=== PATIENT | female | born 1970 | race Caucasian/White ===

== ENCOUNTER → 2016-11-05 | Outpatient (CLI) | payer MEDICAID ==
[2016-11-05 12:34] LABS: Hemoglobin A1C 8.6 % (4.2-6.1)
[2016-11-05 13:02] LABS: ALT 42 U/L (9-52); AST 25 U/L (14-36); Alkaline Phosphatase 54 U/L (38-126); Anion Gap 8 mmol/L; Blood Urea Nitrogen 16 mg/dL (7-17); Calcium 9.7 mg/dL (8.4-10.2); Carbon Dioxide 32 mmol/L (22-30); Chloride 102 mmol/L (98-107); Cholesterol 152 mg/dL (<200); Glucose 77 mg/dL (74-99); HDL Cholesterol 82 mg/dL (40-60); Magnesium 1.5 mg/dL (1.6-2.3); Non-African American GFR(MDRD) >60 (>60 ml/min/1.73 sqM); Potassium 4.8 mmol/L (3.5-5.1); Sodium 142 mmol/L (137-145); Total Bilirubin 0.6 mg/dL (0.2-1.3); Total Protein 6.8 g/dL (6.3-8.2); Triglycerides 117 mg/dL (<150)
== END | disposition home or self-care (01) ==
LOC: LABWHC1 11:30
PROVIDERS: ATTEND Internal Medicine Endocrinology, Diabetes & Metabolism
DX: E11.65 Type 2 diabetes mellitus with hyperglycemia (principal); E55.9 Vitamin D deficiency, unspecified; E03.9 Hypothyroidism, unspecified
CPT/HCPCS: 36415; 80053; 80061; 82043; 82306; 83036; 83735; 84439; 84443

== ENCOUNTER 2017-12-24 16:53 | Observation (INO) | payer BC, MEDICAID ==
[2017-12-24] MEDS ORDERED: ASPIRIN 81 MG PO STA (17:31)
[2017-12-24] MEDS ORDERED: NITROGLYCERIN OINT 1 INCH/GM PACKET TOPICAL STA (17:31)
[2017-12-24 17:47] LABS: Basophils % (A) 0 %; Eosinophils % (A) 1 %; HCT 39.4 % (34.0-46.0); Lymphocytes # (A) 1.3 k/uL (1.0-4.8); Lymphocytes % (A) 16 %; MCH 29.3 pg (25.0-35.0); MCV 88.5 fL (80.0-100.0); Mean Platelet Volume 8.3; Monocytes # (A) 0.2 k/uL (0-1.0); Monocytes % (A) 3 %; Neutrophils # (A) 6.3 k/uL (1.3-7.7); Neutrophils % (A) 80 %; Platelet Count 175 k/uL (150-450); RBC 4.45 m/uL (3.80-5.40); RDW 14.1 % (11.5-15.5); WBC 7.9 k/uL (3.8-10.6)
[2017-12-24 18:01] LABS: ALT 29 U/L (9-52); AST 30 U/L (14-36); Alkaline Phosphatase 48 U/L (38-126); Anion Gap 13 mmol/L; Blood Urea Nitrogen 19 mg/dL (7-17); Calcium 9.6 mg/dL (8.4-10.2); Carbon Dioxide 22 mmol/L (22-30); Chloride 104 mmol/L (98-107); Glucose 188 mg/dL (74-99); Magnesium 1.3 mg/dL (1.6-2.3); Partial Thromboplastin Time 23.8 sec (22.0-30.0); Potassium 5.5 mmol/L (3.5-5.1); Prothrombin Time 10.1 sec (9.0-12.0); Sodium 139 mmol/L (137-145); Total Bilirubin 0.5 mg/dL (0.2-1.3); Total Protein 6.9 g/dL (6.3-8.2)
[2017-12-24 18:32] LABS: Creatine Kinase 46 U/L (30-135)
--- NOTE | 2017-12-24 18:37 | XR ---
EXAMINATION: XR chest 2V DATE AND TIME: 12/24/2017 5:52 PM ORDERING PROVIDER: Ilir Templeton DO CLINICAL INDICATION: Chest Pain with dyspnea. TECHNIQUE: 2 views COMPARISON: 10/20/2016 DESCRIPTION: The lungs are clear. The pleural spaces are negative. The cardiac silhouette is not enlarged. The mediastinal and pleural silhouettes are unremarkable. The skeletal structures are intact without focal findings. The overlying soft tissues are prominent. IMPRESSION: NO ACUTE PROCESS.
[2017-12-24 18:45] LABS: Creatine Kinase MB 0.4 ng/mL (0.0-2.4); Troponin I <0.012 ng/mL (0.000-0.034)
[2017-12-24] MEDS ORDERED: SODIUM POLYSTYRENE SULFONATE 15 GM/60 ML BOTTLE PO STA (19:09)
[2017-12-24] MEDS ORDERED: NITROGLYCERIN SL TABS 0.4 MG TAB SUBLINGUAL PRN (19:17)
--- NOTE | 2017-12-24 19:17 | ED ---
Chest Pain HPI - General Chief Complaint: Chest Pain Stated Complaint: Chest Pain and SOB Time Seen by Provider: 12/24/17 17:18 Source: patient Mode of arrival: wheelchair Limitations: no limitations - History of Present Illness Initial Comments: This 47-year-old white female presents with a complaint of some chest pain. She describes it as a mid to left-sided chest pain that radiates up into her jaw. It occurred approximately one hour prior to arrival. It is associated with some shortness of breath. She denies any history of previous coronary artery disease or myocardial infarction. She does relate that she's had previous cardiac ablations for SVT and atrial flutter and does see Dr. Garcia from cardiology. Her last stress test was remote. She denies any leg pain or swelling or history of DVT or PE. No other complaints or modifying factors. - Related Data Home Medications Medication Instructions Recorded Confirmed Aspirin [Aspirin] 81 mg PO DAILY 06/02/14 12/24/17 Insulin Aspart [NovoLOG] 35 units SQ DAILY 06/02/14 12/24/17 Levothyroxine Sodium [Synthroid] 224 mcg PO DAILY 06/02/14 12/24/17 Methenamine Hippurate [Hiprex] 1 gm PO BID 06/02/14 12/24/17 metFORMIN HCL [Glucophage] 1,000 mg PO BID 06/02/14 12/24/17 Cholecalciferol [Vitamin D3] 5,000 unit PO DAILY 10/31/15 12/24/17 Metoprolol Tartrate [Lopressor] 100 mg PO DAILY 10/31/15 12/24/17 ARIPiprazole [Abilify] 5 mg PO DAILY 12/24/17 12/24/17 Albuterol Inhaler [Ventolin Hfa 2 puff INHALATION RT-Q4H PRN 12/24/17 12/24/17 Inhaler] Atorvastatin [Lipitor] 20 mg PO HS 12/24/17 12/24/17 Insulin Aspart [NovoLOG 40 unit SQ HS 12/24/17 12/24/17 (formulary)] Insulin Glargine [Lantus] 60 unit SQ BID 12/24/17 12/24/17 LORazepam [Ativan] 0.5 mg PO DAILY PRN 12/24/17 12/24/17 Lisinopril [Prinivil] 5 mg PO DAILY 12/24/17 12/24/17 Magnesium Oxide [Rodríguez] 500 mg PO DAILY 12/24/17 12/24/17 Metoprolol Tartrate [Lopressor] 75 mg PO HS 12/24/17 12/24/17 Multivitamins, Thera [Multivitamin 1 tab PO DAILY 12/24/17 12/24/17 (formulary)] Ondansetron HCl [Zofran] 8 mg PO DAILY 12/24/17 12/24/17 Pioglitazone [Actos] 30 mg PO DAILY 12/24/17 12/24/17 Sertraline HCl [Zoloft] 150 mg PO DAILY 12/24/17 12/24/17 oxyCODONE-APAP 7.5-325MG [Percocet 1 tab PO Q6HR PRN 12/24/17 12/24/17 7.5-325 mg] Allergies Allergy/AdvReac Type Severity Reaction Status Date / Time cephalexin [From Keflex] Allergy Unknown Verified 12/24/17 17:20 fosfomycin Allergy Unknown Verified 12/24/17 17:20 nickel Allergy Unknown Verified 12/24/17 17:20 Penicillins Allergy Anaphylaxis Verified 12/24/17 17:20 homatropine AdvReac Chest Pain Verified 12/24/17 17:20 [From Hycodan (with homatropin)] homatropine methylbromide AdvReac Chest Pain Verified 12/24/17 17:20 [From Hycodan (with homatropin)] hydrocodone bitartrate AdvReac Chest Pain Verified 12/24/17 17:20 [From Hycodan (with homatropin)] promethazine HCl AdvReac Abdominal Verified 12/24/17 17:20 [From Phenergan] Pain propafenone HCl AdvReac Chest Pain Verified 12/24/17 17:20 [From Rythmol] pseudoephedrine HCl AdvReac Rapid Verified 12/24/17 17:20 [From Sudafed] Heart Rate Review of Systems ROS Statement: Those systems with pertinent positive or pertinent negative responses have been documented in the HPI. ROS Other: All systems not noted in ROS Statement are negative. Past Medical History Past Medical History: Cancer, Chest Pain / Angina, Diabetes Mellitus, Hypertension, Thyroid Disorder Additional Past Medical History / Comment(s): OVARIAN CA History of Any Multi-Drug Resistant Organisms: MRSA Date of last positivie culture/infection: 2011 MDRO Source:: ABD WOUND Past Surgical History: Bariatric Surgery, Bowel Resection, Cholecystectomy, EPS , Heart Catheterization, Hysterectomy Additional Past Surgical History / Comment(s): COLOSTOMY, Past Anesthesia/Blood Transfusion Reactions: No Reported Reaction Past Psychological History: Anxiety, Panic Disorder Smoking Status: Never smoker Past Alcohol Use History: None Reported Past Drug Use History: None Reported General Exam - General Exam Comments Initial Comments: GENERAL: The patient is well nourished and well hydrated. VITAL SIGNS: Heart rate, blood pressure, respiratory rate reviewed as recorded in nurse's notes. EYES: Pupils are round and reactive. Extraocular movements are intact. No conjunctival / lid redness or swelling. ENT: No external evidence of injury, swelling, or ecchymosis. Airway is patent. Throat is clear. NECK: Nontender. No swelling or evidence of injury. No subcutaneous emphysema. Trachea is midline. No thyroid mass. HEART: Regular rate and rhythm. Good peripheral pulses. LUNGS/CHEST: Breath sounds clear and equal bilaterally. No rales, rhonchi, or wheezes. No ecchymosis, subcutaneous emphysema, or tenderness. ABDOMEN: Abdomen soft without tenderness. No palpable masses or organomegaly. No peritoneal signs. No abdominal wall swelling or ecchymosis. Morbid obesity noted. EXTREMITIES: No extremity tenderness or swelling. Normal muscle tone and function. No thoracolumbar tenderness. NEUROLOGIC: Sensation is grossly intact. Cranial nerve exam reveals face is symmetrical, tongue is midline, speech is clear. SKIN: No abrasions or ecchymosis is noted. No induration or masses noted. PSYCHIATRIC: Alert and oriented. Appropriate behavior and judgment. Limitations: no limitations Course Vital Signs 12/24/17 12/24/17 12/24/17 17:01 17:05 18:22 Temperature 98.1 F Pulse Rate 87 84 80 Respiratory 20 18 18 Rate Blood Pressure 143/79 125/89 120/64 O2 Sat by Pulse 95 99 100 Oximetry Chest Pain MDM - MDM The patient was seen and examined. All diagnostics were reviewed. The patient had a EKG completed which is show a normal sinus rhythm at a rate of 88. There is no acute ST-T wave changes noted. The MO intervals 154, QRS duration is 102 , and the QTC intervals 421. The patient also had a laboratory analysis which does show evidence of hyperkalemia and hypomagnesemia. The cardiac enzymes are negative. The chest x-ray does not show any acute processes. The possibility acute coronary syndrome still is possible and it is felt as though she would benefit from admission to the hospital for further workup and treatment. The case is discussed with Dr. Fernandez and he is agreeable with admission and the patient is agreeable as well. Disposition Clinical Impression: Chest pain, Unstable angina pectoris, Morbid obesity Disposition: ADMITTED IP TO THIS HOSP Condition: Fair Time of Disposition: 19:15 Decision Date: 12/24/17 Decision Time: 19:16
[2017-12-24] MEDS: MAGNESIUM SULFATE-D5W PMX 1 GM in DEXTROSE/WATER 1 100ML.BAG IVPB SCH ×2 (19:19→23:54)
[2017-12-24] MEDS ORDERED: LORazepam 0.5 MG TAB PO PRN (19:20)
[2017-12-24] MEDS ORDERED: ALBUTEROL NEBULIZED 2.5 MG/3 ML INHALATION PRN (19:20)
[2017-12-24] MEDS ORDERED: oxyCODONE-APAP 7.5-325MG 1 EACH TAB PO PRN (19:20)
--- NOTE | 2017-12-24 19:23 | ED ---
Medical Decision Making - Lab Data Result diagrams: 12/24/17 17:14 12/24/17 17:14 Lab Results 12/24/17 12/24/17 12/24/17 Range/Units 17:14 17:14 17:14 WBC 7.9 (3.8-10.6) k/uL RBC 4.45 (3.80-5.40) m/uL Hgb 13.0 (11.4-16.0) gm/dL Hct 39.4 (34.0-46.0) % MCV 88.5 (80.0-100.0) fL MCH 29.3 (25.0-35.0) pg MCHC 33.0 (31.0-37.0) g/dL RDW 14.1 (11.5-15.5) % Plt Count 175 (150-450) k/uL Neutrophils % 80 % Lymphocytes % 16 % Monocytes % 3 % Eosinophils % 1 % Basophils % 0 % Neutrophils # 6.3 (1.3-7.7) k/uL Lymphocytes # 1.3 (1.0-4.8) k/uL Monocytes # 0.2 (0-1.0) k/uL Eosinophils # 0.0 (0-0.7) k/uL Basophils # 0.0 (0-0.2) k/uL PT (9.0-12.0) sec INR (<1.2) APTT (22.0-30.0) sec Sodium 139 (137-145) mmol/L Potassium 5.5 H (3.5-5.1) mmol/L Chloride 104 (98-107) mmol/L Carbon Dioxide 22 (22-30) mmol/L Anion Gap 13 mmol/L BUN 19 H (7-17) mg/dL Creatinine 0.70 (0.52-1.04) mg/dL Est GFR (CKD-EPI)AfAm >90 (>60 ml/min/1.73 sqM) Est GFR (CKD-EPI)NonAf >90 (>60 ml/min/1.73 sqM) Glucose 188 H (74-99) mg/dL Calcium 9.6 (8.4-10.2) mg/dL Magnesium 1.3 L (1.6-2.3) mg/dL Total Bilirubin 0.5 (0.2-1.3) mg/dL AST 30 (14-36) U/L ALT 29 (9-52) U/L Alkaline Phosphatase 48 (38-126) U/L Total Creatine Kinase 46 (30-135) U/L CK-MB (CK-2) 0.4 (0.0-2.4) ng/mL CK-MB (CK-2) Rel Index 0.9 Troponin I <0.012 (0.000-0.034) ng/mL NT-Pro-B Natriuret Pep pg/mL Total Protein 6.9 (6.3-8.2) g/dL Albumin 4.0 (3.5-5.0) g/dL 12/24/17 12/24/17 Range/Units 17:14 17:14 WBC (3.8-10.6) k/uL RBC (3.80-5.40) m/uL Hgb (11.4-16.0) gm/dL Hct (34.0-46.0) % MCV (80.0-100.0) fL MCH (25.0-35.0) pg MCHC (31.0-37.0) g/dL RDW (11.5-15.5) % Plt Count (150-450) k/uL Neutrophils % % Lymphocytes % % Monocytes % % Eosinophils % % Basophils % % Neutrophils # (1.3-7.7) k/uL Lymphocytes # (1.0-4.8) k/uL Monocytes # (0-1.0) k/uL Eosinophils # (0-0.7) k/uL Basophils # (0-0.2) k/uL PT 10.1 (9.0-12.0) sec INR 1.0 (<1.2) APTT 23.8 (22.0-30.0) sec Sodium (137-145) mmol/L Potassium (3.5-5.1) mmol/L Chloride (98-107) mmol/L Carbon Dioxide (22-30) mmol/L Anion Gap mmol/L BUN (7-17) mg/dL Creatinine (0.52-1.04) mg/dL Est GFR (CKD-EPI)AfAm (>60 ml/min/1.73 sqM) Est GFR (CKD-EPI)NonAf (>60 ml/min/1.73 sqM) Glucose (74-99) mg/dL Calcium (8.4-10.2) mg/dL Magnesium (1.6-2.3) mg/dL Total Bilirubin (0.2-1.3) mg/dL AST (14-36) U/L ALT (9-52) U/L Alkaline Phosphatase (38-126) U/L Total Creatine Kinase (30-135) U/L CK-MB (CK-2) (0.0-2.4) ng/mL CK-MB (CK-2) Rel Index Troponin I (0.000-0.034) ng/mL NT-Pro-B Natriuret Pep 443 pg/mL Total Protein (6.3-8.2) g/dL Albumin (3.5-5.0) g/dL Disposition Clinical Impression: Chest pain, Unstable angina pectoris, Morbid obesity, Hypomagnesemia, Hyperkalemia, Hyperglycemia, Diabetes Disposition: ADMITTED IP TO THIS HOSP Condition: Fair Referrals: Rebel Cast MD [Primary Care Provider] - 1-2 days
[2017-12-24 20:51] LABS: Glucose,Whole Blood 245 mg/dL (75-99)
[2017-12-24] MEDS ORDERED: ATORVASTATIN 20 MG TAB PO SCH (21:00)
[2017-12-24] MEDS ORDERED: METOPROLOL TARTRATE 25 MG TAB PO SCH (21:00)
[2017-12-24] MEDS ORDERED: INSULIN ASPART 100 UNIT/ML 1 ML 10 ML VIAL SQ ONE (21:23)
[2017-12-24] MEDS: metFORMIN 500 MG TAB PO SCH (21:34)
[2017-12-24] MEDS: INSULIN DETEMIR 100 UNIT/ML 10 ML VIAL SQ SCH (21:37)
[2017-12-24 22:01] VITALS: BMI 61.5
[2017-12-24] MEDS: HIPREX 1 GM PO SCH (22:56)
[2017-12-24 23:30] LABS: Creatine Kinase 36 U/L (30-135)
[2017-12-24 23:42] LABS: Creatine Kinase MB 0.3 ng/mL (0.0-2.4); Troponin I <0.012 ng/mL (0.000-0.034)
--- NOTE | 2017-12-25 03:18 | HP ---
HISTORY AND PHYSICAL DATE OF SERVICE: 12/24/2017 CHIEF COMPLAINT: Chest pain. HISTORY OF PRESENT ILLNESS: This 47-year-old woman with a past medical history of multiple medical problems including history of chest pain, history of diabetes, hypertension, hypothyroidism, ovarian cancer, history of MRSA, bariatric surgery, bowel resection, being followed by in the outpatient setting, was complaining of chest pain. The pain was felt in the mid left side of the chest radiated to the jaw. The pain started about 1 hour prior to arrival to the ER. Mild to moderate intensity. The patient also had some shortness of breath. There is no other symptoms of relieving or aggravating factors and the patient is admitted for further evaluation and treatment. The patient had previously had ablations for SVT and atrial flutter. The patient also apparently had a cardiac cath in 2003 and stress test a few years ago. The patient admitted for further evaluation and treatment. Initial cardiac testing is negative at this time. There is no history of fever, rigors. No history of headache, loss of consciousness or seizures. PAST MEDICAL HISTORY: Diabetes, hypertension, ovarian cancer, MRSA, bariatric surgery, bowel obstruction. MEDICATIONS: Prior to admission include home medications are: 1. NovoLog 35 units subcu a.c. breakfast. 2. NovoLog 40 units subcu b.i.d. 3. Oxycodone 7.5 q.6 hours. 4. Lopressor 75 mg q.h.s. 5. Lipitor 20 mg at bedtime. 6. Ventolin HFA 1 to 2 puffs q.4h p.r.n. 7. Abilify 5 mg p.o. daily. 8. Lantus 60 units subcu b.i.d. 9. Zoloft 150 mg p.o. b.i.d. 10.Multivitamins 1 p.o. daily. 11.Vitamin D3 5000 daily. 12.Aspirin 81 mg. 13.Hyprexa 1 g p.o. b.i.d. 14.Prilosec 20 mg p.o. daily. 15.Ativan 0.5 mg daily p.r.n. 16.Lopressor 100 mg p.o. daily. 17.Glucophage 1000 mg p.o. b.i.d. 18.Actos 30 mg. 19.Synthroid 224 mcg p.o. 20.Zofran 8 mg p.o. daily. ALLERGIES: ARE CEPHALEXIN, NICKEL, PENICILLIN, HOMATROPINE, HYDROCODONE, PROMETHAZINE, RYTHMOL, SUDAFED. FAMILY HISTORY: History of CVA, TIA, and premature coronary artery disease in the family. SOCIAL HISTORY: No history of smoking. No history of alcohol intake. REVIEW OF SYSTEMS: ENT: No diminished hearing or vision. CARDIOVASCULAR: As mentioned earlier. Respiratory: As mentioned earlier. GI no nausea or vomiting. no dysuria. Nervous system: No numbness or weakness. ALLERGY/IMMUNOLOGY: No asthma or hayfever. Musculoskeletal: As mentioned earlier. Hematology/Oncology:No history of anemia. ENDOCRINE: Hypothyroidism. CONSTITUTIONAL: As mentioned earlier. DERMATOLOGY: Negative. Rheumatology: Negative. Psychiatric: As mentioned earlier. PHYSICAL EXAM: Patient is alert, oriented x3. The pulse is 62, blood pressure 160/44, respirations 16, temperature 98 degrees, pulse ox 98% on room air. HEENT is conjunctivae normal. Neck: No jugular venous distention. Cardiovascular: S1, S2. Respirations: Breath sounds diminished in the bases. No rhonchi and no crackles. ABDOMEN: Soft, nontender. No mass palpable. Legs no edema and no swelling. NERVOUS SYSTEM: Higher functions as mentioned earlier, moves all 4 limbs, no focal motor deficits. Lymphatics: No lymph nodes palpable in the neck, axillae or groin. Skin no ulcers, rashes or bleeding. LAB STUDIES: At this time shows WBC 7, hemoglobin is normal. Potassium 5.5. Otherwise, magnesium is 1.3. ASSESSMENT: 1. Chest pain possible unstable angina. 2. Hyperkalemia. 3. Hypomagnesemia, mild. 4. History of diabetes type 2. 5. Hypertension. 6. History of cardiac ablation. 7. Ovarian cancer history. 8. History of Methicillin-resistant Staphylococcus aureus. 9. History of bariatric surgery. 10.Bowel resection. 11.History of anxiety and panic disorder. 12.Obesity with body mass 61.5. RECOMMENDATIONS AND DISCUSSION: In this 47-year-old woman who presented with multiple complex medical issues, we will monitor the patient closely, continue the current medications, acute coronary syndrome protocol. Rule out myocardial infarction. Closely follow with Cardiology. Otherwise resume the home medications. Prognosis guarded. Discussed with the patient, who understands and agrees. Copy of dictation being forwarded to Dr. Cast who is the primary physician. MMODL / IJN: [id number] / [id number]
[2017-12-25 06:06] LABS: Cholesterol 127 mg/dL (<200); HDL Cholesterol 74 mg/dL (40-60); LDL Cholesterol,Calculated 37 mg/dL (0-99); Triglycerides 80 mg/dL (<150)
[2017-12-25 06:13] LABS: Creatine Kinase 34 U/L (30-135)
[2017-12-25] MEDS: NITROGLYCERIN OINT 1 INCH/GM PACKET TOPICAL SCH ×2 (06:23→06:24)
[2017-12-25 06:26] LABS: Creatine Kinase MB 0.3 ng/mL (0.0-2.4); Troponin I <0.012 ng/mL (0.000-0.034)
[2017-12-25] MEDS ORDERED: LEVOTHYROXINE 112 MCG TAB PO SCH (06:30)
[2017-12-25] MEDS ORDERED: INSULIN ASPART 100 UNIT/ML 1 ML 10 ML VIAL SQ SCH ×2 (07:30→12:30)
[2017-12-25 07:52] VITALS: RESP 18
[2017-12-25 07:58] LABS: Glucose,Whole Blood 157 mg/dL (75-99)
[2017-12-25] MEDS ORDERED: PIOGLITAZONE 30 MG TAB PO SCH (09:00)
[2017-12-25] MEDS ORDERED: LISINOPRIL 5 MG TAB PO SCH (09:00)
[2017-12-25] MEDS ORDERED: MULTIVITAMINS, THERA 1 EACH TAB PO SCH (09:00)
[2017-12-25] MEDS ORDERED: METOPROLOL TARTRATE 50 MG TAB PO SCH (09:00)
[2017-12-25] MEDS ORDERED: ASPIRIN 81 MG PO SCH (09:00)
[2017-12-25] MEDS ORDERED: SERTRALINE 50 MG TAB PO SCH (09:00)
[2017-12-25] MEDS ORDERED: MAGNESIUM OXIDE 400 MG TAB PO SCH (09:00)
[2017-12-25] MEDS ORDERED: ENOXAPARIN 40 MG/0.4 ML SYRINGE SQ SCH (09:00)
[2017-12-25] MEDS ORDERED: ARIPiprazole 5 MG TAB PO SCH (09:00)
[2017-12-25] MEDS ORDERED: CHOLECALCIFEROL 1,000 UNIT TAB PO SCH (09:00)
[2017-12-25] MEDS ORDERED: ONDANSETRON 4 MG TAB PO SCH (09:00)
[2017-12-25] MEDS ORDERED: ASPIRIN 325 MG TAB PO SCH (09:00)
[2017-12-25] MEDS ORDERED: REGADENOSON 0.4 MG/5 ML SYRINGE IV ONE (09:17)
[2017-12-25] MEDS ORDERED: AMINOPHYLLINE 500 MG/20 ML VIAL IV PRN (09:17)
[2017-12-25] MEDS ORDERED: DOBUTamine DRIP for NUC MED 250 MG in DEXTROSE/WATER 1 250ML.BAG IV ONE (11:00)
[2017-12-25] MEDS ORDERED: ATROPINE SULFATE 0.1 MG/ML 10ML SYRINGE ONE (11:38)
--- NOTE | 2017-12-25 11:49 | P.CRDCN ---
History of Present Illness Consult date: 12/25/17 Consult reason: chest pain History of present illness: Mrs. Dover is a pleasant 47-year-old female past medical history significant for hypertension, diabetes mellitus, hypothyroidism, depression, dyslipidemia, SVT s/p ablation, sarcoidosis and morbid obesity. She has seen Dr. Marquez in the outpatient setting. We have been asked to see her in consultation for complaints of chest pain. She states she has had shortness of breath intermittently over the last few weeks. While at work yesterday the shortness of breath became acutely worse. She decided to leave work at that time. While in the car she started to experience discomfort in her chest in the midsternal region described as a tight squeezing sensation that radiated up into the left neck. She also began to develop palpitations and became acutely diaphoretic. She denies associated nausea, vomiting or dizziness. This sensation persisted the whole time she was in the car on her way here to the hospital which was approximately 60 minutes. She had an ablation in the past for SVT and states she has not had any further episodes since her ablation and these palpitations did not feel like SVT to her at all. She has had no further symptoms since admission to the hospital. EKG on arrival reveals sinus mechanism with no acute ST or T-wave abnormalities. Chest x-ray is negative for an acute cardiopulmonary process. Laboratory data reviewed, cardiac enzymes negative 3, potassium on admission 5.5 she was given Kayexalate, magnesium 1.3 she takes daily magnesium supplementation, creatinine 0.7, LDL 37, HDL 74. D-dimer negative. Current cardiac medications include Lopressor 75 mg at bedtime and 100 mg in the morning, atorvastatin 20 mg daily, aspirin 81 mg daily, lisinopril 5 mg daily. Review of Systems At the time of exam: CONSTITUTIONAL: Denies fever. Denies chills. EYES: Denies blurred vision. Denies vision changes. Denies eye pain. EARS, NOSE, MOUTH & THROAT: Denies headache. Denies sore throat. Denies ear pain. CARDIOVASCULAR: Denies chest pain. Denies shortness of breath. Denies orthopnea. Denies PND. Denies palpitations. RESPIRATORY: Denies cough. GASTROINTESTINAL: Denies abdominal pain. Denies diarrhea. Denies constipation. Denies nausea. Denies vomiting. MUSCULOSKELETAL: Denies myalgias. INTEGUMENTARY: Denies pruitis. Denies rash. NEUROLOGIC: Denies numbness. Denies tingling. Denies weakness. PSYCHIATRIC: Denies anxiety. Denies depression. ENDOCRINE: Denies fatigue. Denies weight change. Denies polydipsia. Denies polyurina. GENITOURINARY: Denies burning, hematuria or urgency with micturation. HEMATOLOGIC: Denies history of anemia. Denies bleeding. Past Medical History Past Medical History: Cancer, Chest Pain / Angina, Diabetes Mellitus, Hypertension, Thyroid Disorder Additional Past Medical History / Comment(s): OVARIAN CA History of Any Multi-Drug Resistant Organisms: MRSA Date of last positivie culture/infection: 2011 MDRO Source:: ABD WOUND Past Surgical History: Bariatric Surgery, Bowel Resection, Cholecystectomy, EPS , Heart Catheterization, Hysterectomy Additional Past Surgical History / Comment(s): COLOSTOMY, Rt foot surgery - hammer toe Past Anesthesia/Blood Transfusion Reactions: No Reported Reaction Past Psychological History: Anxiety, Panic Disorder Smoking Status: Never smoker Past Alcohol Use History: None Reported Past Drug Use History: None Reported - Past Family History Father Family Medical History: CVA/TIA Additional Family Medical History / Comment(s): three vessel CABG Mother Family Medical History: Myocardial Infarction (VT) Sister(s) Family Medical History: Hypertension Medications and Allergies Home Medications Medication Instructions Recorded Confirmed Type Aspirin [Aspirin] 81 mg PO DAILY 06/02/14 12/24/17 History Insulin Aspart [NovoLOG] 35 units SQ AC-BRKFST 06/02/14 12/24/17 History Levothyroxine Sodium [Synthroid] 224 mcg PO DAILY 06/02/14 12/24/17 History Methenamine Hippurate [Hiprex] 1 gm PO BID 06/02/14 12/24/17 History metFORMIN HCL [Glucophage] 1,000 mg PO BID 06/02/14 12/24/17 History Cholecalciferol [Vitamin D3] 5,000 unit PO DAILY 10/31/15 12/24/17 History Metoprolol Tartrate [Lopressor] 100 mg PO DAILY 10/31/15 12/24/17 History ARIPiprazole [Abilify] 5 mg PO DAILY 12/24/17 12/24/17 History Albuterol Inhaler [Ventolin Hfa 2 puff INHALATION RT-Q4H PRN 12/24/17 12/24/17 History Inhaler] Atorvastatin [Lipitor] 20 mg PO HS 12/24/17 12/24/17 History Insulin Aspart [NovoLOG 40 unit SQ BID 12/24/17 12/24/17 History (formulary)] Insulin Glargine [Lantus] 60 unit SQ BID 12/24/17 12/24/17 History LORazepam [Ativan] 0.5 mg PO DAILY PRN 12/24/17 12/24/17 History Lisinopril [Prinivil] 5 mg PO DAILY 12/24/17 12/24/17 History Magnesium Oxide [Rodríguez] 500 mg PO DAILY 12/24/17 12/24/17 History Metoprolol Tartrate [Lopressor] 75 mg PO HS 12/24/17 12/24/17 History Multivitamins, Thera [Multivitamin 1 tab PO DAILY 12/24/17 12/24/17 History (formulary)] Ondansetron HCl [Zofran] 8 mg PO DAILY 12/24/17 12/24/17 History Pioglitazone [Actos] 30 mg PO DAILY 12/24/17 12/24/17 History Sertraline HCl [Zoloft] 150 mg PO DAILY 12/24/17 12/24/17 History oxyCODONE-APAP 7.5-325MG [Percocet 1 tab PO Q6HR PRN 12/24/17 12/24/17 History 7.5-325 mg] Allergies Allergy/AdvReac Type Severity Reaction Status Date / Time cephalexin [From Keflex] Allergy Unknown Verified 12/24/17 17:20 fosfomycin Allergy Unknown Verified 12/24/17 17:20 nickel Allergy Unknown Verified 12/24/17 17:20 Penicillins Allergy Anaphylaxis Verified 12/24/17 17:20 homatropine AdvReac Chest Pain Verified 12/24/17 17:20 [From Hycodan (with homatropin)] homatropine methylbromide AdvReac Chest Pain Verified 12/24/17 17:20 [From Hycodan (with homatropin)] hydrocodone bitartrate AdvReac Chest Pain Verified 12/24/17 17:20 [From Hycodan (with homatropin)] promethazine HCl AdvReac Abdominal Verified 12/24/17 17:20 [From Phenergan] Pain propafenone HCl AdvReac Chest Pain Verified 12/24/17 17:20 [From Rythmol] pseudoephedrine HCl AdvReac Rapid Verified 12/24/17 17:20 [From Sudafed] Heart Rate Physical Exam Vitals: Vital Signs Temp Pulse Pulse Resp BP BP Pulse Ox 12/25/17 07:52 97.8 F 74 18 140/66 94 L 12/25/17 06:39 17 12/25/17 04:30 97.9 F 79 17 130/60 92 L 12/25/17 00:00 17 12/24/17 23:51 98.0 F 62 16 116/44 93 L 12/24/17 20:45 17 12/24/17 20:33 96.9 F L 17 164/89 93 L 12/24/17 19:23 84 18 138/63 93 L 12/24/17 18:22 80 18 120/64 100 12/24/17 17:05 84 18 125/89 99 12/24/17 17:01 98.1 F 87 20 143/79 95 Intake and Output 12/24/17 12/25/17 12/25/17 22:59 06:59 14:59 Other: # Voids 1 Weight 211.6 kg Blood pressure 140/66 heart rate 74 afebrile maintaining oxygen saturations on room air GENERAL: This is a 47-year-old female in no apparent distress at the time of my examination. Morbidly obese. HEENT: Head is atraumatic, normocephalic. Pupils are equal, round. Sclerae anicteric. Conjunctivae are clear. Mucous membranes of the mouth are moist. Neck is supple. There is no jugular venous distention. No carotid bruit is heard. LUNGS: Clear to auscultation no wheezes, rales or rhonchi. No chest wall tenderness is noted on palpation or with deep breathing. HEART: Regular rate and rhythm without murmurs, rubs or gallops. S1 and S2 heard. ABDOMEN: Soft, nontender. Bowel sounds are heard. No organomegaly noted. EXTREMITIES: No evidence of peripheral edema and no calf tenderness noted. VASCULAR: Radial and dorsalis pedis pulses palpated, no evidence of clubbing. NEUROLOGIC: Patient is awake, alert and oriented x3. Results 12/24/17 17:14 12/24/17 17:14 Cardiac Enzymes 12/24/17 12/24/17 12/24/17 Range/Units 17:14 17:14 22:27 AST 30 (14-36) U/L CK-MB (CK-2) 0.4 0.3 (0.0-2.4) ng/mL Troponin I <0.012 <0.012 (0.000-0.034) ng/mL 12/25/17 Range/Units 05:20 AST (14-36) U/L CK-MB (CK-2) 0.3 (0.0-2.4) ng/mL Troponin I <0.012 (0.000-0.034) ng/mL Coagulation 12/24/17 Range/Units 17:14 PT 10.1 (9.0-12.0) sec APTT 23.8 (22.0-30.0) sec Lipids 12/25/17 Range/Units 05:20 Triglycerides 80 (<150) mg/dL Cholesterol 127 (<200) mg/dL HDL Cholesterol 74 H (40-60) mg/dL CBC 12/24/17 Range/Units 17:14 WBC 7.9 (3.8-10.6) k/uL RBC 4.45 (3.80-5.40) m/uL Hgb 13.0 (11.4-16.0) gm/dL Hct 39.4 (34.0-46.0) % Plt Count 175 (150-450) k/uL Comprehensive Metabolic Panel 12/24/17 Range/Units 17:14 Sodium 139 (137-145) mmol/L Potassium 5.5 H (3.5-5.1) mmol/L Chloride 104 (98-107) mmol/L Carbon Dioxide 22 (22-30) mmol/L BUN 19 H (7-17) mg/dL Creatinine 0.70 (0.52-1.04) mg/dL Glucose 188 H (74-99) mg/dL Calcium 9.6 (8.4-10.2) mg/dL AST 30 (14-36) U/L ALT 29 (9-52) U/L Alkaline Phosphatase 48 (38-126) U/L Total Protein 6.9 (6.3-8.2) g/dL Albumin 4.0 (3.5-5.0) g/dL Current Medications Generic Name Dose Route Start Last Admin Trade Name Freq PRN Reason Stop Dose Admin Albuterol Sulfate 2.5 mg 12/24/17 19:20 Ventolin Nebulized INHALATION RT-Q4H PRN Shortness Of Breath Aripiprazole 5 mg 12/25/17 09:00 Abilify PO DAILY [facility] Aspirin 325 mg 12/25/17 09:00 Aspirin PO DAILY [facility] Atorvastatin Calcium 20 mg 12/24/17 21:00 12/24/17 21:34 Lipitor PO 20 mg HS [facility] Administration Cholecalciferol 5,000 unit 12/25/17 09:00 Vitamin D3 PO DAILY [facility] Enoxaparin Sodium 40 mg 12/25/17 09:00 Lovenox SQ DAILY [facility] Insulin Aspart 35 unit 12/25/17 07:30 Novolog SQ AC-BRKFST [facility] Insulin Aspart 40 unit 12/25/17 12:30 Novolog SQ 1230,1730 [facility] Insulin Detemir 60 unit 12/24/17 21:00 12/24/17 21:37 Levemir SQ 60 unit BID [facility] Administration Levothyroxine Sodium 224 mcg 12/25/17 06:30 Synthroid PO DAILY@0630 [facility] Lisinopril 5 mg 12/25/17 09:00 Zestril PO DAILY [facility] Lorazepam 0.5 mg 12/24/17 19:20 Ativan PO DAILY PRN Anxiety Magnesium Oxide 400 mg 12/25/17 09:00 Mag-Ox PO DAILY [facility] Metformin HCl 1,000 mg 12/24/17 21:00 12/24/17 21:34 Glucophage PO 1,000 mg BID-W/MEALS [facility] Administration Metoprolol Tartrate 75 mg 12/24/17 21:00 12/24/17 21:34 Lopressor PO 75 mg HS [facility] Administration Metoprolol Tartrate 100 mg 12/25/17 09:00 Lopressor PO DAILY [facility] Multivitamins 1 each 12/25/17 09:00 Theragran PO DAILY [facility] Nitroglycerin 1 inch 12/25/17 00:00 12/25/17 06:24 Nitro-Bid Oint TOPICAL Not Given Q6HR [facility] Nitroglycerin 0.4 mg 12/24/17 19:17 Nitrostat SUBLINGUAL Q5M PRN Chest Pain Hiprex 1 Gm 1 gm 12/24/17 21:00 12/24/17 22:56 PO Not Given BID [facility] Ondansetron HCl 8 mg 12/25/17 09:00 Zofran PO DAILY [facility] Oxycodone/Acetaminophen 1 each 12/24/17 19:20 Percocet 7.5-325 PO Q6HR PRN Pain Pioglitazone HCl 30 mg 12/25/17 09:00 Actos PO DAILY [facility] Sertraline HCl 150 mg 12/25/17 09:00 Zoloft PO DAILY [facility] Intake and Output 12/24/17 12/25/17 12/25/17 22:59 06:59 14:59 Other: # Voids 1 Weight 211.6 kg 12/24/17 17:14 12/24/17 17:14 Assessment and Plan Assessment: ASSESSMENT 1. Chest pain, atypical. EKG shows no signs of an acute coronary event or ischemia, headache enzymes are negative 3. 2. Dyslipidemia 3. Hypertension 4. Hypomagnesemia 5. Hyperkalemia, corrected 6. History of SVT status post ablation 7. Diabetes mellitus 8. Morbid obesity, BMI 61.5. PLAN Change 2-D echocardiogram and Doppler study to assess cardiac structure and function. Perform dobutamine stress echocardiogram to assess for stress induced cardiac ischemia. Check d-dimer. Repeat potassium and magnesium levels. Thank you kindly for this consultation. Nurse Practitioner note has been reviewed, I agree with a documented findings and plan of care. Patient was seen and examined.
[2017-12-25 12:06] LABS: Glucose,Whole Blood 165 mg/dL (75-99)
[2017-12-25 12:18] LABS: Magnesium 1.7 mg/dL (1.6-2.3); Potassium 4.5 mmol/L (3.5-5.1)
[2017-12-25] MEDS: metFORMIN 500 MG TAB PO SCH (12:25)
[2017-12-25] MEDS: INSULIN DETEMIR 100 UNIT/ML 10 ML VIAL SQ SCH (12:29)
[2017-12-25] MEDS: HIPREX 1 GM PO SCH (12:38)
[2017-12-25 16:15] VITALS: BP 110/63; PULSE 79; TEMP 97.6
--- NOTE | 2017-12-25 17:28 | DS ---
DISCHARGE SUMMARY DATE OF SERVICE: 12/25/2017 FINAL DIAGNOSES: 1. Chest pain, myocardial infarction ruled out. 2. Negative stress echo. 3. Hyperkalemia. 4. Hypomagnesemia, mild. 5. History of diabetes. 6. Hypertension. 7. History of cardiac ablation. 8. History of ovarian cancer. 9. History of Methicillin-resistant Staphylococcus aureus. 10.History of bariatric surgery. 11.History of bowel resection. 12.History of anxiety/panic disorder. 13.Obesity with body mass 61.5. DISCHARGE DISPOSITION: Patient is being discharged in stable condition with guarded prognosis. HISTORY OF PRESENT ILLNESS: This 47-year-old woman with a past history of multiple medical problems, was admitted with chest pain, myocardial infarction ruled out. Cardiology performed a stress echo. The patient will be discharged with a stress echo was normal. On exam, vitals are stable. Cardiovascular: S1, S2. Central nervous system: No focal deficits. DISCHARGE ADVICE AND MEDICATIONS: 1. Diet is cardiac. 2. Activity limited until follow up. 3. Follow up with Cardiology and primary physician as advised. MEDICATIONS ARE: 1. NovoLog 30 units subcu a.c. breakfast and 40 units subcu b.i.d. 2. Oxycodone 7.5 mg q.6h p.r.n. 3. Lopressor 70 mg q.h.s. 4. Lipitor 20 mg q.h.s. 5. Ventolin HFA 2 puffs q.4h p.r.n. 6. Abilify 5 mg p.o. daily. 7. Lantus 60 units subcu b.i.d. 8. Zoloft 150 mg p.o. daily. 9. Multivitamins. 10.Vitamin D3 5000 daily. 11.Aspirin 81 mg p.o. 12.Hyprexa 1 g p.o. b.i.d. 13.Prinivil 5 mg p.o. daily. 14.Ativan 0.5 mg daily p.r.n. 15.Lopressor 100 mg p.o. daily. 16.Glucophage 1000 mg p.o. b.i.d. 17.Actos 30 mg p.o. daily. 18.Synthroid 224 mg mcg p.o. daily. 19.Zofran 8 mg p.o. daily. 20.Magnesium oxide.500 mg p.o. daily. MMODL / BERTHAN: [id number] / MTDD
--- NOTE | 2017-12-25 17:34 | ECHOF ---
Referral Reason:cp MEASUREMENTS -------- HEIGHT: 182.9 cm WEIGHT: 211.4 kg BP: 130/66 IVSd: 1.1 cm (0.6 - 1.1) LVIDd: 6.2 cm (3.9 - 5.3) LVPWd: 1.1 cm (0.6 - 1.1) IVSs: 1.3 cm LVIDs: 3.8 cm LVPWs: 1.3 cm Ao Diam: 2.9 cm (2.0 - 3.7) AV Cusp: 2.4 cm (1.5 - 2.6) LA Diam: 3.9 cm (2.7 - 3.8) MV EXCURSION: 15.618 mm (> 18.000) MV EF SLOPE: 95 mm/s (70 - 150) EPSS: 0.9 cm MV E Cuco: 0.94 m/s MV DecT: 204 ms MV A Cuco: 0.55 m/s MV E/A Ratio: 1.73 RAP: 5.00 mmHg RVSP: 12.60 mmHg FINDINGS -------- Sinus rhythm. Morbid Obesity This was a techncally difficult study with suboptimal views, , Lumason utilized for enhancement of im ages. The left ventricular size is normal. There is mild concentric left ventricular hypertrophy. Overa ll left ventricular systolic function is normal with, an EF between 55 - 60 %. The right ventricle is normal in size. The left atrial size is normal. The right atrial size is normal. 5.0mg OF Lumason UTLIZED: 2 OR MORE WALL SEGMENTS NOT VISUALIZED. The aortic valve was not well visualized. Mild mitral regurgitation is present. Mild tricuspid regurgitation present. There is no evidence of pulmonary hypertension. The right v entricular systolic pressure, as measured by Doppler, is 12.60mmHg. There is no pulmonic regurgitation present. The aortic root size is normal. There is no pericardial effusion. CONCLUSIONS -------- 1. Morbid Obesity 2. This was a techncally difficult study with suboptimal views, , Lumason utilized for enhancement of images. 3. The left ventricular size is normal. 4. There is mild concentric left ventricular hypertrophy. 5. Overall left ventricular systolic function is normal with, an EF between 55 - 60 %. 6. 5.0mg OF Lumason UTLIZED: 2 OR MORE WALL SEGMENTS NOT VISUALIZED. 7. The aortic valve was not well visualized. 8. Mild mitral regurgitation is present. 9. Mild tricuspid regurgitation present. 10. There is no evidence of pulmonary hypertension. 11. The right ventricular systolic pressure, as measured by Doppler, is 12.60mmHg. 12. There is no pulmonic regurgitation present. 13. The aortic root size is normal. 14. There is no pericardial effusion. MAIL ROOM CLERK: Cary Walton RDCS
--- NOTE | 2017-12-31 10:57 | ECHOS ---
- Stress Test Note Stress Test Results/Findings: Exam Performed: dobutamine stress echo with con Exam Date: 12/25/17 Reason for Exam: CP Height: 6 ft 1 in Weight: 211.374 kg Protocol: dse Stage: Duration of Exercise: 1700 Resting Heart Rate: 83 Resting Blood Pressure: 120/69 Maximum Achieved Heart Rate: 148 Maximum Achieved Blood Pressure: 213/71 85% PMHR: 147 100% PMHR: 173 METS: Technologist Comment: Stress Test Results/Findings: This is a 47-year-old female with history of hypertension, family history of ischemic heart disease admitted to the hospital with chest pain and shortness of breath. Cardiac enzyme studies and EKGs were negative. Baseline EKG showed sinus rhythm with small when necessary 20. QRS duration. Blood pressure at rest is 120/69 with pulse rate of 83. A standard dose of dobutamine was initiated at 10 mics and was titrated to 40 mics, achieving a maximal heart rate of 148 with a blood pressure of 194/59. EKGs taken during and after the exercise showed mild ST depression in inferolateral leads. There are occasional to frequent PVCs which are unifocal. Patient did not experience any chest pain. Echo data: This study is done with contrast. Baseline echo images show normal wall motion and thickening. Exercise echo images at low dose and high dose of dobutamine showed progressive augmentation of wall motion and thickening. Patient did not express any chest pain. Final impression: #1. Borderline ST-T abnormalities which are not quite diagnostic for ischemia. #2. Negative contrast dobutamine stress echo. [email or web address]
== END 2017-12-25 17:38 | disposition home or self-care (01) ==
LOC: EC 16:53 → 3OBS 19:18
PROVIDERS: ADMIT Hospitalist; ATTEND Hospitalist
DX: R07.89 Other chest pain (principal); E83.42 Hypomagnesemia; E87.5 Hyperkalemia; E11.65 Type 2 diabetes mellitus with hyperglycemia; I10 Essential (primary) hypertension; F41.0 Panic disorder [episodic paroxysmal anxiety]; E03.9 Hypothyroidism, unspecified; F41.9 Anxiety disorder, unspecified; E66.01 Morbid (severe) obesity due to excess calories; Z68.44 Body mass index [BMI] 60.0-69.9, adult; Z79.82 Long term (current) use of aspirin; Z79.4 Long term (current) use of insulin; Z79.899 Other long term (current) drug therapy; Z88.1 Allergy status to other antibiotic agents; Z88.5 Allergy status to narcotic agent; Z88.8 Allergy status to other drugs, medicaments and biological substances; Z88.0 Allergy status to penicillin; Z91.048 Other nonmedicinal substance allergy status; Z90.49 Acquired absence of other specified parts of digestive tract; Z86.79 Personal history of other diseases of the circulatory system; Z98.890 Other specified postprocedural states; Z98.84 Bariatric surgery status; Z85.43 Personal history of malignant neoplasm of ovary; Z86.14 Personal history of Methicillin resistant Staphylococcus aureus infection; Z82.3 Family history of stroke; Z82.49 Family history of ischemic heart disease and other diseases of the circulatory system; Z93.3 Colostomy status
CPT/HCPCS: 99285 ×2; 96365 ×2; 96366; 96372; 36415; 93005; 93350; 93017; 93306; 85379; 83880; 80061; 80053; 82550 ×2; 82553 ×2; 83735 ×2; 84132; 84484 ×2; 85025; 85610; 85730; 71046; G0378 ×2; J1650; J0461; J3475; J2785; Q9950; J1250

== ENCOUNTER 2018-01-13 10:13 | Observation (INO) | payer BC ==
[2018-01-13] MEDS ORDERED: SODIUM CHLORIDE 0.9% 500 ML IV STA (11:30)
[2018-01-13] MEDS ORDERED: ONDANSETRON 4 MG/2 ML VIAL IVP STA (11:30)
[2018-01-13] MEDS ORDERED: PANTOPRAZOLE 40 MG/10 ML VIAL IVP STA (11:30)
[2018-01-13] MEDS ORDERED: SODIUM CHLORIDE 0.9% 1,000 ML IV STA (11:30)
--- NOTE | 2018-01-13 11:42 | ED ---
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 The patient reports that she began having right upper quadrant discomfort that radiates to the right shoulder for approximately one week. 3 months prior to this she was taking Motrin 800 mg 3 times a day because of arthritis. She has since stopped that. She's had nausea and vomiting but no diarrhea. Past history includes having had a lap band done in 2007. 4 years ago she had FLUID removed from the band. She also reports for the past 6 weeks been having sensation of food getting stuck in the distal esophagus. But she's not been obstructed. - Related Data Home Medications Medication Instructions Recorded Confirmed Aspirin 81 mg PO DAILY 06/02/14 01/13/18 Insulin Aspart [NovoLOG 35 units SQ AC-BRKFST 06/02/14 01/13/18 (formulary)] Levothyroxine Sodium [Synthroid] 224 mcg PO DAILY 06/02/14 01/13/18 Methenamine Hippurate [Hiprex] 1 gm PO BID 06/02/14 01/13/18 metFORMIN HCL [Glucophage] 1,000 mg PO BID 06/02/14 01/13/18 Cholecalciferol [Vitamin D3] 5,000 unit PO DAILY 10/31/15 01/13/18 Metoprolol Tartrate [Lopressor] 100 mg PO DAILY 10/31/15 01/13/18 ARIPiprazole [Abilify] 5 mg PO DAILY 12/24/17 01/13/18 Albuterol Inhaler [Ventolin Hfa 2 puff INHALATION RT-Q4H PRN 12/24/17 01/13/18 Inhaler] Atorvastatin [Lipitor] 20 mg PO HS 12/24/17 01/13/18 Insulin Aspart [NovoLOG 40 unit SQ BID 12/24/17 01/13/18 (formulary)] Insulin Glargine [Lantus] 60 unit SQ BID 12/24/17 01/13/18 LORazepam [Ativan] 0.5 mg PO DAILY PRN 12/24/17 01/13/18 Lisinopril [Prinivil] 5 mg PO DAILY 12/24/17 01/13/18 Magnesium Oxide [Rodríguez] 500 mg PO DAILY 12/24/17 01/13/18 Metoprolol Tartrate [Lopressor] 75 mg PO HS 12/24/17 01/13/18 Multivitamins, Thera [Multivitamin 1 tab PO DAILY 12/24/17 01/13/18 (formulary)] Ondansetron HCl [Zofran] 8 mg PO DAILY 12/24/17 01/13/18 Pioglitazone [Actos] 30 mg PO DAILY 12/24/17 01/13/18 Sertraline HCl [Zoloft] 150 mg PO DAILY 12/24/17 01/13/18 oxyCODONE-APAP 7.5-325MG [Percocet 1 tab PO Q6HR PRN 12/24/17 01/13/18 7.5-325 mg] Allergies Allergy/AdvReac Type Severity Reaction Status Date / Time cephalexin [From Keflex] Allergy Unknown Verified 01/13/18 11:03 fosfomycin Allergy Unknown Verified 01/13/18 11:03 nickel Allergy Unknown Verified 01/13/18 11:03 Penicillins Allergy Anaphylaxis Verified 01/13/18 11:03 homatropine AdvReac Chest Pain Verified 01/13/18 11:03 [From Hycodan (with homatropin)] homatropine methylbromide AdvReac Chest Pain Verified 01/13/18 11:03 [From Hycodan (with homatropin)] hydrocodone bitartrate AdvReac Chest Pain Verified 01/13/18 11:03 [From Hycodan (with homatropin)] promethazine HCl AdvReac Abdominal Verified 01/13/18 11:03 [From Phenergan] Pain propafenone HCl AdvReac Chest Pain Verified 01/13/18 11:03 [From Rythmol] pseudoephedrine HCl AdvReac Rapid Verified 01/13/18 11:03 [From Sudafed] Heart Rate Review of Systems ROS Statement: Those systems with pertinent positive or pertinent negative responses have been documented in the HPI. Review of systems no headache or visual acuity changes no chest pain or shortness of breath. She has discomfort to the right upper quadrant that seems to go to the right shoulder area. Patient complains of having been nausea and vomiting recently. She does take Zofran without any adverse side effects. Denies any diarrhea. Decreased appetite slightly. Patient is 6 foot 1 and weighs 204 kg. Past medical processing significant for angina, insulin- dependent diabetes mellitus, hypertension, hypothyroidism, the patient had ovarian cancer 2010 and a total hysterectomy. At that time was found the patient had metastatic disease which was further treated. Bariatric surgery was performed at 2007. The band was deflated approximate 4 years ago. Patient' s also had a colostomy because didn't evidence of metastasis to the colon. Patient's artery had a cholecystectomy in 1990. No stents with her cardiac catheterization but she did have cardiac ablation for SVT. States she takes Zofran without any side effects such as rapid heartbeat. The patient had a total hysterectomy as noted above. Family history grandmother had lymphoma. Patient has ALLERGIES to Keflex and penicillin. Also to other medications listed on the hard copy. Patient is a nonsmoker nondrinker. ROS Other: All systems not noted in ROS Statement are negative. Past Medical History Past Medical History: Cancer, Chest Pain / Angina, Diabetes Mellitus, Hypertension, Thyroid Disorder Additional Past Medical History / Comment(s): OVARIAN CA History of Any Multi-Drug Resistant Organisms: MRSA Date of last positivie culture/infection: 2011 MDRO Source:: ABD WOUND Past Surgical History: Bariatric Surgery, Bowel Resection, Cholecystectomy, EPS , Heart Catheterization, Hysterectomy Additional Past Surgical History / Comment(s): COLOSTOMY, Rt foot surgery - hammer toe Past Anesthesia/Blood Transfusion Reactions: No Reported Reaction Past Psychological History: Anxiety, Panic Disorder Smoking Status: Never smoker Past Alcohol Use History: None Reported Past Drug Use History: None Reported - Past Family History Father Family Medical History: CVA/TIA Additional Family Medical History / Comment(s): three vessel CABG Mother Family Medical History: Myocardial Infarction ([place]) Sister(s) Family Medical History: Hypertension General Exam - General Exam Comments Initial Comments: General: The patient is awake and alert, here because of right upper quadrant pain radiates toward the right shoulder over the past week. Vital signs temperature 98.7 pulse 87 respiratory rate 18 pulse ox 94% room air blood pressure 132/71 Eye: Pupils are equal, round and reactive to light, extra-ocular movements are intact ; there is normal conjunctiva bilaterally. No signs of icterus. Ears, nose, mouth and throat: There are moist mucous membranes and no oral lesions. Neck: The neck is supple, there is no tenderness, no anterior cervical lymphadenopathy. Cardiovascular: There is a regular rate and rhythm. No murmur, rub or gallop is appreciated. Respiratory: Lungs are clear to auscultation, respirations are non-labored, breath sounds are equal. No wheezes, stridor, rales, or rhonchi. Gastrointestinal: Soft, non-distended, complains of discomfort to the right upper quadrant, increases with deep palpation. She states that when she gets the pain in the right upper quadrant seems to go up toward the right shoulder area. No pain with movement of the shoulder.. There is no rebound or guarding present. No CVA tenderness. Colostomy. Colostomy functioning without problems. Stool normal color. Back: There is no tenderness to palpation in the midline. There is no obvious deformity. No rashes noted. Musculoskeletal: Normal ROM, no tenderness, Neurological: Denies any neuro deficits. Skin: Skin is warm and dry and no rashes or lesions are noted. Psychiatric: Cooperative, Limitations: no limitations Course Vital Signs 01/13/18 01/13/18 01/13/18 10:19 11:48 12:48 Temperature 98.7 F Pulse Rate 87 82 83 Respiratory 18 16 16 Rate Blood Pressure 132/71 109/61 106/58 O2 Sat by Pulse 94 L 93 L 96 Oximetry 01/13/18 01/13/18 01/13/18 14:00 15:22 16:41 Temperature Pulse Rate 87 91 86 Respiratory 18 18 18 Rate Blood Pressure 111/60 111/53 109/58 O2 Sat by Pulse 94 L 94 L 93 L Oximetry Medical Decision Making - Medical Decision Making Medical decision making; therefore 7-year-old female scone the emergency room because of right upper quadrant discomfort radiates to the right upper shoulder area. Ongoing for one week. Labs show white count of 4.3 hemoglobin 12 hematocrit of 41 with potassium 540. BUN 16 creatinine 0.7 and GFR greater than 90. Glucose 213. AST mildly elevated at 40. Amylase/ lipase normal limits. Urine shows positive nitrates but only 1 white and 1 red cell, positive bacteria. Plasma lactic acid 1.7. X-ray of the abdomen was done and reviewed by radiologist his findings are the osseous structures are intact. The bowel gas pattern is nonspecific. Lung bases are clear. LAP-BAND device is noted. There is left lower quadrant colostomy. Cholecystectomy clips are noted. Arthropathy of the hips noted. Phleboliths noted. Impression ; nonspecific abdomen. As read by Dr. Mcbride CT of the abdomen was done and reviewed in its entirety. Significant findings include lung bases 2 mm nodule left lung base retrospectively stable on the previous exam. Liver gallbladder postsurgical changes involving the gallbladder fossa noted. Pancreas no gross abnormality is seen. Spleen no gross abnormality is seen. Kidneys and bladder, no angina versus nephrolithiasis or renal mass. Bladder is decompressed. Bowel postoperative surgery suggested with a LAP-BAND. Changes of diverticulosis noted. No evidence of bowel obstruction. There are persistent large ventral hernia involving the anterior abdominal wall on the left. There is no apparent ostomy within the left abdomen as well. No dilated bowel loops or wall thickening noted. The mouth hernia measures approximately 7.4 cm. Asymmetry to the left rectus muscle is stable dating back to 2016. Impression large ventral hernia within the left abdomen is stable. No dilated bowel loops to suggest obstruction. Correlate clinically. Stable to millimeter left lower lobe pulmonary nodule unchanged since 2016. As read by Dr. Mcbride Reports of x-rays and CAT scan all shared with the patient. Patient will have cardiac profile and troponin added as well as an EKG. She'll be seen Dr. Han as 89 in emergency room. She was requesting pain medication. She will be given morphine which she says she can take without any adverse reaction. The patient was seen by Dr. kenny, patient will be admitted his service. Discussed the case with Dr. Chicas, the patient's surgeon, he will see the patient in hospital. - Lab Data Result diagrams: 01/13/18 11:03 01/13/18 11:03 Lab Results 01/13/18 01/13/18 01/13/18 Range/Units 11:03 11:03 11:03 WBC 4.3 (3.8-10.6) k/uL RBC 4.58 (3.80-5.40) m/uL Hgb 12.6 (11.4-16.0) gm/dL Hct 41.1 (34.0-46.0) % MCV 89.8 (80.0-100.0) fL MCH 27.5 (25.0-35.0) pg MCHC 30.7 L (31.0-37.0) g/dL RDW 14.1 (11.5-15.5) % Plt Count 148 L (150-450) k/uL Neutrophils % 57 % Lymphocytes % 31 % Monocytes % 5 % Eosinophils % 5 % Basophils % 1 % Neutrophils # 2.5 (1.3-7.7) k/uL Lymphocytes # 1.3 (1.0-4.8) k/uL Monocytes # 0.2 (0-1.0) k/uL Eosinophils # 0.2 (0-0.7) k/uL Basophils # 0.0 (0-0.2) k/uL Sodium 141 (137-145) mmol/L Potassium 5.0 (3.5-5.1) mmol/L Chloride 104 (98-107) mmol/L Carbon Dioxide 26 (22-30) mmol/L Anion Gap 11 mmol/L BUN 16 (7-17) mg/dL Creatinine 0.70 (0.52-1.04) mg/dL Est GFR (CKD-EPI)AfAm >90 (>60 ml/min/1.73 sqM) Est GFR (CKD-EPI)NonAf >90 (>60 ml/min/1.73 sqM) Glucose 213 H (74-99) mg/dL Plasma Lactic Acid Ko (0.7-2.0) mmol/L Calcium 9.8 (8.4-10.2) mg/dL Total Bilirubin 0.4 (0.2-1.3) mg/dL AST 40 H (14-36) U/L ALT 37 (9-52) U/L Alkaline Phosphatase 54 (38-126) U/L Total Creatine Kinase 32 (30-135) U/L CK-MB (CK-2) 0.3 (0.0-2.4) ng/mL CK-MB (CK-2) Rel Index 0.9 Troponin I <0.012 (0.000-0.034) ng/mL Total Protein 6.4 (6.3-8.2) g/dL Albumin 3.8 (3.5-5.0) g/dL Amylase 31 (30-110) U/L Lipase 76 (23-300) U/L Urine Color Urine Appearance (Clear) Urine pH (5.0-8.0) Ur Specific [place] (1.001-1.035) Urine Protein (Negative) Urine Glucose (UA) (Negative) Urine Ketones (Negative) Urine Blood (Negative) Urine Nitrite (Negative) Urine Bilirubin (Negative) Urine Urobilinogen (<2.0) mg/dL Ur Leukocyte Esterase (Negative) Urine WBC (0-5) /hpf Ur Squamous Epith Cells (0-4) /hpf Urine Bacteria (None) /hpf Urine Mucus (None) /hpf 01/13/18 01/13/18 Range/Units 11:45 13:06 WBC (3.8-10.6) k/uL RBC (3.80-5.40) m/uL Hgb (11.4-16.0) gm/dL Hct (34.0-46.0) % MCV (80.0-100.0) fL MCH (25.0-35.0) pg MCHC (31.0-37.0) g/dL RDW (11.5-15.5) % Plt Count (150-450) k/uL Neutrophils % % Lymphocytes % % Monocytes % % Eosinophils % % Basophils % % Neutrophils # (1.3-7.7) k/uL Lymphocytes # (1.0-4.8) k/uL Monocytes # (0-1.0) k/uL Eosinophils # (0-0.7) k/uL Basophils # (0-0.2) k/uL Sodium (137-145) mmol/L Potassium (3.5-5.1) mmol/L Chloride (98-107) mmol/L Carbon Dioxide (22-30) mmol/L Anion Gap mmol/L BUN (7-17) mg/dL Creatinine (0.52-1.04) mg/dL Est GFR (CKD-EPI)AfAm (>60 ml/min/1.73 sqM) Est GFR (CKD-EPI)NonAf (>60 ml/min/1.73 sqM) Glucose (74-99) mg/dL Plasma Lactic Acid Ko 1.7 (0.7-2.0) mmol/L Calcium (8.4-10.2) mg/dL Total Bilirubin (0.2-1.3) mg/dL AST (14-36) U/L ALT (9-52) U/L Alkaline Phosphatase (38-126) U/L Total Creatine Kinase (30-135) U/L CK-MB (CK-2) (0.0-2.4) ng/mL CK-MB (CK-2) Rel Index Troponin I (0.000-0.034) ng/mL Total Protein (6.3-8.2) g/dL Albumin (3.5-5.0) g/dL Amylase (30-110) U/L Lipase (23-300) U/L Urine Color Yellow Urine Appearance Clear (Clear) Urine pH 5.0 (5.0-8.0) Ur Specific [place] 1.018 (1.001-1.035) Urine Protein Negative (Negative) Urine Glucose (UA) Trace H (Negative) Urine Ketones Negative (Negative) Urine Blood Negative (Negative) Urine Nitrite Positive H (Negative) Urine Bilirubin Negative (Negative) Urine Urobilinogen <2.0 (<2.0) mg/dL Ur Leukocyte Esterase Negative (Negative) Urine WBC 1 (0-5) /hpf Ur Squamous Epith Cells 1 (0-4) /hpf Urine Bacteria Many H (None) /hpf Urine Mucus Rare H (None) /hpf Disposition Clinical Impression: Dysphagia Disposition: ADMITTED IP TO THIS HOSP Condition: Fair Referrals: Rebel Cast MD [Primary Care Provider] - 1-2 days
[2018-01-13 11:44] LABS: Basophils % (A) 1 %; Eosinophils # (A) 0.2 k/uL (0-0.7); Eosinophils % (A) 5 %; HCT 41.1 % (34.0-46.0); HGB 12.6 gm/dL (11.4-16.0); Lymphocytes # (A) 1.3 k/uL (1.0-4.8); Lymphocytes % (A) 31 %; MCH 27.5 pg (25.0-35.0); MCHC 30.7 g/dL (31.0-37.0); MCV 89.8 fL (80.0-100.0); Mean Platelet Volume 8.5; Monocytes # (A) 0.2 k/uL (0-1.0); Monocytes % (A) 5 %; Neutrophils # (A) 2.5 k/uL (1.3-7.7); Neutrophils % (A) 57 %; Platelet Count 148 k/uL (150-450); RBC 4.58 m/uL (3.80-5.40); RDW 14.1 % (11.5-15.5); WBC 4.3 k/uL (3.8-10.6)
[2018-01-13 12:02] LABS: ALT 37 U/L (9-52); AST 40 U/L (14-36); Albumin 3.8 g/dL (3.5-5.0); Alkaline Phosphatase 54 U/L (38-126); Amylase 31 U/L (30-110); Anion Gap 11 mmol/L; Blood Urea Nitrogen 16 mg/dL (7-17); Calcium 9.8 mg/dL (8.4-10.2); Carbon Dioxide 26 mmol/L (22-30); Chloride 104 mmol/L (98-107); Glucose 213 mg/dL (74-99); Lipase 76 U/L (23-300); Sodium 141 mmol/L (137-145); Total Bilirubin 0.4 mg/dL (0.2-1.3); Total Protein 6.4 g/dL (6.3-8.2)
--- NOTE | 2018-01-13 12:21 | XR ---
EXAMINATION TYPE: XR abdomen 2V DATE OF EXAM: 01/13/2018 COMPARISON: 01/09/2015 HISTORY: RUQ ABDOMINAL PAIN TECHNIQUE: One view abdominal series FINDINGS: The osseous structures are intact. The bowel gas pattern is nonspecific. Lung bases are clear. LAP Band device is noted. There is left lower quadrant colostomy. Cholecystectomy clips are noted. Arthropathy of the hips noted. Phleboliths noted. IMPRESSION: 1. Nonspecific abdomen.
[2018-01-13] MEDS ORDERED: RX INFO: IV CONTRAST WAS GIVEN 1 EACH MISC MISCELLANE PRN (13:23)
[2018-01-13] MEDS ORDERED: IOPAMIDOL-300 CONTRAST 30 ML VIAL (ORAL USE) PO PRN (13:23)
[2018-01-13 13:42] LABS: Appearance,Urine Clear (Clear); Bacteria,Urine Many /hpf; Bilirubin,Urine Negative (Negative); Blood,Urine Negative (Negative); Color,Urine Yellow; Glucose,Urine (UA) Trace (Negative); Ketones,Urine Negative (Negative); Leukocyte Esterase,Urine Negative (Negative); Mucus,Urine Rare /hpf; Nitrite,Urine Positive (Negative); Protein,Urine Negative (Negative); Specific Gravity,Urine 1.018 (1.001-1.035); Squamous Epithelial Cell,Urine 1 /hpf (0-4); Urobilinogen,Urine <2.0 mg/dL (<2.0); WBC,Urine 1 /hpf (0-5)
--- NOTE | 2018-01-13 14:04 | CT ---
EXAMINATION TYPE: CT abdomen pelvis w con DATE OF EXAM: 01/13/2018 COMPARISON: 05/02/2016 HISTORY: Right upper quadrant pain x [address] DLP: 4762.2 mGycm Automated exposure control for dose reduction was used. CONTRAST: CT scan of the abdomen pelvis is performed with IV Contrast, patient injected with 100 mL of Isovue M 300. FINDINGS- LUNG BASES-2 mm nodule at the left lung base retrospectively stable from the previous exam.. LIVER/GB-postsurgical change involving the gallbladder fossa noted.. PANCREAS- No gross abnormality is seen. SPLEEN- No gross abnormality is seen. ADRENALS- No gross abnormality is seen. KIDNEYS/BLADDER- no hydronephrosis nephrolithiasis or renal mass. Bladder is decompressed. BOWEL-postoperative surgery suggested with LAP-BAND.. Changes of diverticulosis noted. No evidence of bowel obstruction. LYMPH NODES- No greater than 1cm abdominal or pelvic lymph nodes areappreciated. OSSEOUS STRUCTURES-hypertrophic and degenerative change of the spine noted.. OTHER- there are persistent large ventral hernia involving the anterior abdominal wall on the left. There is an apparent ostomy within the left abdomen as well. No dilated bowel loops or wall thickenin g noted. The mouth of the hernia measures approximately 7.4 cm. Asymmetry to the left rectus muscle i s stable dating back to 2015 IMPRESSION- 1. Large ventral hernia within the left abdomen is stable. No dilated bowel loops to suggest obstruct ion. Correlate clinically. 2. Stable 2 mm left lower lobe pulmonary nodule unchanged from 2016.
[2018-01-13] MEDS ORDERED: MORPHINE SULFATE/PF 10MG/10ML VL IVP STA (14:55)
[2018-01-13 15:21] LABS: Creatine Kinase 32 U/L (30-135)
[2018-01-13 15:34] LABS: Creatine Kinase MB 0.3 ng/mL (0.0-2.4); Troponin I <0.012 ng/mL (0.000-0.034)
[2018-01-13] MEDS ORDERED: ALBUTEROL NEBULIZED 2.5 MG/3 ML INHALATION PRN (16:14)
[2018-01-13] MEDS ORDERED: LORazepam 0.5 MG TAB PO PRN (16:14)
--- NOTE | 2018-01-13 16:20 | P.HPIM ---
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 The patient reports that she began having right upper quadrant discomfort that radiates to the right shoulder for approximately one week. 3 months prior to this she was taking Motrin 800 mg 3 times a day because of arthritis. She has since stopped that. She's had nausea and vomiting but no diarrhea. Past history includes having had a lap band done in 2007. 4 years ago she had FLUID removed from the band. She also reports for the past 6 weeks been having sensation of food getting stuck in the distal esophagus. But she's not been obstructed. Patient's abdominal pain is about 6-7/10 in severity nonradiating mostly right-sided to the epigastric area. Patient had a CAT scan of the abdomen which did not show any significant abnormality except for ventral hernia on the left side. Patient denied any fever chills. Patient was having occasional nausea and vomiting as well. Review of Systems REVIEW OF SYSTEMS: CONSTITUTIONAL: No fever, no malaise, no fatigue. HEENT: No recent visual problems or hearing problems. Denied any sore throat. CARDIOVASCULAR: No chest pain, orthopnea, PND, no palpitations, no syncope. PULMONARY: No shortness of breath, no cough, no hemoptysis. GASTROINTESTINAL: As mentioned in HPI NEUROLOGICAL: No headaches, no weakness, no numbness. HEMATOLOGICAL: Denies any bleeding or petechiae. GENITOURINARY: Denies any burning micturition, frequency, or urgency. MUSCULOSKELETAL/RHEUMATOLOGICAL: Denies any joint pain, swelling, or any muscle pain. ENDOCRINE: Denies any polyuria or polydipsia. The rest of the 14-point review of systems is negative. Past Medical History Past Medical History: Cancer, Chest Pain / Angina, Diabetes Mellitus, Hypertension, Thyroid Disorder Additional Past Medical History / Comment(s): OVARIAN CA History of Any Multi-Drug Resistant Organisms: MRSA Date of last positivie culture/infection: 2011 MDRO Source:: ABD WOUND Past Surgical History: Bariatric Surgery, Bowel Resection, Cholecystectomy, EPS , Heart Catheterization, Hysterectomy Additional Past Surgical History / Comment(s): COLOSTOMY, Rt foot surgery - hammer toe Past Anesthesia/Blood Transfusion Reactions: No Reported Reaction Past Psychological History: Anxiety, Panic Disorder Smoking Status: Never smoker Past Alcohol Use History: None Reported Past Drug Use History: None Reported - Past Family History Father Family Medical History: CVA/TIA Additional Family Medical History / Comment(s): three vessel CABG Mother Family Medical History: Myocardial Infarction ([place]) Sister(s) Family Medical History: Hypertension Medications and Allergies Home Medications Medication Instructions Recorded Confirmed Type Aspirin 81 mg PO DAILY 06/02/14 01/13/18 History Insulin Aspart [NovoLOG 35 units SQ AC-BRKFST 06/02/14 01/13/18 History (formulary)] Levothyroxine Sodium [Synthroid] 224 mcg PO DAILY 06/02/14 01/13/18 History Methenamine Hippurate [Hiprex] 1 gm PO BID 06/02/14 01/13/18 History metFORMIN HCL [Glucophage] 1,000 mg PO BID 06/02/14 01/13/18 History Cholecalciferol [Vitamin D3] 5,000 unit PO DAILY 10/31/15 01/13/18 History Metoprolol Tartrate [Lopressor] 100 mg PO DAILY 10/31/15 01/13/18 History ARIPiprazole [Abilify] 5 mg PO DAILY 12/24/17 01/13/18 History Albuterol Inhaler [Ventolin Hfa 2 puff INHALATION RT-Q4H PRN 12/24/17 01/13/18 History Inhaler] Atorvastatin [Lipitor] 20 mg PO HS 12/24/17 01/13/18 History Insulin Aspart [NovoLOG 40 unit SQ BID 12/24/17 01/13/18 History (formulary)] Insulin Glargine [Lantus] 60 unit SQ BID 12/24/17 01/13/18 History LORazepam [Ativan] 0.5 mg PO DAILY PRN 12/24/17 01/13/18 History Lisinopril [Prinivil] 5 mg PO DAILY 12/24/17 01/13/18 History Magnesium Oxide [Rodríguez] 500 mg PO DAILY 12/24/17 01/13/18 History Metoprolol Tartrate [Lopressor] 75 mg PO HS 12/24/17 01/13/18 History Multivitamins, Thera [Multivitamin 1 tab PO DAILY 12/24/17 01/13/18 History (formulary)] Ondansetron HCl [Zofran] 8 mg PO DAILY 12/24/17 01/13/18 History Pioglitazone [Actos] 30 mg PO DAILY 12/24/17 01/13/18 History Sertraline HCl [Zoloft] 150 mg PO DAILY 12/24/17 01/13/18 History oxyCODONE-APAP 7.5-325MG [Percocet 1 tab PO Q6HR PRN 12/24/17 01/13/18 History 7.5-325 mg] Allergies Allergy/AdvReac Type Severity Reaction Status Date / Time cephalexin [From Keflex] Allergy Unknown Verified 01/13/18 11:03 fosfomycin Allergy Unknown Verified 01/13/18 11:03 nickel Allergy Unknown Verified 01/13/18 11:03 Penicillins Allergy Anaphylaxis Verified 01/13/18 11:03 homatropine AdvReac Chest Pain Verified 01/13/18 11:03 [From Hycodan (with homatropin)] homatropine methylbromide AdvReac Chest Pain Verified 01/13/18 11:03 [From Hycodan (with homatropin)] hydrocodone bitartrate AdvReac Chest Pain Verified 01/13/18 11:03 [From Hycodan (with homatropin)] promethazine HCl AdvReac Abdominal Verified 01/13/18 11:03 [From Phenergan] Pain propafenone HCl AdvReac Chest Pain Verified 01/13/18 11:03 [From Rythmol] pseudoephedrine HCl AdvReac Rapid Verified 01/13/18 11:03 [From Sudafed] Heart Rate Physical Exam Vitals: Vital Signs Temp Pulse Resp BP Pulse Ox 01/13/18 15:22 91 18 111/53 94 L 01/13/18 14:00 87 18 111/60 94 L 01/13/18 12:48 83 16 106/58 96 01/13/18 11:48 82 16 109/61 93 L 01/13/18 10:19 98.7 F 87 18 132/71 94 L Intake and Output 01/13/18 01/13/18 01/13/18 06:59 14:59 22:59 Other: Weight 204.117 kg PHYSICAL EXAMINATION: GENERAL: The patient is alert and oriented x3, not in any acute distress. Well developed, well nourished. HEENT: Pupils are round and equally reacting to light. EOMI. No scleral icterus. No conjunctival pallor. Normocephalic, atraumatic. No pharyngeal erythema. No thyromegaly. CARDIOVASCULAR: S1 and S2 present. No murmurs, rubs, or gallops. PULMONARY: Chest is clear to auscultation, no wheezing or crackles. ABDOMEN: Soft, minimal tenderness just lateral to the epigastric area towards right side no rebound or rigidity. MUSCULOSKELETAL: No joint swelling or deformity. EXTREMITIES: No cyanosis, clubbing, or pedal edema. NEUROLOGICAL: Gross neurological examination did not reveal any focal deficits. SKIN: No rashes. Results CBC & Chem 7: 01/13/18 11:03 01/13/18 11:03 Labs: Abnormal Lab Results - Last 24 Hours (Table) 01/13/18 01/13/18 01/13/18 Range/Units 11:03 11:03 13:06 MCHC 30.7 L (31.0-37.0) g/dL Plt Count 148 L (150-450) k/uL Glucose 213 H (74-99) mg/dL AST 40 H (14-36) U/L Urine Glucose (UA) Trace H (Negative) Urine Nitrite Positive H (Negative) Urine Bacteria Many H (None) /hpf Urine Mucus Rare H (None) /hpf Assessment and Plan Plan: -Abdominal pain unsure of the exact etiology appears to have residual food left in the DR tunnel area since patient has a LAP-BAND surgery will need further evaluation by surgery. CAT scan of the abdomen did not reveal any significant abnormality -Type 2 diabetes mellitus since patient has not been eating well will hold off on oral hypoglycemic agents although insulin regimen will be continued if she doesn't is not able to eat anything will cut down the Lantus dose. -Hypothyroidism -Metastatic colon cancer which is in remission and patient has a colostomy on the left side. -Hypertension: Patient will be resumed on home medications for this -Morbid obesity 5 and depression sertraline will be continued -Hyperlipidemia continue with Lipitor
[2018-01-13] MEDS ORDERED: NALOXONE 0.4 MG/ML 1 ML VIAL IV PRN (16:54)
[2018-01-13 18:03] LABS: Glucose,Whole Blood 143 mg/dL (75-99)
[2018-01-13] MEDS: INSULIN ASPART 100 UNIT/ML 1 ML 10 ML VIAL SQ SCH ×2 (18:33→22:50)
[2018-01-13] MEDS: SODIUM CHLORIDE 0.9% 1,000 ML IV SCH (18:40)
[2018-01-13] MEDS: MORPHINE SULFATE/PF 10MG/10ML VL IV PRN ×2 (18:58→22:49)
[2018-01-13 20:29] LABS: Glucose,Whole Blood 155 mg/dL (75-99)
[2018-01-13] MEDS ORDERED: NON-FORMULARY DRUG (Metformin Hcl [Glucophage] 1,000 MG) PO SCH (21:00)
[2018-01-13] MEDS ORDERED: INSULIN GLARGINE 60 UNIT SQ SCH (21:00)
[2018-01-13] MEDS ORDERED: INSULIN ASPART 100 UNIT/ML 1 ML 10 ML VIAL SQ SCH (21:00)
[2018-01-13] MEDS: oxyCODONE-APAP 7.5-325MG 1 EACH TAB PO PRN (21:04)
[2018-01-13] MEDS: METHENAMINE HIPPURATE 1 GM PO SCH (22:50)
[2018-01-13] MEDS: ATORVASTATIN 20 MG TAB PO SCH (22:51)
[2018-01-13] MEDS: METOPROLOL TARTRATE 50 MG TAB PO SCH (22:51)
[2018-01-13] MEDS: INSULIN DETEMIR 100 UNIT/ML 10 ML VIAL SQ SCH (23:10)
[2018-01-14] MEDS: ONDANSETRON 4 MG/2 ML VIAL IVP PRN (01:34)
[2018-01-14] MEDS: MORPHINE SULFATE/PF 10MG/10ML VL IV PRN ×3 (02:10→13:13)
[2018-01-14] MEDS: oxyCODONE-APAP 7.5-325MG 1 EACH TAB PO PRN ×4 (04:27→21:14)
[2018-01-14 06:51] LABS: Basophils % (A) 1 %; Eosinophils # (A) 0.2 k/uL (0-0.7); Eosinophils % (A) 6 %; HCT 37.2 % (34.0-46.0); HGB 12.4 gm/dL (11.4-16.0); Lymphocytes # (A) 1.5 k/uL (1.0-4.8); Lymphocytes % (A) 34 %; MCH 29.7 pg (25.0-35.0); MCHC 33.3 g/dL (31.0-37.0); MCV 89.2 fL (80.0-100.0); Mean Platelet Volume 8.4; Monocytes # (A) 0.3 k/uL (0-1.0); Monocytes % (A) 6 %; Neutrophils # (A) 2.2 k/uL (1.3-7.7); Neutrophils % (A) 52 %; Platelet Count 139 k/uL (150-450); RBC 4.18 m/uL (3.80-5.40); RDW 13.9 % (11.5-15.5); WBC 4.3 k/uL (3.8-10.6)
[2018-01-14 07:01] LABS: Glucose,Whole Blood 155 mg/dL (75-99)
[2018-01-14 07:23] LABS: ALT 41 U/L (9-52); AST 41 U/L (14-36); Albumin 3.5 g/dL (3.5-5.0); Alkaline Phosphatase 54 U/L (38-126); Anion Gap 10 mmol/L; Blood Urea Nitrogen 13 mg/dL (7-17); Calcium 9.2 mg/dL (8.4-10.2); Carbon Dioxide 28 mmol/L (22-30); Chloride 103 mmol/L (98-107); Glucose 158 mg/dL (74-99); Potassium 4.4 mmol/L (3.5-5.1); Sodium 141 mmol/L (137-145); Total Bilirubin 0.5 mg/dL (0.2-1.3)
[2018-01-14] MEDS ORDERED: INSULIN ASPART 100 UNIT/ML 1 ML 10 ML VIAL SQ SCH (07:30)
[2018-01-14] MEDS: INSULIN ASPART 100 UNIT/ML 1 ML 10 ML VIAL SQ SCH ×4 (07:55→21:57)
[2018-01-14] MEDS ORDERED: PIOGLITAZONE 30 MG TAB PO SCH (09:00)
[2018-01-14 12:07] LABS: Glucose,Whole Blood 190 mg/dL (75-99)
--- NOTE | 2018-01-14 12:20 | FL ---
EXAMINATION TYPE: FL UGI w esophagus DATE OF EXAM: 01/14/2018 LAP BANDING LIMITED ESOPHAGRAM: CLINICAL HISTORY: Dysphagia, right upper quadrant pain TECHNIQUE: Limited esophagram is performed utilizing 2-3 oz of barium. COMPARISON: None. FINDINGS: Pre-procedure conveyor system dispatcher image shows lap band in satisfactory position in proximal stomach ju st below the gastroesophageal junction. The patient then drank oral contrast. There is good flow of c ontrast along the course of the esophagus. There is good flow of contrast along the course of the la p band, there is no evidence of contrast extravasation to suggest leak. There is no significant beck zhanna prolapse appreciated. IMPRESSION: No evidence of prolapse or significant obstruction.
[2018-01-14] MEDS: MAGNESIUM OXIDE 400 MG TAB PO SCH (12:38)
[2018-01-14] MEDS: METOPROLOL TARTRATE 50 MG TAB PO SCH ×2 (12:38→22:01)
[2018-01-14] MEDS: ARIPiprazole 5 MG TAB PO SCH (12:38)
[2018-01-14] MEDS: MULTIVITAMINS, THERA 1 EACH TAB PO SCH (12:38)
[2018-01-14] MEDS: ONDANSETRON 4 MG TAB PO SCH (12:38)
[2018-01-14] MEDS: SERTRALINE 100 MG TAB PO SCH (12:39)
[2018-01-14] MEDS: CHOLECALCIFEROL 1,000 UNIT TAB PO SCH (12:39)
[2018-01-14] MEDS: LEVOTHYROXINE 112 MCG TAB PO SCH (12:39)
[2018-01-14] MEDS: LISINOPRIL 5 MG TAB PO SCH (12:39)
[2018-01-14] MEDS: INSULIN DETEMIR 100 UNIT/ML 10 ML VIAL SQ SCH ×2 (12:58→21:58)
[2018-01-14] MEDS: METHENAMINE HIPPURATE 1 GM PO SCH ×2 (12:59→22:24)
[2018-01-14] MEDS: ASPIRIN 81 MG PO SCH (13:12)
[2018-01-14] MEDS: PANTOPRAZOLE 40 MG/10 ML VIAL IV SCH (13:38)
--- NOTE | 2018-01-14 14:21 | P.PN ---
Subjective Patient came in with abdominal pain in the epigastric area awaiting evaluation by surgery. Can use it complain of abdominal pain no nausea. Barium swallow did not show any significant abnormality Objective - Vital Signs Vital signs: Vital Signs Temp 97.9 F 01/14/18 08:00 Pulse 88 01/14/18 08:00 Resp 18 01/14/18 08:00 BP 105/64 01/14/18 08:00 Pulse Ox 90 L 01/14/18 08:00 Intake & Output 01/13/18 01/14/18 01/14/18 18:59 06:59 18:59 Intake Total 240 300 Balance 240 300 Weight 206.1 kg 206.1 kg Intake: Oral 240 300 Other: Voiding Method Toilet Toilet # Voids 1 - Exam PHYSICAL EXAMINATION: GENERAL: The patient is alert and oriented x3, not in any acute distress. Well developed, well nourished. HEENT: Pupils are round and equally reacting to light. EOMI. No scleral icterus. No conjunctival pallor. Normocephalic, atraumatic. No pharyngeal erythema. No thyromegaly. CARDIOVASCULAR: S1 and S2 present. No murmurs, rubs, or gallops. PULMONARY: Chest is clear to auscultation, no wheezing or crackles. ABDOMEN: Soft, minimal tenderness just lateral to the epigastric area towards right side no rebound or rigidity. MUSCULOSKELETAL: No joint swelling or deformity. EXTREMITIES: No cyanosis, clubbing, or pedal edema. NEUROLOGICAL: Gross neurological examination did not reveal any focal deficits. SKIN: No rashes. - Labs CBC & Chem 7: 01/14/18 06:31 01/14/18 06:31 Labs: Abnormal Lab Results - Last 24 Hours (Table) 01/13/18 01/13/18 01/14/18 Range/Units 18:01 20:25 06:31 Plt Count 139 L (150-450) k/uL Glucose (74-99) mg/dL POC Glucose (mg/dL) 143 H 155 H (75-99) mg/dL AST (14-36) U/L Total Protein (6.3-8.2) g/dL 01/14/18 01/14/18 01/14/18 Range/Units 06:31 06:52 12:04 Plt Count (150-450) k/uL Glucose 158 H (74-99) mg/dL POC Glucose (mg/dL) 155 H 190 H (75-99) mg/dL AST 41 H (14-36) U/L Total Protein 6.0 L (6.3-8.2) g/dL Assessment and Plan Plan: -Abdominal pain unsure of the exact etiology appears to have residual food left in the DR tunnel area since patient has a LAP-BAND surgery will need further evaluation by surgery. CAT scan of the abdomen did not reveal any significant abnormality -Type 2 diabetes mellitus since patient has not been eating well will hold off on oral hypoglycemic agents although insulin regimen will be continued if she doesn't is not able to eat anything will cut down the Lantus dose. -Hypothyroidism -Metastatic colon cancer which is in remission and patient has a colostomy on the left side. -Hypertension: Patient will be resumed on home medications for this -Morbid obesity 5 and depression sertraline will be continued -Hyperlipidemia continue with Lipitor
[2018-01-14] MEDS: SODIUM CHLORIDE 0.9% 1,000 ML IV SCH ×2 (16:15)
[2018-01-14 17:54] LABS: Glucose,Whole Blood 155 mg/dL (75-99)
[2018-01-14 20:15] LABS: Glucose,Whole Blood 244 mg/dL (75-99)
--- NOTE | 2018-01-14 20:24 | P.GSCN ---
History of Present Illness Consult date: 01/14/18 Reason for Consult: Dysphagia, pain History of present illness: Patient is known to our service. She comes to the ER yesterday with a 2 week history of dysphagia and epigastric pain. Denies fevers or chills. Dysphagia is to both solids and liquids. Mild odynophagia. Patient has a history of advanced pelvic malignancy requiring colostomy placement. She has already been seen by [facility] bariatrics regarding possible conversion of band to either sleeve or bypass. Computed tomography scan performed last night showed no definite abnormalities. Upper GI today likewise appears fairly normal with no evidence of obstruction. Review of Systems The patient denies any acute changes in vision or hearing, no chest pain or shortness of breath, no dysuria or hematuria, no headache, no runny nose, no rectal bleeding or melena, no unexplained weight loss Past Medical History Past Medical History: Cancer, Chest Pain / Angina, Diabetes Mellitus, Hypertension, Thyroid Disorder Additional Past Medical History / Comment(s): OVARIAN CA, LOWER BRIDGE, RECENT STRESS TEST-NEG History of Any Multi-Drug Resistant Organisms: MRSA Year Discovered:: 2011 MDRO Source:: ABD WOUND Past Surgical History: Bariatric Surgery, Bowel Resection, Cholecystectomy, EPS , Heart Catheterization, Hysterectomy Additional Past Surgical History / Comment(s): COLOSTOMY, Rt foot surgery - hammer toe Past Anesthesia/Blood Transfusion Reactions: No Reported Reaction Smoking Status: Never smoker - Past Family History Father Family Medical History: CVA/TIA Additional Family Medical History / Comment(s): three vessel CABG Mother Family Medical History: Myocardial Infarction ([place]) Sister(s) Family Medical History: Hypertension Medications and Allergies Home Medications Medication Instructions Recorded Confirmed Type Aspirin 81 mg PO DAILY 06/02/14 01/13/18 History Insulin Aspart [NovoLOG 35 units SQ AC-BRKFST 06/02/14 01/13/18 History (formulary)] Levothyroxine Sodium [Synthroid] 224 mcg PO DAILY 06/02/14 01/13/18 History Methenamine Hippurate [Hiprex] 1 gm PO BID 06/02/14 01/13/18 History metFORMIN HCL [Glucophage] 1,000 mg PO BID 06/02/14 01/13/18 History Cholecalciferol [Vitamin D3] 5,000 unit PO DAILY 10/31/15 01/13/18 History Metoprolol Tartrate [Lopressor] 100 mg PO DAILY 10/31/15 01/13/18 History ARIPiprazole [Abilify] 5 mg PO DAILY 12/24/17 01/13/18 History Albuterol Inhaler [Ventolin Hfa 2 puff INHALATION RT-Q4H PRN 12/24/17 01/13/18 History Inhaler] Atorvastatin [Lipitor] 20 mg PO HS 12/24/17 01/13/18 History Insulin Aspart [NovoLOG 40 unit SQ BID 12/24/17 01/13/18 History (formulary)] Insulin Glargine [Lantus] 60 unit SQ BID 12/24/17 01/13/18 History LORazepam [Ativan] 0.5 mg PO DAILY PRN 12/24/17 01/13/18 History Lisinopril [Prinivil] 5 mg PO DAILY 12/24/17 01/13/18 History Magnesium Oxide [Rodríguez] 500 mg PO DAILY 12/24/17 01/13/18 History Metoprolol Tartrate [Lopressor] 75 mg PO HS 12/24/17 01/13/18 History Multivitamins, Thera [Multivitamin 1 tab PO DAILY 12/24/17 01/13/18 History (formulary)] Ondansetron HCl [Zofran] 8 mg PO DAILY 12/24/17 01/13/18 History Pioglitazone [Actos] 30 mg PO DAILY 12/24/17 01/13/18 History Sertraline HCl [Zoloft] 150 mg PO DAILY 12/24/17 01/13/18 History oxyCODONE-APAP 7.5-325MG [Percocet 1 tab PO Q6HR PRN 12/24/17 01/13/18 History 7.5-325 mg] Allergies Allergy/AdvReac Type Severity Reaction Status Date / Time cephalexin [From Keflex] Allergy Unknown Verified 01/13/18 11:03 fosfomycin Allergy Unknown Verified 01/13/18 11:03 nickel Allergy Unknown Verified 01/13/18 11:03 Penicillins Allergy Anaphylaxis Verified 01/13/18 11:03 homatropine AdvReac Chest Pain Verified 01/13/18 11:03 [From Hycodan (with homatropin)] homatropine methylbromide AdvReac Chest Pain Verified 01/13/18 11:03 [From Hycodan (with homatropin)] hydrocodone bitartrate AdvReac Chest Pain Verified 01/13/18 11:03 [From Hycodan (with homatropin)] promethazine HCl AdvReac Abdominal Verified 01/13/18 11:03 [From Phenergan] Pain propafenone HCl AdvReac Chest Pain Verified 01/13/18 11:03 [From Rythmol] pseudoephedrine HCl AdvReac Rapid Verified 01/13/18 11:03 [From Sudafed] Heart Rate Surgical - Exam Vital Signs Temp Pulse Resp BP Pulse Ox 98.7 F 87 18 132/71 94 L 01/13/18 10:19 01/13/18 10:19 01/13/18 10:19 01/13/18 10:19 01/13/18 10:19 Physical exam: General: Well-developed, well-nourished HEENT: Normocephalic, sclerae nonicteric Abdomen: Mild epigastric tenderness, colostomy left upper quadrant with fullness that appears to represent a stomal hernia by CAT scan, nondistended Extremities: No edema Neuro: Alert and oriented Results - Labs 01/14/18 06:31 01/14/18 06:31 Abnormal Lab Results - Last 24 Hours (Table) 01/13/18 01/14/18 01/14/18 Range/Units 20:25 06:31 06:31 Plt Count 139 L (150-450) k/uL Glucose 158 H (74-99) mg/dL POC Glucose (mg/dL) 155 H (75-99) mg/dL AST 41 H (14-36) U/L Total Protein 6.0 L (6.3-8.2) g/dL 01/14/18 01/14/18 01/14/18 Range/Units 06:52 12:04 17:49 Plt Count (150-450) k/uL Glucose (74-99) mg/dL POC Glucose (mg/dL) 155 H 190 H 155 H (75-99) mg/dL AST (14-36) U/L Total Protein (6.3-8.2) g/dL 01/14/18 Range/Units 20:10 Plt Count (150-450) k/uL Glucose (74-99) mg/dL POC Glucose (mg/dL) 244 H (75-99) mg/dL AST (14-36) U/L Total Protein (6.3-8.2) g/dL Diabetes panel 01/14/18 Range/Units 06:31 Sodium 141 (137-145) mmol/L Potassium 4.4 (3.5-5.1) mmol/L Chloride 103 (98-107) mmol/L Carbon Dioxide 28 (22-30) mmol/L BUN 13 (7-17) mg/dL Creatinine 0.72 (0.52-1.04) mg/dL Glucose 158 H (74-99) mg/dL Calcium 9.2 (8.4-10.2) mg/dL AST 41 H (14-36) U/L ALT 41 (9-52) U/L Alkaline Phosphatase 54 (38-126) U/L Total Protein 6.0 L (6.3-8.2) g/dL Albumin 3.5 (3.5-5.0) g/dL Calcium panel 01/14/18 Range/Units 06:31 Calcium 9.2 (8.4-10.2) mg/dL Albumin 3.5 (3.5-5.0) g/dL Pituitary panel 01/14/18 Range/Units 06:31 Sodium 141 (137-145) mmol/L Potassium 4.4 (3.5-5.1) mmol/L Chloride 103 (98-107) mmol/L Carbon Dioxide 28 (22-30) mmol/L BUN 13 (7-17) mg/dL Creatinine 0.72 (0.52-1.04) mg/dL Glucose 158 H (74-99) mg/dL Calcium 9.2 (8.4-10.2) mg/dL Adrenal panel 01/14/18 Range/Units 06:31 Sodium 141 (137-145) mmol/L Potassium 4.4 (3.5-5.1) mmol/L Chloride 103 (98-107) mmol/L Carbon Dioxide 28 (22-30) mmol/L BUN 13 (7-17) mg/dL Creatinine 0.72 (0.52-1.04) mg/dL Glucose 158 H (74-99) mg/dL Calcium 9.2 (8.4-10.2) mg/dL Total Bilirubin 0.5 (0.2-1.3) mg/dL AST 41 H (14-36) U/L ALT 41 (9-52) U/L Alkaline Phosphatase 54 (38-126) U/L Total Protein 6.0 L (6.3-8.2) g/dL Albumin 3.5 (3.5-5.0) g/dL Assessment and Plan (1) Dysphagia Narrative/Plan: Clinical scenario discussed in detail with the patient. We'll proceed with upper endoscopy tomorrow. Suspect probable esophagitis as the etiology for her symptoms. Further recommendations will follow. Continue antiacid therapy. Current Visit: Yes Status: Acute Code(s): R13.10 - DYSPHAGIA, UNSPECIFIED SNOMED Code(s): 72393440
[2018-01-14] MEDS: ATORVASTATIN 20 MG TAB PO SCH (22:01)
[2018-01-15] MEDS: MORPHINE SULFATE/PF 10MG/10ML VL IV PRN (00:10)
[2018-01-15] MEDS: ONDANSETRON 4 MG/2 ML VIAL IVP PRN (00:11)
[2018-01-15] MEDS: oxyCODONE-APAP 7.5-325MG 1 EACH TAB PO PRN ×2 (04:05→11:28)
[2018-01-15 06:58] LABS: Glucose,Whole Blood 170 mg/dL (75-99)
[2018-01-15 08:07] VITALS: RESP 18
[2018-01-15] MEDS ORDERED: IV FLUID CONTINUATION 1,000 ML IV ONE (08:26)
[2018-01-15] MEDS ORDERED: LIDOCAINE 1% INJ 10MG/ML (20 ML MDV) ONE (08:27)
[2018-01-15] MEDS ORDERED: PROPOFOL 10 MG/ML 20 ML VIAL IV ONE (08:27)
--- NOTE | 2018-01-15 09:36 | P.PCN ---
Date of Procedure: 01/15/18 Procedure(s) Performed: Preoperative Dx: Dysphagia, epigastric pain Postoperative Dx: Mild gastritis normal-appearing LAP-BAND Procedure: EGD with Bx Anesthesia: Sedation Endoscopist: Dr. Gutierrez Specimens: Antrum Endoscopic Procedure: The patient was on the endoscopy table in the left decubitus position. The Olympus gastroscope was inserted into the oropharynx and passed under direct visualization to the region of the third portion of the duodenum. From that point the scope was slowly withdrawn inspecting all surfaces carefully. There were no neoplastic inflammatory or polypoid lesions throughout the duodenum. The pylorus was widely patent. The stomach was carefully inspected. There was gastritis present. A biopsy of the antrum took place to rule out H. pylori. Retroflexion revealed a normal band plication. There was no evidence of erosion or prolapse. The esophagus was then carefully examined. There were no neoplastic inflammatory or polypoid lesions throughout the visualized esophagus. The patient was then taken to the recovery room in stable condition per anesthesia guidelines. Recommendations: Increase antiacid therapy. Resume diet. Patient may require band removal given her symptoms. Follow-up bariatric center in 2 weeks.
[2018-01-15] MEDS: LEVOTHYROXINE 112 MCG TAB PO SCH (10:16)
[2018-01-15] MEDS: INSULIN ASPART 100 UNIT/ML 1 ML 10 ML VIAL SQ SCH ×2 (10:34→12:50)
[2018-01-15] MEDS: SERTRALINE 100 MG TAB PO SCH (11:15)
[2018-01-15] MEDS: ARIPiprazole 5 MG TAB PO SCH (11:15)
[2018-01-15] MEDS: CHOLECALCIFEROL 1,000 UNIT TAB PO SCH (11:15)
[2018-01-15] MEDS: PANTOPRAZOLE 40 MG/10 ML VIAL IV SCH (11:15)
[2018-01-15] MEDS: LISINOPRIL 5 MG TAB PO SCH (11:16)
[2018-01-15] MEDS: ASPIRIN 81 MG PO SCH (11:16)
[2018-01-15] MEDS: MAGNESIUM OXIDE 400 MG TAB PO SCH (11:16)
[2018-01-15] MEDS: MULTIVITAMINS, THERA 1 EACH TAB PO SCH (11:16)
[2018-01-15] MEDS: INSULIN DETEMIR 100 UNIT/ML 10 ML VIAL SQ SCH (11:16)
[2018-01-15] MEDS: METOPROLOL TARTRATE 50 MG TAB PO SCH (11:16)
[2018-01-15] MEDS: METHENAMINE HIPPURATE 1 GM PO SCH (11:17)
[2018-01-15 12:10] LABS: Glucose,Whole Blood 165 mg/dL (75-99)
[2018-01-15] MEDS: ONDANSETRON 4 MG TAB PO SCH (12:49)
[2018-01-15] MEDS ORDERED: MORPHINE ORAL SOLN 10 MG/5 ML CUP PO PRN (13:19)
--- NOTE | 2018-01-15 14:43 | P.DS ---
Providers Date of admission: 01/13/18 16:54 Attending physician: Aly Mosquera Consults: 01/13/18 16:54 Consult Physician Stat Consulting Provider: Yandel Gutierrez Reason/Comments: difficulty swallowing post lap band Do you want consulting provider notified?: Already Contacted Primary care physician: Rebel Valencia [facility] Course: Patient given with abdominal pain patient has a gastritis on upper GI endoscopy and and patient is being discharged on Prilosec. Patient is otherwise clinically well abdominal tenderness improved although she has some abdominal pain. Patient will follow in bariatric surgery clinic please refer to my dictation of prednisone for from yesterday for further details Patient Condition at Discharge: Fair Plan - Discharge Summary Discharge Rx Participant: No New Discharge Prescriptions: New Omeprazole [PriLOSEC] 20 mg PO AC-BRKFST #90 cap Sucralfate [Carafate] 1 gm PO ACHS #120 tab No Action Insulin Aspart [NovoLOG (formulary)] 35 units SQ AC-BRKFST Aspirin 81 mg PO DAILY Methenamine Hippurate [Hiprex] 1 gm PO BID metFORMIN HCL [Glucophage] 1,000 mg PO BID Levothyroxine Sodium [Synthroid] 224 mcg PO DAILY Metoprolol Tartrate [Lopressor] 100 mg PO DAILY Cholecalciferol [Vitamin D3] 5,000 unit PO DAILY Metoprolol Tartrate [Lopressor] 75 mg PO HS oxyCODONE-APAP 7.5-325MG [Percocet 7.5-325 mg] 1 tab PO Q6HR PRN PRN Reason: Pain Insulin Glargine [Lantus] 60 unit SQ BID Albuterol Inhaler [Ventolin Hfa Inhaler] 2 puff INHALATION RT-Q4H PRN PRN Reason: Shortness Of Breath Insulin Aspart [NovoLOG (formulary)] 40 unit SQ BID Sertraline HCl [Zoloft] 150 mg PO DAILY Multivitamins, Thera [Multivitamin (formulary)] 1 tab PO DAILY Atorvastatin [Lipitor] 20 mg PO HS Lisinopril [Prinivil] 5 mg PO DAILY LORazepam [Ativan] 0.5 mg PO DAILY PRN PRN Reason: Anxiety Pioglitazone [Actos] 30 mg PO DAILY Ondansetron HCl [Zofran] 8 mg PO DAILY Magnesium Oxide [Rodríguez] 500 mg PO DAILY ARIPiprazole [Abilify] 5 mg PO DAILY Discharge Medication List Aspirin 81 mg PO DAILY 06/02/14 [History] Insulin Aspart [NovoLOG (formulary)] 35 units SQ -BRKFST 06/02/14 [History] Levothyroxine Sodium [Synthroid] 224 mcg PO DAILY 06/02/14 [History] Methenamine Hippurate [Hiprex] 1 gm PO BID 06/02/14 [History] metFORMIN HCL [Glucophage] 1,000 mg PO BID 06/02/14 [History] Cholecalciferol [Vitamin D3] 5,000 unit PO DAILY 10/31/15 [History] Metoprolol Tartrate [Lopressor] 100 mg PO DAILY 10/31/15 [History] ARIPiprazole [Abilify] 5 mg PO DAILY 12/24/17 [History] Albuterol Inhaler [Ventolin Hfa Inhaler] 2 puff INHALATION RT-Q4H PRN 12/24/17 [ History] Atorvastatin [Lipitor] 20 mg PO HS 12/24/17 [History] Insulin Aspart [NovoLOG (formulary)] 40 unit SQ BID 12/24/17 [History] Insulin Glargine [Lantus] 60 unit SQ BID 12/24/17 [History] LORazepam [Ativan] 0.5 mg PO DAILY PRN 12/24/17 [History] Lisinopril [Prinivil] 5 mg PO DAILY 12/24/17 [History] Magnesium Oxide [Rodríguez] 500 mg PO DAILY 12/24/17 [History] Metoprolol Tartrate [Lopressor] 75 mg PO HS 12/24/17 [History] Multivitamins, Thera [Multivitamin (formulary)] 1 tab PO DAILY 12/24/17 [History ] Ondansetron HCl [Zofran] 8 mg PO DAILY 12/24/17 [History] Pioglitazone [Actos] 30 mg PO DAILY 12/24/17 [History] Sertraline HCl [Zoloft] 150 mg PO DAILY 12/24/17 [History] oxyCODONE-APAP 7.5-325MG [Percocet 7.5-325 mg] 1 tab PO Q6HR PRN 12/24/17 [ History] Omeprazole [PriLOSEC] 20 mg PO AC-BRKFST #90 cap 01/15/18 [Rx] Sucralfate [Carafate] 1 gm PO ACHS #120 tab 01/15/18 [Rx] Follow up Appointment(s)/Referral(s): Bariatric Center,. [NON-STAFF] - 2 Weeks Rebel Cast MD [Primary Care Provider] - 3 Days Discharge Disposition: HOME SELF-CARE
[2018-01-15 16:07] VITALS: BP 135/69; PULSE 80; TEMP 97.7
== END 2018-01-15 16:35 | disposition home or self-care (01) ==
LOC: EC 10:13 → 3OBS 16:54
PROVIDERS: ADMIT Internal Medicine; ATTEND Internal Medicine
DX: K29.50 Unspecified chronic gastritis without bleeding (principal); R13.10 Dysphagia, unspecified; Z98.84 Bariatric surgery status; Z93.3 Colostomy status; K43.9 Ventral hernia without obstruction or gangrene; K57.90 Diverticulosis of intestine, part unspecified, without perforation or abscess without bleeding; Z85.038 Personal history of other malignant neoplasm of large intestine; I10 Essential (primary) hypertension; E11.9 Type 2 diabetes mellitus without complications; F41.0 Panic disorder [episodic paroxysmal anxiety]; F32.9 Major depressive disorder, single episode, unspecified; E78.5 Hyperlipidemia, unspecified; E03.9 Hypothyroidism, unspecified; M16.0 Bilateral primary osteoarthritis of hip; E66.01 Morbid (severe) obesity due to excess calories; Z68.43 Body mass index [BMI] 50.0-59.9, adult; Z86.14 Personal history of Methicillin resistant Staphylococcus aureus infection; Z85.43 Personal history of malignant neoplasm of ovary; Z90.49 Acquired absence of other specified parts of digestive tract; Z90.710 Acquired absence of both cervix and uterus; Z79.82 Long term (current) use of aspirin; Z79.4 Long term (current) use of insulin; Z79.899 Other long term (current) drug therapy; Z88.1 Allergy status to other antibiotic agents; Z88.5 Allergy status to narcotic agent; Z88.0 Allergy status to penicillin; Z88.8 Allergy status to other drugs, medicaments and biological substances; Z91.048 Other nonmedicinal substance allergy status; Z80.7 Family history of other malignant neoplasms of lymphoid, hematopoietic and related tissues; Z82.49 Family history of ischemic heart disease and other diseases of the circulatory system; Z82.3 Family history of stroke
CPT/HCPCS: 99285 ×2; 96374 ×2; 96375 ×3; 96361 ×10; 96376 ×3; 36415; 93005; 88305; 80053 ×2; 82150; 82550; 82553; 83605; 83690; 84484; 85025 ×2; 81001; 74240; 74019; 74177; 43239; G0378 ×3; J2405 ×3; J2001; J2704; C9113 ×3; Q9967; J2270 ×3

== ENCOUNTER → 2018-02-28 | Outpatient (CLI) | payer BC ==
[2018-02-28 11:11] LABS: ALT 36 U/L (9-52); AST 32 U/L (14-36); Albumin 4.1 g/dL (3.5-5.0); Alkaline Phosphatase 56 U/L (38-126); Anion Gap 14 mmol/L; Blood Urea Nitrogen 14 mg/dL (7-17); Calcium 9.8 mg/dL (8.4-10.2); Carbon Dioxide 26 mmol/L (22-30); Chloride 101 mmol/L (98-107); Glucose 218 mg/dL (74-99); Potassium 4.5 mmol/L (3.5-5.1); Sodium 141 mmol/L (137-145); Total Bilirubin 0.5 mg/dL (0.2-1.3); Total Protein 6.6 g/dL (6.3-8.2)
[2018-02-28 16:02] LABS: Vitamin D 25 Hydroxy 40.1 ng/mL (30.0-100.0)
[2018-02-28 17:57] LABS: Parathyroid Hormone Intact 40.2 pg/mL (14.0-72.0)
[2018-03-04 17:36] LABS: Creatinine Urine Random 218.9 mg/dL (20.0-320.0)
== END | disposition home or self-care (01) ==
LOC: LABWHC1 10:29
PROVIDERS: ATTEND Internal Medicine Endocrinology, Diabetes & Metabolism
DX: E11.65 Type 2 diabetes mellitus with hyperglycemia (principal); M80.80XA Other osteoporosis with current pathological fracture, unspecified site, initial encounter for fracture
CPT/HCPCS: 36415; 80053; 82043; 82306; 82523; 82570; 83970; 84443

== ENCOUNTER 2018-07-19 14:26 | Emergency (ER) | payer BC ==
[2018-07-19 14:40] VITALS: RESP 18; TEMP 98.2
--- NOTE | 2018-07-19 14:51 | ED ---
General Adult HPI - General Chief complaint: Fall Stated complaint: FALL RIGHT SHOULDER INJURY Time Seen by Provider: 07/19/18 14:36 Source: patient, EMS, RN notes reviewed Mode of arrival: EMS Limitations: no limitations - History of Present Illness Initial comments: Patient is a pleasant 48-year-old female presenting to the emergency department following a fall. Patient states she tripped over her own feet and fell. Patient did land on her right upper arm. Patient complains of severe discomfort right upper arm that increases with movement. No head injury or loss of consciousness however patient did scratch her nose. Patient does not take any blood thinners. Patient also complains of some mild discomfort of her left hip. Patient states she did not attempt to walk. No neck or back pain. No chest pain or dyspnea. No abdominal pain. No history of injury previously to this area. - Related Data Home Medications Medication Instructions Recorded Confirmed Aspirin 81 mg PO DAILY 06/02/14 07/19/18 Insulin Aspart [NovoLOG 35 units SQ AC-BRKFST 06/02/14 07/19/18 (formulary)] Levothyroxine Sodium [Synthroid] 224 mcg PO DAILY 06/02/14 07/19/18 Methenamine Hippurate [Hiprex] 1 gm PO BID 06/02/14 07/19/18 metFORMIN HCL [Glucophage] 1,000 mg PO BID 06/02/14 07/19/18 Cholecalciferol [Vitamin D3] 1,000 unit PO BID 10/31/15 07/19/18 Metoprolol Tartrate [Lopressor] 100 mg PO DAILY 10/31/15 07/19/18 ARIPiprazole [Abilify] 5 mg PO DAILY 12/24/17 07/19/18 Albuterol Inhaler [Ventolin Hfa 2 puff INHALATION RT-Q4H PRN 12/24/17 07/19/18 Inhaler] Atorvastatin [Lipitor] 20 mg PO HS 12/24/17 07/19/18 Insulin Aspart [NovoLOG 40 unit SQ W/SUPPER 12/24/17 07/19/18 (formulary)] Insulin Glargine [Lantus] 60 unit SQ BID 12/24/17 07/19/18 LORazepam [Ativan] 0.5 mg PO DAILY PRN 12/24/17 07/19/18 Lisinopril [Prinivil] 5 mg PO DAILY 12/24/17 07/19/18 Magnesium Oxide [Rodríguez] 500 mg PO HS 12/24/17 07/19/18 Metoprolol Tartrate [Lopressor] 75 mg PO HS 12/24/17 07/19/18 Multivitamins, Thera [Multivitamin 1 tab PO DAILY 12/24/17 07/19/18 (formulary)] Ondansetron HCl [Zofran] 8 mg PO DAILY 12/24/17 07/19/18 Pioglitazone [Actos] 30 mg PO DAILY 12/24/17 07/19/18 Sertraline HCl [Zoloft] 150 mg PO DAILY 12/24/17 07/19/18 oxyCODONE-APAP 7.5-325MG [Percocet 1 tab PO Q6HR PRN 12/24/17 07/19/18 7.5-325 mg] Celecoxib [CeleBREX] 200 mg PO DAILY 07/19/18 07/19/18 Sucralfate [Carafate] 1 gm PO BID 07/19/18 07/19/18 Previous Rx's Medication Instructions Recorded Omeprazole [PriLOSEC] 20 mg PO AC-BRKFST #90 cap 01/15/18 Hydrocodone/Acetaminophen [[place] 2 each PO Q6HR PRN #20 tab 07/19/18 5-325] Allergies Allergy/AdvReac Type Severity Reaction Status Date / Time cephalexin [From Keflex] Allergy Unknown Verified 07/19/18 15:44 fosfomycin Allergy Unknown Verified 07/19/18 15:44 nickel Allergy Unknown Verified 07/19/18 15:44 Penicillins Allergy Anaphylaxis Verified 07/19/18 15:44 homatropine AdvReac Chest Pain Verified 07/19/18 15:44 [From Hycodan (with homatropin)] homatropine methylbromide AdvReac Chest Pain Verified 07/19/18 15:44 [From Hycodan (with homatropin)] hydrocodone bitartrate AdvReac Chest Pain Verified 07/19/18 15:44 [From Hycodan (with homatropin)] promethazine HCl AdvReac Abdominal Verified 07/19/18 15:44 [From Phenergan] Pain propafenone HCl AdvReac Chest Pain Verified 07/19/18 15:44 [From Rythmol] pseudoephedrine HCl AdvReac Rapid Verified 07/19/18 15:44 [From Sudafed] Heart Rate Review of Systems ROS Statement: Those systems with pertinent positive or pertinent negative responses have been documented in the HPI. ROS Other: All systems not noted in ROS Statement are negative. Constitutional: Denies: fever Eyes: Denies: eye pain ENT: Denies: ear pain Respiratory: Denies: cough, dyspnea Cardiovascular: Denies: chest pain Endocrine: Denies: fatigue Gastrointestinal: Denies: abdominal pain Genitourinary: Denies: dysuria Musculoskeletal: Denies: back pain Skin: Denies: rash Neurological: Denies: headache, weakness Past Medical History Past Medical History: Cancer, Chest Pain / Angina, Diabetes Mellitus, Hypertension, Thyroid Disorder Additional Past Medical History / Comment(s): OVARIAN CA, LOWER BRIDGE, RECENT STRESS TEST-NEG History of Any Multi-Drug Resistant Organisms: MRSA Date of last positivie culture/infection: 2011 MDRO Source:: ABD WOUND Past Surgical History: Bariatric Surgery, Bowel Resection, Cholecystectomy, EPS , Heart Catheterization, Hysterectomy Additional Past Surgical History / Comment(s): COLOSTOMY, Rt foot surgery - hammer toe Past Anesthesia/Blood Transfusion Reactions: No Reported Reaction Past Psychological History: Anxiety, Depression, Panic Disorder Smoking Status: Never smoker Past Alcohol Use History: None Reported Past Drug Use History: None Reported - Past Family History Father Family Medical History: CVA/TIA Additional Family Medical History / Comment(s): three vessel CABG Mother Family Medical History: Myocardial Infarction ([place]) Sister(s) Family Medical History: Hypertension General Exam Limitations: no limitations General appearance: alert, in no apparent distress Head exam: Present: other (Nasal abrasion) Eye exam: Present: normal appearance, PERRL, EOMI ENT exam: Present: normal oropharynx Neck exam: Present: normal inspection. Absent: tenderness Respiratory exam: Present: normal lung sounds bilaterally Cardiovascular Exam: Present: regular rate, normal rhythm Expanded Peripheral pulses: 2+: Radial (R), Radial (L), Dorsalis Pedis (R), Dorsalis Pedis (L) GI/Abdominal exam: Present: soft. Absent: tenderness Extremities exam: Present: tenderness (Moderate tenderness right upper arm, severe tenderness with attempted range of motion. Distally extremity is neurovascularly intact. Mild tenderness left anterior hip. No pain with range of motion. Distally extremity is neurovascularly intact.) Back exam: Present: normal inspection. Absent: tenderness Neurological exam: Present: alert. Absent: motor sensory deficit Psychiatric exam: Present: normal affect, normal mood Skin exam: Present: normal color Course Vital Signs 07/19/18 14:35 Temperature 98.2 F Pulse Rate 88 Respiratory 18 Rate Blood Pressure 116/85 O2 Sat by Pulse 96 Oximetry Medical Decision Making - Medical Decision Making Patient reevaluated and updated. Case was discussed with Dr. Rios with orthopedics who does request computed tomography scan done and feels she is likely a surgical candidate. Patient updated. - Radiology Data Radiology results: image reviewed (X-ray of the right hip shows no acute process. X-ray left hip and pelvis shows arthritic changes. No acute process. X-ray of the right humerus shows fracture at the surgical neck with displacement.) Disposition Clinical Impression: Fracture of proximal end of right humerus Disposition: HOME SELF-CARE Condition: Stable Instructions: Arm Fracture in Adults (ED) Additional Instructions: Please follow-up with orthopedics on Saturday. No use of right arm until released by orthopedics. Return for increase pain, swelling, worsening symptoms , weakness, or other concerns. Prescriptions: Hydrocodone/Acetaminophen [[place] 5-325] 2 each PO Q6HR PRN #20 tab PRN Reason: Pain Is patient prescribed a controlled substance at d/c from ED?: Yes When asked, does pt state using other controlled substances?: No If prescribed controlled substance>3 days was MAPS reviewed?: Prescribed <3 Days If opioid is for acute pain is fill amount 7 days or less?: Yes If Rx opioid, was Start Talking consent form obtained?: Yes Referrals: Rebel Cast MD [Primary Care Provider] - 1-2 days Suresh Rios DO [Doctor of Osteopathic Medicine] - 1-2 days Time of Disposition: 16:26
[2018-07-19] MEDS ORDERED: HYDROmorphone 1 MG/ML 1 ML SYRINGE IVP STA ×2 (15:41→17:04)
--- NOTE | 2018-07-19 15:45 | XR ---
EXAMINATION TYPE: XR humerus RT DATE OF EXAM: 07/19/2018 COMPARISON: None HISTORY: Fall pain TECHNIQUE: 2 view right humerus FINDINGS: There is a fracture at the neck of the humerus. Distal humerus appears intact. Images are l imited due to the patient's pain. IMPRESSION: 1. Fracture at the surgical neck of the right humerus.
--- NOTE | 2018-07-19 16:07 | XR ---
EXAMINATION TYPE: XR Hip Complete RT DATE OF EXAM: 07/19/2018 COMPARISON: None HISTORY: Pain from fall TECHNIQUE: 2 view right hip FINDINGS: Femoral head articulates with the acetabulum. Joint space narrowing is present. No acute fr actures evident. IMPRESSION: 1. Mild degenerative changes right hip.
--- NOTE | 2018-07-19 16:14 | XR ---
EXAMINATION TYPE: XR Hip LT and AP Pelvis DATE OF EXAM: 07/19/2018 COMPARISON: None HISTORY: Fall, pain TECHNIQUE: AP pelvis and left hip FINDINGS: Pelvis appears intact. No acute fractures are evident. Femoral heads articulate with the ac etabulum. Normal bowel gas is present Left hip: Left hip articulates with the acetabulum. There is joint space narrowing. No acute fracture s evident. IMPRESSION: 1. Mild osteoarthritic degenerative change left hip. 2. No acute osseous abnormality pelvis and left hip
[2018-07-19 17:13] VITALS: BP 119/56; PULSE 90
--- NOTE | 2018-07-19 17:24 | CT ---
EXAMINATION TYPE: CT shoulder RT wo con DATE OF EXAM: 07/19/2018 COMPARISON: Plain films same date HISTORY: Fall with right shoulder injury CT DLP: 458 mGycm Automated exposure control for dose reduction was used. FINDINGS: There is a fracture of the surgical neck of the humerus. This is comminuted and may be impacted. Ther e may be avulsion of the greater tuberosity. Some rotation of the humeral head in relation to the hum eral neck may be present. The humeral head articulates with the glenoid. Acromioclavicular junction i s preserved. There may be some downward sloping of the acromion. IMPRESSION: COMMINUTED IMPACTED FRACTURE AT THE SURGICAL NECK OF THE HUMERUS. THE HUMERAL HEAD ARTICULATES WITH T HE GLENOID.
== END 2018-07-19 17:50 | disposition home or self-care (01) ==
LOC: EC 14:26
DX: S42.211A Unspecified displaced fracture of surgical neck of right humerus, initial encounter for closed fracture (principal); E11.9 Type 2 diabetes mellitus without complications; I10 Essential (primary) hypertension; F41.0 Panic disorder [episodic paroxysmal anxiety]; F32.9 Major depressive disorder, single episode, unspecified; Z79.82 Long term (current) use of aspirin; Z79.4 Long term (current) use of insulin; Z79.899 Other long term (current) drug therapy; Z85.43 Personal history of malignant neoplasm of ovary; Z95.5 Presence of coronary angioplasty implant and graft; Z88.1 Allergy status to other antibiotic agents; Z88.0 Allergy status to penicillin; Z88.8 Allergy status to other drugs, medicaments and biological substances; W01.0XXA Fall on same level from slipping, tripping and stumbling without subsequent striking against object, initial encounter
CPT/HCPCS: 73502 ×2; 73060; 73200; 99284; 96374; 96376; J1170

== ENCOUNTER → 2018-12-11 | Outpatient (CLI) | payer BC, OTHER ==
[2018-12-11 18:22] LABS: Albumin 4.2 g/dL (3.80-4.90); Albumin/Globulin Ratio 2.21 (1.60-3.17); Anion Gap 13.5 mmol/L (4.00-12.00); Calcium 9.5 mg/dL (8.7-10.3); Carbon Dioxide 25.5 mmol/L (21.6-31.8); Globulin 1.9 g/dL (1.6-3.3); LDL Cholesterol,Calculated 50.8 mg/dL (0.0-131.0); Potassium 5.2 mmol/L (3.5-5.5); Total Bilirubin 0.6 mg/dL (0.2-1.2); Total Protein 6.1 g/dL (6.2-8.2); VLDL Calculation 22.2 mg/dL (5.00-40.00)
== END | disposition home or self-care (01) ==
LOC: LABWHC1 09:01
PROVIDERS: ATTEND Internal Medicine Endocrinology, Diabetes & Metabolism
DX: E11.65 Type 2 diabetes mellitus with hyperglycemia (principal)
CPT/HCPCS: 36415; 80053; 80061; 82043; 82570; 84443

== ENCOUNTER 2019-02-06 00:25 | Observation (INO) | payer BC, OTHER ==
[2019-02-06] MEDS ORDERED: SODIUM CHLORIDE 0.9% 1,000 ML IV STA (00:28)
[2019-02-06] MEDS ORDERED: ASPIRIN 81 MG PO STA (00:28)
--- NOTE | 2019-02-06 00:50 | ED ---
Chest Pain HPI - General Stated Complaint: chest pain Time Seen by Provider: 02/06/19 00:28 Source: patient Mode of arrival: wheelchair Limitations: no limitations - History of Present Illness Initial Comments: Rika is a pleasant morbidly obese 48-year-old female who presents the emergency department today for evaluation of chest pain. Patient reports that approximately an hour to an hour and half prior to arrival in the emergency department she was sitting at home watching TV when she developed a pressure- like chest pain in the middle of her chest radiating to her bilateral jaw. Pain is pressure-like in nature, no exacerbating or relieving factors. Pain is associated with some mild shortness of breath no nausea or vomiting. Patient reports she has not been feeling well all day, she can't describe any specific symptoms but states that she's had a generalized feeling of being unwell feeling off. She denies any fevers chills nausea or vomiting. - Related Data Home Medications Medication Instructions Recorded Confirmed Aspirin 81 mg PO DAILY 06/02/14 02/06/19 INSULIN ASPART (NovoLOG) [NovoLOG 35 units SQ AC-BRKFST 06/02/14 02/06/19 (formulary)] Levothyroxine Sodium [Synthroid] 224 mcg PO DAILY 06/02/14 02/06/19 Methenamine Hippurate [Hiprex] 1 gm PO BID 06/02/14 02/06/19 metFORMIN HCL [Glucophage] 1,000 mg PO BID 06/02/14 02/06/19 Cholecalciferol [Vitamin D3] 1,000 unit PO BID 10/31/15 02/06/19 Metoprolol Tartrate [Lopressor] 100 mg PO DAILY 10/31/15 02/06/19 Albuterol Inhaler [Ventolin Hfa 2 puff INHALATION RT-Q4H PRN 12/24/17 02/06/19 Inhaler] Atorvastatin [Lipitor] 20 mg PO HS 12/24/17 02/06/19 INSULIN ASPART (NovoLOG) [NovoLOG 40 unit SQ W/SUPPER 12/24/17 02/06/19 (formulary)] Insulin Glargine [Lantus] 60 unit SQ BID 12/24/17 02/06/19 Lisinopril [Prinivil] 5 mg PO DAILY 12/24/17 02/06/19 Magnesium Oxide [Rodríguez] 500 mg PO HS 12/24/17 02/06/19 Metoprolol Tartrate [Lopressor] 75 mg PO HS 12/24/17 02/06/19 Multivitamins, Thera [Multivitamin 1 tab PO DAILY 12/24/17 02/06/19 (formulary)] Ondansetron HCl [Zofran] 8 mg PO DAILY 12/24/17 02/06/19 Pioglitazone [Actos] 30 mg PO DAILY 12/24/17 02/06/19 FLUoxetine HCL [PROzac] 40 mg PO DAILY 02/06/19 02/06/19 Folic Acid 1 mg PO DAILY 02/06/19 02/06/19 Insulin Aspart [Novolog] 35 unit SQ AC-LUNCH 02/06/19 02/06/19 Methotrexate/Pf [Rasuvo 25 mg/0.5 25 mg SQ TU 02/06/19 02/06/19 ml Autoinj] Omeprazole [PriLOSEC] 20 mg PO BID 02/06/19 02/06/19 Allergies Allergy/AdvReac Type Severity Reaction Status Date / Time cephalexin [From Keflex] Allergy Unknown Verified 02/06/19 04:22 fosfomycin Allergy Unknown Verified 02/06/19 04:22 nickel Allergy Unknown Verified 02/06/19 04:22 Penicillins Allergy Anaphylaxis Verified 02/06/19 04:22 homatropine AdvReac Chest Pain Verified 02/06/19 04:22 [From Hycodan (with homatropin)] homatropine methylbromide AdvReac Chest Pain Verified 02/06/19 04:22 [From Hycodan (with homatropin)] hydrocodone bitartrate AdvReac Chest Pain Verified 02/06/19 04:22 [From Hycodan (with homatropin)] promethazine HCl AdvReac Abdominal Verified 02/06/19 04:22 [From Phenergan] Pain propafenone HCl AdvReac Chest Pain Verified 02/06/19 04:22 [From Rythmol] pseudoephedrine HCl AdvReac Rapid Verified 02/06/19 04:22 [From Sudafed] Heart Rate Review of Systems ROS Statement: Those systems with pertinent positive or pertinent negative responses have been documented in the HPI. ROS Other: All systems not noted in ROS Statement are negative. EKG Findings - EKG Comments: EKG Findings:: EKG obtained at 12:41 AM, repeat is 98 rhythm is sinus there is normal axis there are normal intervals, HI 144, QRS 88, QTC is 449 there are no acute ST elevations or depressions there is no evidence of acute ischemia or infarction Past Medical History Past Medical History: Atrial Flutter, Cancer, Chest Pain / Angina, Diabetes Mellitus, Hypertension, Thyroid Disorder Additional Past Medical History / Comment(s): OVARIAN CA - in remission, psoriatic arthritis, past cardiac ablation for a-flutter and SVT History of Any Multi-Drug Resistant Organisms: MRSA Date of last positivie culture/infection: 2011 MDRO Source:: ABD WOUND Past Surgical History: Bariatric Surgery, Bowel Resection, Cardiac Ablation, Cholecystectomy, EPS, Heart Catheterization, Hysterectomy, Orthopedic Surgery, Tonsillectomy Additional Past Surgical History / Comment(s): COLOSTOMY, Rt foot surgery - hammer toe, colostomy Past Anesthesia/Blood Transfusion Reactions: No Reported Reaction Past Psychological History: Anxiety, Depression, Panic Disorder Smoking Status: Never smoker Past Alcohol Use History: None Reported Past Drug Use History: None Reported - Past Family History Father Family Medical History: CVA/TIA Additional Family Medical History / Comment(s): three vessel CABG Mother Family Medical History: Myocardial Infarction ([place]) Sister(s) Family Medical History: Hypertension General Exam - General Exam Comments Initial Comments: Physical Exam GENERAL: Patient is well-developed and well-nourished, morbidly obese, appears older than stated age Patient is nontoxic and well-hydrated appears uncomfortable, anxious HENT: Normocephalic, Atraumatic. EYES: PERRL, EOMI PULMONARY: Unlabored respirations. CARDIOVASCULAR: RRR ABDOMEN: Obese SKIN: Skin is clear with no lesions or rashes and otherwise unremarkable. : Deferred NEUROLOGIC: Patient is alert and oriented x3. Moving all extremities spontaneously MUSCULOSKELETAL: Normal extremities with adequate strength and full range of motion. No lower extremity swelling or edema. No calf tenderness. PSYCHIATRIC: Anxious Limitations: no limitations Limitations: no limitations Course Vital Signs 02/06/19 02/06/19 02/06/19 00:38 00:48 01:00 Temperature 98.4 F Pulse Rate 97 94 Pulse Rate [ Pulse Oximetery ] Respiratory 24 15 Rate Blood Pressure 140/97 140/97 Blood Pressure [Left Arm] O2 Sat by Pulse 100 95 Oximetry 02/06/19 02/06/19 02/06/19 01:20 01:40 02:00 Temperature Pulse Rate 97 94 100 Pulse Rate [ Pulse Oximetery ] Respiratory 20 18 18 Rate Blood Pressure 115/67 120/75 120/75 Blood Pressure [Left Arm] O2 Sat by Pulse 95 96 95 Oximetry 02/06/19 02/06/19 02/06/19 02:30 03:00 03:30 Temperature Pulse Rate 90 96 89 Pulse Rate [ Pulse Oximetery ] Respiratory 17 20 20 Rate Blood Pressure 119/65 122/70 112/78 Blood Pressure [Left Arm] O2 Sat by Pulse 96 96 95 Oximetry 02/06/19 02/06/19 04:00 04:20 Temperature 97.8 F Pulse Rate Pulse Rate [ 88 Pulse Oximetery ] Respiratory 16 16 Rate Blood Pressure Blood Pressure 145/77 [Left Arm] O2 Sat by Pulse 96 Oximetry Chest Pain [facility] Patient was seen and evaluated history was obtained from the patient Patient with 1-1/2 hours pressure-like chest pain radiating to bilateral jaws with some associated lightheadedness but no nausea vomiting dyspnea Cardiac workup was initiated Initial labs were unremarkable EKG was nonischemic Chest x-ray with no acute findings Patient care was discussed with the admitting physician Dr. Casas who accepts admission of the patient to observation for cardiac rule out. Disposition Clinical Impression: Chest pain Disposition: ADMITTED IP TO THIS HOSP Condition: Stable Is patient prescribed a controlled substance at d/c from ED?: No
[2019-02-06 01:05] LABS: Basophils % (A) 1 %; Eosinophils # (A) 0.2 k/uL (0-0.7); Eosinophils % (A) 4 %; HGB 12.9 gm/dL (11.4-16.0); Lymphocytes # (A) 2.3 k/uL (1.0-4.8); Lymphocytes % (A) 38 %; MCH 29.6 pg (25.0-35.0); MCHC 32.3 g/dL (31.0-37.0); MCV 91.9 fL (80.0-100.0); Monocytes # (A) 0.2 k/uL (0-1.0); Monocytes % (A) 4 %; Neutrophils # (A) 3.3 k/uL (1.3-7.7); Neutrophils % (A) 53 %; Platelet Count 248 k/uL (150-450); RBC 4.35 m/uL (3.80-5.40); RDW 14.9 % (11.5-15.5); WBC 6.2 k/uL (3.8-10.6)
--- NOTE | 2019-02-06 01:07 | XR ---
EXAM: XR Chest, 2 Views CLINICAL HISTORY: ITS.REASON XR Reason: Chest Pain TECHNIQUE: Frontal and lateral views of the chest. COMPARISON: 12/24/17 chest x-ray FINDINGS: Lungs: No consolidation or mass. Pleural space: No effusion. Heart: No cardiomegaly. Mediastinum: Unremarkable. Bones/joints: No acute findings. IMPRESSION: No acute cardiopulmonary process.
[2019-02-06 01:17] LABS: Albumin 4.1 g/dL (3.5-5.0); Calcium 9.7 mg/dL (8.4-10.2); Magnesium 1.3 mg/dL (1.6-2.3); Potassium 4.6 mmol/L (3.5-5.1); Total Bilirubin 0.5 mg/dL (0.2-1.3); Total Protein 6.6 g/dL (6.3-8.2)
[2019-02-06 01:27] LABS: INR 0.9 (<1.2); Prothrombin Time 9.8 sec (9.0-12.0)
[2019-02-06] MEDS: MAGNESIUM SULFATE-D5W PMX 1 GM in DEXTROSE/WATER 1 100ML.BAG IVPB SCH ×2 (01:33→02:36)
[2019-02-06] MEDS ORDERED: LABETALOL 100 MG in SODIUM CHLORIDE 0.9% 80 ML IV ONE (02:00)
--- NOTE | 2019-02-06 04:22 | P.HPIM ---
History of Present Illness H&P Date: 02/06/19 The patient is a 48 yo F with a PMH of A-flutter, DM, HTN, psoriatic arthritis, severe morbid obesity, and hypothyroidism who presented to the ED for sudden onset of L sided chest pain. The patient reports a sudden onset of chest pain earlier today at 11 pm, 10/10, pressure-like, w/ associated nausea, diaphoresis, dizziness, shortness of breath, and palpitations. The patient reports never having such pain before and decided to come to the ED. At time of interview, she notes continued 7/10 pain, though her associated symptoms had improved aside from the dizziness which she continues to have. She notes that she has never had pain like this before. She otherwise denied cough, fever, chills, vomiting, diarrhea, abdominal pain, recent travel, or sick contacts. The patient underwent an extensive evaluation in the ED w/ Troponin < 0.012, WBC 6.2, Hgb 12.9, and proBNP 110. A CXR was unremarkable. The patient was admitted to the medicine service for further management of chest pain. Review of Systems Pertinent positives and negatives as discussed in HPI, a complete review of systems was performed and all other systems are negative. Past Medical History Past Medical History: Atrial Flutter, Cancer, Chest Pain / Angina, Diabetes Mellitus, Hypertension, Thyroid Disorder Additional Past Medical History / Comment(s): OVARIAN CA - in remission, psoriatic arthritis, past cardiac ablation for a-flutter and SVT History of Any Multi-Drug Resistant Organisms: MRSA Date of last positivie culture/infection: 2011 MDRO Source:: ABD WOUND Past Surgical History: Bariatric Surgery, Bowel Resection, Cardiac Ablation, Cholecystectomy, EPS, Heart Catheterization, Hysterectomy, Orthopedic Surgery, Tonsillectomy Additional Past Surgical History / Comment(s): COLOSTOMY, Rt foot surgery - hammer toe, colostomy Past Anesthesia/Blood Transfusion Reactions: No Reported Reaction Past Psychological History: Anxiety, Depression, Panic Disorder Smoking Status: Never smoker Past Alcohol Use History: None Reported Past Drug Use History: None Reported - Past Family History Father Family Medical History: CVA/TIA Additional Family Medical History / Comment(s): three vessel CABG Mother Family Medical History: Myocardial Infarction ([place]) Sister(s) Family Medical History: Hypertension Medications and Allergies Home Medications Medication Instructions Recorded Confirmed Type Aspirin 81 mg PO DAILY 06/02/14 07/19/18 History INSULIN ASPART (NovoLOG) [NovoLOG 35 units SQ AC-BRKFST 06/02/14 07/19/18 History (formulary)] Levothyroxine Sodium [Synthroid] 224 mcg PO DAILY 06/02/14 07/19/18 History Methenamine Hippurate [Hiprex] 1 gm PO BID 06/02/14 07/19/18 History metFORMIN HCL [Glucophage] 1,000 mg PO BID 06/02/14 07/19/18 History Cholecalciferol [Vitamin D3] 1,000 unit PO BID 10/31/15 07/19/18 History Metoprolol Tartrate [Lopressor] 100 mg PO DAILY 10/31/15 07/19/18 History ARIPiprazole [Abilify] 5 mg PO DAILY 12/24/17 07/19/18 History Albuterol Inhaler [Ventolin Hfa 2 puff INHALATION RT-Q4H PRN 12/24/17 07/19/18 History Inhaler] Atorvastatin [Lipitor] 20 mg PO HS 12/24/17 07/19/18 History INSULIN ASPART (NovoLOG) [NovoLOG 40 unit SQ W/SUPPER 12/24/17 07/19/18 History (formulary)] Insulin Glargine [Lantus] 60 unit SQ BID 12/24/17 07/19/18 History LORazepam [Ativan] 0.5 mg PO DAILY PRN 12/24/17 07/19/18 History Lisinopril [Prinivil] 5 mg PO DAILY 12/24/17 07/19/18 History Magnesium Oxide [Rodríguez] 500 mg PO HS 12/24/17 07/19/18 History Metoprolol Tartrate [Lopressor] 75 mg PO HS 12/24/17 07/19/18 History Multivitamins, Thera [Multivitamin 1 tab PO DAILY 12/24/17 07/19/18 History (formulary)] Ondansetron HCl [Zofran] 8 mg PO DAILY 12/24/17 07/19/18 History Pioglitazone [Actos] 30 mg PO DAILY 12/24/17 07/19/18 History Sertraline HCl [Zoloft] 150 mg PO DAILY 12/24/17 07/19/18 History oxyCODONE-APAP 7.5-325MG [Percocet 1 tab PO Q6HR PRN 12/24/17 07/19/18 History 7.5-325 mg] Omeprazole [PriLOSEC] 20 mg PO AC-BRKFST #90 cap 01/15/18 07/19/18 Rx Celecoxib [CeleBREX] 200 mg PO DAILY 07/19/18 07/19/18 History Hydrocodone/Acetaminophen [[place] 2 each PO Q6HR PRN #20 tab 07/19/18 Rx 5-325] Sucralfate [Carafate] 1 gm PO BID 07/19/18 07/19/18 History Allergies Allergy/AdvReac Type Severity Reaction Status Date / Time cephalexin [From Keflex] Allergy Unknown Verified 02/06/19 00:45 fosfomycin Allergy Unknown Verified 02/06/19 00:45 nickel Allergy Unknown Verified 07/19/18 15:44 Penicillins Allergy Anaphylaxis Verified 02/06/19 00:45 homatropine AdvReac Chest Pain Verified 02/06/19 00:45 [From Hycodan (with homatropin)] homatropine methylbromide AdvReac Chest Pain Verified 02/06/19 00:45 [From Hycodan (with homatropin)] hydrocodone bitartrate AdvReac Chest Pain Verified 02/06/19 00:45 [From Hycodan (with homatropin)] promethazine HCl AdvReac Abdominal Verified 02/06/19 00:45 [From Phenergan] Pain propafenone HCl AdvReac Chest Pain Verified 02/06/19 00:45 [From Rythmol] pseudoephedrine HCl AdvReac Rapid Verified 02/06/19 00:45 [From Sudafed] Heart Rate Physical Exam Vitals: Vital Signs Temp Pulse Resp BP Pulse Ox 02/06/19 03:30 89 20 112/78 95 02/06/19 03:00 96 20 122/70 96 02/06/19 02:30 90 17 119/65 96 02/06/19 02:00 100 18 120/75 95 02/06/19 01:40 94 18 120/75 96 02/06/19 01:20 97 20 115/67 95 02/06/19 01:00 94 15 140/97 95 02/06/19 00:48 98.4 F 02/06/19 00:38 97 24 140/97 100 Intake and Output 02/05/19 02/05/19 02/06/19 14:59 22:59 06:59 Other: Weight 190.509 kg General: non toxic, in mild distress from pain, appears older than age, morbidly obese Derm: no unusual rashes/lesions no unusual ecchymoses, warm, dry Head: atraumatic, normocephalic, symmetric Eyes: EOMI, no lid lag, anicteric sclera, pupils equal round reactive to light ENT: Nose and ears atraumatic, no thrush, no pharyngeal erythema Neck: No thyromegaly, no cervical lymphadenopathy, trachea midline, supple Mouth: no lip lesion, mucus membranes moist Cardiovascular: S1S2 reg, no murmur, positive posterior tibial pulse bilateral, no edema, capillary refill less than 2 seconds Lungs: CTA bilateral, no rhonchi, no rales , no accessory muscle use Abdominal: soft, nontender to palpation, no guarding, no appreciable organomegaly, normal bowel sounds Ext: no gross muscle atrophy, muscle strength 5 out of 5 in all 4 extremities grossly, no contractures, Neuro: CN II-XI grossly intact, light touch intact all 4 extremities, finger to nose within normal limits, Psych: Alert, oriented, appropriate affect Results CBC & Chem 7: 02/06/19 00:50 02/06/19 00:50 Labs: Abnormal Lab Results - Last 24 Hours (Table) 02/06/19 Range/Units 00:50 Sodium 136 L (137-145) mmol/L BUN 21 H (7-17) mg/dL Glucose 192 H (74-99) mg/dL Magnesium 1.3 L (1.6-2.3) mg/dL Assessment and Plan Plan: Chest pain, r/o ACS -Trend troponin -Cardiology consult -Cardiac monitoring Diabetes mellitus -Lispro insulin sliding scale with NovoLog 30 U BID and Lantus 40 U BID (Will need to confirm dosing w/ pharmacy) -Blood glucose monitoring HLD, HTN, Hypothyroidism, A-flutter -Resume home medications once verfied The patient is admitted with an anticipated less than 2 midnight stay for evaluation of chest pain. CODE STATUS:Full Code Discussed with: Patient Anticipated discharge date: 02/07/[address]: Home A total of 35 minutes was spent on the care of this complex patient more than 50% of the time was spent in counseling and care coordination.
[2019-02-06] MEDS: ACETAMINOPHEN TAB 325 MG TAB PO PRN ×3 (05:12→23:27)
[2019-02-06 06:54] LABS: Glucose,Whole Blood 103 mg/dL (75-99)
[2019-02-06] MEDS: INSULIN ASPART (NovoLOG) 100 UNIT/ML VIAL SQ SCH ×5 (09:31→20:28)
[2019-02-06 11:48] LABS: Glucose,Whole Blood 118 mg/dL (75-99)
[2019-02-06] MEDS ORDERED: SODIUM CHLORIDE 0.9% 1,000 ML IV SCH (12:15)
[2019-02-06] MEDS ORDERED: ALBUTEROL NEBULIZED 2.5 MG/3 ML INHALATION PRN (12:16)
[2019-02-06] MEDS: FLUoxetine HCL 20 MG CAP PO SCH (13:26)
[2019-02-06] MEDS: FOLIC ACID 1 MG TAB PO SCH (13:26)
[2019-02-06] MEDS: METOPROLOL TARTRATE 50 MG TAB PO SCH (13:26)
[2019-02-06] MEDS: LISINOPRIL 5 MG TAB PO SCH (13:26)
[2019-02-06] MEDS: MULTIVITAMINS, THERA 1 EACH TAB PO SCH (13:26)
[2019-02-06] MEDS: LEVOTHYROXINE 112 MCG TAB PO SCH (13:26)
[2019-02-06] MEDS: PIOGLITAZONE 30 MG TAB PO SCH (13:27)
[2019-02-06 16:40] LABS: Glucose,Whole Blood 88 mg/dL (75-99)
[2019-02-06] MEDS: PANTOPRAZOLE 40 MG TABLET PO SCH (17:24)
[2019-02-06] MEDS ORDERED: INSULIN ASPART (NovoLOG) 100 UNIT/ML VIAL SQ SCH (17:30)
--- NOTE | 2019-02-06 17:39 | CONS ---
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 She has had surgery before and she seems to be doing well in this regard. However, she also has history of atrial flutter, for which she had an ablation sometime in 2005 at [facility]. In December of 2017 she was seen here in this hospital with her multiple comorbid conditions and chest pain. She had a dobutamine echo which did not reveal ischemia. Since then she has done fairly well. She comes in with complaints of having a pressure in the chest, randomly on and off, not related to physical activity. Quality of the pain seems atypical. Sometimes it is sharp, sometimes like a pressure. It comes and goes but is not constant. She has had 2 sets of troponins that are unremarkable and EKG that does not reveal any ST-segment changes to indicate ischemia. She is resting comfortably without symptoms. She also has multiple comorbid conditions in the form of type 2 diabetes, hypertension and hyperlipidemia. PAST MEDICAL HISTORY: Past medical history is remarkable for: 1. Type 2 diabetes. 2. Hypertension. 3. Hyperlipidemia. 4. Thyroid disease. 5. History of cholecystectomy. 6. Surgery for her ovarian cancer. 7. Colostomy after some colon resection. 8. History of atrial flutter, for which she had an ablation performed in 2005 at [facility]. MEDICATIONS: Medications at home include: 1. Metformin. 2. Metoprolol tartrate. 3. Insulin. 4. Lisinopril. 5. Actos. 6. Aspirin. 7. Synthroid 224 mcg daily. PHYSICAL EXAMINATION: Blood pressure is 130/70. Pulse rate is 84 per minute, regular. HEENT: Unremarkable. Fundus was not examined by me. Neck is supple. There is no JVD or carotid bruit/ S1, S2 heard normally but distantly. No significant murmurs. Lungs reveal decent air entry. Abdomen is distended, nontender. Colostomy is noted. Lower extremities reveal diminished pulses. No edema. Central nervous system is normal. EKG revealed sinus mechanism, no acute changes. IMPRESSION: 1. Atypical chest pain in a patient with a negative dobutamine echo about one year ago. 2. Type 2 diabetes. 3. Obesity. 4. Hypertension. 5. Hyperlipidemia. 6. History of ovarian cancer and colostomy. 7. Remote history of atrial flutter or supraventricular tachycardia, status post ablation. RECOMMENDATIONS: I am recommending that no aggressive intervention is necessary. Her pain is very atypical. Her troponins are normal. We will increase activity, see how she does, and she can be discharged if she remains stable tomorrow morning. I have reviewed her dobutamine echo that was performed about a year ago. We will resume all her home medications, including her diabetic diet, increase activity, and see how she does. I discussed my thoughts in detail with the patient. Thank you very much for the consult. MMODL / IJN: [id number] /
[2019-02-06 20:25] LABS: Glucose,Whole Blood 199 mg/dL (75-99)
[2019-02-06] MEDS: INSULIN DETEMIR (LEVEMIR) 100 UNIT/ML SYR SQ SCH (20:29)
[2019-02-06] MEDS: metFORMIN 500 MG TAB PO SCH (20:29)
[2019-02-06] MEDS: CHOLECALCIFEROL 1,000 UNIT TAB PO SCH (20:30)
[2019-02-06] MEDS: METHENAMINE HIPPURATE 1 GM PO SCH (20:42)
[2019-02-06] MEDS ORDERED: ATORVASTATIN 20 MG TAB PO SCH (21:00)
[2019-02-06] MEDS ORDERED: MAGNESIUM OXIDE 400 MG TAB PO SCH (21:00)
[2019-02-06] MEDS ORDERED: METOPROLOL TARTRATE 50 MG TAB PO SCH (21:00)
[2019-02-06 22:13] LABS: Hemoglobin A1C 7.2 % (4.0-6.0)
[2019-02-07 03:30] LABS: Cholesterol 130 mg/dL (<200); HDL Cholesterol 61 mg/dL (40-60); LDL Cholesterol,Calculated 37 mg/dL (0-99); Triglycerides 159 mg/dL (<150)
[2019-02-07] MEDS: LEVOTHYROXINE 112 MCG TAB PO SCH (06:13)
[2019-02-07 06:54] LABS: Glucose,Whole Blood 139 mg/dL (75-99)
[2019-02-07] MEDS ORDERED: INSULIN ASPART (NovoLOG) 100 UNIT/ML VIAL SQ SCH (07:30)
[2019-02-07 08:12] VITALS: TEMP 97.6
[2019-02-07] MEDS: INSULIN DETEMIR (LEVEMIR) 100 UNIT/ML SYR SQ SCH (08:53)
[2019-02-07] MEDS: INSULIN ASPART (NovoLOG) 100 UNIT/ML VIAL SQ SCH ×3 (08:53→12:29)
[2019-02-07] MEDS: PIOGLITAZONE 30 MG TAB PO SCH (08:54)
[2019-02-07] MEDS: CHOLECALCIFEROL 1,000 UNIT TAB PO SCH (08:54)
[2019-02-07] MEDS: FOLIC ACID 1 MG TAB PO SCH (08:54)
[2019-02-07] MEDS: metFORMIN 500 MG TAB PO SCH (08:54)
[2019-02-07] MEDS: LISINOPRIL 5 MG TAB PO SCH (08:54)
[2019-02-07] MEDS: FLUoxetine HCL 20 MG CAP PO SCH (08:54)
[2019-02-07] MEDS: PANTOPRAZOLE 40 MG TABLET PO SCH (08:54)
[2019-02-07] MEDS: METOPROLOL TARTRATE 50 MG TAB PO SCH (08:54)
[2019-02-07] MEDS: MULTIVITAMINS, THERA 1 EACH TAB PO SCH (08:55)
[2019-02-07] MEDS ORDERED: ONDANSETRON 4 MG TAB PO SCH (09:00)
[2019-02-07] MEDS ORDERED: ASPIRIN 81 MG PO SCH (09:00)
[2019-02-07] MEDS ORDERED: ASPIRIN 325 MG TAB PO SCH (09:00)
--- NOTE | 2019-02-07 09:06 | PN ---
PROGRESS NOTE Rain is a 48-year-old lady who is admitted to hospital with chest pain and ruled out for myocardial infarction. Dr. Lavonne Tate, my associate, had evaluated the patient on her initial presentation. She apparently had a negative dobutamine echo a year ago. Since yesterday, she has done well and has not had any further episodes of chest pain. We will ambulate her and if she is feeling fine, discharge her home and arrange outpatient followup through Dr. Tate. EXAM: Comfortable at rest. Vital signs are stable. Chest exam reveals diminished air entry at the bases. Heart exam reveals first and second heart sounds. No gallop. Has a systolic murmur at the left lower sternal border. Abdomen is soft. Exam of extremities did not reveal any edema. Peripheral pulses are felt WORK COUNSELOR exam did not reveal focal neurological deficits. ASSESSMENT: 1. Atypical chest pain. 2. Morbid obesity. PLAN: Ambulate the patient and if she is feeling fine, discharge her home and arrange outpatient followup. MMODL / IJN: [id number] /
[2019-02-07] MEDS: METHENAMINE HIPPURATE 1 GM PO SCH (09:56)
[2019-02-07 11:58] LABS: Glucose,Whole Blood 163 mg/dL (75-99)
[2019-02-07 12:20] VITALS: BP 121/72; PULSE 78; RESP 16
--- NOTE | 2019-02-07 13:31 | P.DS ---
Providers Date of admission: 02/06/19 01:58 Expected date of discharge: 02/07/19 Attending physician: Noreen Casas MD Consults: 02/06/19 07:14 Consult Physician Stat Consulting Provider: Harry Ozuna Consult Reason/Comments: Chest pain Do you want consulting provider notified?: Yes Primary care physician: Hailey Ornelas MD Hospital Course: The patient is a 48 yo F with a PMH of A-flutter, DM, HTN, psoriatic arthritis, severe morbid obesity, and hypothyroidism who presented to the ED for sudden onset of L sided chest pain. The patient reports a sudden onset of chest pain earlier today at 11 pm, 10/10, pressure-like, w/ associated nausea, diaphoresis, dizziness, shortness of breath, and palpitations. The patient reports never having such pain before and decided to come to the ED. At time of interview, she notes continued 7/10 pain, though her associated symptoms had improved aside from the dizziness which she continues to have. She notes that she has never had pain like this before. She otherwise denied cough, fever, chills, vomiting, diarrhea, abdominal pain, recent travel, or sick contacts. The patient underwent an extensive evaluation in the ED w/ Troponin < 0.012, WBC 6.2, Hgb 12.9, and proBNP 110. A CXR was unremarkable. The patient was admitted to the medicine service for further management of chest pain. Cardiology was consulted and recommended monitoring the patient overnight. Troponin was less than 0.0122 with EKG showing normal sinus rhythm. Patient was cleared from a cardiology perspective. Patient was seen and examined prior to discharge. No acute events overnight. Patient reports resolution of her chest pain. She denies any chest pain, shortness of breath or palpitations. General: [non toxic], [no distress], [appears at stated age] Derm: [warm], [dry] Head: [atraumatic], [normocephalic], [symmetric] Eyes: [EOMI], [no lid lag], [anicteric sclera] Cardiovascular: [S1S2 reg], [no murmur], [positive DP pulse bilateral] Lungs: [CTA bilateral], [no rhonchi, no rales] , [no accessory muscle use] Ext: [no gross muscle atrophy], [no edema], [no contractures] Psych: [Alert], [oriented], [appropriate affect] Assessment and Plan Chest pain Diabetes mellitus Hypertension Hypothyroidism Atrial flutter Hyperlipidemia Troponin less than 0.0122 with EKG showing normal sinus rhythm. Chest x-ray negative for acute process. Recent stress test in December 2017 was negative. Seen by cardiology, cleared for discharge with outpatient follow-up. Resume home insulin dose. Resume home antihypertensive medication. Resume home Synthroid. Rate controlled with metoprolol. Resume home Lipitor. Pertinent Studies: Chest x-ray Patient Condition at Discharge: Stable Plan - Discharge Summary New Discharge Prescriptions: Continue INSULIN ASPART (NovoLOG) [NovoLOG (formulary)] 35 units SQ AC-BRKFST Aspirin 81 mg PO DAILY Methenamine Hippurate [Hiprex] 1 gm PO BID metFORMIN HCL [Glucophage] 1,000 mg PO BID Levothyroxine Sodium [Synthroid] 224 mcg PO DAILY Metoprolol Tartrate [Lopressor] 100 mg PO DAILY Cholecalciferol [Vitamin D3] 1,000 unit PO BID Metoprolol Tartrate [Lopressor] 75 mg PO HS Insulin Glargine [Lantus] 60 unit SQ BID Albuterol Inhaler [Ventolin Hfa Inhaler] 2 puff INHALATION RT-Q4H PRN PRN Reason: Shortness Of Breath INSULIN ASPART (NovoLOG) [NovoLOG (formulary)] 40 unit SQ W/SUPPER Multivitamins, Thera [Multivitamin (formulary)] 1 tab PO DAILY Atorvastatin [Lipitor] 20 mg PO HS Lisinopril [Prinivil] 5 mg PO DAILY Pioglitazone [Actos] 30 mg PO DAILY Magnesium Oxide [Rodríguez] 500 mg PO HS Folic Acid 1 mg PO DAILY FLUoxetine HCL [PROzac] 40 mg PO DAILY Insulin Aspart [NovoLOG] 35 unit SQ AC-LUNCH Omeprazole [PriLOSEC] 20 mg PO BID Methotrexate/Pf [Rasuvo 25 mg/0.5 ml Autoinj] 25 mg SQ TU Discontinued Ondansetron HCl [Zofran] 8 mg PO DAILY Discharge Medication List Aspirin 81 mg PO DAILY 06/02/14 [History] INSULIN ASPART (NovoLOG) [NovoLOG (formulary)] 35 units SQ AC-BRKFST 06/02/14 [History] Levothyroxine Sodium [Synthroid] 224 mcg PO DAILY 06/02/14 [History] Methenamine Hippurate [Hiprex] 1 gm PO BID 06/02/14 [History] metFORMIN HCL [Glucophage] 1,000 mg PO BID 06/02/14 [History] Cholecalciferol [Vitamin D3] 1,000 unit PO BID 10/31/15 [History] Metoprolol Tartrate [Lopressor] 100 mg PO DAILY 10/31/15 [History] Albuterol Inhaler [Ventolin Hfa Inhaler] 2 puff INHALATION RT-Q4H PRN 12/24/17 [History] Atorvastatin [Lipitor] 20 mg PO HS 12/24/17 [History] INSULIN ASPART (NovoLOG) [NovoLOG (formulary)] 40 unit SQ W/SUPPER 12/24/17 [History] Insulin Glargine [Lantus] 60 unit SQ BID 12/24/17 [History] Lisinopril [Prinivil] 5 mg PO DAILY 12/24/17 [History] Magnesium Oxide [Rodríguez] 500 mg PO HS 12/24/17 [History] Metoprolol Tartrate [Lopressor] 75 mg PO HS 12/24/17 [History] Multivitamins, Thera [Multivitamin (formulary)] 1 tab PO DAILY 12/24/17 [History] Pioglitazone [Actos] 30 mg PO DAILY 12/24/17 [History] FLUoxetine HCL [PROzac] 40 mg PO DAILY 02/06/19 [History] Folic Acid 1 mg PO DAILY 02/06/19 [History] Insulin Aspart [NovoLOG] 35 unit SQ AC-LUNCH 02/06/19 [History] Methotrexate/Pf [Rasuvo 25 mg/0.5 ml Autoinj] 25 mg SQ TU 02/06/19 [History] Omeprazole [PriLOSEC] 20 mg PO BID 02/06/19 [History] Follow up Appointment(s)/Referral(s): Hailey Ornelas MD [Primary Care Provider] - 1-2 days You Tate MD [STAFF PHYSICIAN] - 1 Week Activity/Diet/Wound Care/Special Instructions: Diet: Diabetic Follow-up PCP within 1-2 days of discharge. Follow-up cardiology within 1 week of discharge. Please take all medications as advised. Come back to the ED or call 911 for worsening chest pain, shortness of breath or palpitations. Discharge Disposition: HOME SELF-CARE
[2019-02-10] MEDS ORDERED: METHOTREXATE 25 MG SQ SCH (12:00)
== END 2019-02-07 14:22 | disposition home or self-care (01) ==
LOC: EC 00:25 → 1SOBS 01:58
PROVIDERS: ADMIT Internal Medicine; ATTEND Internal Medicine
DX: R07.89 Other chest pain (principal); I10 Essential (primary) hypertension; R61 Generalized hyperhidrosis; R42 Dizziness and giddiness; R11.0 Nausea; R06.02 Shortness of breath; E11.9 Type 2 diabetes mellitus without complications; E03.9 Hypothyroidism, unspecified; E78.5 Hyperlipidemia, unspecified; I48.92 Unspecified atrial flutter; L40.50 Arthropathic psoriasis, unspecified; E66.01 Morbid (severe) obesity due to excess calories; Z68.43 Body mass index [BMI] 50.0-59.9, adult; F41.0 Panic disorder [episodic paroxysmal anxiety]; F32.9 Major depressive disorder, single episode, unspecified; Z79.82 Long term (current) use of aspirin; Z79.4 Long term (current) use of insulin; Z79.890 Hormone replacement therapy; Z79.899 Other long term (current) drug therapy; Z93.3 Colostomy status; Z88.0 Allergy status to penicillin; Z91.048 Other nonmedicinal substance allergy status; Z88.5 Allergy status to narcotic agent; Z88.8 Allergy status to other drugs, medicaments and biological substances; Z86.14 Personal history of Methicillin resistant Staphylococcus aureus infection; Z85.43 Personal history of malignant neoplasm of ovary; Z90.49 Acquired absence of other specified parts of digestive tract; Z86.79 Personal history of other diseases of the circulatory system; Z85.038 Personal history of other malignant neoplasm of large intestine; Z90.710 Acquired absence of both cervix and uterus; Z98.84 Bariatric surgery status; Z82.49 Family history of ischemic heart disease and other diseases of the circulatory system; Z82.3 Family history of stroke
CPT/HCPCS: 96361; 96365; 96366; 99285; 36415; 93005; 83880; 80061; 80053; 83690; 83735; 84484; 85025; 85610; 85730; 83036; 71046; G0378 ×2; J3475

== ENCOUNTER → 2019-06-15 | Outpatient (CLI) | payer OTHER ==
--- NOTE | 2019-06-15 20:45 | CT ---
EXAMINATION TYPE: CT abdomen pelvis w con DATE OF EXAM: 06/15/2019 HISTORY: Follow up history of ovarian CA. CT DLP: 3594.2mGycm Automated Exposure Control for Dose Reduction was Utilized. CONTRAST: CT scan of the abdomen and pelvis is performed with IV Contrast, patient injected with 100 mL of Isov ue 300. COMPARISON: CT abdomen and pelvis January 13, 2018 FINDINGS: LUNG BASES: No significant abnormality is appreciated. LIVER/GB: Cholecystectomy clips are redemonstrated. Liver is diffusely low dense consistent with diff use fatty infiltration or underlying hepatocellular disease as there is slight lobulation of the funmilayo pheral margin more prominent on current study versus prior. Correlate clinically. PANCREAS: No significant abnormality is seen. SPLEEN: No significant abnormality is seen. ADRENALS: No significant abnormality is seen. KIDNEYS: Some cortical thinning in both kidneys. No hydronephrosis is present bilaterally. BOWEL: Oral contrast does not reach level of terminal ileum making evaluation of distal bowel slightl y suboptimal. There is no suspicious small or large bowel dilatation. The lap band device in the epig astric region is stable in position and angle. Surgical suture from prior bowel anastomosis seen in t ransverse colon at site of hernia axial image 45 similar to prior. Remnant rectal pouch again seen. L eft-sided ostomy redemonstrated. UTERUS/ADNEXA: Uterus is surgically absent. Both ovaries not seen and presumed surgically absent. LYMPH NODES: No greater than 1cm abdominal or pelvic lymph nodes are appreciated. OSSEOUS STRUCTURES: Moderate multilevel spurring in the thoracic spine. OTHER: There is persistent left-sided ventral wall peristomal hernia containing mesenteric fat and ti ny vessels along with portions of small and large bowel loops. IMPRESSION: No new mass or adenopathy is seen to suggest ovarian neoplastic recurrence.
== END | disposition home or self-care (01) ==
LOC: RADCTMAIN 15:15
PROVIDERS: ATTEND Internal Medicine Hematology & Oncology
DX: R10.84 Generalized abdominal pain (principal); Z85.43 Personal history of malignant neoplasm of ovary; Z90.710 Acquired absence of both cervix and uterus
CPT/HCPCS: 82565; 84520; 74177; 36415; Q9967

== ENCOUNTER → 2019-12-29 | Outpatient (CLI) | payer OTHER ==
--- NOTE | 2019-12-29 10:44 | MM ---
Reason for exam: screening (asymptomatic). Last mammogram was performed 3 years and 4 months ago. History: Patient is postmenopausal, has history of ovarian cancer at age 41, and is nulliparous. Took hormonal contraceptives for 8 years. Took estrogen for 5 years. Took progesterone for 5 years. Physical Findings: A clinical breast exam by your physician is recommended on an annual basis and results should be correlated with mammographic findings. MG 3D Screening Mammo W/Cad Bilateral CC and MLO view(s) were taken. Prior study comparison: August 20, 2016, mammogram, performed at [facility]. January 24, 2015, mammogram, performed at [facility]. There are scattered fibroglandular densities. No suspicious abnormality. No significant changes when compared with prior studies. ASSESSMENT: Negative, BI-RAD 1 RECOMMENDATION: Routine screening mammogram of both breasts in 1 year.
== END | disposition home or self-care (01) ==
LOC: RADMAMWWP 08:52
PROVIDERS: ATTEND Family Medicine
DX: Z12.31 Encounter for screening mammogram for malignant neoplasm of breast (principal)
CPT/HCPCS: 77063; 77067

== ENCOUNTER → 2021-02-22 | Outpatient (CLI) | payer OTHER ==
[2021-02-22 15:02] LABS: Basophils # (A) 0.05 X 10*3/uL (0.00-0.10); Basophils % (A) 0.9 %; Eosinophils # (A) 0.14 X 10*3/uL (0.04-0.35); Eosinophils % (A) 2.7 %; HCT 41.8 % (37.2-46.3); Lymphocytes # (A) 1.76 X 10*3/uL (0.90-5.00); Lymphocytes % (A) 33.4 %; MCH 28.6 pg (27.0-32.0); MCHC 31.1 g/dL (32.0-37.0); MCV 91.9 fL (80.0-97.0); Mean Platelet Volume 12.3 fL (9.5-12.2); Monocytes # (A) 0.35 X 10*3/uL (0.20-1.00); Monocytes % (A) 6.6 %; Neutrophils # (A) 2.96 X 10*3/uL (1.80-7.70); Neutrophils % (A) 56.2 %; Platelet Count 205 X 10*3/uL (140-440); RBC 4.55 X 10*6/uL (4.10-5.20); RDW 16.7 % (11.5-14.5); WBC 5.27 X 10*3/uL (4.50-10.00)
[2021-02-22 17:03] LABS: Hemoglobin A1C 7.2 % (4.0-6.0)
[2021-02-23 01:00] LABS: Prolactin 7.8 ng/mL (2.8-29.2); T4, Free (Free Thyroxine) 1.7 ng/dL (0.80-1.80)
[2021-02-23 02:11] LABS: African American GFR (CKD) 67.8 (60.0-200.0); Albumin 4.5 g/dL (3.80-4.90); Albumin/Globulin Ratio 2.5 (1.60-3.17); Anion Gap 15.8 mmol/L (4.00-12.00); BUN/Creat Ratio 13.64 Ratio (12.00-20.00); Calcium 9.5 mg/dL (8.7-10.3); Carbon Dioxide 20.2 mmol/L (21.6-31.8); Chol/HDL Ratio 2.08; Globulin 1.8 g/dL (1.6-3.3); LDL Cholesterol,Calculated 47.2 mg/dL (0.0-131.0); Non-African American GFR(CKD) 58.5 (60.0-200.0); Potassium 5.2 mmol/L (3.5-5.5); Total Bilirubin 0.7 mg/dL (0.3-1.2); Total Protein 6.3 g/dL (6.2-8.2); VLDL Calculation 22.8 mg/dL (5.00-40.00)
== END | disposition home or self-care (01) ==
LOC: LABWHC1 09:49
PROVIDERS: ATTEND Family Medicine
DX: E03.9 Hypothyroidism, unspecified (principal); E66.01 Morbid (severe) obesity due to excess calories; E11.9 Type 2 diabetes mellitus without complications; L64.9 Androgenic alopecia, unspecified; Z68.43 Body mass index [BMI] 50.0-59.9, adult
CPT/HCPCS: 36415; 80053; 80061; 82627; 83036; 84146; 84439; 84443; 84481; 85025

== ENCOUNTER → 2021-03-22 | Outpatient (CLI) | payer OTHER ==
--- NOTE | 2021-03-24 15:03 | MM ---
Reason for exam: screening (asymptomatic). Last mammogram was performed 1 year and 3 months ago. History: Patient is postmenopausal, has history of ovarian cancer at age 41, has history of colon cancer at age 41, and is nulliparous. Took hormonal contraceptives for 8 years. Took estrogen for 5 years. Took progesterone for 5 years. Physical Findings: A clinical breast exam by your physician is recommended on an annual basis and results should be correlated with mammographic findings. MG 3D Screening Mammo W/Cad Bilateral CC and MLO view(s) were taken. Prior study comparison: December 29, 2019, bilateral MG 3d screening mammo w/cad. August 20, 2016, mammogram, performed at [facility]. There are scattered fibroglandular densities. ASSESSMENT: Benign, BI-RAD 2 RECOMMENDATION: Routine screening mammogram of both breasts in 1 year.
== END | disposition home or self-care (01) ==
LOC: RADMAMWWP 13:12
PROVIDERS: ATTEND Family Medicine
DX: Z12.31 Encounter for screening mammogram for malignant neoplasm of breast (principal); Z78.0 Asymptomatic menopausal state
CPT/HCPCS: 77063; 77067

== ENCOUNTER → 2021-04-20 | Outpatient (CLI) | payer OTHER ==
--- NOTE | 2021-04-20 19:38 | XR ---
EXAMINATION TYPE: XR lumbar spine 2 or 3V DATE OF EXAM: 04/20/2021 Comparison: Correlation CT 09/04/2019 Clinical History: 50-year-old female M25.5 Findings: Osteopenia. 5 lumbar type vertebral bodies. Mild multilevel degenerative disc disease. Alignment is m aintained. There is a T12 superior endplate fracture with anterior wedging deformity and overall 40% anterior height loss. Remaining vertebral body heights are maintained. Impression: 1. Superior endplate fracture of T12 with resultant 40% anterior height loss. The finding is age and etiology indeterminate but noted to be new from 06/15/2019. 2. Mild multilevel degenerative disc disease. No malalignment. Facet arthropathy mid to lower lumbar spine.
== END | disposition home or self-care (01) ==
LOC: RADXRMAIN 12:16
PROVIDERS: ATTEND Family Medicine
DX: M51.36 Other intervertebral disc degeneration, lumbar region (principal); M47.816 Spondylosis without myelopathy or radiculopathy, lumbar region
CPT/HCPCS: 72100

== ENCOUNTER → 2021-05-30 | Outpatient (CLI) | payer OTHER ==
--- NOTE | 2021-05-30 21:27 | CT ---
EXAMINATION TYPE: CT CervThorLumbar spine wo con DATE OF EXAM: 05/30/2021 COMPARISON: None HISTORY: chronic neck and back pain, history of T12 compression fracture, 7th right rib bone lesion, ovarian cancer CT DLP: 4745 mGycm Automated exposure control for dose reduction was used. Contrast: None Technique: Axial images 3 mm thick sections. Reconstructed images in the coronal and sagittal plane. FINDINGS: CT cervical spine: Vertebral body heights are preserved. Disc heights are preserved. No spinal canal stenosis or neural foraminal stenosis present. Subtle scoliosis is present which can be positional. Thoracic spine: There is a compression deformity of T5 superior endplate. No posterior wall displacem ent is evident. No spinal canal stenosis is evident. There is a compression deformity at T12. This may be acute. Approximately 40% loss of vertebral body height is present. There is posterior wall displacement estimated 0.6 cm along the superior endplate. Spinal canal narrowing is present. Cord contact may be present. Mild facet hypertrophy is present. MRI could be performed for closer evaluation of the spinal cord at this level. Lumbar spine: There is limitation on evaluation lumbar spine due to body habitus. Canal is not well v isualized. No obvious acute fractures are posterior wall displacement is evident. Some mild superior endplate change may be present on the sagittal plain images along the superior endplate of L3. IMPRESSION: 1. NORMAL APPEARING CERVICAL SPINE. 2. COMPRESSION DEFORMITY OF T12 APPEARS ACUTE WITH LOSS OF 40% LOSS OF VERTEBRAL BODY HEIGHT. POSTERI OR WALL DISPLACEMENT IS CONTRIBUTING TO SPINAL CANAL STENOSIS. CONSIDER MRI FOR CLOSER EVALUATION. 3. COMPRESSION DEFORMITY T5 OF INDETERMINATE AGE WITHOUT SPINAL CANAL STENOSIS. 4. LIMITATION ON LUMBAR SPINE EVALUATION DUE TO BODY HABITUS. NO OBVIOUS ACUTE LUMBAR SPINE ABNORMALI TIES
== END | disposition home or self-care (01) ==
LOC: RADCTMAIN 07:50
PROVIDERS: ATTEND Orthopaedic Surgery
DX: M48.04 Spinal stenosis, thoracic region (principal); M48.54XA Collapsed vertebra, not elsewhere classified, thoracic region, initial encounter for fracture; M51.24 Other intervertebral disc displacement, thoracic region
CPT/HCPCS: 72125; 72128; 72131

== ENCOUNTER → 2021-06-12 | Outpatient (CLI) | payer OTHER ==
--- NOTE | 2021-06-12 14:48 | CT ---
EXAMINATION TYPE: CT abdomen pelvis w con DATE OF EXAM: 06/12/2021 COMPARISON: 06/15/2019 HISTORY: 51-year-old female Pancreatitis TECHNIQUE: Contiguous axial scanning of the abdomen and pelvis following administration of 100 ml Iso tarik 300 IV contrast. Delayed images through the kidneys and coronal/sagittal reconstructions perform ed. CT DLP: 5376.1 mGycm Automated exposure control for dose reduction was used. FINDINGS: Heart normal size without pericardial effusion. Lung bases clear without pleural effusion. Small hiatal hernia. Postsurgical change of lap band placement. The lap band appears appropriately po sitioned. Liver mildly enlarged at 19.9 cm. No focal lesion seen. Portal venous system is patent. No biliary du ctal dilatation. Cholecystectomy clips. Adrenal glands, spleen appear within normal limits. Mild generalized atrophy of the pancreas. Adjacent andree hepatic lymph node measures borderline enlar ged at 1 cm but is unchanged suggesting chronic reactive/post inflammatory etiology. No abnormal panc reatic or peripancreatic fluid collection or surrounding fat stranding is seen. Lobulated contour to the bilateral kidneys unchanged from 2019. Symmetric uptake and excretion from b oth kidneys. No dilated small bowel, free fluid, or free air. No mesenteric or retroperitoneal lymphadenopathy. There appears to be a left midabdominal sigmoid colostomy. The colostomy is outside the field of view . Associated parastomal hernia measuring 12.8 cm wide containing a surgerized short segment of distal t hird transverse colon as seen previously. No obstructive or inflammatory changes. Abdominal wall defe ct measures 6.8 cm wide. Previous measurements of the hernia sac was 13.1 cm and neck of the hernia was 7.4 cm. These measurem ents are not significantly changed from 2019. Bladder under distended. Uterus surgically absent. Neither ovary clearly visualized though there is l arge patient body habitus and artifacts limiting assessment. Small pelvic phlebolith. No abnormal flu id collection in the pelvis or pelvic lymphadenopathy seen. Bones: Moderate degenerative change at the hips. Known T11 vertebral body fracture. Mild retropulsion into the ventral spinal canal at this level. No progressive height loss. 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 DISH in the lower thoracic spine. IMPRESSION: 1. PANCREAS IS MILDLY ATROPHIC. NO CT FINDINGS OF ACUTE PANCREATITIS OR PANCREATIC/PERIPANCREATIC FLU ID COLLECTION. NEGATIVE CT FINDINGS WOULD NOT EXCLUDE MILD ACUTE PANCREATITIS. 2. LEFT MID ABDOMINAL SIGMOID COLOSTOMY. THE COLOSTOMY OPENING IS OUTSIDE THE FIELD OF VIEW. HOWEVER, THERE IS A STABLE MODERATE-SIZED PARASTOMAL HERNIA MEASURING 12.8 CM WIDE. THE HERNIA SAC CONTAINS A SHORT SEGMENT OF DISTAL THIRD TRANSVERSE COLON. NO OBSTRUCTIVE OR INFLAMMATORY CHANGES SEEN. 3. SMALL HIATAL HERNIA. LAP BAND IN PLACE. 4. KNOWN T11 VERTEBRAL BODY FRACTURE WITH MILD RETROPULSION INTO THE VENTRAL SPINAL CANAL. NO PROGRES SIVE HEIGHT LOSS COMPARED TO 05/30/2021. A HORIZONTAL CLEFT OF AIR COULD REFLECT KUMMEL'S DISEASE.
== END | disposition home or self-care (01) ==
LOC: RADCTMAIN 11:25
PROVIDERS: ATTEND Family Medicine
DX: K86.89 Other specified diseases of pancreas (principal); K43.5 Parastomal hernia without obstruction or gangrene; K44.9 Diaphragmatic hernia without obstruction or gangrene
CPT/HCPCS: 74177; Q9967 ×2

== ENCOUNTER → 2021-06-23 | Outpatient (CLI) | payer OTHER ==
[2021-06-23 11:20] LABS: INR 0.9 (<1.2); Prothrombin Time 10.1 sec (9.0-12.0)
[2021-06-23 11:22] LABS: Anisocytosis Slight; Basophils % (A) 0 %; Eosinophils # (A) 0.5 k/uL (0-0.7); Eosinophils % (A) 10 %; HCT 39.7 % (34.0-46.0); HGB 12.7 gm/dL (11.4-16.0); Lymphocytes # (A) 1.3 k/uL (1.0-4.8); Lymphocytes % (A) 29 %; MCH 30.9 pg (25.0-35.0); MCV 96.7 fL (80.0-100.0); Mean Platelet Volume 8.8; Monocytes # (A) 0.3 k/uL (0-1.0); Monocytes % (A) 6 %; Neutrophils # (A) 2.4 k/uL (1.3-7.7); Neutrophils % (A) 52 %; Platelet Count 196 k/uL (150-450); RBC 4.11 m/uL (3.80-5.40); RDW 16.1 % (11.5-15.5); WBC 4.7 k/uL (3.8-10.6)
== END | disposition home or self-care (01) ==
LOC: LABPAT 09:55
PROVIDERS: ATTEND Orthopaedic Surgery
DX: Z01.812 Encounter for preprocedural laboratory examination (principal); S22.081D Stable burst fracture of T11-T12 vertebra, subsequent encounter for fracture with routine healing; Z22.322 Carrier or suspected carrier of Methicillin resistant Staphylococcus aureus; X58.XXXD Exposure to other specified factors, subsequent encounter
CPT/HCPCS: 36415; 80051; 85025; 85610; 86850; 86900; 86901; 87070

== ENCOUNTER → 2021-06-29 | Outpatient (CLI) | payer OTHER ==
[2021-06-29 09:44] LABS: African American GFR (CKD) 70 (>60 ml/min/1.73 sqM); Anion Gap 12 mmol/L; Blood Urea Nitrogen 20 mg/dL (7-17); Carbon Dioxide 23 mmol/L (22-30); Chloride 101 mmol/L (98-107); Glucose 126 mg/dL (74-99); Non-African American GFR(CKD) 61 (>60 ml/min/1.73 sqM); Potassium 4.7 mmol/L (3.5-5.1); Sodium 136 mmol/L (137-145)
== END | disposition home or self-care (01) ==
LOC: LABWHC1 08:31
PROVIDERS: ATTEND Family Medicine
DX: E87.5 Hyperkalemia (principal)
CPT/HCPCS: 36415; 80048

== ENCOUNTER 2021-06-30 11:07 | Observation (INO) | payer OTHER ==
[2021-06-23 16:13] VITALS: BMI 56.9
[~2021-06-30 11:07] MED LIST: ACETAMINOPHEN TAB 500 MG TAB PO PRN; GABAPENTIN 300 MG CAP PO PRN; ONDANSETRON 4 MG/2 ML VIAL IVP PRN; TRANEXAMIC ACID 1,000 MG in SODIUM CHLORIDE 0.9% 100 ML IVPB PRN; VANCOMYCIN 2,000 MG in SODIUM CHLORIDE 0.9% 500 ML 500 ML IVPB PRN
--- NOTE | 2021-06-30 12:10 | P.HPOR ---
History of Present Illness H&P Date: 06/23/21 Chief Complaint: Back pain, fracture Age: 51 year Height: 6'1" Weight: 460 lbs BP:143/91 BMI: 60.69 kg/m2 Occupation: Disabled VAS: 7 CHIEF COMPLAINT: Low back pain HISTORY: Physical Therapy: No Injections: No Activity Modifications: Ambulates with the use of a walker for stability. Brace: No SUBJECTIVE: The patient presents to the office to review the results of her MRI and CT scan obtained since her last appointment on 05/15/2021. Regarding the patient's symptoms she notes that hey are unchanged since the last appointment, noting considerable limitations of her daily functions due to its severity. She reports that stand and ambulating any distance exacerbates her symptoms acutely and causes her to use a walker. Overall she is very painful and is unable to complete alot of her daily functions due to her pathology. To review, the patient does have a complex medical history and is in remission for 9 years from metastatic ovarian cancer and sarcoidosis. She has been taking [place] 5/325 which was refilled at her last appointment and controls her pain mildly. The patient feels that she is not making any progress in regards to her symptoms with conservative treatments at this time. HPI: The patient was last seen on 05/15/2021 regarding her low back. She reported that 9 years ago she did have a T5 compression fracture, this has since resol ed. The patient also reported that she does have a Hx of metastatic ovarian cancer (in remission for 9 years), which she is seeing a oncologist at the [facility]. In addition to this, she also reported that she has a tumor on one of her ribs, which she states is new. Her pain was severe and did have a sudden onset of pain on (04/10/2021) and she reported significant discomfort with ambulation and standing for any length of time. Her movement at this time is very limited and she can only walk for short periods of time. Of note she did present to the office with the use of a walker. She does have a complex medical history which correlates with her ongoing back pain. Patient also reports having both kidney stones and sarcoidosis which limits the amount of vitamins she can take. She was currently taking [place] 5/325 and Motrin 800mg for pain management with decent pain relief. Review of Systems 14 points review of systems completed and as stated in HPI, all other systems reviewed are negative. Past Medical History Past Medical History: Atrial Flutter, Cancer, Chest Pain / Angina, Diabetes Mellitus, Hypertension, Supraventricular Tachycardia (SVT), Thyroid Disorder Additional Past Medical History / Comment(s): OVARIAN CA - in remission-mets to colon-received chemo 2011, psoriatic arthritis, past cardiac ablation for a- flutter and SVT History of Any Multi-Drug Resistant Organisms: MRSA Date of last positivie culture/infection: 2011 MDRO Source:: ABD WOUND Past Surgical History: Bariatric Surgery, Bowel Resection, Cardiac Ablation, Cholecystectomy, EPS, Heart Catheterization, Hysterectomy, Orthopedic Surgery, Tonsillectomy Additional Past Surgical History / Comment(s): COLOSTOMY, Rt foot surgery - hammer toe, colostomy,lap band-no fluid present Past Anesthesia/Blood Transfusion Reactions: No Reported Reaction Additional Past Anesthesia/Blood Transfusion Reaction / Comment(s): no problems with prior blood transfusion Smoking Status: Never smoker - Past Family History Father Family Medical History: CVA/TIA Additional Family Medical History / Comment(s): three vessel CABG Mother Family Medical History: Myocardial Infarction ([place]) Sister(s) Family Medical History: Hypertension Brother(s) Family Medical History: Hypertension Medications and Allergies Home Medications Medication Instructions Recorded Confirmed Type Aspirin 81 mg PO DAILY 06/02/14 06/23/21 History INSULIN ASPART (NovoLOG) [NovoLOG 0 units SQ TID-W/MEALS PRN 06/02/14 06/30/21 History (formulary)] Levothyroxine Sodium [Synthroid] 224 mcg PO QAM 06/02/14 06/30/21 History metFORMIN HCL [Glucophage] 1,000 mg PO BID 06/02/14 06/30/21 History Cholecalciferol [Vitamin D3 (25 25 mcg PO DAILY 10/31/15 06/30/21 History Mcg = 1000 Iu)] Metoprolol Tartrate [Lopressor] 100 mg PO QAM 10/31/15 06/30/21 History Albuterol Inhaler (Mhu) [Ventolin 2 puff INHALATION RT-Q4H PRN 12/24/17 06/30/21 History Hfa Inhaler (Mhu)] Atorvastatin [Lipitor] 20 mg PO HS 12/24/17 06/30/21 History Insulin Glargine [Lantus Vial] 60 unit SQ BID 12/24/17 06/30/21 History Metoprolol Tartrate [Lopressor] 50 mg PO HS 12/24/17 06/30/21 History lisinopriL [Prinivil] 5 mg PO QAM 12/24/17 06/29/21 History FLUoxetine HCL [PROzac] 40 mg PO QAM 02/06/19 06/30/21 History Folic Acid 1 mg PO DAILY 02/06/19 06/30/21 History Methotrexate/Pf [Rasuvo 25 mg/0.5 1 ml SQ FR 02/06/19 06/30/21 History ml Autoinj] Omeprazole [PriLOSEC] 20 mg PO BID 02/06/19 06/30/21 History Adalimumab [Humira] 40 mg SQ Q14D 06/23/21 06/23/21 History HYDROcodone/APAP 5-325MG [[place] 1 tab PO Q4HR PRN 06/23/21 06/30/21 History 5-325] Ibuprofen 800 mg PO Q8H PRN 06/23/21 06/23/21 History Methenamine Hippurate [Hiprex] 1 gm PO BID 06/23/21 06/30/21 History Pioglitazone [Actos] 30 mg PO DAILY 06/23/21 06/30/21 History ondansetron HCL [Zofran] 8 mg PO Q12HR PRN 06/23/21 06/30/21 History Allergies Allergy/AdvReac Type Severity Reaction Status Date / Time adhesive tape Allergy Rash/Hives,"paper Verified 06/30/21 11:51 tape is ok" cephalexin [From Keflex] Allergy Rash/Hives Verified 06/30/21 11:51 fosfomycin Allergy severe Verified 06/30/21 11:51 vomiting nickel Allergy blisters Verified 06/30/21 11:51 skin Penicillins Allergy Anaphylaxis Verified 06/30/21 11:51 homatropine AdvReac Chest Pain Verified 06/30/21 11:51 [From Hycodan (with homatropin)] homatropine methylbromide AdvReac Chest Verified 06/30/21 11:51 [From Hycodan (with Pain,rapid homatropin)] heart rate,dizziness hydrocodone bitartrate AdvReac Chest Pain Verified 06/30/21 11:51 [From Hycodan (with homatropin)] promethazine HCl AdvReac dystonic Verified 06/30/21 11:51 [From Phenergan] reaction propafenone HCl AdvReac Chest Pain Verified 06/30/21 11:51 [From Rythmol] pseudoephedrine HCl AdvReac Rapid Verified 06/30/21 11:51 [From Sudafed] Heart Rate Physical Examination Osteopathic Statement: *. No significant issues noted on an osteopathic structural exam other than those noted in the History and Physical/Consult. General: Awake, alert, appropriate for age, in no acute distress. HEENT: No unusual neck masses around region of lateral neck triangle, thyroid, supraclavicular groove Heart: Regular rate and rhythm, normal S1, S2 and no murmur/gallop. Lungs: Clear to auscultation bilaterally with no use of accessory muscles. Extremities: Skin warm and dry without acute lesions, coloration, temperature, skin intact, no tenderness or erythema Integument: Hairy patches: Absent Dorsal skin dimples: Absent Cafe au lait spots: Absent Surgical incisions: None present. Palpation: Please see Pain drawing on Intake sheet for further detail. Midline spinal tenderness: Yes T/L junction E6 Paralumbar tenderness: YE6es Parathoracic tenderness: No E6 Buttocks tenderness: No E6 Special findings:Positive ballotment POSTURAL and MUSCULO-SKELETAL EVALUATION: Coronal Balance: NEUTRAL Recumbent testing: Patient is able to lay flat on back Sagittal Balance: POSITIVE while standing, reduces on lay flat Shoulder Profile: LEVEL Pelvic Girdle: LEVEL Neck ROM: UNRESTRICTED Lumbar ROM: UNRESTRICTED Shoulder ROM: Symmetrical Hip ROM: Symmetrical Knee ROM: Symmetrical Hands: Normal appearance, symmetrical Feet: Normal appearance, Symmetrical VASCULAR STATUS : LEFT RIGHT Wrist Pulses INTACT INTACT Pedal Pulses (Dors. pedis & post.tibialis) INTACT INTACT Color NORMAL NORMAL Edema Absent Absent NEUROLOGIC EXAMINATION: Mental Status:Awake and alert, fully oriented, with normal attention, concentration and memory, and fluent, appropriate speech. Cranial Nerves: I: Olfactory not tested. II: Visual acuity normal, no visual field deficit noted with confrontation. III,IV: Normal pupillary reflexes & intact extraocular movements without nystagmus. V,: Intact symmetrical facial sensation. VII: Intact symmetrical facial motor movement VIII: Hearing intact. IX,X: Intact gag, swallow, & normal voice. XI: Sternocleidomastoid, trapezius function intact. XII: Tongue midline with normal movements. L'hermitte's Sign: Negative / absent Spurling'Sign: Absent bilaterally. Cubital percussion test: Absent bilaterally. Tuan-Tinel sign - Carpal region: Absent bilaterally. Straight Leg Raising: Absent bilaterally. Crossed straight leg raise: negative O8 MOTOR EXAM (0-5/5, N/T) - patient overall has generalized weakness. She has about a 4+ out of 5 rating in her lower extremity most major muscle groups she is able to stand under her own power but needs a walker to get around. She has no focal deficits in her lower extremities. In her upper extremities she is a 4+ to 5 out of 5 strength in all major muscle groups bilaterally. Right arm: large mobile mass on the right posterior aspect of the upper arm. This is in the triceps region patient states it is a lipoma that has been worked up for. Extremely large about 30 cm x 30 cm REFLEXES(0-4/2, NT) RIGHT LEFT Upper Extremities 2 2 Lower Extremities 2 2 Pathological Reflexes RIGHT LEFT Lopez's Absent Absent Clonus Absent Absent Babinski Absent Absent # Indicates mechanical impairment Muscle appearance: Symmetrical, without signs of atrophy or dystrophy. Rectal Tone:Deferred Normal, strong with volition control Sensory system (0-4, N/T) Test type RU ALEXA RL LL Joint-Position 2 2 2 2 Vibration 2 2 2 2 Pain & LT sense 2 2 2 2 Dermatomal Deficit: None None None None Gait and Functional Evaluation: Ambulatory aids: Independent Romberg's test: Intact bilaterally Toe heel walk / heel-toe walk intact while maintaining satisfactory balance? yes Squatting/straightening w/o assistance to a min of 60 degree knee flexion? yes Single leg stance: intact Trendelenburg sign negative bilaterally Hand and finger dexterity intact bilaterally? yes Disdiadochokinesis examination negative bilaterally? yes Results RADIOGRAPHIC STUDIES: XRay taken on 05/15/21 of Thoracic was reviewed by Dr. Hobson and indicates: - x-rays taken were reviewed and demonstrate a T12 compression type fracture. There is a acute on chronic component to it it appears somewhat pathologic in nature secondary to the amount of collapse as well as how it collapsed. There are no other fractures or dislocations noted at this time and these images is no other lesions noted in these images at this time. Cervical spine shows some spondylosis but no fractures dislocations or malalignments C0-1 and C1-2 are stable. Thoracic spine overall shows good alignment with maintained vertebral body heights except for T6 where there is likley chronic VCF and T12 which is index level for patiens significant pain. This is a AOA4 type burst fracture that is likely pathological in nature. There is 50% height loss and kyphosis at this level related. No apparent posterior extension however, pedicle on the L appears to have a small fracture line through it. The appearance is a sclerotic border with a/c changes. There is overall osteoporosis/osteopenia . MRI is reviewed and reveals similar findings there is acute T12 fracture AO a 4 bursttype fracture with a split component there is questionable posterior involvement. There is no spinous process splaying there is no edema within the posterior ligamentous complex. The anterior column is somewhat compromised with this fracture secondary there is retropulsion of the fracture with 1-2 mm without significant spinal canal stenosis at this time. There is widespread bone marrow signal changes Assessment and Plan Assessment: It was my pleasure to have seen and examined Rika. I reviewed the patient's clinical syndrome, physical findings, and imaging studies during the appointment today. It is my impression that the patient has a diagnosis of. 1. T12 AO type A4 burst fracturewith local kyphosis, likely pathologic 2. Severe thoracolumbar back pain 3. History of metastatic ovarian cancer 4. Complex medical patient I outlined the natural course history without intervention and various interventional options. Plan: 1. Due to the complexity of her symptoms and the pathology based off of her imaging I feel that surgical intervention is the best course of action for further treatment. She has failed all conservative treatments to this point and overall feels that her symptoms have progressively worsening. The patient is understanding of this and would like to proceed with planning operative measures to treat her acute injury. We discussed getting a T9-L3 instrumented stabilization T12 kyphoplasty for anterior column stability as well as biopsy 2. PCP for operative clearance 3. lab evaluation chest x-ray EKG prior to surgery Surgical Procedure Risk Review Rika Dover is a 51 year old female presenting for evaluation of sudden onset of Mid to low back pain. It was my pleasure to have seen and examined Ms. Dover. In our visit today we have had a chance to go over subjective complaints, physical examination findings and treatments, including the natural course history without intervention and various interventional options. The imaging demonstrates T12 AO A4 burst fracture, possibly pathologic with local deformity . On physical exam, Ms. Dover demonstrates severe tenderness to palpation of the thoracolumbar spine difficulty with day-to-day livings difficulty with ambulation secondary to pain and debility . I explained to the patient that as her condition progresses it could cause continued pain progressive deformity possible neurologic symptoms . At this time, based on the patients imaging and physical exam, I recommend surgery in the form or a: posterior stabilization T9 to L3 with T12 biopsy and kyphoplasty . I discussed the risk and benefits of this procedure at length with Ms. Dover. The patient agreed to consider pursuing the procedure mentioned above. Plan: 1. T9 to L3 instrumented stabilization with T12 biopsy and possible kyphoplasty 2. Follow up with PCP for surgical clearance 3. Review of surgical risks and benefits as well as an educational packet on the proposed surgical procedure. Risks: All surgical procedures come with inherent risks, including those related to positioning, anesthesia, intraoperative findings, and postoperative complications. It is important to understand that surgery does not come with any guarantee of a successful outcome as complications and adverse events are always possible. The patient was given a handout in office today discussing the surgical procedure and risks associated with the intervention, both of which were discussed with the patient. These risks include but are not limited to the following: ? Experiencing same, different or even worse symptoms in back, neck, arms, or legs compared to before surgery. ? Requiring further surgery or other forms of treatment presently or at some time in the future at same or other levels of the intended spine surgery. ? On an extreme but fortunately relatively rare basis severe complication such as blindness, stroke, heart attack, temporary and/or permanent nerve injury, paralysis, coma, or may occur, sometimes without known explanation. ? Surgical complications may include but are not limited to risk of infection, fluid accumulation in the surgical dissection site, including a seroma or hematoma, that requires additional surgery, wound drainage, bleeding, new numbness or weakness, vision changes/loss, spinal fluid leakage, non-healing and/or infected incision, headaches, difficulty or inability to swallow, hoarseness, hemopneumothorax, pneumothorax, impotence, retrograde ejaculation, vaginal dryness; injury to nerves, spinal cord, blood vessels, lymphatics or other vital organs (i.e., bowel injury, injury to the great vessels); heterotopic bone formation; complications related to the hardware such as screws, rods, cages including misplaced hardware, device failure, instrumentation at the wrong spine level, hardware fracture/breakage, or hardware loosening; vertebral failure of the spinal column above or below the newly placed hardware; retained surgical instrumentations or devices and the need for further surgery. ? Medical risks of the planned spine surgery include but are not limited to generalized Infections to the whole body or local areas outside of the surgical site (sepsis), heart attack, bleeding, anaphylaxis, meningitis, seizure, epilepsy, hearing loss, burn arteaga, laceration of the head or other areas of the body, bruising, hypersensitivity of the skin, bladder over distension; allergic reaction; shoulder injury related to positioning; fat, blood and air clots to other areas of the body like heart, lungs, brain; failure of internal organs such as lungs, kidneys, liver and excessive bleeding. If blood transfusions are necessary, note that transfusions may cause intolerance reactions such as anaphylaxis or other complex reactions. Despite best efforts, the results of spine surgery might not heal in terms of bone, soft tissues such as skin, fascia, ligaments, and joints. Additionally, in order to achieve best possible results, spine surgery may be carried out beyond the initially planned levels and involve decompression, fusion including insertion of hardware at levels other than the original intended area of surgical interest change some portions of the procedure in order to ensure the best possible outcomes. With spine surgery and spinal fusion, there are different off label uses of instrumentation (devices, implants and hardware) as well as biological substances (bone morphogenic proteins, demineralized bone matrix) as well as using extra bone from allograft sources (i.e. cadaver bone) or autograft (iliac crest bone, ribs, or the spine itself). The patient has been given information about these practices and their inherent risks and benefits. [facility] Physician Assistants are medically trained surgical providers who function in the outpatient, inpatient, and operating room setting under the direct supervision of the attending surgeon.They assist in the o perating room with direct supervision of the attending surgeons. The patient has had a chance to review all the listed information, has been given print outs detailing this information, and has had all his/her questions answered to their satisfaction. It was my pleasure to have seen and examined Ms. Dover. In our visit today we have had a chance to go over my understanding of our patient's current condition, the natural course history without intervention and various interventional options. Questions were invited and answered, and the patient wishes to proceed as outlined above. I have seen and examined the patient for 25 minutes and we have spent more than 50% of the time in repeat and detailed counseling about the patient's condition, its natural course history with out and as much as can be predicted with surgery and re-review of various surgical treatment options. In conclusion,Ms. Dover and her spouse/partner requested we proceed with the above suggested surgery and are willing to accept risks and limitations of the suggested surgery as nature of the disease process and our best attempts at treatment for the condition. Thank you again for allowing us to be part of your patient's care. Please don't hesitate to contact me if you have any further questions. Signed and authenticated by: [facility] [address] [place] [id number] CC: Arleth Rob M.D, PHD
[2021-06-30 12:14] LABS: Glucose,Whole Blood 165 mg/dL (75-99)
[2021-06-30] MEDS: LACTATED RINGERS 1,000 ML IV SCH (12:16)
[2021-06-30] MEDS ORDERED: MIDAZOLAM 2 MG/2 ML VIAL ONE (13:38)
[2021-06-30] MEDS ORDERED: SODIUM CHLORIDE 0.9% 100 ML BAG ONE (13:38)
[2021-06-30] MEDS ORDERED: fentaNYL (PF) 50 MCG/ML 2 ML AMP ONE (13:38)
[2021-06-30] MEDS ORDERED: HYDROmorphone (PF) 1 MG/ML ONE (13:38)
[2021-06-30] MEDS ORDERED: PROPOFOL 10 MG/ML 20 ML VIAL IV ONE (13:38)
[2021-06-30] MEDS ORDERED: SUCCINYLCHOLINE CHLORIDE 100 MG/5 ML SYR IV ONE (13:38)
[2021-06-30] MEDS ORDERED: TRANEXAMIC ACID 1,000 MG/10 ML VIAL ONE (13:38)
[2021-06-30] MEDS ORDERED: LIDOCAINE 1% INJ 10MG/ML (20 ML MDV) ONE (13:38)
[2021-06-30] MEDS ORDERED: LIDOCAINE 1%-EPI 1:100,000 20 ML VIAL SQ ONE (13:45)
[2021-06-30] MEDS ORDERED: BUPIVACAINE (PF) 0.25% 30 ML VIAL SQ ONE (13:45)
[2021-06-30] MEDS ORDERED: IOPAMIDOL M200 10 ML VIAL MISCELLANE ONE (13:45)
[2021-06-30] MEDS ORDERED: GELATIN SPONGE,ABSORB (LARGE) 1 EACH SPONGE TOPICAL ONE (13:45)
[2021-06-30] MEDS ORDERED: THROMBIN (BOVINE) 5,000 UNIT VIAL TOPICAL ONE (13:45)
[2021-06-30] MEDS ORDERED: SENNOSIDES-DOCUSATE SODIUM 1 EACH TAB PO PRN (17:33)
[2021-06-30] MEDS ORDERED: LACTATED RINGERS 1,000 ML IV ONE (17:36)
[2021-06-30] MEDS ORDERED: VANCOMYCIN IV PER PHARMACY 1 EACH MISC MISCELLANE PRN (17:40)
--- NOTE | 2021-06-30 17:51 | P.PN ---
Progress Note - Text Progress Note Date: 06/30/21 Brief Post Op: Surgeon: Jere Pre op dx; T12 burst fracture, possibly pathologic Post op dx: Same Procedure: T12 biopsy, T12 kyphoplasty, T11 to L1 posterior instrumented stabilization Anesthesia: GETA EBL: 25 mL Fluids: 1200 mL UO: 100 ml Dispo: Stable to PACU Post op Plan: Post operative noncontrasted CT scan Encourage ambulation IS 10x/hr Teds/SCDs Pain control No brace needed for ambulation Medical management
[2021-06-30 18:07] LABS: Glucose,Whole Blood 158 mg/dL (75-99)
[2021-06-30] MEDS: HYDROmorphone 0.5 MG/0.5 ML SYRINGE IVP PRN (19:09)
[2021-06-30] MEDS: ACETAMINOPHEN TAB 325 MG TAB PO SCH ×2 (19:59→23:51)
--- NOTE | 2021-06-30 21:02 | FL ---
EXAMINATION TYPE: FL guidance operating room, XR thoraco lumbar junction DATE OF EXAM: 06/30/2021 CLINICAL HISTORY: Back pain. T12 compression fracture. TECHNIQUE: Fluoroscopy. 2 views thoracolumbar junction. COMPARISON: CT abdomen and pelvis June 12, 2021 FINDINGS: Fluoroscopic guidance was provided during PLDF T11-T12 and T12 kyphoplasty procedure perfo rmed by Dr. Oquendo. A total of 1 minute 58 seconds of fluoroscopic time was utilized during the procedure and 18 spot intraoperative images are acquired. Images acquired show kyphoplasty at T12 level at site of compression fracture with additional kyphopl asty and posterior interpedicular rods and screws bilaterally transfixing the T11 through the L1 leve ls. Satisfactory alignment seen on intraoperative images obtained. IMPRESSION: As Above.
--- NOTE | 2021-06-30 21:51 | P.CONS ---
History of Present Illness - Reason for Consult Consult date: 06/30/21 Medical management - History of Present Illness This is a 51-year-old white female who is post op day 0, she had a T12 burst fracture, T12 kyphoplasty, T11 to L1 posterior instrumented stabilization. At the time of examination patient feels okay, she denies chest pain, no shortness of breath. She has minimal back pain. She denies fever. No hematuria dysuria hematemesis or hematochezia. She states that she is diabetic but her blood glucose is usually fairly controlled. Review of Systems 10 systems reviewed, pertinent positive and negative findings as in HPI. No chest pain no abdominal pain. Past Medical History Past Medical History: Atrial Flutter, Cancer, Chest Pain / Angina, Diabetes Mellitus, Hypertension, Supraventricular Tachycardia (SVT), Thyroid Disorder Additional Past Medical History / Comment(s): OVARIAN CA - in remission-mets to colon-received chemo 2011, psoriatic arthritis, past cardiac ablation for a- flutter and SVT History of Any Multi-Drug Resistant Organisms: MRSA Year Discovered:: 2011 MDRO Source:: ABD WOUND Past Surgical History: Bariatric Surgery, Bowel Resection, Cardiac Ablation, Cholecystectomy, EPS, Heart Catheterization, Hysterectomy, Orthopedic Surgery, Tonsillectomy Additional Past Surgical History / Comment(s): COLOSTOMY, Rt foot surgery - hammer toe, colostomy,lap band-no fluid present Past Anesthesia/Blood Transfusion Reactions: No Reported Reaction Additional Past Anesthesia/Blood Transfusion Reaction / Comm: no problems with prior blood transfusion Past Psychological History: Anxiety, Depression, Panic Disorder Additional Psychological History / Comment(s): PT STATED SHE FEELS WELL MAINTAINED ON HER MEDS Smoking Status: Never smoker Past Alcohol Use History: None Reported Past Drug Use History: None Reported - Past Family History Father Family Medical History: CVA/TIA Additional Family Medical History / Comment(s): three vessel CABG Mother Family Medical History: Myocardial Infarction (DE) Sister(s) Family Medical History: Hypertension Brother(s) Family Medical History: Hypertension Medications and Allergies Home Medications Medication Instructions Recorded Confirmed Type Aspirin 81 mg PO DAILY 06/02/14 06/23/21 History INSULIN ASPART (NovoLOG) [NovoLOG 0 units SQ TID-W/MEALS PRN 06/02/14 06/30/21 History (formulary)] Levothyroxine Sodium [Synthroid] 224 mcg PO QAM 06/02/14 06/30/21 History metFORMIN HCL [Glucophage] 1,000 mg PO BID 06/02/14 06/30/21 History Cholecalciferol [Vitamin D3 (25 25 mcg PO DAILY 10/31/15 06/30/21 History Mcg = 1000 Iu)] Metoprolol Tartrate [Lopressor] 100 mg PO QAM 10/31/15 06/30/21 History Albuterol Inhaler (Mhu) [Ventolin 2 puff INHALATION RT-Q4H PRN 12/24/17 06/30/21 History Hfa Inhaler (Mhu)] Atorvastatin [Lipitor] 20 mg PO HS 12/24/17 06/30/21 History Insulin Glargine [Lantus Vial] 60 unit SQ BID 12/24/17 06/30/21 History Metoprolol Tartrate [Lopressor] 50 mg PO HS 12/24/17 06/30/21 History lisinopriL [Prinivil] 5 mg PO QAM 12/24/17 06/29/21 History FLUoxetine HCL [PROzac] 40 mg PO QAM 02/06/19 06/30/21 History Folic Acid 1 mg PO DAILY 02/06/19 06/30/21 History Methotrexate/Pf [Rasuvo 25 mg/0.5 1 ml SQ FR 02/06/19 06/30/21 History ml Autoinj] Omeprazole [PriLOSEC] 20 mg PO BID 02/06/19 06/30/21 History Adalimumab [Humira] 40 mg SQ Q14D 06/23/21 06/23/21 History HYDROcodone/APAP 5-325MG [[place] 1 tab PO Q4HR PRN 06/23/21 06/30/21 History 5-325] Ibuprofen 800 mg PO Q8H PRN 06/23/21 06/23/21 History Methenamine Hippurate [Hiprex] 1 gm PO BID 06/23/21 06/30/21 History Pioglitazone [Actos] 30 mg PO DAILY 06/23/21 06/30/21 History ondansetron HCL [Zofran] 8 mg PO Q12HR PRN 06/23/21 06/30/21 History Allergies Allergy/AdvReac Type Severity Reaction Status Date / Time adhesive tape Allergy Rash/Hives,"paper Verified 06/30/21 11:51 tape is ok" cephalexin [From Keflex] Allergy Rash/Hives Verified 06/30/21 11:51 fosfomycin Allergy severe Verified 06/30/21 11:51 vomiting nickel Allergy blisters Verified 06/30/21 11:51 skin Penicillins Allergy Anaphylaxis Verified 06/30/21 11:51 homatropine AdvReac Chest Pain Verified 06/30/21 11:51 [From Hycodan (with homatropin)] homatropine methylbromide AdvReac Chest Verified 06/30/21 11:51 [From Hycodan (with Pain,rapid homatropin)] heart rate,dizziness hydrocodone bitartrate AdvReac Chest Pain Verified 06/30/21 11:51 [From Hycodan (with homatropin)] promethazine HCl AdvReac dystonic Verified 06/30/21 11:51 [From Phenergan] reaction propafenone HCl AdvReac Chest Pain Verified 06/30/21 11:51 [From Rythmol] pseudoephedrine HCl AdvReac Rapid Verified 06/30/21 11:51 [From Sudafed] Heart Rate Physical Exam Vitals: Vital Signs Temp Pulse Pulse Resp BP Pulse Ox 06/30/21 19:02 98.1 F 95 20 125/78 95 06/30/21 18:37 88 16 147/69 98 06/30/21 18:22 87 16 151/77 100 06/30/21 18:07 90 16 153/81 100 06/30/21 17:52 96.8 F L 95 20 138/81 96 06/30/21 12:03 96.6 F L 92 16 145/63 94 L Intake and Output 06/30/21 06/30/21 06/30/21 06:59 14:59 22:59 Intake Total 2100 1000 Output Total 125 Balance 2100 875 Intake: IV 2099 1000 Output: Urine 100 Estimated Blood Loss 25 Other: Weight 188.9 kg 188.9 kg Constitutional: No acute distress, conversant, pleasant Eyes: Anicteric sclerae, moist conjunctiva, no lid-lag, PERRLA ENMT: NC/AT,Oropharynx clear, no erythema, exudates Neck:Supple, FROM, no masses Lungs: Clear to auscultation, Clear to percussion, Normal respiratory effort, no accessory muscle use Cardiovascular: Heart regular in rate and rhythm, No murmurs, gallops, or rubs no peripheral edema Abdominal: Soft Nontender, nom distended, no guarding, no rebound or rigidity, colostomy in place Skin: Normal temperature, tone, texture, turgor, No induration No subcutaneous nodules, No rash, lesions, No ulcers Extremities:No digital cyanosis No clubbing, Pedal pulses intact and symmetrical Radial pulses intact and symmetrical Normal gait and station, No calf tenderness Psychiatric: Alert and oriented to person, place and time, Appropriate affect Intact judgement Neuro: Muscles Strength 5/5 in all 4 extremities, Sensation to light touch grossly present throughout, Cranial nerves II-XII grossly intact. No focal sensory deficits Results Labs: Abnormal Lab Results - Last 24 Hours (Table) 06/30/21 06/30/21 Range/Units 12:09 18:05 POC Glucose (mg/dL) 165 H 158 H (75-99) mg/dL Assessment and Plan Plan: 1. Low back pain with T12 burst fracture: Status post kyphoplasty, pain control as indicated , continue supportive care. 2. Chronic atrial flutter: on Metoprolol 3. DM type 2 with hyperglycemia : place on insulin sliding scale 4. History of ovarian cancer with metastases: Status post colostomy placement, continue colostomy care. 5. Obesity , morbid: BMI 56.5 6. History of SVT: Continue metoprolol 7. Hypothyroidism: Continue Synthroid 8. History of psoriatic arthritis, pain control as indicated Thank you for the consultation
[2021-06-30] MEDS: HYDROmorphone 1 MG/ML 1 ML SYRINGE IVP PRN (22:32)
[2021-06-30] MEDS: VANCOMYCIN 2,500 MG in SODIUM CHLORIDE 0.9% 500 ML 500 ML IVPB SCH (23:51)
[2021-07-01] MEDS: HYDROcodone/APAP 10-325MG 1 EACH TAB PO PRN ×3 (02:31→20:43)
[2021-07-01] MEDS: ACETAMINOPHEN TAB 325 MG TAB PO SCH ×3 (05:17→17:54)
[2021-07-01] MEDS: HYDROmorphone 1 MG/ML 1 ML SYRINGE IVP PRN ×4 (05:18→22:27)
[2021-07-01] MEDS: LEVOTHYROXINE 112 MCG TAB PO SCH (05:18)
[2021-07-01] MEDS: LACTATED RINGERS 1,000 ML IV SCH (06:03)
[2021-07-01 07:07] LABS: Glucose,Whole Blood 139 mg/dL (75-99)
--- NOTE | 2021-07-01 07:58 | P.PN ---
Subjective Progress Note Date: 07/01/21 Principal diagnosis: T12 burst fracture, status post T12 biopsy and kyphoplasty, T11-L1 posterior stabilized fusion Patient was examined today at bedside, she is resting in her hospital bed. She is actually feeling quite well she states. Her pain is well-controlled at this time. Urinary catheter is in place. Patient has not been out of bed at this time. Patient denies any headaches, lightheadedness, chest pain, shortness of breath, nausea or vomiting, abdominal discomfort, numbness or tingling in the bilateral upper or lower extremities, genital or perineal numbness or tingling Objective - Vital Signs Vital signs: Vital Signs Temp 98.5 F 07/01/21 01:16 Pulse 103 H 07/01/21 01:16 Resp 15 07/01/21 01:16 BP 126/73 07/01/21 01:16 Pulse Ox 94 L 07/01/21 01:16 Intake & Output 06/30/21 07/01/21 07/01/21 18:59 06:59 18:59 Intake Total 3100 Output Total 125 800 Balance 2975 -800 Weight 188.9 kg Intake: IV 3100 Output: Urine 100 800 Estimated Blood Loss 25 Other: Voiding Method Indwelling Catheter - Exam Gen: AOx3, NAD VSS stable at this time Integument: Postoperative foam dressings are in good position and condition, there is no active drainage, erythema or areas of fluctuance Palpation: Minimal tenderness with palpation of the midline and paraspinal region of the lower thoracic upper lumbar region ROM: Full range of motion in all major muscle groups in the bilateral upper and lower extremities Sensory Exam: Senory exam to light touch is intact C5-T1 Senosry exam to light touch is intact L2-S1 Motor: 55 strength noted in the left upper extremity with shoulder abduction, shoulder elevation, elbow flexion, elbow extension, wrist flexion, wrist extension, finger intrinsics 45 strength noted in the right upper extremity with shoulder abduction, shoulder elevation 45 strength noted in the right upper extremity with elbow extension, elbow flexion, wrist extension, wrist flexion, finger intrinsics 55 strength is appreciated in the bilateral lower extremities with hip flexion, knee flexion, knee extension, plantar flexion, dorsiflexion, EHL, FHL Reflexes: 2/4 in all UE and LE Negative Damien's, Babinski , clonus bilaterally - Labs Labs: Abnormal Lab Results - Last 24 Hours (Table) 06/30/21 06/30/21 07/01/21 Range/Units 12:09 18:05 07:06 POC Glucose (mg/dL) 165 H 158 H 139 H (75-99) mg/dL Assessment and Plan Assessment: T12 burst fracture, possibly pathologic Status post T12 biopsy with kyphoplasty, T11-L1 posterior stabilized fusion Other medical comorbidities Plan: Pain control, continue current regimen DVT prophylaxis, heparin 5000 units every 12 to start today Wound care, will change dressing on 07/03/2021 PT/OT evaluation Discuss weight-bear as tolerated, she will utilize walker at all times Encourage incentive spirometer Other medical specialty recommendations Discharge planning: Discussed discharged home with home health care and physical therapy on 07/03/21, We'll continue to evaluate during inpatient stay Time with Patient: Less than 30
[2021-07-01] MEDS: PANTOPRAZOLE 40 MG TABLET PO SCH ×2 (08:38→17:54)
[2021-07-01] MEDS: lisinopriL 5 MG TAB PO SCH (08:39)
[2021-07-01] MEDS: FLUoxetine HCL 20 MG CAP PO SCH (08:39)
[2021-07-01] MEDS: HEPARIN SODIUM,PORCINE/PF 5,000 UNIT/0.5 ML SYRINGE SQ SCH ×2 (08:39→20:46)
[2021-07-01 09:21] LABS: Basophils # (A) 0.01 X 10*3/uL (0.00-0.10); Basophils % (A) 0.2 %; Eosinophils # (A) 0.06 X 10*3/uL (0.04-0.35); HCT 33.1 % (37.2-46.3); HGB 10.4 g/dL (12.0-15.0); Lymphocytes # (A) 1.28 X 10*3/uL (0.90-5.00); Lymphocytes % (A) 21.9 %; MCH 29.5 pg (27.0-32.0); MCHC 31.4 g/dL (32.0-37.0); Mean Platelet Volume 12.3 fL (9.5-12.2); Monocytes # (A) 0.71 X 10*3/uL (0.20-1.00); Monocytes % (A) 12.1 %; Neutrophils # (A) 3.77 X 10*3/uL (1.80-7.70); Neutrophils % (A) 64.5 %; Platelet Count 134 X 10*3/uL (140-440); RBC 3.52 X 10*6/uL (4.10-5.20); RDW 15.7 % (11.5-14.5); WBC 5.85 X 10*3/uL (4.50-10.00)
--- NOTE | 2021-07-01 11:13 | CT ---
EXAMINATION TYPE: CT thor lumbar spine wo con DATE OF EXAM: 07/01/2021 COMPARISON: CT 1 month ago HISTORY: s/p T12 Kyphoplasty; T11-L1 Post MIS screws/rods. Surgery yesterday. T12 compression fractur e. CT DLP: 3952.9 mGycm Automated exposure control for dose reduction was used. FINDINGS: Vertebral plasty at T11-L1 levels. Bilateral posterior interpedicular rods and screws are new transfi mundo T11 through the L1 levels bilaterally. Stable mild compression type fracture at T12 level. Align ment is stable and unchanged. Screw positioning is satisfactory. Some cement injection at the L1 leve l extends into the left lumbar vein draining into the left renal vein seen best axial images 108 thro ugh 117. Persistent prominent Schmorl node involving the superior T5 endplate. Spinal canal preserved. Posteri or fat stranding and subcutaneous air at the site of surgery noted. Cholecystectomy clips are present. Mild coronary artery calcification is seen. Some groundglass opaci ty along the right major fissure could reflect early edema and/or infiltrate. Small 5 mm right mid sandro ng nodule axial image 42 is redemonstrated. Lap band device epigastric region is redemonstrated. Posi tion stable and satisfactory. IMPRESSION: As above. Satisfactory alignment. Only concern is injected cement material L1 level exten ding into upper lumbar draining vein up to the level of the left renal vein.
[2021-07-01 11:28] LABS: Glucose,Whole Blood 192 mg/dL (75-99)
[2021-07-01] MEDS: VANCOMYCIN 2,500 MG in SODIUM CHLORIDE 0.9% 500 ML 500 ML IVPB SCH (12:01)
[2021-07-01] MEDS: HYDROcodone/APAP 5-325MG 1 EACH TAB PO PRN (13:50)
--- NOTE | 2021-07-01 13:56 | P.PN ---
Subjective Patient was seen and evaluated by me today. Her pain is relatively well- controlled. She told me that she did not have a bowel movement in the colostomy bag as of yet. She is passing gas. No bloating or nausea. Objective - Vital Signs Vital signs: Vital Signs Temp 98.7 F 07/01/21 08:00 Pulse 98 07/01/21 08:00 Resp 18 07/01/21 08:00 BP 129/68 07/01/21 08:00 Pulse Ox 94 L 07/01/21 11:40 Intake & Output 06/30/21 07/01/21 07/01/21 18:59 06:59 18:59 Intake Total 3100 Output Total 125 800 Balance 2975 -800 Weight 188.9 kg Intake: IV 3100 Output: Urine 100 800 Estimated Blood Loss 25 Other: Voiding Method Indwelling Catheter Indwelling Catheter - Exam General: The patient is awake and alert, in no distress Eye: there is normal conjunctiva bilaterally. Neck: The neck is supple, there is no JVD. Cardiovascular: Normal S1-S2, no S3-S4, no murmurs. Respiratory: Lungs clear to auscultation bilaterally Gastrointestinal: Abdomen is soft, nontender Musculoskeletal: There is no pedal edema. Neurological:. Speech is normal. Skin: Skin is warm and dry - Labs CBC & Chem 7: 07/01/21 05:16 Labs: Abnormal Lab Results - Last 24 Hours (Table) 06/30/21 07/01/21 07/01/21 Range/Units 18:05 05:16 07:06 RBC 3.52 L (4.10-5.20) X 10*6/uL Hgb 10.4 L (12.0-15.0) g/dL Hct 33.1 L (37.2-46.3) % MCHC 31.4 L (32.0-37.0) g/dL RDW 15.7 H (11.5-14.5) % Plt Count 134 L (140-440) X 10*3/uL MPV 12.3 H (9.5-12.2) fL POC Glucose (mg/dL) 158 H 139 H (75-99) mg/dL 07/01/21 Range/Units 11:27 RBC (4.10-5.20) X 10*6/uL Hgb (12.0-15.0) g/dL Hct (37.2-46.3) % MCHC (32.0-37.0) g/dL RDW (11.5-14.5) % Plt Count (140-440) X 10*3/uL MPV (9.5-12.2) fL POC Glucose (mg/dL) 192 H (75-99) mg/dL Assessment and Plan Assessment: 1. Low back pain with T12 burst fracture: Status post kyphoplasty, pain control as indicated , continue supportive care. Repeat computed tomography scan shows satisfactory alignment 2. Chronic atrial flutter: on Metoprolol 3. DM type 2 with hyperglycemia : insulin sliding scale 4. History of ovarian cancer with metastases: Status post colostomy placement, continue colostomy care. 5. Obesity , morbid: BMI 56.5 6. History of SVT: Continue metoprolol 7. Hypothyroidism: Continue Synthroid 8. History of psoriatic arthritis, pain control as indicated Repeat Work in the morning. We'll continue to follow up on the patient closely with you.
[2021-07-01 16:32] LABS: Glucose,Whole Blood 179 mg/dL (75-99)
[2021-07-01] MEDS: CYCLOBENZAPRINE 5 MG TAB PO PRN ×2 (16:56→22:27)
[2021-07-01 20:29] LABS: Glucose,Whole Blood 199 mg/dL (75-99)
[2021-07-01] MEDS: ATORVASTATIN 20 MG TAB PO SCH (20:46)
[2021-07-01] MEDS: METOPROLOL TARTRATE 50 MG TAB PO SCH (20:47)
[2021-07-02] MEDS: ACETAMINOPHEN TAB 325 MG TAB PO SCH ×5 (00:30→23:20)
[2021-07-02] MEDS: VANCOMYCIN 2,500 MG in SODIUM CHLORIDE 0.9% 500 ML 500 ML IVPB SCH ×2 (00:30→12:19)
[2021-07-02] MEDS: HYDROcodone/APAP 10-325MG 1 EACH TAB PO PRN ×4 (02:34→20:43)
[2021-07-02] MEDS: HYDROcodone/APAP 5-325MG 1 EACH TAB PO PRN (06:05)
[2021-07-02] MEDS: LACTATED RINGERS 1,000 ML IV SCH (06:05)
[2021-07-02 07:08] LABS: Glucose,Whole Blood 189 mg/dL (75-99)
[2021-07-02 07:14] LABS: African American GFR (CKD) >90 (>60 ml/min/1.73 sqM); Anion Gap 5 mmol/L; Blood Urea Nitrogen 11 mg/dL (7-17); Calcium 8.6 mg/dL (8.4-10.2); Carbon Dioxide 25 mmol/L (22-30); Chloride 105 mmol/L (98-107); Glucose 196 mg/dL (74-99); Non-African American GFR(CKD) >90 (>60 ml/min/1.73 sqM); Potassium 4.5 mmol/L (3.5-5.1); Sodium 135 mmol/L (137-145)
[2021-07-02] MEDS: FLUoxetine HCL 20 MG CAP PO SCH (07:52)
[2021-07-02] MEDS: lisinopriL 5 MG TAB PO SCH (07:52)
[2021-07-02] MEDS: LEVOTHYROXINE 112 MCG TAB PO SCH (07:52)
[2021-07-02] MEDS: CYCLOBENZAPRINE 5 MG TAB PO PRN ×2 (07:52→23:20)
[2021-07-02] MEDS: PANTOPRAZOLE 40 MG TABLET PO SCH ×2 (07:52→17:05)
[2021-07-02] MEDS: HEPARIN SODIUM,PORCINE/PF 5,000 UNIT/0.5 ML SYRINGE SQ SCH ×2 (07:52→20:44)
[2021-07-02] MEDS: HYDROmorphone 0.5 MG/0.5 ML SYRINGE IVP PRN (08:02)
--- NOTE | 2021-07-02 08:33 | P.PN ---
Subjective Progress Note Date: 07/02/21 Principal diagnosis: T12 burst fracture, status post T12 biopsy and kyphoplasty, T11-L1 posterior stabilized fusion Patient was examined today at bedside, she is resting in her hospital chair. Pain is controlled at this time. She has taken a few steps in the room with her walker but no extended periods of walking. Patient denies any headaches, lightheadedness, chest pain, shortness of breath, nausea or vomiting, abdominal discomfort, numbness or tingling in the bilateral upper or lower extremities, genital or perineal numbness or tingling. She is passing gas, no bowel movements at this time. Objective - Vital Signs Vital signs: Vital Signs Temp 98.2 F 07/02/21 07:59 Pulse 89 07/02/21 07:59 Resp 18 07/02/21 07:59 BP 123/72 07/02/21 07:59 Pulse Ox 97 07/02/21 07:59 Intake & Output 07/01/21 07/02/21 07/02/21 18:59 06:59 18:59 Output Total 700 Balance -700 Output: Urine 700 Other: Voiding Method Indwelling Catheter Indwelling Catheter - Exam Gen: AOx3, NAD VSS stable at this time Integument: Postoperative foam dressings are in good position and condition, there is no active drainage, erythema or areas of fluctuance Palpation: Minimal tenderness with palpation of the midline and paraspinal region of the lower thoracic upper lumbar region ROM: Full range of motion in all major muscle groups in the bilateral upper and lower extremities Sensory Exam: Senory exam to light touch is intact C5-T1 Senosry exam to light touch is intact L2-S1 Motor: 55 strength noted in the left upper extremity with shoulder abduction, shoulder elevation, elbow flexion, elbow extension, wrist flexion, wrist extension, finger intrinsics 45 strength noted in the right upper extremity with shoulder abduction, shoulder elevation 45 strength noted in the right upper extremity with elbow extension, elbow flexion, wrist extension, wrist flexion, finger intrinsics 55 strength is appreciated in the bilateral lower extremities with hip flexion, knee flexion, knee extension, plantar flexion, dorsiflexion, EHL, FHL Reflexes: 2/4 in all UE and LE Negative Damien's, Babinski , clonus bilaterally - Labs CBC & Chem 7: 07/01/21 05:16 07/02/21 06:32 Labs: Abnormal Lab Results - Last 24 Hours (Table) 07/01/21 07/01/21 07/01/21 Range/Units 05:16 11:27 16:31 RBC 3.52 L (4.10-5.20) X 10*6/uL Hgb 10.4 L (12.0-15.0) g/dL Hct 33.1 L (37.2-46.3) % MCHC 31.4 L (32.0-37.0) g/dL RDW 15.7 H (11.5-14.5) % Plt Count 134 L (140-440) X 10*3/uL MPV 12.3 H (9.5-12.2) fL Sodium (137-145) mmol/L Glucose (74-99) mg/dL POC Glucose (mg/dL) 192 H 179 H (75-99) mg/dL 07/01/21 07/02/21 07/02/21 Range/Units 20:27 06:32 07:06 RBC (4.10-5.20) X 10*6/uL Hgb (12.0-15.0) g/dL Hct (37.2-46.3) % MCHC (32.0-37.0) g/dL RDW (11.5-14.5) % Plt Count (140-440) X 10*3/uL MPV (9.5-12.2) fL Sodium 135 L (137-145) mmol/L Glucose 196 H (74-99) mg/dL POC Glucose (mg/dL) 199 H 189 H (75-99) mg/dL Assessment and Plan Assessment: T12 burst fracture, possibly pathologic Status post T12 biopsy with kyphoplasty, T11-L1 posterior stabilized fusion Other medical comorbidities Plan: Pain control, continue current regimen DVT prophylaxis, heparin 5000 units every 12 to start today Wound care, will change dressing on 07/03/2021 Discontinue urinary catheter today PT/OT evaluation Discuss weight-bear as tolerated, she will utilize walker at all times Encourage incentive spirometer Other medical specialty recommendations Discharge planning: Hopeful discharge to home with home healthcare in the next few days Time with Patient: Less than 30
[2021-07-02 09:18] LABS: Basophils # (A) 0.03 X 10*3/uL (0.00-0.10); Basophils % (A) 0.5 %; Eosinophils # (A) 0.19 X 10*3/uL (0.04-0.35); Eosinophils % (A) 3.2 %; HCT 31.8 % (37.2-46.3); HGB 9.9 g/dL (12.0-15.0); Lymphocytes # (A) 1.03 X 10*3/uL (0.90-5.00); Lymphocytes % (A) 17.1 %; MCH 29.6 pg (27.0-32.0); MCHC 31.1 g/dL (32.0-37.0); MCV 95.2 fL (80.0-97.0); Mean Platelet Volume 12.1 fL (9.5-12.2); Monocytes # (A) 0.69 X 10*3/uL (0.20-1.00); Monocytes % (A) 11.4 %; Neutrophils # (A) 4.07 X 10*3/uL (1.80-7.70); Neutrophils % (A) 67.5 %; Platelet Count 123 X 10*3/uL (140-440); RBC 3.34 X 10*6/uL (4.10-5.20); RDW 15.5 % (11.5-14.5); WBC 6.03 X 10*3/uL (4.50-10.00)
--- NOTE | 2021-07-02 10:09 | P.PN ---
Subjective Progress Note Date: 07/02/21 Patient is doing well today. No acute events overnight. Patient informed me that there was no output in the ostomy bag as of yet. She reported passing gas. Objective - Vital Signs Vital signs: Vital Signs Temp 98.2 F 07/02/21 07:59 Pulse 89 07/02/21 07:59 Resp 18 07/02/21 07:59 BP 123/72 07/02/21 07:59 Pulse Ox 97 07/02/21 07:59 Intake & Output 07/01/21 07/02/21 07/02/21 18:59 06:59 18:59 Output Total 700 Balance -700 Output: Urine 700 Other: Voiding Method Indwelling Catheter Indwelling Catheter Indwelling Catheter - Exam General: The patient is awake and alert, in no distress Eye: there is normal conjunctiva bilaterally. Neck: The neck is supple, there is no JVD. Cardiovascular: Normal S1-S2, no S3-S4, no murmurs. Respiratory: Lungs clear to auscultation bilaterally Gastrointestinal: Abdomen is soft, nontender. Colostomy bag in place Musculoskeletal: There is no pedal edema. Neurological:. Speech is normal. Skin: Skin is warm and dry - Labs CBC & Chem 7: 07/02/21 06:32 07/02/21 06:32 Labs: Abnormal Lab Results - Last 24 Hours (Table) 07/01/21 07/01/21 07/01/21 Range/Units 11:27 16:31 20:27 RBC (4.10-5.20) X 10*6/uL Hgb (12.0-15.0) g/dL Hct (37.2-46.3) % MCHC (32.0-37.0) g/dL RDW (11.5-14.5) % Plt Count (140-440) X 10*3/uL Sodium (137-145) mmol/L Glucose (74-99) mg/dL POC Glucose (mg/dL) 192 H 179 H 199 H (75-99) mg/dL 07/02/21 07/02/21 07/02/21 Range/Units 06:32 06:32 07:06 RBC 3.34 L (4.10-5.20) X 10*6/uL Hgb 9.9 L (12.0-15.0) g/dL Hct 31.8 L (37.2-46.3) % MCHC 31.1 L (32.0-37.0) g/dL RDW 15.5 H (11.5-14.5) % Plt Count 123 L (140-440) X 10*3/uL Sodium 135 L (137-145) mmol/L Glucose 196 H (74-99) mg/dL POC Glucose (mg/dL) 189 H (75-99) mg/dL Assessment and Plan Assessment: 1. Low back pain with T12 burst fracture: Status post kyphoplasty, pain control as indicated , continue supportive care. Repeat computed tomography scan shows satisfactory alignment 2. Chronic atrial flutter: on Metoprolol 3. DM type 2 with hyperglycemia : insulin sliding scale 4. History of ovarian cancer with metastases: Status post colostomy placement, continue colostomy care. 5. Obesity , morbid: BMI 56.5 6. History of SVT: Continue metoprolol 7. Hypothyroidism: Continue Synthroid 8. History of psoriatic arthritis, pain control as indicated 9. Constipation: I would order MiraLAX daily starting today Discharge planning per primary team. We'll continue to follow up on the patient closely with you.
[2021-07-02] MEDS ORDERED: VANCOMYCIN TROUGH DUE 1 EACH MISC MISCELLANE ONE (11:00)
[2021-07-02 11:21] LABS: Glucose,Whole Blood 250 mg/dL (75-99)
[2021-07-02] MEDS: polyethylene glycoL 3350 17 GM POWD.PACK PO SCH (11:23)
[2021-07-02] MEDS: INSULIN DETEMIR (LEVEMIR) 100 UNIT/ML SYR SQ SCH (14:21)
[2021-07-02 16:26] LABS: Glucose,Whole Blood 219 mg/dL (75-99)
[2021-07-02] MEDS: INSULIN ASPART (NovoLOG) 100 UNIT/ML VIAL SQ SCH ×2 (17:05→20:44)
[2021-07-02 20:03] VITALS: RESP 18
[2021-07-02 20:27] LABS: Glucose,Whole Blood 194 mg/dL (75-99)
[2021-07-02] MEDS: ATORVASTATIN 20 MG TAB PO SCH (20:44)
[2021-07-02] MEDS: METOPROLOL TARTRATE 50 MG TAB PO SCH (20:44)
[2021-07-02] MEDS: VANCOMYCIN 2,250 MG in SODIUM CHLORIDE 0.9% 500 ML 500 ML IVPB SCH (23:24)
[2021-07-03] MEDS: ACETAMINOPHEN TAB 325 MG TAB PO SCH ×2 (05:23→10:58)
[2021-07-03] MEDS: LEVOTHYROXINE 112 MCG TAB PO SCH (05:23)
[2021-07-03] MEDS: HYDROcodone/APAP 10-325MG 1 EACH TAB PO PRN ×3 (05:24→16:08)
[2021-07-03 06:15] LABS: African American GFR (CKD) >90 (>60 ml/min/1.73 sqM); Non-African American GFR(CKD) >90 (>60 ml/min/1.73 sqM)
[2021-07-03 07:32] LABS: Glucose,Whole Blood 201 mg/dL (75-99)
--- NOTE | 2021-07-03 08:08 | P.PN ---
Subjective Progress Note Date: 07/03/21 Principal diagnosis: t12 fracture Pt s/e. Doing well. States pain much better and surgical pain controlled. Was up yesterday in chair. No issues. States still has argueta catheter which should have been DC. She is ready for it to be out. Passing gas no BM yet. States some lateral L thigh numbness likey due to positioning from [facility]. Otherwise no issuse. No perineal symptoms. Wants to go home. Objective - Vital Signs Vital signs: Vital Signs Temp 98.0 F 07/03/21 07:52 Pulse 87 07/03/21 07:52 Resp 18 07/03/21 07:52 BP 143/79 07/03/21 07:52 Pulse Ox 97 07/03/21 07:52 Intake & Output 07/02/21 07/03/21 07/03/21 18:59 06:59 18:59 Output Total 900 Balance -900 Output: Urine 900 Other: Voiding Method Indwelling Catheter Indwelling Catheter # Voids 1,300 - Exam Patient is alert and oriented 3 appears well-nourished well-hydrated is in no acute distress. They does not appear septic. On exam the patient has no tenderness to palpation of her thoracic or lumbar spine. There is no edema or ballottement sign. Lower extremities with 5 out of 5 strength in all major muscle groups Upper extremities show 5/5 strength in all major muscle groups. There is FROM that is painless of the b/l UE and LE in all major joints. They are intact to light touch sensation in L2 to S1 nerve distribution. Patient has palpable dorsalis pedis was posterior tibial pulses. Compartments are soft and compressible. Patient shows a negative Homans, Lopez's, negative Babinski's negative clonus bilaterally. negative straight leg raise bilaterally. No tensioning signs. Cranial nerves II through XII are grossly intact. Overall alignment is well-maintained in the sagittal coronal planes. Incisions clean and dry - Labs CBC & Chem 7: 07/02/21 06:32 07/03/21 05:29 Labs: Abnormal Lab Results - Last 24 Hours (Table) 07/02/21 07/02/21 07/02/21 Range/Units 06:32 11:19 16:25 RBC 3.34 L (4.10-5.20) X 10*6/uL Hgb 9.9 L (12.0-15.0) g/dL Hct 31.8 L (37.2-46.3) % MCHC 31.1 L (32.0-37.0) g/dL RDW 15.5 H (11.5-14.5) % Plt Count 123 L (140-440) X 10*3/uL POC Glucose (mg/dL) 250 H 219 H (75-99) mg/dL 07/02/21 07/03/21 Range/Units 20:25 06:58 RBC (4.10-5.20) X 10*6/uL Hgb (12.0-15.0) g/dL Hct (37.2-46.3) % MCHC (32.0-37.0) g/dL RDW (11.5-14.5) % Plt Count (140-440) X 10*3/uL POC Glucose (mg/dL) 194 H 201 H (75-99) mg/dL Assessment and Plan Assessment: 51-year-old female postop day 3 T12 kyphoplasty with T11 to L1 stabilization 1. T12 AO type A4 burst fracturewith local kyphosis, likely pathologic 2. Severe thoracolumbar back pain 3. History of metastatic ovarian cancer 4. Complex medical patient I outlined the natural course history without intervention and various interventional options. Plan: -Appreciate clothing consultant and team management. -Activity: Ambulate QID, OOB all meals, up and about, limit lifting bending twisting to less than 5 lbs. Use walker or cane if needed for stability. -Daily PT/OT, increase ambulation strength and balance. -No brace -Pain control: [Adequate at this time] -Meds: [reviewed] -GI ppx: senna, Miralax -DC argueta -DVT PPX: Continue heparin while in hospital DC on DC -Hygiene: Shower daily, may remove dressing in 2 days and shower over incisions no soaking blot dry -Encourage IS 10x/hr -Dispo: Home with home health care today
[2021-07-03] MEDS: polyethylene glycoL 3350 17 GM POWD.PACK PO SCH (08:33)
[2021-07-03] MEDS: HEPARIN SODIUM,PORCINE/PF 5,000 UNIT/0.5 ML SYRINGE SQ SCH (08:33)
[2021-07-03] MEDS: CYCLOBENZAPRINE 5 MG TAB PO PRN ×2 (08:34→16:09)
[2021-07-03] MEDS: PANTOPRAZOLE 40 MG TABLET PO SCH (08:34)
[2021-07-03] MEDS: FLUoxetine HCL 20 MG CAP PO SCH (08:34)
[2021-07-03] MEDS: lisinopriL 5 MG TAB PO SCH (08:34)
[2021-07-03] MEDS: INSULIN ASPART (NovoLOG) 100 UNIT/ML VIAL SQ SCH ×2 (08:34→11:44)
[2021-07-03] MEDS: INSULIN DETEMIR (LEVEMIR) 100 UNIT/ML SYR SQ SCH (08:34)
[2021-07-03] MEDS: LACTATED RINGERS 1,000 ML IV SCH (08:35)
--- NOTE | 2021-07-03 09:53 | P.DS ---
Providers Date of admission: 07/01/21 07:53 Expected date of discharge: 07/03/21 Attending physician: Juan Oquendo DO Consults: 06/30/21 17:33 Consult Physician Routine Consulting Provider: Erum Sánchez Consult Reason/Comments: medical management s/p T12 Kyphoplasty; T11-L1 Post MIS screws/rods Do you want consulting provider notified?: Yes Primary care physician: [facility] Hospital Course: Date of admission: 06/30/2021 Date of discharge: 07/03/2021 Admission diagnosis: -T12 AO type A4 burst fracture with local kyphosis -Severe thoracolumbar back pain -History of metastatic ovarian cancer Discharge diagnosis: Same Attending physician: Dr. Oquendo Surgical procedures: T11 to L1 instrumented stabilization with T12 biopsy and T12 kyphoplasty Brief history: Patient is a 51-year-old female with a history of T12 AO type A4 burst fracture with local kyphosis and severe thoracolumbar back pain. At this point patient has failed conservative treatment measures and has opted to proceed with a elective T11 to L1 instrumented stabilization with T12 biopsy and T12 kyphoplasty. Hospital course: Details of patient's surgery can be found in operative report. Patient tolerated the procedure well and was subsequently transported to orthopedic floor. Patient's orthopedic and medical care was provided daily. Patient had daily laboratory tests performed for evaluation of overall blood counts. Patient had daily physical therapy to include strengthening range of motion as well as education with walker ambulation. Patient was treated with heparin for their postoperative DVT prophylaxis during their inpatient stay. Patient was noted to have a relatively uneventful postoperative course. Patient reported satisfactory pain control with oral pain medications by postoperative day 3. Patient showed satisfactory progress with physical therapy. Patient moved steadily through the program and had no difficulty meeting the goals by postoperative day 3. Given patient's otherwise satisfactory course and having met physical therapy goals, plan is to discharge patient home on postoperative day 3. Discharge condition/disposition: Patient will be discharged home in stable condition. Discharge medications: Instructions are given on resumption of patient's normal daily medications per primary care recommendation, in addition patient will be prescribed Many 5 mg/325 mg; Flexeril 10 mg; senna. Spine Discharge and Recovery Instructions Medications: See medication list All medication refills should be obtained through your primary care doctor or your clinic spine surgeon. Please discuss prescription refills at your follow up appointment. Do not call the hospital for medication refills. Dressing: Leave your dressing in place for a total of 5 days post operatively. Then you may remove your dressing and leave open to air. Keep the area clean and if not able to keep area clean, then cover with sterile gauze and tape. Showering: You may shower 3 days after your procedure allowing soap and water to run over incision. Do not scrub. Do not soak. Blot dry. Follow up: Please confirm a follow up appointment with your surgeon 3 weeks post operatively. Please make an appointment to follow up with your PCP in 1-2 weeks after surgery for evaluation 3 phase, 3-week plan POST OP WEEKS 1-3 1. Lifting/carrying/pushing/pulling limited to less than 5 pounds. 2. Do not sit for longer than 15 minutes at one time. Get up and walk around. Prolonged sitting is NOT advised. If you lay down, see if you can tolerate laying down on you front (belly side) 3. Walk for periods of 15 minutes = 1 mile but no longer; do it multiple times times each day. 4. Ice your low back after activity. POST OP WEEKS 3-6 1. Lifting limited to less than 20 pounds. 2. Do not sit for longer than 30 minutes at a time. Frequently change positions. Use a sit-to stand workstation or take frequent breaks from sitting if you have returned to work. 3. Walk for 30 minutes each day. If possible, do these three or more times a day POST OP WEEKS 6+ At your 6-week appointment we will give you a physical therapy referral to focus on a core stabilization and strengthening program. You should also work on leg & buttock strengthening, hamstring & quadriceps stretching, and continue a low impact aerobic activity program such as swimming, walking, or riding a stationary bicycle. During the initial 6 weeks after your surgery, you are at the highest risk of re-injuring your spine. You should generally avoid BLTs (bending, lifting and twisting combination motions) and follow the above guidelines to reduce the chance of reinjury. You can anticipate post op appointments in our office at approximately 3 weeks and 6 weeks after your surgery. INCISION CARE: If your incision is not draining you do NOT need to cover it with a dressing. Keep your incision clean, dry and intact. In most cases, we apply skin glue, emely or sutures to the incision at the time of surgery. This will be like a crust or have the appearance of a scab and will fall off in time on its own. The stitches or emely need to be removed at 3 weeks post op appointment. You may begin to shower 3 days after surgery (this allows the glue to hutton well). However, please avoid scrubbing the incision site or peeling off any of the skin glue. This will ensure optimal healing of your incision. Also, during this time avoid soaking the incision area in water - this includes swimming pools, hot tubs or baths. No ointments, lotions or oils on the incision until your surgeon allows. Leave emely, sutures or glue in place. Neurological dysfunction that comes on suddenly can also be a sign of a stroke. Below some common symptoms of a stroke are listed: B - balance difficulty such as sudden onset walking or leaning to one side - NEW E - eye problem such as sudden double vision or trouble seeing on one side - NEW F - Facial weakness or numbness on one side - NEW A - Arm or leg weakness or numbness on one side - NEW S - Slurred speech or difficulty with word finding - NEW T - Time is BRAIN! Call 911 as soon as you recognize these symptoms Diet: Consume a regular diet rich in vegetables and lean protein such as chicken or fish. You should consume in a ratio of approximately 20% fats|40% carbohydrates|40%protein. Vegetables, sweet potatoes, brown rice or quinoa are examples of good carbohydrates. Chips, white bread, cookies and sweets/sugar are examples of bad carbohydrates. Limit your bad carbs, go wild with good carbs. "Life's Simple 7" Guidelines as per [place] [employer] These will help you reclaim your life after surgery and pipe coverer helper in your recovery, keeping in mind your restrictions. (1) Get Active. Physical activity can help people lose weight, control high blood pressure and cholesterol, feel emotionally better, and sleep better. (2) Control Cholesterol. Avoid a diet high in saturated fat, trans fat, & cholesterol. Limit whole milk & cream, ice cream, butter, egg yolks, processed meats (like sausage and hot dogs), and fatty meats. Choose healthy foods that are low in saturated fat, trans fat and cholesterol which include: Fruits and vegetables, fiber rich grain products (like whole grain pasta and brown rice), lean meat such as chicken, fish, nuts, seeds, and legumes. (3) Eat Better. Eat small portions. Shop at the grocery with a list and do not stray from it. Tips for a healthy diet include: Limit sodium intake to less than 1500mg daily, avoid prepackaged, processed, and fast foods, choose a diet rich in fruits, vegetables, and whole grain, high fiber foods, and limit saturated & cholesterol in your diet. (4) Manage Blood Pressure. If you have high blood pressure, you should have a cuff at home so that you can check your blood pressure regularly. Be sure you have a good cuff. An arm one is generally better than a wrist one. Bring the cuff to a doctor's appointment to validate that the measurements that your cuff are taking are accurate. Take your blood pressure twice daily when you are sitting down and relaxing. Record the numbers in a log and bring this log with you to your doctors' appointments. (5) Lose Weight if your BMI is above 25. A healthy BMI is between 19-25. To calculate Your BMI, you may use a Standard BMI Calculator on the NIH BMI website: <www.nhlbi.nih.gov/guidelines/obesity/BMI/bmicalc.htm>. Weigh oneself daily. If you are overweight, set a goal to lose weight. A pound a week loss if needed is a good target. (6) Reduce Blood Sugar. Limit foods and liquids with "added sugars." (Added sugars include sucrose, fructose, glucose, maltose, dextrose, high fructose corn syrup, corn syrup, concentrated fruit juice and honey). (7) Stop Smoking. If you smoke, quitting smoking is one of the best things that you can do for your health. Smoking increases your risk of heart attack, stroke, and peripheral vascular disease, which is a build-up of plaque in your arteries. Please discard all the cigarettes and lighters in your house. Have a plan for what you will do when you have the urge to smoke. Direct and second- hand smoke shortens your life as well as the lives of your family, friends and others around you. For your health and the health of those around you, please consider quitting! Proper Bending Body Mechanics: Maintain a wide stance with one foot slightly in front of the other. Keep your back straight. Bend utilizing the strength in your hips and knees. Do not bend at the waist. Maintain the lifted object at your waist-level close to your body. Avoid lifting weight that causes immediately pain or pain anywhere in the body afterwards. Smoking/Nicotine If there was ever one thing that you could do to increase your overall health, decrease your risk of cardiovascular problems by about 39% the second you make the choice, it is to STOP SMOKING. Your body's most instant gratification is the second you stop smoking. We have all heard the studies, read the articles but it is true, smoking is extremely bad for your overall health, and moreover it is detrimental to your bone health. Nicotine, IN ANY FORM, kills bone cells, prevents your body from healing fractures, and significantly prolongs healing after surgery. In spine surgery specifically, it increases your risk of not healing your bones to create a fusion and increases your risk of having a revision surgery due to this up to 60%. I know it is hard. I know it feels impossible. But there are ways. Take control of your life. We are here to help you through it. And when you are ready, ask us and we can direct you to help if you desire. Use the START Plan to Quit Smoking (please visit the Helpguide.org website listed below for more information): S = Set a quit date. Choose a date within the next 2 weeks, so you have enough time to prepare without losing your motivation to quit. If you mainly smoke at work, quit on the weekend, so you have a few days to adjust to the change. T = Tell family, friends, and co-workers that you plan to quit. Let your friends and family in on your plan to quit smoking and tell them you need their support and encouragement to stop. Look for a quit bethany who wants to stop smoking as well. You can help each other get through the rough times. A = Anticipate and plan for the challenges you'll face while quitting. Most people who begin smoking again do so within the first 3 months. You can help yourself make it through by preparing ahead for common challenges, such as nicotine withdrawal and cigarette cravings. R = Remove cigarettes and other tobacco products from your home, car, and work. Throw away all your cigarettes (no emergency pack!), lighters, ashtrays, and matches. Wash your clothes and freshen up anything that smells like smoke. Shampoo your car, clean your drapes and carpet, and steam your furniture. T = Talk to your doctor about getting help to quit. Your doctor can prescribe medication to help with withdrawal and suggest other alternatives. If you can't see a doctor, you can get many products over the counter at your local pharmacy or grocery store, including the nicotine patch, nicotine lozenges, and nicotine gum. Resources for Quitting Smoking: <https://www.[place].gov/documents/[facility]/Quit_Tobacco_Resources_for_patients_313 480_7.pdf> Supplementation: Take recommended dosages of Vitamin D and Calcium to help fortify your bones and help them to heal. See your health maintenance packet for dosages and recommended levels. DVT/VTE prophylaxis: You will be given compression stockings from the hospital. Wear these daily for the first two weeks after surgery. You may take them off at night. You may be prescribed a medication to help thin your blood. Take this as directed. If you are not prescribed this medication, early and frequent ambulation has been shown to be the best prophylaxis to deep vein thrombosis and sequelae related to this event. Assessment: -T12 AO type A4 burst fracture with local kyphosis -Severe thoracolumbar back pain -History of metastatic ovarian cancer Procedures: T11 to L1 instrumented stabilization T12 biopsy and T12 kyphoplasty -Intraoperative neuromonitoring -Ziehm Navigation Patient Condition at Discharge: Good Plan - Discharge Summary Discharge Rx Participant: No New Discharge Prescriptions: New Cyclobenzaprine [Flexeril] 10 mg PO HS PRN #40 tab PRN Reason: Spasms HYDROcodone/APAP 5-325MG [Many 5-325] 1 - 2 tab PO Q4HR PRN #56 tab PRN Reason: Pain Sennosides/Docusate Sodium [Senna Plus 8.6-50 mg Softgel] 1 each PO BID #20 No Action INSULIN ASPART (NovoLOG) [NovoLOG (formulary)] 0 units SQ TID-W/MEALS PRN PRN Reason: scale Aspirin 81 mg PO DAILY metFORMIN HCL [Glucophage] 1,000 mg PO BID Levothyroxine Sodium [Synthroid] 224 mcg PO QAM Metoprolol Tartrate [Lopressor] 100 mg PO QAM Cholecalciferol [Vitamin D3 (25 Mcg = 1000 Iu)] 25 mcg PO DAILY Metoprolol Tartrate [Lopressor] 50 mg PO HS Insulin Glargine [Lantus Vial] 60 unit SQ BID Albuterol Inhaler (Mhu) [Ventolin Hfa Inhaler (Mhu)] 2 puff INHALATION RT-Q4H PRN PRN Reason: Shortness Of Breath Atorvastatin [Lipitor] 20 mg PO HS lisinopriL [Prinivil] 5 mg PO QAM Folic Acid 1 mg PO DAILY FLUoxetine HCL [PROzac] 40 mg PO QAM Omeprazole [PriLOSEC] 20 mg PO BID Methotrexate/Pf [Rasuvo 25 mg/0.5 ml Autoinj] 1 ml SQ FR Adalimumab [Humira] 40 mg SQ Q14D Methenamine Hippurate [Hiprex] 1 gm PO BID Pioglitazone [Actos] 30 mg PO DAILY Ibuprofen 800 mg PO Q8H PRN PRN Reason: Pain HYDROcodone/APAP 5-325MG [Many 5-325] 1 tab PO Q4HR PRN PRN Reason: Pain ondansetron HCL [Zofran] 8 mg PO Q12HR PRN PRN Reason: Nausea Discharge Medication List Aspirin 81 mg PO DAILY 06/02/14 [History] INSULIN ASPART (NovoLOG) [NovoLOG (formulary)] 0 units SQ TID-W/MEALS PRN 06/02/14 [History] Levothyroxine Sodium [Synthroid] 224 mcg PO QAM 06/02/14 [History] metFORMIN HCL [Glucophage] 1,000 mg PO BID 06/02/14 [History] Cholecalciferol [Vitamin D3 (25 Mcg = 1000 Iu)] 25 mcg PO DAILY 10/31/15 [History] Metoprolol Tartrate [Lopressor] 100 mg PO QAM 10/31/15 [History] Albuterol Inhaler (Mhu) [Ventolin Hfa Inhaler (Mhu)] 2 puff INHALATION RT-Q4H PRN 12/24/17 [History] Atorvastatin [Lipitor] 20 mg PO HS 12/24/17 [History] Insulin Glargine [Lantus Vial] 60 unit SQ BID 12/24/17 [History] Metoprolol Tartrate [Lopressor] 50 mg PO HS 03/06/18 [History] lisinopriL [Prinivil] 5 mg PO QAM 12/24/17 [History] FLUoxetine HCL [PROzac] 40 mg PO QAM 02/06/19 [History] Folic Acid 1 mg PO DAILY 02/06/19 [History] Methotrexate/Pf [Rasuvo 25 mg/0.5 ml Autoinj] 1 ml SQ FR 02/06/19 [History] Omeprazole [PriLOSEC] 20 mg PO BID 02/06/19 [History] Adalimumab [Humira] 40 mg SQ Q14D 06/23/21 [History] HYDROcodone/APAP 5-325MG [Many 5-325] 1 tab PO Q4HR PRN 06/23/21 [History] Ibuprofen 800 mg PO Q8H PRN 06/23/21 [History] Methenamine Hippurate [Hiprex] 1 gm PO BID 06/23/21 [History] Pioglitazone [Actos] 30 mg PO DAILY 06/23/21 [History] ondansetron HCL [Zofran] 8 mg PO Q12HR PRN 06/23/21 [History] Cyclobenzaprine [Flexeril] 10 mg PO HS PRN #40 tab 07/03/21 [Rx] HYDROcodone/APAP 5-325MG [Many 5-325] 1 - 2 tab PO Q4HR PRN #56 tab 07/03/21 [Rx] Sennosides/Docusate Sodium [Senna Plus 8.6-50 mg Softgel] 1 each PO BID #20 07/03/21 [Rx] Follow up Appointment(s)/Referral(s): [facility], [NON-STAFF] - Juan Oquendo DO [Doctor of Osteopathic Medicine] - 2 Weeks Activity/Diet/Wound Care/Special Instructions: Spine Discharge and Recovery Instructions Date of Surgery: 06/30/2021 Diagnosis: T12 burst fracture Procedure: T12 stabilization with T11 to L1 instrumentation Medications: See list All medication refills should be obtained through your primary care doctor or your clinic spine surgeon. Please discuss prescription refills at your follow up appointment. Do not call the hospital for medication refills. Dressing: Leave your dressing in place for a total of 3 days post operatively. Then you may remove your dressing and leave open to air. Keep the area clean and if not able to keep area clean, then cover with sterile gauze and tape. Showering: You may shower 3 days after your procedure allowing soap and water to run over incision. Do not scrub. Do not soak. Blot dry. Follow up: Please confirm a follow up appointment with your surgeon 2 weeks post operatively. Please make an appointment to follow up with your PCP in 1-2 weeks after surgery for evaluation No braces needed 3 phase, 3-week plan POST OP WEEKS 1-3 1. Lifting/carrying/pushing/pulling limited to less than 5 pounds. 2. Do not sit for longer than 15 minutes at one time. Get up and walk around. Prolonged sitting is NOT advised. If you lay down, see if you can tolerate laying down on you front (belly side) 3. Walk for periods of 15 minutes = 1 mile but no longer; do it multiple times times each day. 4.Ice your low back after activity. POST OP WEEKS 3-6 1. Lifting limited to less than 20 pounds. 2. Do not sit for longer than 30 minutes at a time. Frequently change positions. Use a sit-to stand workstation or take frequent breaks from sitting if you have returned to work. 3. Walk for 30 minutes each day. If possible, do these three or more times a day POST OP WEEKS 6+ At your 6-week appointment we will give you a physical therapy referral to focus on a core stabilization and strengthening program. You should also work on leg & buttock strengthening, hamstring & quadriceps stretching, and continue a low impact aerobic activity program such as swimming, walking, or riding a stationary bicycle. During the initial 6 weeks after your surgery, you are at the highest risk of re-injuring your spine. You should generally avoid BLTs (bending, lifting and twisting combination motions) and follow the above guidelines to reduce the chance of reinjury. You can anticipate post op appointments in our office at approximately 3 weeks and 6 weeks after your surgery. INCISION CARE: If your incision is not draining you do NOT need to cover it with a dressing. Keep your incision clean, dry and intact. In most cases, we apply skin glue, emely or sutures to the incision at the time of surgery. This will be like a crust or have the appearance of a scab and will fall off in time on its own. The stitches or emely need to be removed at 3 weeks post op appointment. You may begin to shower 3 days after surgery (this allows the glue to hutton well). However, please avoid scrubbing the incision site or peeling off any of the skin glue. This will ensure optimal healing of your incision. Also, during this time avoid soaking the incision area in water - this includes swimming pools, hot tubs or baths. No ointments, lotions or oils on the incision until your surgeon allows. Leave emely, sutures or glue in place. Neurological dysfunction that comes on suddenly can also be a sign of a stroke. Below some common symptoms of a stroke are listed: B - balance difficulty such as sudden onset walking or leaning to one side - NEW E - eye problem such as sudden double vision or trouble seeing on one side - NEW F - Facial weakness or numbness on one side - NEW A - Arm or leg weakness or numbness on one side - NEW S - Slurred speech or difficulty with word finding - NEW T - Time is BRAIN! Call 911 as soon as you recognize these symptoms Diet: Consume a regular diet rich in vegetables and lean protein such as chicken or fish. You should consume in a ratio of approximately 20% fats|40% carbohydrates|40%protein. Vegetables, sweet potatoes, brown rice or quinoa are examples of good carbohydrates. Chips, white bread, cookies and sweets/sugar are examples of bad carbohydrates. Limit your bad carbs, go wild with good carbs. "Life's Simple 7" Guidelines as per [place] [employer] These will help you reclaim your life after surgery and pipe coverer helper in your recovery, keeping in mind your restrictions. (1) Get Active. Physical activity can help people lose weight, control high blood pressure and cholesterol, feel emotionally better, and sleep better. (2) Control Cholesterol. Avoid a diet high in saturated fat, trans fat, & cholesterol. Limit whole milk & cream, ice cream, butter, egg yolks, processed meats (like sausage and hot dogs), and fatty meats. Choose healthy foods that are low in saturated fat, trans fat and cholesterol which include: Fruits and vegetables, fiber rich grain products (like whole grain pasta and brown rice), lean meat such as chicken, fish, nuts, seeds, and legumes. (3) Eat Better. Eat small portions. Shop at the grocery with a list and do not stray from it. Tips for a healthy diet include: Limit sodium intake to less than 1500mg daily, avoid prepackaged, processed, and fast foods, choose a diet rich in fruits, vegetables, and whole grain, high fiber foods, and limit saturated & cholesterol in your diet. (4) Manage Blood Pressure. If you have high blood pressure, you should have a cuff at home so that you can check your blood pressure regularly. Be sure you have a good cuff. An arm one is generally better than a wrist one. Bring the cuff to a doctor's appointment to validate that the measurements that your cuff are taking are accurate. Take your blood pressure twice daily when you are sitting down and relaxing. Record the numbers in a log and bring this log with you to your doctors' appointments. (5) Lose Weight if your BMI is above 25. A healthy BMI is between 19-25. To calculate Your BMI, you may use a Standard BMI Calculator on the NIH BMI website: <www.nhlbi.nih.gov/guidelines/obesity/BMI/bmicalc.htm>. Weigh oneself daily. If you are overweight, set a goal to lose weight. A pound a week loss if needed is a good target. (6) Reduce Blood Sugar. Limit foods and liquids with "added sugars." (Added sugars include sucrose, fructose, glucose, maltose, dextrose, high fructose corn syrup, corn syrup, concentrated fruit juice and honey). (7) Stop Smoking. If you smoke, quitting smoking is one of the best things that you can do for your health. Smoking increases your risk of heart attack, stroke, and peripheral vascular disease, which is a build-up of plaque in your arteries. Please discard all the cigarettes and lighters in your house. Have a plan for what you will do when you have the urge to smoke. Direct and second- hand smoke shortens your life as well as the lives of your family, friends and others around you. For your health and the health of those around you, please consider quitting! Proper Bending Body Mechanics: Maintain a wide stance with one foot slightly in front of the other. Keep your back straight. Bend utilizing the strength in your hips and knees. Do not bend at the waist. Maintain the lifted object at your waist-level close to your body. Avoid lifting weight that causes immediately pain or pain anywhere in the body afterwards. Smoking/Nicotine If there was ever one thing that you could do to increase your overall health, decrease your risk of cardiovascular problems by about 39% the second you make the choice, it is to STOP SMOKING. Your body's most instant gratification is the second you stop smoking. We have all heard the studies, read the articles but it is true, smoking is extremely bad for your overall health, and moreover it is detrimental to your bone health. Nicotine, IN ANY FORM, kills bone cells, prevents your body from healing fractures, and significantly prolongs healing after surgery. In spine surgery specifically, it increases your risk of not healing your bones to create a fusion and increases your risk of having a revision surgery due to this up to 60%. I know it is hard. I know it feels impossible. But there are ways. Take control of your life. We are here to help you through it. And when you are ready, ask us and we can direct you to help if you desire. Use the START Plan to Quit Smoking (please visit the [employer] website listed below for more information): S = Set a quit date. Choose a date within the next 2 weeks, so you have enough time to prepare without losing your motivation to quit. If you mainly smoke at work, quit on the weekend, so you have a few days to adjust to the change. T = Tell family, friends, and co-workers that you plan to quit. Let your friends and family in on your plan to quit smoking and tell them you need their support and encouragement to stop. Look for a quit bethany who wants to stop smoking as well. You can help each other get through the rough times. A = Anticipate and plan for the challenges you'll face while quitting. Most people who begin smoking again do so within the first 3 months. You can help yourself make it through by preparing ahead for common challenges, such as nicotine withdrawal and cigarette cravings. R = Remove cigarettes and other tobacco products from your home, car, and work. Throw away all your cigarettes (no emergency pack!), lighters, ashtrays, and matches. Wash your clothes and freshen up anything that smells like smoke. Shampoo your car, clean your drapes and carpet, and steam your furniture. T = Talk to your doctor about getting help to quit. Your doctor can prescribe medication to help with withdrawal and suggest other alternatives. If you can't see a doctor, you can get many products over the counter at your local pharmacy or grocery store, including the nicotine patch, nicotine lozenges, and nicotine gum. Resources for Quitting Smoking: <https://www.[place].gov/documents/[facility]/Quit_Tobacco_Resources_for_patients_313 480_7.pdf> Supplementation: Take recommended dosages of Vitamin D and Calcium to help fortify your bones and help them to heal. See your health maintenance packet for dosages and recommended levels. DVT/VTE prophylaxis: You will be given compression stockings from the hospital. Wear these daily for the first two weeks after surgery. You may take them off at night. You may be prescribed a medication to help thin your blood. Take this as directed. If you are not prescribed this medication, early and frequent ambulation has been shown to be the best prophylaxis to deep vein thrombosis and sequelae related to this event. Discharge Disposition: HOME WITH HOME HEALTH SERVICES
[2021-07-03] MEDS: VANCOMYCIN 2,250 MG in SODIUM CHLORIDE 0.9% 500 ML 500 ML IVPB SCH (10:58)
[2021-07-03 11:19] LABS: Glucose,Whole Blood 232 mg/dL (75-99)
--- NOTE | 2021-07-03 13:59 | P.PN ---
Subjective Patient is doing well today. No acute events overnight. Objective - Vital Signs Vital signs: Vital Signs Temp 98.0 F 07/03/21 07:52 Pulse 87 07/03/21 07:52 Resp 18 07/03/21 07:52 BP 143/79 07/03/21 07:52 Pulse Ox 97 07/03/21 07:52 Intake & Output 07/02/21 07/03/21 07/03/21 18:59 06:59 18:59 Output Total 900 Balance -900 Output: Urine 900 Other: Voiding Method Indwelling Catheter Indwelling Catheter # Voids 1,300 - Exam General: The patient is awake and alert, in no distress Eye: there is normal conjunctiva bilaterally. Neck: The neck is supple, there is no JVD. Cardiovascular: Normal S1-S2, no S3-S4, no murmurs. Respiratory: Lungs clear to auscultation bilaterally Gastrointestinal: Abdomen is soft, nontender. Colostomy bag in place Musculoskeletal: There is no pedal edema. Neurological:. Speech is normal. Skin: Skin is warm and dry - Labs CBC & Chem 7: 07/02/21 06:32 07/03/21 05:29 Labs: Abnormal Lab Results - Last 24 Hours (Table) 07/02/21 07/02/21 07/03/21 Range/Units 16:25 20:25 06:58 POC Glucose (mg/dL) 219 H 194 H 201 H (75-99) mg/dL 07/03/21 Range/Units 11:15 POC Glucose (mg/dL) 232 H (75-99) mg/dL Assessment and Plan Assessment: 1. Low back pain with T12 burst fracture: Status post kyphoplasty, pain control as indicated , continue supportive care. Repeat computed tomography scan shows satisfactory alignment 2. Chronic atrial flutter: on Metoprolol 3. DM type 2 with hyperglycemia : insulin sliding scale 4. History of ovarian cancer with metastases: Status post colostomy placement, continue colostomy care. 5. Obesity , morbid: BMI 56.5 6. History of SVT: Continue metoprolol 7. Hypothyroidism: Continue Synthroid 8. History of psoriatic arthritis, pain control as indicated 9. Constipation: I would order MiraLAX daily starting today Discharge planning per primary team. Patient to resume taking her home medications as prescribed
[2021-07-03 16:04] VITALS: BP 144/75; PULSE 95; TEMP 98.4
--- NOTE | 2021-07-04 08:44 | OP ---
OPERATIVE REPORT DATE OF SERVICE: 06/30/2021 PREOPERATIVE DIAGNOSIS: T12 burst fracture, possibly pathologic. POSTOPERATIVE DIAGNOSIS: T12 burst fracture, possibly pathologic. PROCEDURES PERFORMED: 1. T12 kyphoplasty. 2. ORIF T12 burst fracture 3. T11 to L1 posterior instrumented stabilization. 4. Use of intraoperative navigation for screw placement and kyphoplasty. IMPLANTS: [place] screws and cement. ANESTHESIA: GETA. EBL: Twenty-five. FLUIDS: 1200. URINE OUTPUT: 100. DISPOSITION: Stable to PACU. INDICATIONS FOR PROCEDURE: This is a 51-year-old female who presented to the office for review of her MRI and CT scan she obtained from her previous appointments. Patient has a history of metastatic ovarian cancer. She has had previous compression fractures in the past of T5 which resolved. She was seeing her primary care and oncologist at the [facility]. She has had significant discomfort in her lumbar and thoracolumbar spine. She was found to have a T12 burst fracture in this area. There was a question of pathology in this region due to the type of fracture as well as the morphology of the fracture on MRI and CT scan. We discussed with her different treatment options. She does have a large body habitus with a BMI of 60.69, and so she was unable to tolerate conservative measures, including bracing. She walks with a walker at this time and is unable to perform her daily living secondary to her intense pain. We discussed treatment as well as biopsy with kyphoplasty and stabilization of this fracture due to the severity of the fracture and the position of it, and she agreed. The patient was seen preoperatively. All preoperative protocols were followed. The patient was seen by Department of Anesthesia and deemed fit for surgery. Risks and benefits of this procedure were discussed, including risk of bleeding, infection, damage to surrounding tissue, risk of reoperation, risk of anesthesia up to and including . These were outlined and the risks reviewed, and she was willing to assume these risks and all the risks of surgery. Consent was confirmed. She was marked and she was given a weight-based dose of antibiotics vancomycin preoperatively. She was also given tranexamic acid preoperatively. The patient was willing to proceed with the procedure. OPERATIVE COURSE: The patient was transferred to the operative suite. She was drifted off to sleep by Department of Anesthesia and general endotracheal intubation was performed. Intraoperative neuromonitoring leads were placed. Once adequate anesthesia was obtained and these were in place, the patient was transferred carefully to the prone Hong table. We took care to make sure that she had all her significant bony prominences padded accordingly. Her colostomy bag was well secured and protected during surgery as well as her right shoulder, which was incredibly stiff. However, we were able to affix it to the bed in a good position that was natural for her and was in an up-and-out position and stable. We did pad this very extensively. We also took special care to pad her chest, hips, thighs, knees, ankles and feet. Yañez catheter was placed prior to this flip by the nursing department atraumatically. Once in good position and with confirmation of ventilation and lines, the patient's low back was identified and cleaned with alcohol. We then performed a preoperative Ziehm spin of the patient to assess what we were able to visualize in her; due to her body habitus it was very difficult to get any x-rays. AP and lateral x-rays were sub-par. Lateral x-ray was better and it was able to identify fracture level at least. AP was essentially nondiagnostic. Intraoperative 3D scan was adequate to proceed, as it allowed for good visualization of the index level as well as the immediate levels; however, two levels away was unvisualized. We did decide to proceed. We biomarked the area using this intraoperative 3D scan and we then prepped and draped her back in normal sterile fashion. Time-out was performed. All parties were in agreement with the procedure be performed. We then placed the spine mask over the area that was previously biomarked and again performed another 3D intraoperative scan. This yielded good visualization of the index level as well as the levels surrounding it. With this, we were comfortable to proceed, as we were able to visualize the canal on axial images. We started with kyphoplasty of T12 as well as biopsy. A navigated Jamshidi needle was passed in an extrapedicular approach to the vertebral body. This allowed for good access and midline access of this area. We performed a biopsy of this area with biopsy needle as well as shaver and sent this for pathology. There were no large tumors or masses that could be identified. Some bone was sent as well as aspirate. We then infiltrated the area using curette and placed a kyphoplasty balloon. We increased the balloon volume appropriately under lateral fluoroscopy and CT guidance. We then placed cement using pulsed lateral fluoroscopy into the T12 vertebral body very carefully. The visualization again was difficult; however, we were able to visualize and there was no cement extravasation from this level. Once adequate cementation had been performed, we turned our attention to the placement of screws percutaneously for stabilization of this level. Screws were placed using lateral fluoroscopy as well as image guidance and CT navigation. We first placed a navigated Jamshidi into T11. We then measured and placed a screw over a wire that was navigated in this area. We then placed the left- sided L1 screw using the same method, navigated Jamshidi wire followed by a navigated screw placement and lateral fluoroscopy. We then repeated this on the right- hand side. The screws were then tested using intraoperative neuromonitoring and they tested successful. However, the tests were somewhat unreliable due to the difficulty in patient body habitus and getting the correct or adequate signals. We then performed AP and lateral fluoroscopy, which did visualize the screws. Their trajectories seemed appropriate. We performed another spin to confirm screw placement, and in this spin screw placement was confirmed to be safe. We then performed cementing of the screws through the cannulations. This was done under pulsed lateral fluoroscopy. Cementation of the upper screws was with no issue. Cementation of the lower screws at L1 showed no issue. However, there was possibly some cement extravasation anteriorly. It was difficult to determine due to the difficulty with imaging. However, this cement did not extravasate posteriorly. There was no cement myelogram and the anterior extrusion appeared to be limited. Once this was completed, we did tunnel rods subfascially and confirmed them to be within the screw heads. We then placed set screws bilaterally at L1 and then sequentially at T11. We then final-tightened these using a final program therapist. The tabs were then broken and we took final AP and lateral fluoroscopy images. We did do another 3D scan which confirmed placement again. We then copiously irrigated the wounds with normal sterile saline. The wounds were then closed with 2-0 Vicryl in the subcutaneous tissue followed by 2-0 nylon in the skin. The wound edges approximated very well. We anesthetized the skin remote to the area once again with 0.25% Marcaine with epinephrine. We then sterilely cleaned the wound and dressed it with Aquacel dressings. The patient was then transferred very carefully back to her hospital bed. She was then awakened by the department of anesthesia, having tolerated the procedure with no complications. She was transferred to the postoperative care unit in stable condition. This case took 100% longer than anticipated secondary to the patient's body habitus and BMI of 60, her comorbid conditions, including colostomy bag, history of ovarian cancer, metastatic, as well as her overall health (modifier 22). [id number] / IJN: [id number] / MTDD
== END 2021-07-03 17:05 | disposition home health service (06) ==
LOC: OR 11:07 → 4SSUR 17:50 → OR 07-01 06:01 → 4SSUR 07-01 07:53
PROVIDERS: ADMIT Orthopaedic Surgery; ATTEND Orthopaedic Surgery
DX: D49.2 Neoplasm of unspecified behavior of bone, soft tissue, and skin (principal); S22.081A Stable burst fracture of T11-T12 vertebra, initial encounter for closed fracture; E11.65 Type 2 diabetes mellitus with hyperglycemia; E88.81 Metabolic syndrome and other insulin resistance; D86.9 Sarcoidosis, unspecified; M40.204 Unspecified kyphosis, thoracic region; Z85.43 Personal history of malignant neoplasm of ovary; Z85.038 Personal history of other malignant neoplasm of large intestine; D17.21 Benign lipomatous neoplasm of skin and subcutaneous tissue of right arm; M47.812 Spondylosis without myelopathy or radiculopathy, cervical region; M81.0 Age-related osteoporosis without current pathological fracture; M85.80 Other specified disorders of bone density and structure, unspecified site; E55.9 Vitamin D deficiency, unspecified; R91.1 Solitary pulmonary nodule; Z93.3 Colostomy status; N20.0 Calculus of kidney; I10 Essential (primary) hypertension; J45.909 Unspecified asthma, uncomplicated; L64.9 Androgenic alopecia, unspecified; I48.92 Unspecified atrial flutter; I47.1 Supraventricular tachycardia; F41.0 Panic disorder [episodic paroxysmal anxiety]; F32.9 Major depressive disorder, single episode, unspecified; F41.1 Generalized anxiety disorder; E03.9 Hypothyroidism, unspecified; L40.50 Arthropathic psoriasis, unspecified; L30.4 Erythema intertrigo; E66.01 Morbid (severe) obesity due to excess calories; Z68.43 Body mass index [BMI] 50.0-59.9, adult; K44.9 Diaphragmatic hernia without obstruction or gangrene; G47.00 Insomnia, unspecified; N32.81 Overactive bladder; K59.00 Constipation, unspecified; Z71.89 Other specified counseling; Z79.4 Long term (current) use of insulin; Z79.82 Long term (current) use of aspirin; Z79.890 Hormone replacement therapy; Z79.899 Other long term (current) drug therapy; Z88.1 Allergy status to other antibiotic agents; Z88.5 Allergy status to narcotic agent; Z88.0 Allergy status to penicillin; Z88.8 Allergy status to other drugs, medicaments and biological substances; Z91.048 Other nonmedicinal substance allergy status; Z86.14 Personal history of Methicillin resistant Staphylococcus aureus infection; Z90.49 Acquired absence of other specified parts of digestive tract; Z92.21 Personal history of antineoplastic chemotherapy; Z98.84 Bariatric surgery status; Z90.710 Acquired absence of both cervix and uterus; Z98.890 Other specified postprocedural states; Z87.81 Personal history of (healed) traumatic fracture; Z82.49 Family history of ischemic heart disease and other diseases of the circulatory system
CPT/HCPCS: 22513; 22899; 94760 ×2; 97161; 97166; 86900; 86901; 80048; 82565; 85025 ×2; 80202; 86850; 88342; 88307; 88311; 88341; 87635; 72080; 72128; 72131; G0378 ×3; C1713; C1762; J2250; J3370 ×4; J2405; J2001; J3010; J1170 ×4; J0330; J2704; Q9966; J1644 ×3

== ENCOUNTER → 2021-07-26 | Outpatient (CLI) | payer OTHER ==
--- NOTE | 2021-07-26 09:53 | CT ---
EXAMINATION TYPE: CT thoracic spine wo con, CT lumbar spine wo con DATE OF EXAM: 07/26/2021 COMPARISON: Prior CT July 01 2021 HISTORY: Thoracic spine pain (accession [id number]), Lumbar spine pain (accession [id number]) CT DLP: 2976.11 (accession [id number]), 759.73 (accession [id number]) mGycm Automated exposure control for dose reduction was used. FINDINGS: Exam limited by patient's large body habitus. Persistent vertebroplasty at T11-L1 levels. Mild compression type fracture at T12 level with sclerosi s redemonstrated. Posterior interpedicular rods and screws transfix the T11-L1 levels bilaterally. Sl ight posterior osteophytic retropulsion superior T12 level sagittal image 28 just posterior to the tr ansverse lucency or fracture through the superior endplate shows roughly 5 mm posterior extension and effacement of the anterior spinal canal causing cord to be posteriorly deviated. Alignment is stable and unchanged. There is underlying demineralization redemonstrated. Prominent Schmorl nodes in the s uperior T8 and T5 endplates were demonstrated. Mild chronic compression or anterior wedging at T5 lev el again seen. Axial images show extension of cement material on the left at L1 level into a lumbar v ein draining into the left renal vein similar to prior. Low lung volumes with motion artifact degradation in the visualized lungs makes evaluation for subcen timeter nodules suboptimal. Likely stable 5 mm right mid lung nodule axial image 55. Lap band device epigastric region has abnormal increased angle but is stable and satisfactory in position. Cholecyste ctomy clips redemonstrated. Lumbar spine imaging almost nondiagnostic. 5 lumbar type vertebra redemonstrated. Alignment stable. IMPRESSION: As above. No significant change from most recent CT.
== END | disposition home or self-care (01) ==
LOC: RADCTMAIN 07:48
PROVIDERS: ATTEND Orthopaedic Surgery
DX: M48.54XA Collapsed vertebra, not elsewhere classified, thoracic region, initial encounter for fracture (principal)
CPT/HCPCS: 72128; 72131

== ENCOUNTER → 2021-11-06 | Outpatient (CLI) | payer OTHER ==
--- NOTE | 2021-11-07 07:31 | CT ---
EXAMINATION TYPE: CT thor lumbar spine wo con DATE OF EXAM: 11/06/2021 COMPARISON: MRI thoracic and lumbar spine November 06, 2021. CT thoracic and lumbar spine June HISTORY: pain. previous fusion CT DLP: 6486.9 mGycm Automated exposure control for dose reduction was used. FINDINGS: Demineralization is redemonstrated. There is persistent vertebral plasty at T11-L1 levels with lime spreader ior fusion hardware T11-L1 levels redemonstrated. Alignment stable and satisfactory. Evaluation parti cularly in the lumbar spine suboptimal due to large body habitus. Persistent mild to moderate height loss along the superior T5 endplate and mild height loss superior T8 endplate. Stable mild height los s T12 vertebra. The L1 vertebra shows new mild height loss and ossific fragmentation with sclerosis a nterior aspect from prior CT. Spinal canal remains preserved. Ywkb-li-[id number] multilevel anterior sp urring in the lower thoracic spine is redemonstrated. Visualized lungs remain clear. Elevated left hemidiaphragm is redemonstrated. Lap band device epigast zhanna region is stable in position. Extrusion of cement into a lumbar draining vein left L1 level is ag ain seen. Contrast opacification or excretion in both kidneys correlates with MRI performed right bef ore study. Persistent moderate facet arthropathy in the lower lumbar spine. Seen better on MRI there is right paracentral disc protrusion at L5-S1 level but the spinal canal is preserved. IMPRESSION: As above. Postvertebroplasty and fusion thoracolumbar junction with stable and satisfacto ry alignment. There is new mild height loss and anterior fragmentation at the L1 vertebra noted from the July 01, 2021 CT despite vertebroplasty performed at this level.
--- NOTE | 2021-11-07 13:09 | MR ---
EXAMINATION TYPE: MR tspine/lspine wo/w con DATE OF EXAM: 11/06/2021 COMPARISON: CT of the thoracic spine 07/26/2021 HISTORY: Back Pain since 04/10/21, Surgery 06/30/21, Hx of metastatic Ovarian Ca in 2010 CONTRAST: Performed utilizing 20 mL intravenous Gadavist gadolinium contrast. TECHNIQUE: Multiplanar, multiecho imaging on a 3.0 Amena magnet is performed through the thoracic spi ne. There may be a superior endplate compression deformity or Schmorl's node, likely old, at the T5 level . Spinal cord maintains normal signal through its visualized course. Vertebral body alignment is normal. Postsurgical changes are present in the lower thoracic spine. Pedicle screws and susceptibility artif act within the vertebral body is present this limits evaluation of the spinal canal. Disc heights are preserved. Disc hydration levels are preserved. No spinal canal stenosis is evident where visualized. No abnormal enhancement is evident IMPRESSIONS: 1. Postsurgical changes lower thoracic and thoracolumbar junction with susceptibility artifact limits evaluation through these levels. 2. No definite acute changes identified. No obvious stenosis evident. EXAMINATION TYPE: MR tspine/lspine wo/w con DATE OF EXAM: 11/06/2021 COMPARISON: CT lumbar spine 07/26/2021 HISTORY: Back Pain since 04/10/21, Surgery 06/30/21, Hx of metastatic Ovarian Ca in 2010 CONTRAST: 20 mL intravenous Gadavist. TECHNIQUE: Multiplanar, multisequence images of the lumbar spine were acquired. FINDINGS: L5-S1: Small right paracentral nearly right lateral disc bulge is present. Correlate with right S1 ra dicular symptoms No spinal canal stenosis. Moderate right foraminal narrowing present.. L4-L5: No significant disc bulge or disc herniation. No spinal canal stenosis. No foraminal stenosi s. L3-L4: No significant disc bulge or disc herniation. Small central protrusion is present with mild an terior thecal sac impression. No spinal canal stenosis. No foraminal stenosis. L2-L3: No significant disc bulge or disc herniation. No spinal canal stenosis. No foraminal stenosi s. L1-L2: No significant disc bulge or disc herniation. No spinal canal stenosis. No foraminal stenosi s. T12-L1: Susceptibility artifact limits the evaluation of this level. No abnormal enhancement. IMPRESSION: 1. Postsurgical changes at the thoracolumbar junction limits evaluation through these levels. 2. Right paracentral disc bulging L5-S1. Correlate with right S1 radicular symptoms.
== END | disposition home or self-care (01) ==
LOC: RADCTMAIN 07:00 → RADMRIMAIN 10:07
PROVIDERS: ATTEND Orthopaedic Surgery
DX: M47.816 Spondylosis without myelopathy or radiculopathy, lumbar region (principal); M51.37 Other intervertebral disc degeneration, lumbosacral region; Z98.890 Other specified postprocedural states
CPT/HCPCS: 72128; 72131; 72157; 72158; A9585

== ENCOUNTER → 2021-12-28 | Outpatient (CLI) | payer OTHER ==
--- NOTE | 2021-12-28 12:03 | CT ---
EXAMINATION TYPE: CT thor lumbar spine wo con DATE OF EXAM: 12/28/2021 COMPARISON: CT dated 11/06/2021 and 07/26/2021 HISTORY: THORACOLUMBAR PAIN AND PRE SURGICAL CT DLP: 4433.40 mGycm Automated exposure control for dose reduction was used. TECHNIQUE: Multiplanar CT scan of the thoracic and lumbar spine without IV contrast administration. FINDINGS: Osteopenia. Posterior fixation of T11 and L1 using 2 rods and 4 screws with vertebroplasty of T11, T1 2 and L1. No hardware break or displacement. Persistent comminuted fracture of T12 vertebral body wit h a tiny bone fragment protruding into the spinal canal causing mild bony spinal canal stenosis, stab le. Anterior wedging of L1 vertebral body with anterolisthesis over L2 and multiple anterior bone fra gments with sclerotic changes, stable compared to the previous CT scan. Mild upper endplate depression of T5 vertebral body with mild anterior wedging, stable compared to [facility] [address] scan. No other definite thoracic vertebral body collapse or acute displaced fracture. T he lumbar vertebrae are suboptimally assessed due to artifacts yet there is no major vertebral body c ollapse or obvious fracture. Subtle nondisplaced lumbar vertebral fracture cannot be excluded. Moderate neuroforaminal stenosis is seen at T11-12 level. No obvious thoracic spinal canal stenosis o r neuroforaminal stenosis otherwise. Multilevel thoracic vertebral opposing endplate osteophytosis. S uboptimal assessment for disc disease at T11-12 and T12-L1 levels due to artifacts. No other signific ant thoracic disc herniation or protrusion. L4-5 diffuse posterior disc bulge without significant central spinal canal stenosis or neuroforaminal stenosis. Bilateral L5-S1 facet osteoarthropathy. L5-S1 disc is suboptimally assessed. Suspected cameron ateral L5-S1 neuroforaminal stenosis without significant spinal canal stenosis. No significant disc d isease is seen at L1-2, L2-3 or L3-4 levels. Gastric band seen at the gastroesophageal junction, just below the diaphragm. Cholecystectomy clips. No paraspinal lesion. IMPRESSION: THORACOLUMBAR JUNCTION FIXATION WITH STABLE POSTOPERATIVE CHANGES AND STABLE T5 VERTEBRAL BODY COLLAP SE DESCRIBED ABOVE. NO DEFINITE NEW THORACIC VERTEBRAL BODY COLLAPSE. ARTIFACTS IN THE LUMBAR SPIN E WITHOUT DEFINITE NEW VERTEBRAL BODY COLLAPSE. OTHER FINDINGS DETAILED ABOVE.
== END | disposition home or self-care (01) ==
LOC: RADCTMAIN 10:42
PROVIDERS: ATTEND Orthopaedic Surgery
DX: Z01.818 Encounter for other preprocedural examination (principal); M48.54XA Collapsed vertebra, not elsewhere classified, thoracic region, initial encounter for fracture; Z90.49 Acquired absence of other specified parts of digestive tract; M47.817 Spondylosis without myelopathy or radiculopathy, lumbosacral region
CPT/HCPCS: 72128; 72131

== ENCOUNTER → 2022-01-29 | Outpatient (CLI) | payer OTHER | END | disposition home or self-care (01) | LOC: LABPAT 09:58 | PROVIDERS: ATTEND Orthopaedic Surgery | DX: Z01.812 Encounter for preprocedural laboratory examination (principal); T84.296A Other mechanical complication of internal fixation device of vertebrae, initial encounter; Y79.2 Prosthetic and other implants, materials and accessory orthopedic devices associated with adverse incidents | CPT/HCPCS: 87070 ==

== ENCOUNTER 2022-02-06 07:30 | Inpatient (IN) | payer OTHER ==
[2022-02-05 14:48] VITALS: BMI 56.2
--- NOTE | 2022-02-06 06:27 | P.HPOR ---
History of Present Illness H&P Date: 01/29/22 Chief Complaint: Low back pain, Distal junctional failure, L1 fracture Date of :[birth year] Age: 51 year Height: 6'1" Weight: 415 lbs BP:127/74 BMI: 54.75 kg/m2 Occupation: Retired/Disabled VAS: 6 CHIEF COMPLAINT: pre op lumbar spine HISTORY: Xrays No new xrays taken in office Trauma or injury No Work-Related No Pain description sharp. Location posterior Activity Modification yes , unable to stand or ambulate for extended periods of time. Hand Dominance right DOI: None. DOS: None. TREATMENTS COMPLETED: 6 weeks of PT completed? Month and Year of last PT date? No Physician directed home exercise completed? No, unable to complete as it exacerbates her symptoms. Medications yes List: Gabapentin with relief of her symptoms. Flexeril 10mg and [place] 5/325mg without relief. Pt is currently taking ASA Alternative interventions Chiropractic: No Massage therapy: No Brace: No Injections No RFA: No SUBJECTIVE: Today Ms. Dover presents to the office for a pre-operative review of the planned revision MIS T9-L4 stabilization. Since the time of the last appointment the patient denies any improvements to her symptoms. Overall she reports that she is the same symptomatically and is unable to complete most of her daily functions due to her symptoms. She is still taking Gabapentin and ASA with mild relief of her symptoms. Otherwise she denies any injuries or trauma since the last appointment, no bladder or bowel retention/incontinence, no perineal numbness/tingling, and is continuing to ambulate with the use of a wheeled walker. Of note the patient is S/P T12 kyphoplasty with T11-L1 Posterior Instrumented Stabilization from 06/30/2021. HPI: Ms. Dover was last seen on 11/22/2021 regarding her thoracic and lumbar spine, and to review the MRI of the thoracic and lumbar spine obtained on 11/06/21. Since the time of the last appointment the patient reports that her symptoms have continued to persist. Patient notes that she has has increased pain lately above the operated levels as well as progressive "burning" about the right lower extremity diffusely with weakness as well. Overall she notes continued disability and a great inability to complete her daily functions due to the severity of her symptoms. Additionally she denies trialing any new treatment m odalities since the last appointment and is still taking Gabapentin and Tylenol without any discernable improvements to her symptoms. She denies any injuries or trauma since the last appointment, no bladder or bowel retention/incontinence, no perineal numbness/tingling, and is continuing to ambulate with the use of a wheeled walker. Patient previously presented to the office on 09/15/2021 for a follow up evaluation of her low back. Since the time of her last appointment on 08/10/2021 the patient reports that she notes the persistence of her symptoms that she was experiencing at the time of the last appointment. Today she does note that the pain is slightly improved since the last appointment but it does wax and wane with activities. Regarding her symptoms she notes that her pain is primarily along the midline of the lower thoracic and lumbar regions. Along with this she notes continued left lower extremity radiculopathy but this has improved mildly. Additionally the patient is taking the Gabapentin 300mg as directed at the last appointment and notes mild improvements to her radiculopathy. Overall she feels that she has made some mild improvements to her symptoms and notes that she has returned to some of her daily functions like cooking. Ms. Dover otherwise continues to deny any bladder or bowel issues, no perineal numbness/tingling, and does ambulate with the use of a wheeled walker for stability. Patient last presented to the office on 08/10/2021 for a follow up regarding her low back. Since the time of her last appointment on 07/28/2021 she noted that her symptoms had not improved. She reports continued pain about the low back. Of note, she has been more active since the last appointment and notes that her symptoms are made better with ambulation. She is still using her walker for assistance. Her pain is increased with prolonged sitting and standing in one spot. Of note, she is currently taking Flexeril with mild relief of her sym ptoms. Along with this she states that she has discontinued the use of [place] as she did not like how it deandre her feel. Patient does present to the office with the use of a wheeled walker for ambulation aide. Since the time of the patient's last visit on 07/17/2021 she notes at her visit on 07/28/2021 that she had not made any significant changes regarding her symptomology. Overall she noted that she is the same the she was. She was still taking [place] and Flexeril as directed for pain management with mild influence on her symptoms. Patient denied any incision concerns at this time. She did stop in home PT until today's visit as it was aggravating her symptoms. Of note, the patient does present to the office with the use of a wheeled walker for ambulation. Additionally, she noted that she has been trying to get into the fragility fracture clinic and was currently working with her oncologist regarding this. The patients' past social, medical, family, surgical history, as well as review of systems, have been reviewed. Please refer to the Neurosurgery History and Physical form that has been scanned in to our electronic medical record system. 14 points review of systems completed and as stated in HPI, all other systems reviewed are negative. Review of Systems 14 points review of systems completed and as stated in HPI, all other systems reviewed are negative. 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 to colon-received chemo 2011, psoriatic arthritis, past cardiac ablation for a- flutter and SVT History of Any Multi-Drug Resistant Organisms: MRSA Date of last positivie culture/infection: 2011 MDRO Source:: ABD WOUND Past Surgical History: Ablation, Bariatric Surgery, Bowel Resection, Cardiac Ablation, Cholecystectomy, Heart Catheterization, Hysterectomy, Orthopedic Surgery, Tonsillectomy Additional Past Surgical History / Comment(s): COLOSTOMY, Rt foot surgery - hammer toe, colostomy,lap band-no fluid present Past Anesthesia/Blood Transfusion Reactions: No Reported Reaction Additional Past Anesthesia/Blood Transfusion Reaction / Comment(s): no problems with prior blood transfusion Smoking Status: Never smoker - Past Family History Father Family Medical History: CVA/TIA Additional Family Medical History / Comment(s): three vessel CABG Mother Family Medical History: Myocardial Infarction ([place]) Sister(s) Family Medical History: Hypertension Brother(s) Family Medical History: Hypertension Medications and Allergies Home Medications Medication Instructions Recorded Confirmed Type Aspirin 81 mg PO DAILY 06/02/14 02/05/22 History Levothyroxine Sodium [Synthroid] 224 mcg PO QAM 06/02/14 02/05/22 History metFORMIN HCL [Glucophage] 1,000 mg PO BID 06/02/14 02/05/22 History Cholecalciferol [Vitamin D3 (25 25 mcg PO DAILY 10/31/15 02/05/22 History Mcg = 1000 Iu)] Metoprolol Tartrate [Lopressor] 100 mg PO QAM 10/31/15 02/05/22 History Albuterol Inhaler (Mhu) [Ventolin 2 puff INHALATION RT-Q4H PRN 12/24/17 02/05/22 History Hfa Inhaler (Mhu)] Atorvastatin [Lipitor] 20 mg PO HS 12/24/17 02/05/22 History Insulin Glargine [Lantus Vial] 60 unit SQ BID 12/24/17 02/05/22 History Metoprolol Tartrate [Lopressor] 50 mg PO HS 12/24/17 02/05/22 History lisinopriL [Prinivil] 2.5 mg PO QAM 12/24/17 02/05/22 History FLUoxetine HCL [PROzac] 40 mg PO QAM 02/06/19 02/05/22 History Omeprazole [PriLOSEC] 20 mg PO BID 02/06/19 02/05/22 History Methenamine Hippurate [Hiprex] 1 gm PO BID 06/23/21 02/05/22 History ondansetron HCL [Zofran] 8 mg PO Q12HR PRN 06/23/21 02/05/22 History Cyclobenzaprine [Flexeril] 10 mg PO HS PRN #40 tab 07/03/21 02/05/22 Rx Abaloparatide [Tymlos] 2 mg SQ HS 02/05/22 02/05/22 History Empagliflozin [Jardiance] 25 mg PO DAILY 02/05/22 02/05/22 History Gabapentin [Neurontin] 300 mg PO TID 02/05/22 02/05/22 History Insulin Glargine,Hum.rec.anlog 60 unit SQ BID 02/05/22 02/05/22 History [Lantus Solostar Pen] Insulin NPL/Insulin Lispro 25 units SQ DAILY 02/05/22 02/05/22 History [humaLOG MIX 50-50 VIAL] Insulin NPL/Insulin Lispro 30 units SQ 1800 02/05/22 02/05/22 History [humaLOG MIX 50-50 VIAL] Sennosides/Docusate Sodium [Senna 1 each PO BID PRN 02/05/22 02/05/22 History Plus 8.6-50 mg Softgel] Allergies Allergy/AdvReac Type Severity Reaction Status Date / Time adhesive tape Allergy Rash/Hives,"paper Verified 02/05/22 11:18 tape is ok" cephalexin [From Keflex] Allergy Rash/Hives Verified 02/05/22 11:18 fosfomycin Allergy severe Verified 02/05/22 11:18 vomiting nickel Allergy blisters Verified 02/05/22 11:18 skin Penicillins Allergy Anaphylaxis Verified 02/05/22 11:18 homatropine AdvReac Chest Pain Verified 02/05/22 11:18 [From Hycodan (with homatropin)] homatropine methylbromide AdvReac Chest Verified 02/05/22 11:18 [From Hycodan (with Pain,rapid homatropin)] heart rate,dizziness hydrocodone bitartrate AdvReac Chest Pain Verified 02/05/22 11:18 [From Hycodan (with homatropin)] promethazine HCl AdvReac dystonic Verified 02/05/22 11:18 [From Phenergan] reaction propafenone HCl AdvReac Chest Pain Verified 02/05/22 11:18 [From Rythmol] pseudoephedrine HCl AdvReac Rapid Verified 02/05/22 11:18 [From Sudafed] Heart Rate Physical Examination Osteopathic Statement: *. No significant issues noted on an osteopathic structural exam other than those noted in the History and Physical/Consult. PHYSICAL EXAMINATION: General: Awake, alert, appropriate for age, in no acute distress. HEENT: No unusual neck masses around region of lateral neck triangle, thyroid, supraclavicular groove Heart: Regular rate and rhythm, normal S1, S2 and no murmur/gallop. Lungs: Clear to auscultation bilaterally with no use of accessory muscles. Extremities: Skin warm and dry without acute lesions, coloration, temperature, skin intact, no tenderness or erythema Integument: Hairy patches: Absent Dorsal skin dimples: Absent Cafe au lait spots: Absent Surgical incisions: yes , well healed thoracic and lumbar incision Palpation: Please see Pain drawing on Intake sheet for further detail. Midline spinal tenderness: Yes, about the thoracolumbar region E6 Paralumbar tenderness: Yes E6 Parathoracic tenderness: No E6 Buttocks tenderness: No E6 Special findings: No POSTURAL and MUSCULO-SKELETAL EVALUATION: Coronal Balance: NEUTRAL Recumbent testing: Patient is able to lay flat on back Sagittal Balance: NEUTRAL Shoulder Profile: LEVEL Pelvic Girdle: LEVEL Neck ROM: UNRESTRICTED Lumbar ROM: RESTRICTED due to pain Shoulder ROM: Symmetrical Hip ROM: Symmetrical Knee ROM: Symmetrical Hands: Normal appearance, symmetrical Feet: Normal appearance, Symmetrical VASCULAR STATUS : LEFT RIGHT Wrist Pulses INTACT INTACT Pedal Pulses (Dors. pedis & post.tibialis) INTACT INTACT Color NORMAL NORMAL Edema Absent Absent NEUROLOGIC EXAMINATION: Mental Status:Awake and alert, fully oriented, with normal attention, concentration and memory, and fluent, appropriate speech. Cranial Nerves: I: Olfactory not tested. II: Visual acuity normal, no visual field deficit noted with confrontation. III,IV: Normal pupillary reflexes & intact extraocular movements without nystagmus. V,: Intact symmetrical facial sensation. VII: Intact symmetrical facial motor movement VIII: Hearing intact. IX,X: Intact gag, swallow, & normal voice. XI: Sternocleidomastoid, trapezius function intact. XII: Tongue midline with normal movements. L'hermitte's Sign: Negative / absent Spurling'Sign: Absent bilaterally. Cubital percussion test: Absent bilaterally. Lopez-Tinel sign - Carpal region: Absent bilaterally. Straight Leg Raising: Absent bilaterally. Crossed straight leg raise: negative O8 MOTOR EXAM (0-5/5, N/T) STRENGTH RIGHT LEFT Shoulder Abd (not part of the SHARIF score) 5 5 Elbow Flexors 5 5 Elbow Extensor 5 5 Wrist Dorsiflexors 5 5 Finger Abductor 5 5 Camp Counselor 5 5 Hip Flexor (Not part of SHARIF Motor score) 4+ 5 Knee Flexor 4+ 5 Knee Extensor 4+ 5 Ankle dorsiflexor 4+ 5 Ankle plantarflexion 4+ 5 Extensor hallucis 4+ 5 REFLEXES(0-4/2, NT) RIGHT LEFT Upper Extremities 2 2 Lower Extremities 2 2 Pathological Reflexes RIGHT LEFT Lopez's Absent Absent Clonus Absent Absent Babinski Absent Absent # Indicates mechanical impairment Muscle appearance: Symmetrical, without signs of atrophy or dystrophy. Sensory system (0-4, N/T) Test type RU ALEXA RL LL Joint-Position 2 2 2 2 Vibration 2 2 2 2 Pain & LT sense 2 2 2 2 Dermatomal Deficit: None None None None Gait and Functional Evaluation: Ambulatory aids: Walker Romberg's test: Intact bilaterally Toe heel walk / heel-toe walk intact while maintaining satisfactory balance? N o Squatting/straightening w/o assistance to a min of 60 degree knee flexion? No Single leg stance: not intact bilaterally, worse on right side Trendelenburg sign negative bilaterally Hand and finger dexterity intact bilaterally? yes Disdiadochokinesis examination negative bilaterally? yes Results RADIOGRAPHIC STUDIES: XRay taken on 07/17/21 of Lumbar was reviewed by Dr. Hobson and indicates: - This shows post operative changes from T11-L1 with hardware in good position and holding. There is what appears to be a new fracture and wedging of L1 that was not present on post operative CT. These weight bearing films also show kyphotic deformity below L1 that is questionable for fracture as well. Pt state s she had been doing well after surgery but that new pain has started recently after a fall this could be related. No other issues noted. CT of T and L spine 07/26/21 reviewed: lumbar spine is essentially nondiagnostic secondary to the patient's body habitus. Thoracic spine CT demonstrates postsurgical changes from T11 to L1 with T12 kyphoplasty and T11 L1 stabilization. Screws rods and hardware all appeared to be in good position with no evidence of fracture or dislocation. There is no evidence of fracture between L1 and L2 however there is a high degree of mobility between here. There is what appears to be a new endplate fracture on the superior portion of L1 which was visible in the previous x-rays and were finally detailed here however it is currently stable and the cemented hardware is likely holding it in good position. There is a high degree of mobility however between L1 and L2 this is not abnormal however it is hard to determine whether or not this is causing the patient's pain. When she stands and loads she has a lot of kyphosis at this level however when she lays flat on her back like in the computed tomography scan and this reduces to near normal anatomic position do not feel that it represents instability or fracture however there is somewhat hypermobility at this level secondary to likely the patient's medical status her weight and the recent surgery. MRI of T and L spine from 11/06/21 demonstrates: These are reviewed in office. They are somewhat suboptimal in the sense that they are right at the TL junction making it difficult to assess the distal portion at L1-2 where we think the issues are arising. There is no significant changes from previous imaging. The hardware is in position and holding. There is no failure or pullout. No increased kyphosis at hardware level. There is reduction of standing kyphosis distally at L1-2 which is where I believe most of her issues or stemming from. No other fractures at this time. Pathology: Path was neg for metastatic process or new process. Assessment and Plan Assessment: 1. S/P T12 kyphoplasty with T11-L1 Posterior Instrumented Stabilization- Currently steady state, no increase in pain or issues. She seems slightly better although still c/o pain above and below her stabilization. 2. L1 VCF around stable hardware 3. Low back pain 4. Morbid obesity 5. T12 Burst fracture 6. Distal junctional failure Plan: Based on my findings I suggest the following course of action: 1. I discussed treatment options with the patient, including operative and non-operative options, and they have elected to proceed with the following surgical procedure: revision MIS T9-L4 stabilization The indications, risks, benefits, and alternatives to surgery were discussed with the patient and family at length. Specifically (but not limited to) the risks of infection, stiffness, recurrence of symptoms, need for revision surgery, local numbness, neurovascular injury, and blood clots were discussed. The patient's questions were answered. The decision to proceed was made. Consent will be obtained for the procedure. 2. Spine Surgery Risk Review Rika Dover is presenting for evaluation of low back pain. It was my pleasure to have seen and examined Rika Dover. In our visit today we have had a chance to go over subjective complaints, physical examination findings and treatments including the natural course history without intervention and various interventional options. The patients imaging demonstrates Xrays: shows post operative changes from T11-L1 with hardware in good position and holding. There is what appears to be a new fracture and wedging of L1 that was not present on post operative CT. These weight bearing films also show kyphotic deformity below L1 that is questionable for fracture as well. Pt states she had been doing well after surgery but that new pain has started recently after a fall this could be related. No other issues noted. CT: lumbar spine is essentially nondiagnostic secondary to the patient's body habitus. Thoracic spine CT demonstrates postsurgical changes from T11 to L1 with T12 kyphoplasty and T11 L1 stabilization. Screws rods and hardware all appeared to be in good position with no evidence of fracture or dislocation. There is no evidence of fracture between L1 and L2 however there is a high degree of mobility between here. There is what appears to be a new endplate fracture on the superior portion of L1 which was visible in the previous x-rays and were finally detailed here however it is currently stable and the cemented hardware is likely holding it in good position. There is a high degree of mobility however between L1 and L2 this is not abnormal however it is hard to determine whether or not this is causing the patient's pain. When she stands and loads she has a lot of kyphosis at this level however when she lays flat on her back like in the computed tomography scan and this reduces to near normal anatomic position do not feel that it represents instability or fracture however there is somewhat hypermobility at this level secondary to likely the patient's medical status her weight and the recent surgery. MRI: They are somewhat suboptimal in the sense that they are right at the TL junction making it difficult to assess the distal portion at L1-2 where we think the issues are arising. There is no significant changes from previous imaging. The hardware is in position and holding. There is no failure or pullout. No increased kyphosis at hardware level. There is reduction of standing kyphosis distally at L1-2 which is where I believe most of her issues or stemming from. No other fractures at this time. On physical exam, Rika Dover demonstrates right lower extremity radiculopathy with weakness throughout. There is limited ROM about the lumbar region secondary to pain along with paraspinal TTP. Difficulty with performing fine motor skills testing due to severity of pain but this again correlates with her right lower extremity radiculopathy. I have explained to the patient that as their condition progresses it will cause further neurological deficits and eventual paralysis. Based on the patients imaging, physical exam, and the rapid progression and disabling nature of their symptoms, at this time I recommend surgery in the form or a: revision MIS T9-L4 stabilization. I discussed the risk and benefits of this procedure at length with Rika Stanislaw. The patient and her sister agreed to considered pursuing the procedure abovementioned. Prior to surgery, she should follow up with her PCP (Cardio, ID, IM etc) for clearance. Questions were invited and answered, and the patient wishes to proceed as outlined below. Currently, I am recommendin.revision MIS T9-L4 stabilization 2.Follow up with PCP for surgical clearance 3.Review of surgical risks and benefits as well as an educational packet on the proposed surgical procedure. Risks: All surgical procedures come with inherent risks, including those related to positioning, anesthesia, intraoperative findings, and postoperative complications. It is important to understand that surgery does not come with any guarantee of a successful outcome as complications and adverse events are al ways possible. The patient was given a handout in office today discussing the surgical procedure and risks associated with the intervention, both of which were discussed with the patient. These risks include but are not limited to the following: * Experiencing same, different or even worse symptoms in back, neck, arms, or legs compared to before surgery. Requiring further surgery or other forms of treatment presently or at some time in the future at same or other levels of the intended spine surgery. On an extreme but fortunately relatively rare basis severe complication rincon ch as blindness, stroke, heart attack, temporary and/or permanent nerve injury, paralysis, coma, or may occur, sometimes without known explanation. Surgical complications may include but are not limited to risk of infection, fluid accumulation in the surgical dissection site, including a seroma or hematoma, that requires additional surgery, wound drainage, bleeding, new numbness or weakness, vision changes/loss, spinal fluid leakage, non-healing and/or infected incision, headaches, difficulty or inability to swallow, hoarseness, hemopneumothorax, pneumothorax, impotence, retrograde ejaculation, vaginal dryness; injury to nerves, spinal cord, blood vessels, lymphatics or other vital organs (i.e., bowel injury, injury to the great vessels); heterotopic bone formation; complications related to the hardware such as screws, rods, cages including misplaced hardware, device failure, instrumentation at the wrong spine level, hardware fracture/breakage, or hardware loosening; vertebral failure of the spinal column above or below the newly placed hardware; retained surgical instrumentations or devices and the need for further surgery. * Medical risks of the planned spine surgery include but are not limited to generalized Infections to the whole body or local areas outside of the surgical site (sepsis), heart attack, bleeding, anaphylaxis, meningitis, seizure, epilepsy, hearing loss, burn arteaga, laceration of the head or other areas of the body, bruising, hypersensitivity of the skin, bladder over distension; allergic reaction; shoulder injury related to positioning; fat, blood and air clots to other areas of the body like heart, lungs, brain; failure of internal organs such as lungs, kidneys, liver and excessive bleeding. If blood transfusions are necessary, note that transfusions may cause intolerance reactions such as anaphylaxis or other complex reactions. Despite best efforts, the results of spine surgery might not heal in terms of bone, soft tissues such as skin, fascia, ligaments, and joints. Additionally, in order to achieve best possible results, spine surgery may be carried out beyond the initially planned levels and involve decompression, fusion including insertion of hardware at levels other than the original intended area of surgical interest change some portions of the procedure in order to ensure the best possible outcomes. With spine surgery and spinal fusion, there are different off label uses of instrumentation (devices, implants and hardware) as well as biological substances (bone morphogenic proteins, demineralized bone matrix) as well as using extra bone from allograft sources (i.e. cadaver bone) or autograft (iliac crest bone, ribs, or the spine itself). The patient has been given information about these practices and their inherent risks and benefits. [facility] is an educational center that serves as a training facility for neurosurgical and orthopedic [employer] and Nursing students. Physician assistants are medically trained surgical providers who function in the outpatient, inpatient, and operating room setting under the direct supervision of the attending surgeon. [facility] has multiple operating rooms with single and overlapping rooms running daily. They currently function under the required guidelines as produced by the [facility] with regards to the overlapping rooms and will continue to comply with changes to this policy as they occur. The requirements include and are complied with as follows: (1) the critical portions of the overlapping rooms will not occur at the same time, (2) the attending physician will be physically present during the critical portions of the procedure and immediately available during the entire case, and (3) a back-up attending is designated should the primary attending not be immediately available. The patient has had a chance to review all the listed information, has been given print outs detailing this information, and has had all his/her questions answered to their satisfaction. It was my pleasure to have seen and examined Rika Dover. In our visit today we have had a chance to go over my understanding of our patient's current condition, the natural course history without intervention and various interventional options. Questions were invited and answered, and the patient wishes to proceed as outlined above. I have seen and examined the patient for 25 minutes and we have spent more than 50% of the time in repeat and detailed counseling about the patient's condition, its natural course history with out and as much as can be predicted with surgery and re-review of various surgical treatment options. In conclusion, Rika Dover and her sister requested we proceed with the above suggested surgery and are willing to accept risks and limitations of the suggested surgery as nature of the disease process and our best attempts at treatment for the condition. Thank you again for allowing us to be part of your patient's care. Please don't hesitate to contact me if you have any further questions. Signed and authenticated by: [employer] P:\\\\ppart\\\\Files\\\\[id number]\\\\[id number]\\[id number].PNG \\d [facility] Ariela Simms [address] [address]
[~2022-02-06 07:30] MED LIST changes: +DEXAMETHASONE SOD PHOSPHATE 4 MG/ML 1 ML VIAL IV ONE; +LIDOCAINE 1% (10MG/ML) FOR IV START INTRADERMA PRN; +METOCLOPRAMIDE 5 MG/ML 2 ML VIAL IVP PRN; +MIDAZOLAM 2 MG/2 ML VIAL IV PRN; +ONDANSETRON 4 MG/2 ML VIAL IVP ONE; -TRANEXAMIC ACID 1,000 MG in SODIUM CHLORIDE 0.9% 100 ML IVPB PRN; +TRANEXAMIC ACID IN NACL,ISO-OS 1,000 MG in SALINE 1 100ML.BAG IVPB PRN
[2022-02-06 08:31] LABS: Glucose,Whole Blood 190 mg/dL (75-99)
[2022-02-06] MEDS: LACTATED RINGERS 1,000 ML IV SCH (08:39)
[2022-02-06] MEDS ORDERED: PHENYLEPHRINE-0.9% NACL SYG 1,000 MCG/10 ML SYRINGE ONE (10:59)
[2022-02-06] MEDS ORDERED: fentaNYL (PF) 50 MCG/ML 2 ML AMP ONE (10:59)
[2022-02-06] MEDS ORDERED: KETAMINE 10 MG/ML 20 ML VIAL ONE (10:59)
[2022-02-06] MEDS ORDERED: TRANEXAMIC ACID IN NACL,ISO-OS 1,000 MG/100 ML BAG ONE (10:59)
[2022-02-06] MEDS ORDERED: ROCURONIUM 10 MG/ML (5 ML VIAL) IV ONE (10:59)
[2022-02-06] MEDS ORDERED: ePHEDrine 50 MG/ML 1 ML VIAL ONE (10:59)
[2022-02-06] MEDS ORDERED: SUCCINYLCHOLINE CHLORIDE VIAL 200 MG/10 ML VIAL IV ONE (10:59)
[2022-02-06] MEDS ORDERED: PROPOFOL 10 MG/ML 20 ML VIAL IV ONE (10:59)
[2022-02-06] MEDS ORDERED: MIDAZOLAM 2 MG/2 ML VIAL ONE (10:59)
[2022-02-06] MEDS ORDERED: HYDROmorphone (PF) 1 MG/ML ONE (10:59)
[2022-02-06] MEDS ORDERED: LIDOCAINE 2% INJ 20 MG/ML (2 ML VIAL) ONE (10:59)
[2022-02-06] MEDS ORDERED: SUGAMMADEX SODIUM 200 MG/2 ML SDV IV ONE (10:59)
[2022-02-06] MEDS ORDERED: LACTATED RINGERS 1,000 ML IV ONE ×4 (11:09→15:02)
[2022-02-06 14:43] LABS: Glucose,Whole Blood 230 mg/dL (75-99)
[2022-02-06] MEDS ORDERED: VANCOMYCIN 1,000 MG VIAL MISCELLANE ONE (15:01)
[2022-02-06] MEDS ORDERED: SENNOSIDES-DOCUSATE SODIUM 1 EACH TAB PO PRN (15:24)
[2022-02-06] MEDS ORDERED: HYDROcodone/APAP 5-325MG 1 EACH TAB PO PRN (15:24)
[2022-02-06] MEDS ORDERED: MAGNESIUM HYDROXIDE 2,400 MG/10 ML CUP PO PRN (15:24)
[2022-02-06] MEDS ORDERED: VANCOMYCIN IV PER PHARMACY 1 EACH MISC MISCELLANE PRN (15:30)
[2022-02-06] MEDS ORDERED: ALBUTEROL NEBULIZED 2.5 MG/3 ML INHALATION ONE (16:10)
--- NOTE | 2022-02-06 16:18 | P.PN ---
Progress Note - Text Progress Note Date: 02/06/22 Postop: . Patient seen and examined they are doing well. Their pain is under control at this time. They are moving all 4 extremities without any issues. Vital signs are stable.. They are currently recovering and will be transferred to the floor once deemed stable by the PACU team and anesthesiologist. No Other issues at this time they deny fever chills shortness of breath or chest pain. [Medical management pending] [Continue with intravenous fluids, pain medication, muscle relaxers, home medication] [Soft diet to start to advance as tolerated] We will evaluate the patient in the morning.
[2022-02-06] MEDS: HYDROmorphone 0.5 MG/0.5 ML SYRINGE IVP PRN ×2 (16:39→16:48)
[2022-02-06] MEDS: GABAPENTIN 300 MG CAP PO SCH ×2 (18:26→20:39)
[2022-02-06] MEDS: SODIUM CHLORIDE 0.9% 1,000 ML IV SCH ×2 (18:26→21:42)
[2022-02-06] MEDS: ACETAMINOPHEN TAB 325 MG TAB PO SCH (18:27)
[2022-02-06 20:07] LABS: Glucose,Whole Blood 210 mg/dL (75-99)
[2022-02-06] MEDS: polyethylene glycoL 3350 17 GM POWD.PACK PO SCH (20:38)
[2022-02-06] MEDS ORDERED: ALBUTEROL NEBULIZED 2.5 MG/3 ML INHALATION PRN (21:05)
[2022-02-06] MEDS ORDERED: PANTOPRAZOLE 40 MG TABLET PO SCH (21:15)
[2022-02-06] MEDS: HYDROcodone/APAP 10-325MG 1 EACH TAB PO PRN (21:27)
[2022-02-06] MEDS: CYCLOBENZAPRINE 5 MG TAB PO PRN (21:27)
[2022-02-06] MEDS: INSULIN ASPART (NovoLOG) 100 UNIT/ML VIAL SQ SCH (21:30)
[2022-02-06] MEDS: METOPROLOL TARTRATE 50 MG TAB PO SCH (21:30)
[2022-02-06] MEDS ORDERED: GABAPENTIN 300 MG CAP PO SCH (22:00)
--- NOTE | 2022-02-06 22:54 | XR ---
EXAMINATION TYPE: XR lumbar spine 2 or 3V, FL guidance operating room DATE OF EXAM: 02/06/2022 CLINICAL HISTORY: Thoracic/lumbar stabilization TECHNIQUE: Fluoroscopic-guided procedure COMPARISON: CT dated 12/28/2021 FINDINGS: Fluoroscopic guidance was provided during the procedure. A total of 42 seconds of fluorosc opic time was utilized during the procedure and 6 spot images were acquired. IMPRESSION: As Above.
--- NOTE | 2022-02-06 23:01 | P.CONS ---
History of Present Illness - Reason for Consult Consult date: 02/06/22 Medical management Requesting physician: Juan Oquendo - Chief Complaint Lumbar spine hardware replace - History of Present Illness 51-year-old female with diabetes mellitus hypertension Patient comes in for scheduled surgery for replacement lumbar spine hardware. She tolerated procedure well no observed immediate postoperative consultations denies any chest pain or trouble breathing denies any fevers or chills tolerated by mouth intake. His any new focal neuro deficits in lower extremity is postop Patient has history of ovarian cancer 10 years ago with permanent colostomy. Review of Systems Pertinent positives as noted in HPI. All other systems were reviewed and are negative Past Medical History Past Medical History: Atrial Flutter, Cancer, Chest Pain / Angina, Diabetes Mellitus, Hypertension, Supraventricular Tachycardia (SVT), Thyroid Disorder Additional Past Medical History / Comment(s): OVARIAN CA - in remission-mets to colon-received chemo 2011, psoriatic arthritis, past cardiac ablation for a- flutter and SVT History of Any Multi-Drug Resistant Organisms: MRSA Year Discovered:: 2011 MDRO Source:: ABD WOUND Past Surgical History: Ablation, Bariatric Surgery, Bowel Resection, Cardiac Ablation, Cholecystectomy, Heart Catheterization, Hysterectomy, Orthopedic Surgery, Tonsillectomy Additional Past Surgical History / Comment(s): COLOSTOMY March 2021, Rt foot surgery - hammer toe, colostomy,lap band-no fluid present Past Anesthesia/Blood Transfusion Reactions: No Reported Reaction Additional Past Anesthesia/Blood Transfusion Reaction / Comm: no problems with prior blood transfusion Past Psychological History: Anxiety, Depression, Panic Disorder Additional Psychological History / Comment(s): PT STATED SHE FEELS WELL MAINTAINED ON HER MEDS Smoking Status: Never smoker Past Alcohol Use History: None Reported Past Drug Use History: None Reported - Past Family History Father Family Medical History: CVA/TIA Additional Family Medical History / Comment(s): three vessel CABG Mother Family Medical History: Myocardial Infarction (AR) Sister(s) Family Medical History: Hypertension Brother(s) Family Medical History: Hypertension Medications and Allergies Home Medications Medication Instructions Recorded Confirmed Type Aspirin 81 mg PO DAILY 06/02/14 02/06/22 History Levothyroxine Sodium [Synthroid] 224 mcg PO QAM 06/02/14 02/06/22 History metFORMIN HCL [Glucophage] 1,000 mg PO BID 06/02/14 02/06/22 History Cholecalciferol [Vitamin D3 (25 25 mcg PO DAILY 10/31/15 02/06/22 History Mcg = 1000 Iu)] Metoprolol Tartrate [Lopressor] 100 mg PO QAM 10/31/15 02/06/22 History Albuterol Inhaler (Mhu) [Ventolin 2 puff INHALATION RT-Q4H PRN 12/24/17 02/06/22 History Hfa Inhaler (Mhu)] Atorvastatin [Lipitor] 20 mg PO HS 12/24/17 02/06/22 History Insulin Glargine [Lantus Vial] 60 unit SQ BID 12/24/17 02/06/22 History Metoprolol Tartrate [Lopressor] 50 mg PO HS 12/24/17 02/06/22 History lisinopriL [Prinivil] 2.5 mg PO QAM 12/24/17 02/06/22 History FLUoxetine HCL [PROzac] 40 mg PO QAM 02/06/19 02/06/22 History Omeprazole [PriLOSEC] 20 mg PO BID 02/06/19 02/06/22 History Methenamine Hippurate [Hiprex] 1 gm PO BID 06/23/21 02/06/22 History ondansetron HCL [Zofran] 8 mg PO Q12HR PRN 06/23/21 02/06/22 History Cyclobenzaprine [Flexeril] 10 mg PO HS PRN #40 tab 07/03/21 02/06/22 Rx Abaloparatide [Tymlos] 2 mg SQ HS 02/05/22 02/06/22 History Empagliflozin [Jardiance] 25 mg PO DAILY 02/05/22 02/06/22 History Gabapentin [Neurontin] 300 mg PO TID 02/05/22 02/06/22 History Insulin Glargine,Hum.rec.anlog 60 unit SQ BID 02/05/22 02/06/22 History [Lantus Solostar Pen] Insulin NPL/Insulin Lispro 25 units SQ DAILY 02/05/22 02/06/22 History [humaLOG MIX 50-50 VIAL] Insulin NPL/Insulin Lispro 30 units SQ 1800 02/05/22 02/06/22 History [humaLOG MIX 50-50 VIAL] Sennosides/Docusate Sodium [Senna 1 each PO BID PRN 02/05/22 02/06/22 History Plus 8.6-50 mg Softgel] Allergies Allergy/AdvReac Type Severity Reaction Status Date / Time adhesive tape Allergy Rash/Hives,"paper Verified 02/06/22 08:16 tape is ok" cephalexin [From Keflex] Allergy Rash/Hives Verified 02/06/22 08:16 fosfomycin Allergy severe Verified 02/06/22 08:16 vomiting nickel Allergy blisters Verified 02/06/22 08:16 skin Penicillins Allergy Anaphylaxis Verified 02/06/22 08:16 homatropine AdvReac Chest Pain Verified 02/06/22 08:16 [From Hycodan (with homatropin)] homatropine methylbromide AdvReac Chest Verified 02/06/22 08:16 [From Hycodan (with Pain,rapid homatropin)] heart rate,dizziness hydrocodone bitartrate AdvReac Chest Pain Verified 02/06/22 08:16 [From Hycodan (with homatropin)] promethazine HCl AdvReac dystonic Verified 02/06/22 08:16 [From Phenergan] reaction propafenone HCl AdvReac Chest Pain Verified 02/06/22 08:16 [From Rythmol] pseudoephedrine HCl AdvReac Rapid Verified 02/06/22 08:16 [From Sudafed] Heart Rate Physical Exam Vitals: Vital Signs Temp Pulse Pulse Resp BP Pulse Ox 02/06/22 19:04 98.6 F 100 18 96/57 94 L 02/06/22 17:15 98.4 F 98 98 17 122/79 94 L 02/06/22 17:01 96 16 135/64 93 L 02/06/22 16:46 94 16 130/60 98 02/06/22 16:31 95 16 136/64 95 02/06/22 16:15 95 16 141/62 95 02/06/22 16:00 96 12 134/59 95 02/06/22 15:46 96.8 F L 92 10 L 135/60 95 02/06/22 10:43 105/55 02/06/22 08:15 97.0 F L 76 16 103/55 93 L Intake and Output 02/06/22 02/06/22 02/06/22 06:59 14:59 22:59 Intake Total 2500 600 Output Total 550 225 Balance 1950 375 Intake: IV 2500 600 Output: Urine 450 225 Estimated Blood Loss 100 Other: Weight 189.8 kg 191.87 kg Constitutional: No acute distress, conversant, pleasant Eyes: Anicteric sclerae, moist conjunctiva, Pupils equal round reactive to light ENMT: NC/AT Oropharynx clear, no erythema, or exudates Neck: Supple, no masses, or JVD No carotid bruits No thyromegaly Lungs: Clear to auscultation Clear to percussion Normal respiratory effort, no accessory muscle use Cardiovascular: Heart regular in rate and rhythm, No murmurs, gallops, or rubs No peripheral edema Abdominal: Soft Nontender, no guarding, rebound or rigidity Abdomen moving with respiration Normoactive bowel sounds No hepatomegaly, No splenomegaly No palpable mass No abdominal wall hernia noted Colostomy bag in place Skin: Normal temperature, tone, texture, turgor No induration No subcutaneous nodules No rash, lesions No ulcers Extremities: No digital cyanosis No clubbing Pedal pulses intact and symmetrical Radial pulses intact and symmetrical No calf tenderness Psychiatric: Alert and oriented to person, place and time Appropriate affect fair judgement Neuro Muscles Strength 4/5 in all 4 extremities Sensation to light touch grossly present throughout Cranial nerves II-XII grossly intact No focal sensory deficits Lymphatics: no palpable cervical or supraclavicular , or inguinal lymph nodes Results Labs: Abnormal Lab Results - Last 24 Hours (Table) 02/06/22 02/06/22 02/06/22 Range/Units 08:28 14:40 20:06 POC Glucose (mg/dL) 190 H 230 H 210 H (75-99) mg/dL Assessment and Plan Assessment: Status post hardware replacement postoperative day 0 Management per orthopedics Antibiotic management per orthopedics Chronic conditions Diabetes mellitus, insulin sliding scale Resume basal insulin Hold oral hypoglycemic agents Hypertension, controlled Resume home blood pressure medications Hypothyroid, resume levothyroxine DVT prophylaxis mechanical to spine surgery Full code Follow-up labs Thank you for allowing us to participate in the care of this patient. Do not hesitate to contact us with questions. Someone can be reached from the [facility] hospitalist group at all hours of the day at [phone].
[2022-02-06] MEDS: HYDROmorphone 1 MG/ML 1 ML SYRINGE IVP PRN (23:21)
[2022-02-07] MEDS: VANCOMYCIN 2,500 MG in SODIUM CHLORIDE 0.9% 500 ML 500 ML IVPB SCH ×3 (00:01→22:38)
[2022-02-07] MEDS: ACETAMINOPHEN TAB 325 MG TAB PO SCH ×4 (00:02→17:00)
--- NOTE | 2022-02-07 00:47 | CT ---
EXAMINATION TYPE: CT thoracic spine wo con DATE OF EXAM: 02/06/2022 COMPARISON: 12/28/2021 HISTORY: post op CT DLP: 2408 mGycm Automated exposure control for dose reduction was used. Thoracic Fairly normal alignment. There is T5 anterior wedging 25% unchanged. There is T10 and T11 vertebral p lasty. There is no paraspinal mass. There is some patchy infiltrates in the posterior lung padilla. Th ere is osteopenia. There is posterior fusion surgery in the lower thoracic spine. IMPRESSION: There is revision of the vertebroplasty and posterior fusion surgery in the lower thoracic spine comp ared to old exam. Old T5 compression fracture appears stable.
--- NOTE | 2022-02-07 00:52 | CT ---
EXAMINATION TYPE: CT lumbar spine wo con DATE OF EXAM: 02/06/2022 COMPARISON: 12/28/2021 HISTORY: post op CT DLP: 3437 mGycm Automated exposure control for dose reduction was used. Images obtained from the level of T9 to the S3 vertebra without contrast. The vertebra have Fairly normal alignment. There is posterior fusion surgery with rods and screws fro m T10 to the L3 vertebra. There is vertebroplasty of L3 and L1 and T12 and T11 and T10. There is no p araspinal mass. Sacroiliac joints are intact. There is osteopenia. IMPRESSION: There is revision of the posterior fusion surgery. There is mild compression fractures with anterior wedging of L1 and T12 and T11 and T10 vertebra up to 30%. I do not see a new significant compression fracture compared to old exam.
[2022-02-07] MEDS: HYDROmorphone 1 MG/ML 1 ML SYRINGE IVP PRN ×4 (02:15→20:47)
[2022-02-07] MEDS: LEVOTHYROXINE 112 MCG TAB PO SCH (05:40)
[2022-02-07] MEDS: CYCLOBENZAPRINE 5 MG TAB PO PRN ×3 (05:41→22:39)
[2022-02-07] MEDS: LACTATED RINGERS 1,000 ML IV SCH (05:43)
[2022-02-07 07:03] LABS: Glucose,Whole Blood 175 mg/dL (75-99)
[2022-02-07] MEDS: FLUoxetine HCL 20 MG CAP PO SCH (07:35)
[2022-02-07] MEDS: METOPROLOL TARTRATE 50 MG TAB PO SCH ×2 (07:36→21:44)
[2022-02-07] MEDS: GABAPENTIN 300 MG CAP PO SCH ×3 (07:36→22:39)
[2022-02-07] MEDS: INSULIN ASPART (NovoLOG) 100 UNIT/ML VIAL SQ SCH ×4 (07:36→22:39)
[2022-02-07] MEDS: INSULIN DETEMIR (LEVEMIR) 100 UNIT/ML SYR SQ SCH ×2 (07:38→22:40)
[2022-02-07 09:11] LABS: Basophils # (A) 0.02 X 10*3/uL (0.00-0.10); Basophils % (A) 0.2 %; Eosinophils # (A) 0.01 X 10*3/uL (0.04-0.35); Eosinophils % (A) 0.1 %; HCT 34.3 % (37.2-46.3); HGB 10.3 g/dL (12.0-15.0); Immature Grans, Automated 0.2 %; Lymphocytes # (A) 0.95 X 10*3/uL (0.90-5.00); Lymphocytes % (A) 10.8 %; MCH 27.1 pg (27.0-32.0); MCV 90.3 fL (80.0-97.0); Mean Platelet Volume 12.7 fL (9.5-12.2); Monocytes # (A) 0.58 X 10*3/uL (0.20-1.00); Monocytes % (A) 6.6 %; NRBC Per 100 WBC 0 /100 WBCS (0.0-0.0); Neutrophils # (A) 7.23 X 10*3/uL (1.80-7.70); Neutrophils % (A) 82.1 %; Platelet Count 177 X 10*3/uL (140-440); RDW 15.6 % (11.5-14.5); WBC 8.81 X 10*3/uL (4.50-10.00)
[2022-02-07 09:28] LABS: African American GFR (CKD) 66.6 (60.0-200.0); Anion Gap 11.4 mmol/L (10.00-18.00); BUN/Creat Ratio 21.62 Ratio (12.00-20.00); Calcium 8.8 mg/dL (8.7-10.3); Carbon Dioxide 24.4 mmol/L (20.0-27.5); Non-African American GFR(CKD) 57.5 (60.0-200.0); Potassium 4.9 mmol/L (3.5-5.5)
[2022-02-07] MEDS: HYDROcodone/APAP 10-325MG 1 EACH TAB PO PRN ×3 (09:52→22:40)
[2022-02-07 11:38] LABS: Glucose,Whole Blood 235 mg/dL (75-99)
--- NOTE | 2022-02-07 13:08 | P.OP ---
Date of Procedure: 02/06/22 Preoperative Diagnosis: 1. S/P T12 kyphoplasty with T11-L1 Posterior Instrumented Stabilization- Currently steady state, no increase in pain or issues. She seems slightly better although still c/o pain above and below her stabilization. 2. L1 VCF around stable hardware 3. Low back pain 4. Morbid obesity 5. T12 Burst fracture 6. Distal junctional failure Postoperative Diagnosis: 1. S/P T12 kyphoplasty with T11-L1 Posterior Instrumented Stabilization- Currently steady state, no increase in pain or issues. She seems slightly better although still c/o pain above and below her stabilization. 2. L1 VCF around stable hardware 3. Low back pain 4. Morbid obesity 5. T12 Burst fracture 6. Distal junctional failure Procedure(s) Performed: 1. Removal of hardware T11-L1 with reinsertion (08573) 2. Exploration of fusion and stabilization T11-L1 (85083) 3. Posterior segmental instrumentation T10-L3 (95979) 4. Use of Beisen navigation for placement of screws (15181) Implants: Dann [place] screw system Anesthesia: GETA Surgeon: Juan Oquendo Primary Care Md #1: Elin Huertas (Was present and assisted with positioning, hardware placement, closure and dressing) Estimated Blood Loss (ml): 100 IV fluids (ml): 1,300 Urine output (ml): 250 Pathology: none sent Condition: stable Disposition: PACU Indications for Procedure: Rika Dover is presenting for evaluation of low back pain. It was my pleasure to have seen and examined Rika Dover. In our visit today we have had a chance to go over subjective complaints, physical examination findings and treatments including the natural course history without intervention and various interventional options. The patients imaging demonstrates Xrays: shows post operative changes from T11-L1 with hardware in good position and holding. There is what appears to be a new fracture and wedging of L1 that was not present on post operative CT. These weight bearing films also show kyphotic deformity below L1 that is questionable for fracture as well. Pt states she had been doing well after surgery but that new pain has started recently after a fall this could be related. No other issues noted. CT: lumbar spine is essentially nondiagnostic secondary to the patient's body habitus. Thoracic spine CT demonstrates postsurgical changes from T11 to L1 with T12 kyphoplasty and T11 L1 stabilization. Screws rods and hardware all appeared to be in good position with no evidence of fracture or dis location. There is no evidence of fracture between L1 and L2 however there is a high degree of mobility between here. There is what appears to be a new endplate fracture on the superior portion of L1 which was visible in the previous x-rays and were finally detailed here however it is currently stable and the cemented hardware is likely holding it in good position. There is a high degree of mobility however between L1 and L2 this is not abnormal however it is hard to determine whether or not this is causing the patient's pain. When she stands and loads she has a lot of kyphosis at this level however when she lays flat on her back like in the computed tomography scan and this reduces to near normal anatomic position do not feel that it represents instability or fracture however there is somewhat hypermobility at this level secondary to likely the patient's medical status her weight and the recent surgery. MRI: They are somewhat suboptimal in the sense that they are right at the TL junction making it difficult to assess the distal portion at L1-2 where we think the issues are arising. There is no significant changes from previous imaging. The hardware is in position and holding. There is no failure or pullout. No increased kyphosis at hardware level. There is reduction of standing kyphosis distally at L1-2 which is where I believe most of her issues or stemming from. No other fractures at this time. On physical exam, Rika Dover demonstrates right lower extremity radiculopathy with weakness throughout. There is limited ROM about the lumbar region secondary to pain along with paraspinal TTP. Difficulty with performing fine motor skills testing due to severity of pain but this again correlates with her right lower extremity radiculopathy. I have explained to the patient that as their condition progresses it will cause further neurological deficits and eventual paralysis. Based on the patients imaging, physical exam, and the rapid progression and disabling nature of their symptoms, at this time I recommend surgery in the form or a: revision MIS T10-L3 stabilization. I discussed the risk and benefits of this procedure at length with Rika Dover. The patient and her sister agreed to considered pursuing the procedure abovementioned. Prior to surgery, she should follow up with her PCP (Cardio, ID, IM etc) for clearance. Questions were invited and answered, and the patient wishes to proceed as outlined below. Currently, I am recommendin.revision MIS T10-L3 stabilization 2.Follow up with PCP for surgical clearance 3.Review of surgical risks and benefits as well as an educational packet on the proposed surgical procedure. Description of Procedure: The patient was seen and examined in the preoperative area. All preoperative protocols were followed. Informed consent was obtained risks and benefits of the procedure were discussed at length. Risks including bleeding infection damage to the surrounding tissue and risk of reoperation were discussed with the patient. Risk of anesthesia up to and including was a discussed with the patient. These are outlined in the risk review. They were willing to accept these risks and all of the risks of surgery. The patient was given a weight- based dose of antibiotics in the form of vancomycin weight-based dose. The patient was seen and evaluated by the anesthesia team who deemed them fit for surgery. The site was marked, the patient was willing to proceed with the procedure. The patient was transferred to the operative suite by the Department of anesthesia. They were then drifted off to sleep by the department anesthesia and GETA was performed. The patient tolerated this well. [Yañez catheter was placed by nursing staff, atraumatically]. Once confirmation of lines and ventilation the patient was transferred to a [prone Hong table very carefully]. All bony prominences including wrists, elbows, axilla, chest, hips, and thighs, and feet were padded very well. Special attention was paid to the genitalia and these were padded accordingly. SCDs were placed on bilateral lower extremities and were connected. Arms were well padded and placed [on arm boards up and out in the 90/90 position]. Once in position, again we confirmed good ventilation capabilities and that lines were running appropriately. The patient's thoracolumbar spine was then exposed. 1010s were placed outlining the incision site. Standard alcohol was used to clean the incision site and allowed to dry. C-arm was used to biomark the patient and confirm level for incision which was marked with a skin marker. Operative briefing was performed with all teams and everyone in agreement to proceed. The patient was then prepped and draped in a normal sterile fashion. Timeout was then performed and all parties were in agreement with the procedure to be performed. Fluoroscopic imaging was then used to target the left-sided screws first skin incision was made over the previously made skin incision parallel lumbar and careful dissection taken down until the screw head was identified the set screw was then removed from this area and the roseanna was cleaned of any scar tissue we then identified and performed the same thing at the rest of the screw levels at T11 and L1 removing the set screws at each level followed by the rods the screws were stable and these were left in position. We then placed the spine mask for the [place] navigation and a 3-D intraoperative spin was performed to register for navigation. Once this was accomplished and we confirmed the imaging and accuracy we proceeded with placement of percutaneous screws at T10 bilaterally using a Jamshidi and wire method a navigated Jamshidi was advanced using navigation as well as live lateral fluoroscopy due to the patient's size and the need for imaging. The Jamshidi was advanced until within the vertebral body was then replaced with a wire once this was accomplished we then sized and selected a screw was screw was then navigated into position over the wire. Once the screws were placed at T10 and we turned our attention to L2 where this was repeated the Jamshidi was advanced navigated with lateral imaging as well as [place] navigation until within the vertebral body was then replaced with a wire a screw was then placed over the wire and advanced into the vertebral body through the pedicle. We repeated this process again at L3 once in position live AP and lateral fluoroscopic imaging confirmed the screws to be in good position we then tested the screws and all screws tested above 20 mA. Once the screws were in position we then sized and selected a roseanna. The roseanna was then gently bent to mimic the reduced position the patient was in on the table. We then passed the roseanna minimally invasively subcutaneously and subfascially through each screw head confirming it to be within screw each screw head as we passed it down once it was in position we placed set screws through the towers for the rods and reduced the rods to the screw heads. We then final tightened the set screws. We confirmed the rods to be in good position on AP and lateral once this was confirmed we broke the tabs off of the screws. We then copiously irrigated all of the percutaneous holes that were made for the screw placement. We then placed vancomycin within these wounds. Deep fascial areas that could be closed were closed with 0 Vicryl superficial subcu tissue was closed with 2-0 PDS and skin was closed with skin emely all wounds approximated very well. Then wounds were then cleaned and dressed sterilely with an operative foam dressings. The patient was transferred back to their hospital bed atraumatically. Patient was then awakened and extubated by the department of anesthesia having tolerated the procedure very well with no complications. They were transferred to the postoperative care unit in stable condition.
--- NOTE | 2022-02-07 13:14 | P.PN ---
Subjective Progress Note Date: 02/07/22 Patient seen and examined she is awake and alert this morning doing fairly well about 8 breakfast she states she seems to be doing pretty well although she has not been up yet. She states some pain in her back bearable at this time. She complains of a little bit of paresthesia in her right lower extremity but this is similar to previously when she was positioned on the bed and she states she understands and knows her this coming from. She denies any fevers chills shortness of breath or chest pain as he bowel or bladder issues at this time she still has a Yañez in place as she has not been up but she finds and getting up today. Objective - Vital Signs Vital signs: Vital Signs Temp 98.4 F 02/07/22 07:09 Pulse 97 02/07/22 07:09 Resp 18 02/07/22 07:09 BP 121/76 02/07/22 07:09 Pulse Ox 93 L 02/07/22 07:09 Intake & Output 02/06/22 02/07/22 02/07/22 18:59 06:59 18:59 Intake Total 3100 Output Total 775 1300 400 Balance 2325 -1300 -400 Weight 191.87 kg Intake: IV 3100 Output: Urine 675 1300 400 Uretheral (Yañez) 400 Estimated Blood Loss 100 Other: Voiding Method Indwelling Catheter - Exam Patient is alert and oriented 3 appears well-nourished well-hydrated is in no acute distress. They do not appear septic. On exam the patient has no tenderness to palpation of her thoracic or lumbar spine. There is no edema or ballottement sign. Lower extremities with 4+/5 strength in all major muscle groups Upper extremities show [5]/5 strength in all major muscle groups. [2]/4DTR all UE and LE b/l Patient shows a negative Homans, Lopez's, negative Babinski's negative clonus bilaterally. negative straight leg raise bilaterally. No tensioning signs. Cranial nerves II through XII are grossly intact. There is FROM that is painless of the b/l UE and LE in all major joints [w/o pain]. They are intact to light touch sensation in L2 to S1 nerve distribution. Patient has palpable dorsalis pedis was posterior tibial pulses. Compartments are soft and compressible. Dressings are clean dry and intact - Labs CBC & Chem 7: 02/07/22 04:41 02/07/22 04:41 Labs: Abnormal Lab Results - Last 24 Hours (Table) 02/06/22 02/06/22 02/07/22 Range/Units 14:40 20:06 04:41 RBC 3.80 L (4.10-5.20) X 10*6/uL Hgb 10.3 L (12.0-15.0) g/dL Hct 34.3 L (37.2-46.3) % MCHC 30.0 L (32.0-37.0) g/dL RDW 15.6 H (11.5-14.5) % MPV 12.7 H (9.5-12.2) fL Eosinophils # 0.01 L (0.04-0.35) X 10*3/uL Est GFR (CKD-EPI)NonAf (60.0-200.0) BUN/Creatinine Ratio (12.00-20.00) Ratio Glucose (70-110) mg/dL POC Glucose (mg/dL) 230 H 210 H (75-99) mg/dL 02/07/22 02/07/22 02/07/22 Range/Units 04:41 07:02 11:37 RBC (4.10-5.20) X 10*6/uL Hgb (12.0-15.0) g/dL Hct (37.2-46.3) % MCHC (32.0-37.0) g/dL RDW (11.5-14.5) % MPV (9.5-12.2) fL Eosinophils # (0.04-0.35) X 10*3/uL Est GFR (CKD-EPI)NonAf 57.5 L (60.0-200.0) BUN/Creatinine Ratio 21.62 H (12.00-20.00) Ratio Glucose 201 H (70-110) mg/dL POC Glucose (mg/dL) 175 H 235 H (75-99) mg/dL Assessment and Plan Assessment: 51-year-old female postoperative day 1 revision stabilization T10 to L3 1. S/P T12 kyphoplasty with T11-L1 Posterior Instrumented Stabilization- Currently steady state, no increase in pain or issues. She seems slightly better although still c/o pain above and below her stabilization. 2. L1 VCF around stable hardware 3. Low back pain 4. Morbid obesity 5. T12 Burst fracture 6. Distal junctional failure Plan: -Appreciate care consultant and team management. -Activity: Ambulate QID, OOB all meals, up and about, limit lifting bending twisting to less than 5 lbs. Use walker or cane if needed for stability. -Daily PT/OT, increase ambulation strength and balance. - -Pain control: Adequate at this time -Meds: reviewed -GI ppx: senna, Miralax -DVT PPX: OK to restart Heparin tonight -Hygiene: Shower today. Maintain dressing clean and dry. Meticulous cleaning after BMs away from incision site -Encourage IS 10x/hr -Dispo: Pending
[2022-02-07 16:19] LABS: Glucose,Whole Blood 228 mg/dL (75-99)
[2022-02-07] MEDS: SODIUM CHLORIDE 0.9% 1,000 ML IV SCH (17:00)
--- NOTE | 2022-02-07 19:17 | P.PN ---
Subjective Progress Note Date: 02/07/22 Hospital course: Patient is a very pleasant 51-year-old female with a past medical history of diabetes mellitus and hypertension. She is status post lumbar spine surgery in which patient underwent replacement and reinforcement of lumbar spine hardware. Patient tolerated procedure well and denies having any postoperative complications. Patient does report mild numbness to right thigh and what she reports was present with previous surgery as well and went away a short time after surgical procedure. Patient tolerating oral intake and denies having any postoperative nausea or vomiting. Yañez catheter was removed approximately 1 hour ago and patient has yet to urinate independently, we will continue to monitor for residual and straight catheterize and/or reinsert Yañez catheter as needed for urinary retention.morning labs reviewed showing no significant abnormalities. Postoperative hemoglobin is 10.3. Physical exam: Vital signs reviewed and stable. General: Nontoxic, no distress and appears stated age. Derm: Skin warm and dry, normal coloration for ethnicity. Head: Atraumatic, normocephalic and symmetric. Eyes: EOMs intact, no lid lag, and anicteric sclera Mouth: no lip lesions, mucus membranes moist Cardiovascular: regular rate and rhythm with normal S1S2, no murmur, positive posterior tibial pulses bilaterally, and cap refill < 2 seconds. Lungs: Respirations even, regular, and unlabored on room air. Lungs CTA bilaterally, no rhonchi, no rales, no wheezing, and no accessory muscle usage. Abdominal: soft, nontender to palpation, no guarding, no appreciable organomegaly. Colostomy left upper quadrant stoma pink, no output in colostomy bag at this time. Ext: ROM intact. No gross muscle atrophy, no edema, no contractures Neuro: Speech clear, face symmetrical and CN II-XII grossly intact with no noted focal neuro deficits Psych: Alert and oriented to person, place, time, and situation. Appropriate and pleasant affect. Assessment and Plan of Care Status post hardware replacement postop day 1 -Management per primary admitting orthopedic surgery team including DVT prophylaxis, pain management, postoperative wound care, weightbearing, and PT/OT. -DVT prophylaxis currently with SCDs Postoperative blood loss anemia, expected finding -Stable. Will continue to monitor. Insulin-dependent type 2 Diabetes mellitus -Hold Glucophage and patient placed on glycemic protocol. We will continue Lantus 60 units twice daily along with NovoLog sliding scale. Hypothyroidism -Continue daily medication regimen with levothyroxine. Hypertension -Monitor vital signs and Continue daily medication regimen with lisinopril and metoprolol. Thank you for allowing us to participate in the care of this pleasant patient. Do not hesitate to contact us with questions. Someone can be reached from the [facility] hospitalist group all hours of the day at [phone] or via perfect serve. Objective - Vital Signs Vital signs: Vital Signs Temp 98.4 F 02/07/22 07:09 Pulse 97 02/07/22 07:09 Resp 18 02/07/22 07:09 BP 121/76 02/07/22 07:09 Pulse Ox 93 L 02/07/22 07:09 Intake & Output 02/06/22 02/07/22 02/07/22 18:59 06:59 18:59 Intake Total 3100 Output Total 775 1300 Balance 2325 -1300 Weight 191.87 kg Intake: IV 3100 Output: Urine 675 1300 Estimated Blood Loss 100 Other: Voiding Method Indwelling Catheter - Labs CBC & Chem 7: 02/07/22 04:41 02/07/22 04:41 Labs: Abnormal Lab Results - Last 24 Hours (Table) 02/06/22 02/06/22 02/07/22 Range/Units 14:40 20:06 07:02 POC Glucose (mg/dL) 230 H 210 H 175 H (75-99) mg/dL
[2022-02-07 20:38] LABS: Glucose,Whole Blood 205 mg/dL (75-99)
[2022-02-07 22:28] LABS: Glucose,Whole Blood 208 mg/dL (75-99)
[2022-02-07] MEDS: polyethylene glycoL 3350 17 GM POWD.PACK PO SCH (22:39)
[2022-02-07] MEDS: ATORVASTATIN 20 MG TAB PO SCH (22:39)
[2022-02-07] MEDS: PANTOPRAZOLE 40 MG TABLET PO SCH (22:39)
[2022-02-08] MEDS: IPRATROPIUM-ALBUTEROL 3 ML NEB INHALATION PRN ×3 (01:02→21:22)
[2022-02-08] MEDS: HYDROmorphone 0.5 MG/0.5 ML SYRINGE IVP PRN ×5 (01:30→20:28)
[2022-02-08] MEDS: ACETAMINOPHEN TAB 325 MG TAB PO SCH ×5 (01:30→23:58)
[2022-02-08] MEDS: LEVOTHYROXINE 112 MCG TAB PO SCH (05:40)
[2022-02-08] MEDS: CYCLOBENZAPRINE 5 MG TAB PO PRN ×2 (05:40→20:28)
[2022-02-08 07:17] LABS: Glucose,Whole Blood 208 mg/dL (75-99)
[2022-02-08] MEDS: LACTATED RINGERS 1,000 ML IV SCH (07:47)
--- NOTE | 2022-02-08 07:58 | P.PN ---
Subjective Progress Note Date: 02/08/22 Principal diagnosis: Revision T10-L3 Stabilization Patient seen and examined today at bedside. Ms. Dover is resting recumbent in bed this morning. Patient states she has been up multiple times to the restroom throughout the night. Patient has complaint of intermittent episodes of breaking out in sweats through the night but has remained afebrile. She states that her pain is managed on current regimen. Patient has described slight numbness to the upper portion of her right thigh which has slightly improved since yesterday. Surgical dressings are clean dry and intact will be changed tomorrow prior to discharge. Patient states that she is progressing well with physical therapy but would like to stay one more day due to her living alone. She denies any nausea/vomiting, fevers/chills, or chest pain. Objective - Vital Signs Vital signs: Vital Signs Temp 99.5 F 02/08/22 02:00 Pulse 107 H 02/08/22 02:00 Resp 18 02/08/22 02:00 BP 108/66 02/08/22 02:00 Pulse Ox 93 L 02/08/22 02:00 Intake & Output 02/07/22 02/08/22 02/08/22 18:59 06:59 18:59 Output Total 400 Balance -400 Output: Urine 400 Uretheral (Yañez) 400 Other: # Voids 1 4 - Exam Physical Examination General: The patient is awake and alert, in no acute distress Skin: Skin is warm and dry with no obvious rashes or lesions. Hairy patches absent, no dorsal skin dimples, no cafe au lait spots. x8 MIS incisions sites parathoracic and paralumbar regions present. Dressing CDI. Eye: Pupils are equal, round and reactive to light, extra-ocular movements are intact; there is normal conjunctiva bilaterally. Neck: The neck is supple, there is no tenderness and ROM intact. Cardiovascular: There is a regular rate and rhythm. No murmur, rub or gallop is appreciated. Respiratory: Lungs are clear to auscultation, respirations are non-labored, breath sounds are equal. Gastrointestinal: Soft, non-distended, non-tender abdomen . Back: There is tenderness to palpation in the paralumbar, parathoracic regions due to surgical procedure. There is no obvious deformity . Musculoskeletal: ROM limited secondary to pain and stiffness from surgical procedure. Shoulder abduction 5/5, elbow flexors 5/5, wrist dorsiflexors 5/5. finger abductor 5/5, jig builder helper 5/5, hip flexor 4/5, knee flexor 4/5, ankle dorsiflexor 4/5, ankle plantarflexion 4/5 and extensor hallucis 4/5. Neurological: CN 2-12 intact. There are no obvious motor or sensory deficits. Movement and coordination equal and intact. Sensory exam to light touch intact C5-T1 and intact from L2-S1. Reflexes 2/4 in bilateral upper and lower extremities. Negative Hoffmans, babinski, and clonus signs. Psychiatric: Cooperative, appropriate mood & affect, normal judgment. - Labs CBC & Chem 7: 02/07/22 04:41 02/07/22 04:41 Labs: Abnormal Lab Results - Last 24 Hours (Table) 02/07/22 02/07/22 02/07/22 Range/Units 04:41 04:41 11:37 RBC 3.80 L (4.10-5.20) X 10*6/uL Hgb 10.3 L (12.0-15.0) g/dL Hct 34.3 L (37.2-46.3) % MCHC 30.0 L (32.0-37.0) g/dL RDW 15.6 H (11.5-14.5) % MPV 12.7 H (9.5-12.2) fL Eosinophils # 0.01 L (0.04-0.35) X 10*3/uL Est GFR (CKD-EPI)NonAf 57.5 L (60.0-200.0) BUN/Creatinine Ratio 21.62 H (12.00-20.00) Ratio Glucose 201 H (70-110) mg/dL POC Glucose (mg/dL) 235 H (75-99) mg/dL 02/07/22 02/07/22 02/07/22 Range/Units 16:16 20:37 22:25 RBC (4.10-5.20) X 10*6/uL Hgb (12.0-15.0) g/dL Hct (37.2-46.3) % MCHC (32.0-37.0) g/dL RDW (11.5-14.5) % MPV (9.5-12.2) fL Eosinophils # (0.04-0.35) X 10*3/uL Est GFR (CKD-EPI)NonAf (60.0-200.0) BUN/Creatinine Ratio (12.00-20.00) Ratio Glucose (70-110) mg/dL POC Glucose (mg/dL) 228 H 205 H 208 H (75-99) mg/dL 02/08/22 Range/Units 07:15 RBC (4.10-5.20) X 10*6/uL Hgb (12.0-15.0) g/dL Hct (37.2-46.3) % MCHC (32.0-37.0) g/dL RDW (11.5-14.5) % MPV (9.5-12.2) fL Eosinophils # (0.04-0.35) X 10*3/uL Est GFR (CKD-EPI)NonAf (60.0-200.0) BUN/Creatinine Ratio (12.00-20.00) Ratio Glucose (70-110) mg/dL POC Glucose (mg/dL) 208 H (75-99) mg/dL Assessment and Plan Assessment: Post Op Day 2: revision stabilization T10 to L3 Plan: Plan: -Appreciate senior environmental consultant and team management. -Activity: Ambulate QID, OOB all meals, up and about, limit lifting bending twisting to less than 5 lbs. Use walker or cane if needed for stability. -Daily PT/OT, increase ambulation strength and balance. -Pain control: Adequate at this time -Meds: reviewed -GI ppx: senna, Miralax -DVT PPX: heparin -Hygiene: Shower today. Maintain dressing clean and dry. Meticulous cleaning after BMs away from the incision site -Encourage IS 10x/hr -Dispo: Anticipate discharge home tomorrow with homecare *I reviewed and discussed this case with my attending Dr. Oquendo, whom has reviewed this chart and films and is in agreement with assessment and plan of care as outlined above. I have personally seen and examined the patient, performed the documentation and the assessment and plan as written. Number of minutes spent on the visit: 20m.
[2022-02-08] MEDS: HYDROcodone/APAP 10-325MG 1 EACH TAB PO PRN ×4 (08:27→21:50)
[2022-02-08] MEDS: INSULIN ASPART (NovoLOG) 100 UNIT/ML VIAL SQ SCH ×4 (09:11→21:45)
[2022-02-08] MEDS: INSULIN DETEMIR (LEVEMIR) 100 UNIT/ML SYR SQ SCH ×2 (09:11→21:45)
[2022-02-08] MEDS: METOPROLOL TARTRATE 50 MG TAB PO SCH ×2 (09:12→20:29)
[2022-02-08] MEDS: GABAPENTIN 300 MG CAP PO SCH ×3 (09:12→21:45)
[2022-02-08] MEDS: FLUoxetine HCL 20 MG CAP PO SCH (09:12)
[2022-02-08] MEDS: SODIUM CHLORIDE 0.9% 1,000 ML IV SCH (09:54)
[2022-02-08 10:57] LABS: Glucose,Whole Blood 215 mg/dL (75-99)
[2022-02-08] MEDS: VANCOMYCIN 2,500 MG in SODIUM CHLORIDE 0.9% 500 ML 500 ML IVPB SCH ×2 (11:12→23:58)
--- NOTE | 2022-02-08 13:46 | P.PN ---
Subjective Progress Note Date: 02/08/22 Hospital course: Patient is a very pleasant 51-year-old female with a past medical history of diabetes mellitus and hypertension. She is status post lumbar spine surgery in which patient underwent replacement and reinforcement of lumbar spine hardware. Patient tolerated procedure well and denies having any postoperative complications. Patient does report mild numbness to right thigh and what she reports was present with previous surgery as well and went away a short time after surgical procedure. Patient tolerating oral intake and denies having any postoperative nausea or vomiting. Yañez catheter was removed approximately 1 hour ago and patient has yet to urinate independently, we will continue to monitor for residual and straight catheterize and/or reinsert Yañez catheter as needed for urinary retention.morning labs reviewed showing no significant abnormalities. Postoperative hemoglobin is 10.3. Physical exam: Patient seen and fully evaluated at bedside this morning. Patient was ambulating in room was physical therapy using walker and appeared to be doing we ll. Postoperative incision midline lower thoracic and lumbar spine well approximated with no surrounding erythema, drainage, or signs of dehiscence. Patient reports continued slight numbness and right anterior thigh but reports it is improving. She denies having any other complaints at this time including headache, lightheadedness, dizziness, chest pain, palpitations, shortness of breath, or experiencing any weakness or tingling in her extremities. Patient urinating without any difficulties and denies having any postoperative nausea or vomiting. Vital signs reviewed and stable. General: Nontoxic, no distress and appears stated age. Derm: Skin warm and dry, normal coloration for ethnicity. Head: Atraumatic, normocephalic and symmetric. Eyes: EOMs intact, no lid lag, and anicteric sclera Mouth: no lip lesions, mucus membranes moist Cardiovascular: regular rate and rhythm with normal S1S2, no murmur, positive posterior tibial pulses bilaterally, and cap refill < 2 seconds. Lungs: Respirations even, regular, and unlabored on room air. Lungs CTA bilaterally, no rhonchi, no rales, no wheezing, and no accessory muscle usage. Abdominal: soft, nontender to palpation, no guarding, no appreciable organomegaly. Colostomy left upper quadrant stoma pink, no output in colostomy bag at this time. Ext: ROM intact. No gross muscle atrophy, no edema, no contractures Neuro: Speech clear, face symmetrical and CN II-XII grossly intact with no noted focal neuro deficits Psych: Alert and oriented to person, place, time, and situation. Appropriate and pleasant affect. Assessment and Plan of Care Status post hardware replacement postop day 2, Revision and stabilization T10-L3 -Management per primary admitting orthopedic surgery team including DVT prophylaxis, pain management, postoperative wound care, weightbearing, and PT/OT. -DVT prophylaxis currently with SCDs Postoperative blood loss anemia, expected finding -Stable. Will continue to monitor. Insulin-dependent type 2 Diabetes mellitus -Hold Glucophage and patient placed on glycemic protocol. We will continue Lant us 60 units twice daily along with NovoLog sliding scale. Hypothyroidism -Continue daily medication regimen with levothyroxine. Hypertension -Monitor vital signs and Continue daily medication regimen with lisinopril and metoprolol. Thank you for allowing us to participate in the care of this pleasant patient. Do not hesitate to contact us with questions. Someone can be reached from the [facility] hospitalist group all hours of the day at [phone] or via [employer] serve. Objective - Vital Signs Vital signs: Vital Signs Temp 97.7 F 02/08/22 07:53 Pulse 101 H 02/08/22 07:53 Resp 19 02/08/22 07:53 BP 111/67 02/08/22 07:53 Pulse Ox 93 L 02/08/22 07:53 Intake & Output 02/07/22 02/08/22 02/08/22 18:59 06:59 18:59 Output Total 400 Balance -400 Output: Urine 400 Uretheral (Yañez) 400 Other: # Voids 1 4 - Labs CBC & Chem 7: 02/07/22 04:41 02/07/22 04:41 Labs: Abnormal Lab Results - Last 24 Hours (Table) 02/07/22 02/07/22 02/07/22 Range/Units 04:41 04:41 11:37 RBC 3.80 L (4.10-5.20) X 10*6/uL Hgb 10.3 L (12.0-15.0) g/dL Hct 34.3 L (37.2-46.3) % MCHC 30.0 L (32.0-37.0) g/dL RDW 15.6 H (11.5-14.5) % MPV 12.7 H (9.5-12.2) fL Eosinophils # 0.01 L (0.04-0.35) X 10*3/uL Est GFR (CKD-EPI)NonAf 57.5 L (60.0-200.0) BUN/Creatinine Ratio 21.62 H (12.00-20.00) Ratio Glucose 201 H (70-110) mg/dL POC Glucose (mg/dL) 235 H (75-99) mg/dL 02/07/22 02/07/22 02/07/22 Range/Units 16:16 20:37 22:25 RBC (4.10-5.20) X 10*6/uL Hgb (12.0-15.0) g/dL Hct (37.2-46.3) % MCHC (32.0-37.0) g/dL RDW (11.5-14.5) % MPV (9.5-12.2) fL Eosinophils # (0.04-0.35) X 10*3/uL Est GFR (CKD-EPI)NonAf (60.0-200.0) BUN/Creatinine Ratio (12.00-20.00) Ratio Glucose (70-110) mg/dL POC Glucose (mg/dL) 228 H 205 H 208 H (75-99) mg/dL 02/08/22 Range/Units 07:15 RBC (4.10-5.20) X 10*6/uL Hgb (12.0-15.0) g/dL Hct (37.2-46.3) % MCHC (32.0-37.0) g/dL RDW (11.5-14.5) % MPV (9.5-12.2) fL Eosinophils # (0.04-0.35) X 10*3/uL Est GFR (CKD-EPI)NonAf (60.0-200.0) BUN/Creatinine Ratio (12.00-20.00) Ratio Glucose (70-110) mg/dL POC Glucose (mg/dL) 208 H (75-99) mg/dL
[2022-02-08 16:14] LABS: Glucose,Whole Blood 183 mg/dL (75-99)
[2022-02-08 19:54] VITALS: RESP 18
[2022-02-08] MEDS: ATORVASTATIN 20 MG TAB PO SCH (20:28)
[2022-02-08] MEDS: PANTOPRAZOLE 40 MG TABLET PO SCH (20:28)
[2022-02-08] MEDS: polyethylene glycoL 3350 17 GM POWD.PACK PO SCH (20:29)
[2022-02-08 20:37] LABS: Glucose,Whole Blood 216 mg/dL (75-99)
[2022-02-08] MEDS ORDERED: VANCOMYCIN TROUGH DUE 1 EACH MISC MISCELLANE ONE (22:00)
[2022-02-09] MEDS: SODIUM CHLORIDE 0.9% 1,000 ML IV SCH (01:51)
[2022-02-09] MEDS: HYDROcodone/APAP 10-325MG 1 EACH TAB PO PRN ×2 (03:30→11:56)
[2022-02-09] MEDS: IPRATROPIUM-ALBUTEROL 3 ML NEB INHALATION PRN (03:49)
[2022-02-09] MEDS: ACETAMINOPHEN TAB 325 MG TAB PO SCH ×2 (05:22→11:53)
[2022-02-09] MEDS: LEVOTHYROXINE 112 MCG TAB PO SCH (05:22)
[2022-02-09] MEDS: CYCLOBENZAPRINE 5 MG TAB PO PRN (05:22)
[2022-02-09] MEDS: LACTATED RINGERS 1,000 ML IV SCH (06:57)
[2022-02-09 06:59] LABS: Glucose,Whole Blood 135 mg/dL (75-99)
--- NOTE | 2022-02-09 07:38 | P.PN ---
Subjective Progress Note Date: 02/09/22 Principal diagnosis: Revision T10-L3 Stabilization Patient seen and examined today at bedside. Ms. Dover is resting recumbent in bed this morning. Patient states her pain is well managed. She states she is tolerating her diet. Patient has been voiding without difficulty and is passing gas. She verbalizes that she seems to progressing well with therapy. Patient states she feels more stable since surgery. Denies any needs at this time. She denies any fever/chills, nausea/vomiting, or chest pain. Denies and numbness or tingling to perineal area. We discussed discharge plans and instructions, she stated she understood and that her ride may not be available until later this evening around 5pm. Objective - Vital Signs Vital signs: Vital Signs Temp 98.5 F 02/09/22 02:00 Pulse 96 02/09/22 04:05 Resp 18 02/09/22 02:00 BP 121/64 02/09/22 02:00 Pulse Ox 96 02/09/22 02:00 Intake & Output 02/08/22 02/09/22 02/09/22 18:59 06:59 18:59 Intake Total 1080 Balance 1080 Intake: Oral 1080 Other: # Voids 3 3 - Exam Physical Examination General: The patient is awake and alert, in no acute distress Skin: Skin is warm and dry with no obvious rashes or lesions. Hairy patches absent, no dorsal skin dimples, no cafe au lait spots. x8 MIS incisions sites parathoracic and paralumbar regions present. Dressing CDI. Eye: Pupils are equal, round and reactive to light, extra-ocular movements are intact; there is normal conjunctiva bilaterally. Neck: The neck is supple, there is no tenderness and ROM intact. Cardiovascular: There is a regular rate and rhythm. No murmur, rub or gallop is appreciated. Respiratory: Lungs are clear to auscultation, respirations are non-labored, breath sounds are equal. Gastrointestinal: Soft, non-distended, non-tender abdomen . Back: There is tenderness to palpation in the paralumbar, parathoracic regions due to surgical procedure. There is no obvious deformity . Musculoskeletal: ROM limited secondary to pain and stiffness from surgical procedure. Shoulder abduction 5/5, elbow flexors 5/5, wrist dorsiflexors 5/5. finger abductor 5/5, master automotive glass technician 5/5, hip flexor 4/5, knee flexor 4/5, ankle dorsiflexor 4/5, ankle plantarflexion 4/5 and extensor hallucis 4/5. Neurological: CN 2-12 intact. There are no obvious motor or sensory deficits. Movement and coordination equal and intact. Sensory exam to light touch intact C5-T1 and intact from L2-S1. Reflexes 2/4 in bilateral upper and lower extremities. Negative Hoffmans, babinski, and clonus signs. Psychiatric: Cooperative, appropriate mood & affect, normal judgment. - Labs CBC & Chem 7: 02/07/22 04:41 02/07/22 04:41 Labs: Abnormal Lab Results - Last 24 Hours (Table) 02/08/22 02/08/22 02/08/22 Range/Units 10:56 16:13 20:35 POC Glucose (mg/dL) 215 H 183 H 216 H (75-99) mg/dL 02/09/22 Range/Units 06:58 POC Glucose (mg/dL) 135 H (75-99) mg/dL Assessment and Plan Assessment: Post Op Day 3: revision stabilization T10 to L3 Plan: Plan: -Appreciate medical social consultant and team management. -Activity: Ambulate QID, OOB all meals, up and about, limit lifting bending twisting to less than 5 lbs. Use walker or cane if needed for stability. -Daily PT/OT, increase ambulation strength and balance. -Pain control: Adequate at this time -Meds: reviewed -GI ppx: senna, Miralax -DVT PPX: heparin -Hygiene: Shower today. Maintain dressing clean and dry. Meticulous cleaning after BMs away from the incision site -Encourage IS 10x/hr -Dispo: discharge home today 02/09/22 with homecare *I reviewed and discussed this case with my attending Dr. Oquendo, whom has reviewed this chart and films and is in agreement with assessment and plan of care as outlined above. I have personally seen and examined the patient, performed the documentation and the assessment and plan as written. Number of minutes spent on the visit: 20m. Time with Patient: Less than 30
[2022-02-09] MEDS: GABAPENTIN 300 MG CAP PO SCH ×2 (08:02→15:09)
[2022-02-09] MEDS: INSULIN DETEMIR (LEVEMIR) 100 UNIT/ML SYR SQ SCH (08:02)
[2022-02-09] MEDS: FLUoxetine HCL 20 MG CAP PO SCH (08:02)
[2022-02-09] MEDS: METOPROLOL TARTRATE 50 MG TAB PO SCH (08:02)
[2022-02-09] MEDS: INSULIN ASPART (NovoLOG) 100 UNIT/ML VIAL SQ SCH ×3 (08:03→17:44)
--- NOTE | 2022-02-09 08:03 | P.DS ---
Providers Date of admission: 02/06/22 07:43 Expected date of discharge: 02/09/22 Attending physician: Juan Oquendo DO Consults: 02/06/22 15:32 Consult Physician Routine Consulting Provider: Erum Sánchez Consult Reason/Comments: Medical Management Do you want consulting provider notified?: Yes Primary care physician: Jules 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 They underwent appropriate preoperative care and were willing to undergo the intended procedure. They underwent a successful revision T10 to L2 stabilization, were recovered appropriately and sent to the floor. While on the floor they worked with physical therapy, occupational therapy and nursing to enhance their recovery experience. Their pain was well controlled through their stay and they were started on appropriate medications, DVT ppx modalities, activity and dietary needs. Daily labs were monitored closely, and transfusions were only used when necessary. Medicine as well as other consulting services have made their input and have helped with our team approach and multidisciplinary care. PT milestones have been met and passed and they have made the recommendation of home with home care for this patient and treating providers agree with this care path. The patient will be discharged home with appropriate medications, instructions and follow-up information and in stable condition. Patient Condition at Discharge: Good Plan - Discharge Summary Discharge Rx Participant: Yes New Discharge Prescriptions: New Cyclobenzaprine [Flexeril] 5 mg PO TID #90 tablet HYDROcodone/APAP 10-325MG [Elmo 10-325] 1 tab PO Q4-6H PRN #56 tab PRN Reason: Pain Sennosides/Docusate Sodium [Senna Plus 8.6-50 mg Tablet] 1 each PO DAILY PRN #20 tablet PRN Reason: Constipation Sulfamethox-Tmp 800-160Mg [Bactrim DS 800-160 mg] 1 tab PO Q12HR 5 Days #10 tab Gabapentin 300 mg PO TID #90 cap Polyethylene Glycol 3350 [Miralax] 17 gm PO DAILY PRN #527 gm PRN Reason: Constipation No Action Aspirin 81 mg PO DAILY metFORMIN HCL [Glucophage] 1,000 mg PO BID Levothyroxine Sodium [Synthroid] 224 mcg PO QAM Metoprolol Tartrate [Lopressor] 100 mg PO QAM Cholecalciferol [Vitamin D3 (25 Mcg = 1000 Iu)] 25 mcg PO DAILY Metoprolol Tartrate [Lopressor] 50 mg PO HS Insulin Glargine [Lantus Vial] 60 unit SQ BID Albuterol Inhaler (Mhu) [Ventolin Hfa Inhaler (Mhu)] 2 puff INHALATION RT-Q4H PRN PRN Reason: Shortness Of Breath Atorvastatin [Lipitor] 20 mg PO HS lisinopriL [Prinivil] 2.5 mg PO QAM FLUoxetine HCL [PROzac] 40 mg PO QAM Omeprazole [PriLOSEC] 20 mg PO BID Methenamine Hippurate [Hiprex] 1 gm PO BID Sennosides/Docusate Sodium [Senna Plus 8.6-50 mg Softgel] 1 each PO BID PRN PRN Reason: CONSTIPATION Insulin NPL/Insulin Lispro [humaLOG MIX 50-50 VIAL] 25 units SQ DAILY Insulin NPL/Insulin Lispro [humaLOG MIX 50-50 VIAL] 30 units SQ 1800 Insulin Glargine,Hum.rec.anlog [Lantus Solostar Pen] 60 unit SQ BID Empagliflozin [Jardiance] 25 mg PO DAILY Abaloparatide [Tymlos] 2 mg SQ HS ondansetron HCL [Zofran] 8 mg PO Q12HR PRN PRN Reason: Nausea Cyclobenzaprine [Flexeril] 10 mg PO HS PRN #40 tab PRN Reason: Spasms Gabapentin [Neurontin] 300 mg PO TID Discharge Medication List Aspirin 81 mg PO DAILY 06/02/14 [History] Levothyroxine Sodium [Synthroid] 224 mcg PO QAM 06/02/14 [History] metFORMIN HCL [Glucophage] 1,000 mg PO BID 06/02/14 [History] Cholecalciferol [Vitamin D3 (25 Mcg = 1000 Iu)] 25 mcg PO DAILY 10/31/15 [History] Metoprolol Tartrate [Lopressor] 100 mg PO QAM 10/31/15 [History] Albuterol Inhaler (Mhu) [Ventolin Hfa Inhaler (Mhu)] 2 puff INHALATION RT-Q4H PRN 12/24/17 [History] Atorvastatin [Lipitor] 20 mg PO HS 12/24/17 [History] Insulin Glargine [Lantus Vial] 60 unit SQ BID 12/24/17 [History] Metoprolol Tartrate [Lopressor] 50 mg PO HS 12/24/17 [History] lisinopriL [Prinivil] 2.5 mg PO QAM 12/24/17 [History] FLUoxetine HCL [PROzac] 40 mg PO QAM 02/06/19 [History] Omeprazole [PriLOSEC] 20 mg PO BID 02/06/19 [History] Methenamine Hippurate [Hiprex] 1 gm PO BID 06/23/21 [History] ondansetron HCL [Zofran] 8 mg PO Q12HR PRN 06/23/21 [History] Cyclobenzaprine [Flexeril] 10 mg PO HS PRN #40 tab 07/03/21 [Rx] Abaloparatide [Tymlos] 2 mg SQ HS 02/05/22 [History] Empagliflozin [Jardiance] 25 mg PO DAILY 02/05/22 [History] Gabapentin [Neurontin] 300 mg PO TID 02/05/22 [History] Insulin Glargine,Hum.rec.anlog [Lantus Solostar Pen] 60 unit SQ BID 02/05/22 [History] Insulin NPL/Insulin Lispro [humaLOG MIX 50-50 VIAL] 25 units SQ DAILY 02/05/22 [History] Insulin NPL/Insulin Lispro [humaLOG MIX 50-50 VIAL] 30 units SQ 1800 02/05/22 [History] Sennosides/Docusate Sodium [Senna Plus 8.6-50 mg Softgel] 1 each PO BID PRN 02/05/22 [History] Cyclobenzaprine [Flexeril] 5 mg PO TID #90 tablet 02/09/22 [Rx] Gabapentin 300 mg PO TID #90 cap 02/09/22 [Rx] HYDROcodone/APAP 10-325MG [Elmo 10-325] 1 tab PO Q4-6H PRN #56 tab 02/09/22 [Rx] Polyethylene Glycol 3350 [Miralax] 17 gm PO DAILY PRN #527 gm 02/09/22 [Rx] Sennosides/Docusate Sodium [Senna Plus 8.6-50 mg Tablet] 1 each PO DAILY PRN #20 tablet 02/09/22 [Rx] Sulfamethox-Tmp 800-160Mg [Bactrim DS 800-160 mg] 1 tab PO Q12HR 5 Days #10 tab 02/09/22 [Rx] Follow up Appointment(s)/Referral(s): [facility], [NON-STAFF] - As Needed Juan Oquendo DO [Doctor of Osteopathic Medicine] - 2 Weeks Jules Norris [Primary Care Provider] - 1 Week Activity/Diet/Wound Care/Special Instructions: Spine Discharge and Recovery Instructions Date of Surgery: 02/06/2022 Diagnosis: Hardware failure Procedure: Revision T10 to L2 stabilization Medications: See medication list All medication refills should be obtained through your primary care doctor or your clinic spine surgeon. Please discuss prescription refills at your follow up appointment. Do not call the hospital for medication refills. Dressing: Leave your dressing in place for a total of 5 days post operatively. Then you may remove your dressing and leave open to air. Keep the area clean and if not able to keep area clean, then cover with sterile gauze and tape. Showering: You may shower 3 days after your procedure allowing soap and water to run over incision. Do not scrub. Do not soak. Blot dry. Follow up: Please confirm a follow up appointment with your surgeon 3 weeks post operatively. Please make an appointment to follow up with your PCP in 1-2 weeks after surgery for evaluation 3 phase, 3-week plan POST OP WEEKS 1-3 1. Lifting/carrying/pushing/pulling limited to less than 5 pounds. 2. Do not sit for longer than 15 minutes at one time. Get up and walk around. Prolonged sitting is NOT advised. If you lay down, see if you can tolerate laying down on you front (belly side) 3. Walk for periods of 15 minutes = 1 mile but no longer; do it multiple times times each day. 4. Ice your low back after activity. POST OP WEEKS 3-6 1. Lifting limited to less than 20 pounds. 2. Do not sit for longer than 30 minutes at a time. Frequently change positions. Use a sit-to stand workstation or take frequent breaks from sitting if you have returned to work. 3. Walk for 30 minutes each day. If possible, do these three or more times a day POST OP WEEKS 6+ At your 6-week appointment we will give you a physical therapy referral to focus on a core stabilization and strengthening program. You should also work on leg & buttock strengthening, hamstring & quadriceps stretching, and continue a low impact aerobic activity program such as swimming, walking, or riding a stationary bicycle. During the initial 6 weeks after your surgery, you are at the highest risk of re-injuring your spine. You should generally avoid BLTs (bending, lifting and twisting combination motions) and follow the above guidelines to reduce the chance of reinjury. You can anticipate post op appointments in our office at approximately 3 weeks and 6 weeks after your surgery. INCISION CARE: If your incision is not draining you do NOT need to cover it with a dressing. Keep your incision clean, dry and intact. In most cases, we apply skin glue, emely or sutures to the incision at the time of surgery. This will be like a crust or have the appearance of a scab and will fall off in time on its own. The stitches or emely need to be removed at 3 weeks post op appointment. You may begin to shower 3 days after surgery (this allows the glue to hutton well). However, please avoid scrubbing the incision site or peeling off any of the skin glue. This will ensure optimal healing of your incision. Also, during this time avoid soaking the incision area in water - this includes swimming pools, hot tubs or baths. No ointments, lotions or oils on the incision until your surgeon allows. Leave emely, sutures or glue in place. Neurological dysfunction that comes on suddenly can also be a sign of a stroke. Below some common symptoms of a stroke are listed: B - balance difficulty such as sudden onset walking or leaning to one side - NEW E - eye problem such as sudden double vision or trouble seeing on one side - NEW F - Facial weakness or numbness on one side - NEW A - Arm or leg weakness or numbness on one side - NEW S - Slurred speech or difficulty with word finding - NEW T - Time is BRAIN! Call 911 as soon as you recognize these symptoms Diet: Consume a regular diet rich in vegetables and lean protein such as chicken or fish. You should consume in a ratio of approximately 20% fats|40% carbohydrates|40%protein. Vegetables, sweet potatoes, brown rice or quinoa are examples of good carbohydrates. Chips, white bread, cookies and sweets/sugar are examples of bad carbohydrates. Limit your bad carbs, go wild with good carbs. "Life's Simple 7" Guidelines as per [place] [employer] These will help you reclaim your life after surgery and buttermaker helper in your recovery, keeping in mind your restrictions. (1) Get Active. Physical activity can help people lose weight, control high blood pressure and cholesterol, feel emotionally better, and sleep better. (2) Control Cholesterol. Avoid a diet high in saturated fat, trans fat, & cholesterol. Limit whole milk & cream, ice cream, butter, egg yolks, processed meats (like sausage and hot dogs), and fatty meats. Choose healthy foods that are low in saturated fat, trans fat and cholesterol which include: Fruits and vegetables, fiber rich grain products (like whole grain pasta and brown rice), lean meat such as chicken, fish, nuts, seeds, and legumes. (3) Eat Better. Eat small portions. Shop at the grocery with a list and do not stray from it. Tips for a healthy diet include: Limit sodium intake to less than 1500mg daily, avoid prepackaged, processed, and fast foods, choose a diet rich in fruits, vegetables, and whole grain, high fiber foods, and limit saturated & cholesterol in your diet. (4) Manage Blood Pressure. If you have high blood pressure, you should have a cuff at home so that you can check your blood pressure regularly. Be sure you have a good cuff. An arm one is generally better than a wrist one. Bring the cuff to a doctor's appointment to validate that the measurements that your cuff are taking are accurate. Take your blood pressure twice daily when you are sitting down and relaxing. Record the numbers in a log and bring this log with you to your doctors' appointments. (5) Lose Weight if your BMI is above 25. A healthy BMI is between 19-25. To calculate Your BMI, you may use a Standard BMI Calculator on the NIH BMI website: <www.nhlbi.nih.gov/guidelines/obesity/BMI/bmicalc.htm>. Weigh oneself daily. If you are overweight, set a goal to lose weight. A pound a week loss if needed is a good target. (6) Reduce Blood Sugar. Limit foods and liquids with "added sugars." (Added sugars include sucrose, fructose, glucose, maltose, dextrose, high fructose corn syrup, corn syrup, concentrated fruit juice and honey). (7) Stop Smoking. If you smoke, quitting smoking is one of the best things that you can do for your health. Smoking increases your risk of heart attack, stroke, and peripheral vascular disease, which is a build-up of plaque in your arteries. Please discard all the cigarettes and lighters in your house. Have a plan for what you will do when you have the urge to smoke. Direct and second- hand smoke shortens your life as well as the lives of your family, friends and others around you. For your health and the health of those around you, please consider quitting! Proper Bending Body Mechanics: Maintain a wide stance with one foot slightly in front of the other. Keep your back straight. Bend utilizing the strength in your hips and knees. Do not bend at the waist. Maintain the lifted object at your waist-level close to your body. Avoid lifting weight that causes immediately pain or pain anywhere in the body afterwards. Smoking/Nicotine If there was ever one thing that you could do to increase your overall health, decrease your risk of cardiovascular problems by about 39% the second you make the choice, it is to STOP SMOKING. Your body's most instant gratification is the second you stop smoking. We have all heard the studies, read the articles but it is true, smoking is extremely bad for your overall health, and moreover it is detrimental to your bone health. Nicotine, IN ANY FORM, kills bone cells, prevents your body from healing fractures, and significantly prolongs healing after surgery. In spine surgery specifically, it increases your risk of not healing your bones to create a fusion and increases your risk of having a revision surgery due to this up to 60%. I know it is hard. I know it feels impossible. But there are ways. Take control of your life. We are here to help you through it. And when you are ready, ask us and we can direct you to help if you desire. Use the START Plan to Quit Smoking (please visit the Helpguide.org website listed below for more information): S = Set a quit date. Choose a date within the next 2 weeks, so you have enough time to prepare without losing your motivation to quit. If you mainly smoke at work, quit on the weekend, so you have a few days to adjust to the change. T = Tell family, friends, and co-workers that you plan to quit. Let your friends and family in on your plan to quit smoking and tell them you need their support and encouragement to stop. Look for a quit bethany who wants to stop smoking as well. You can help each other get through the rough times. A = Anticipate and plan for the challenges you'll face while quitting. Most people who begin smoking again do so within the first 3 months. You can help yourself make it through by preparing ahead for common challenges, such as nicotine withdrawal and cigarette cravings. R = Remove cigarettes and other tobacco products from your home, car, and work. Throw away all your cigarettes (no emergency pack!), lighters, ashtrays, and matches. Wash your clothes and freshen up anything that smells like smoke. Shampoo your car, clean your drapes and carpet, and steam your furniture. T = Talk to your doctor about getting help to quit. Your doctor can prescribe medication to help with withdrawal and suggest other alternatives. If you can't see a doctor, you can get many products over the counter at your local pharmacy or grocery store, including the nicotine patch, nicotine lozenges, and nicotine gum. Resources for Quitting Smoking: <https://www.[place].gov/documents/[facility]/Quit_Tobacco_Resources_for_patients_313 480_7.pdf> Supplementation: Take recommended dosages of Vitamin D and Calcium to help fortify your bones and help them to heal. See your health maintenance packet for dosages and recommended levels. DVT/VTE prophylaxis: You will be given compression stockings from the hospital. Wear these daily for the first two weeks after surgery. You may take them off at night. You may be prescribed a medication to help thin your blood. Take this as directed. If you are not prescribed this medication, early and frequent ambulation has been shown to be the best prophylaxis to deep vein thrombosis and sequelae related to this event. Discharge Disposition: HOME WITH HOME HEALTH SERVICES
[2022-02-09 09:15] LABS: HCT 31.1 % (37.2-46.3); HGB 9.2 g/dL (12.0-15.0); MCHC 29.6 g/dL (32.0-37.0); MCV 91.2 fL (80.0-97.0); Mean Platelet Volume 12.7 fL (9.5-12.2); NRBC Per 100 WBC 0 /100 WBCS (0.0-0.0); Platelet Count 130 X 10*3/uL (140-440); RBC 3.41 X 10*6/uL (4.10-5.20); RDW 15.8 % (11.5-14.5); WBC 5.66 X 10*3/uL (4.50-10.00)
[2022-02-09 09:35] LABS: African American GFR (CKD) 85.8 (60.0-200.0); Albumin 3.3 g/dL (3.8-4.9); Albumin/Globulin Ratio 1.57 (1.60-3.17); Anion Gap 7.9 mmol/L (10.00-18.00); BUN/Creat Ratio 16.11 Ratio (12.00-20.00); Blood Urea Nitrogen 14.5 mg/dL (9.0-27.0); Calcium 8.7 mg/dL (8.7-10.3); Carbon Dioxide 25.1 mmol/L (20.0-27.5); Globulin 2.1 g/dL (1.6-3.3); Magnesium 1.8 mg/dL (1.5-2.4); Potassium 4.4 mmol/L (3.5-5.5); Total Bilirubin 0.5 mg/dL (0.30-1.20); Total Protein 5.4 g/dL (6.2-8.2)
[2022-02-09 11:43] LABS: Glucose,Whole Blood 165 mg/dL (75-99)
[2022-02-09 14:58] VITALS: BP 106/66; PULSE 80; TEMP 97.8
[2022-02-09] MEDS ORDERED: VANCOMYCIN 2,500 MG in SODIUM CHLORIDE 0.9% 500 ML 500 ML IVPB SCH (23:00)
--- NOTE | 2022-02-13 10:56 | CDI ---
Documentation Clarification Form Date: 02/13/22 From: Rashmi Palomares Admit Date: 02/06/2022 07:43:00 AM Patient Name: Rika Dover Visit Number: [id number] Discharge Date: 02/09/2022 05:42:00 PM ATTENTION: The Clinical Documentation Specialists (CDI) and [facility] Coding Staff appreciate your assistance in clarifying documentation. Please respond to the clarification below the line at the bottom and electronically sign. The CDI & [facility] Coding staff will review the response and follow-up if needed. Please note: Queries are made part of the Legal Health Record. If you have any questions, please contact the author of this message via ITS. Dr. Alex Lanier, Postoperative blood loss anemia is documented on 02/07 & 02/08 in your progress notes. Additional specificity regarding the [acuity] of anemia is requested. History/Risk Factors: S/P T12 kyphoplasty with T11-L1 Posterior Instrumented Stabilization- Currently steady state, no increase in pain or issues. L1 VCF around stable hardware. T12 Burst fracture. Distal junctional failure Clinical indicators: Hemoglobin: 10.3, 9.2 Hematocrit: 34.3, 31.1 Treatment: Stable, will continue to monitor Please clarify the acuity of anemia: [ ] Acute blood loss anemia [ ] Acute on chronic blood loss anemia [ ] Chronic blood loss anemia [ ] Unable to determine [ ] Other, please specify Acute blood loss anemia MTDD
== END 2022-02-09 17:42 | disposition home health service (06) | DRG 496 ==
LOC: 2ORMAIN 07:43 → 4SSUR 16:52
PROVIDERS: ADMIT Orthopaedic Surgery; ATTEND Orthopaedic Surgery
PROC: 0QP004Z Removal of Internal Fixation Device from Lumbar Vertebra, Open Approach (ICD-10-PCS; principal; 2022-02-06 09:45)
PROC: 4A1104G Monitoring of Peripheral Nervous Electrical Activity, Intraoperative, Open Approach (ICD-10-PCS; principal; 2022-02-06 09:45)
PROC: 0PH404Z Insertion of Internal Fixation Device into Thoracic Vertebra, Open Approach (ICD-10-PCS; principal; 2022-02-06 09:45)
PROC: 0QH004Z Insertion of Internal Fixation Device into Lumbar Vertebra, Open Approach (ICD-10-PCS; principal; 2022-02-06 09:45)
PROC: 0PP404Z Removal of Internal Fixation Device from Thoracic Vertebra, Open Approach (ICD-10-PCS; principal; 2022-02-06 09:45)
DX: T84.296A Other mechanical complication of internal fixation device of vertebrae, initial encounter (principal); S32.010A Wedge compression fracture of first lumbar vertebra, initial encounter for closed fracture; Z68.43 Body mass index [BMI] 50.0-59.9, adult; D62 Acute posthemorrhagic anemia; L40.50 Arthropathic psoriasis, unspecified; E11.42 Type 2 diabetes mellitus with diabetic polyneuropathy; E11.65 Type 2 diabetes mellitus with hyperglycemia; E66.01 Morbid (severe) obesity due to excess calories; Z79.4 Long term (current) use of insulin; Z93.3 Colostomy status; S22.081S Stable burst fracture of T11-T12 vertebra, sequela; M81.0 Age-related osteoporosis without current pathological fracture; M40.209 Unspecified kyphosis, site unspecified; M54.16 Radiculopathy, lumbar region; E03.9 Hypothyroidism, unspecified; E78.5 Hyperlipidemia, unspecified; F32.A Depression, unspecified; F41.1 Generalized anxiety disorder; J45.909 Unspecified asthma, uncomplicated; K44.9 Diaphragmatic hernia without obstruction or gangrene; N32.81 Overactive bladder; G47.00 Insomnia, unspecified; I10 Essential (primary) hypertension; F41.0 Panic disorder [episodic paroxysmal anxiety]; L64.9 Androgenic alopecia, unspecified; Z79.82 Long term (current) use of aspirin; Z79.84 Long term (current) use of oral hypoglycemic drugs; Z79.890 Hormone replacement therapy; Z79.899 Other long term (current) drug therapy; Z85.43 Personal history of malignant neoplasm of ovary; Z90.722 Acquired absence of ovaries, bilateral; Z85.038 Personal history of other malignant neoplasm of large intestine; Z86.79 Personal history of other diseases of the circulatory system; Z86.14 Personal history of Methicillin resistant Staphylococcus aureus infection; Z92.21 Personal history of antineoplastic chemotherapy; Z98.84 Bariatric surgery status; Z90.49 Acquired absence of other specified parts of digestive tract; Z87.19 Personal history of other diseases of the digestive system; Z90.710 Acquired absence of both cervix and uterus; Z87.39 Personal history of other diseases of the musculoskeletal system and connective tissue; Z98.1 Arthrodesis status; Z98.890 Other specified postprocedural states; Z88.1 Allergy status to other antibiotic agents; Z88.5 Allergy status to narcotic agent; Z88.0 Allergy status to penicillin; Z91.048 Other nonmedicinal substance allergy status; W19.XXXA Unspecified fall, initial encounter; Y83.4 Other reconstructive surgery as the cause of abnormal reaction of the patient, or of later complication, without mention of misadventure at the time of the procedure; Z82.49 Family history of ischemic heart disease and other diseases of the circulatory system; Z82.3 Family history of stroke; Z80.7 Family history of other malignant neoplasms of lymphoid, hematopoietic and related tissues; Z80.8 Family history of malignant neoplasm of other organs or systems
CPT/HCPCS: 36415; 72100; 72128; 72131; 80048; 80053; 80202; 83735; 85025; 85027; 86850; 86900; 86901; 94640; 94760

== ENCOUNTER → 2022-05-10 | Outpatient (CLI) | payer OTHER ==
--- NOTE | 2022-05-11 08:04 | MM ---
Reason for Exam: Screening (asymptomatic). Last mammogram was performed 1 year(s) and 1 month(s) ago. Patient History: Menarche at age 13. Patient has no children. Left ovary removed at age 42. Right ovary removed at age 42. Hysterectomy at age 42. Postmenopausal. Ovarian cancer, age 41. Previous chemotherapy at age 41. Patient used Estrogen for 5 years. Patient used Progesterone for 5 years. Patient used Hormonal Contraceptives for 8 years. Risk Values: Gwendolyn 5 year model risk: 1.2%. NCI Lifetime model risk: 9.6%. Prior Study Comparison: 08/20/2016 Screening Mammogram, [facility]. 12/29/2019 Bilateral Screening Mammogram, [facility]. 03/22/2021 Bilateral Screening Mammogram, [facility]. Tissue Density: The breast tissue is heterogeneously dense. This may lower the sensitivity of mammography. Findings: Analyzed By CAD. There is no suspicious group of microcalcifications or new suspicious mass in either breast. Overall Assessment: Benign, BI-RAD 2 Management: Screening Mammogram of both breasts in 1 year. A clinical breast exam by your physician is recommended on an annual basis and results should be correlated with mammographic findings. Electronically signed and approved by: Bolivar Guidry M.D. Radiologis
== END | disposition home or self-care (01) ==
LOC: RADMAMWWP 09:48
PROVIDERS: ATTEND Family Medicine
DX: Z12.31 Encounter for screening mammogram for malignant neoplasm of breast (principal); Z78.0 Asymptomatic menopausal state
CPT/HCPCS: 77063; 77067

== ENCOUNTER → 2022-06-26 | Outpatient (CLI) | payer OTHER ==
--- NOTE | 2022-06-27 06:52 | CONS ---
CONSULTATION CHIEF COMPLAINT: Morbid obesity. INTERVAL HISTORY: The patient complains of some increased epigastric pain and dysphagia at times. She says pills that she used to be able to tolerate are getting stuck often. She thinks her band is empty. She had locally advanced ovarian cancer, treated 10 years ago. This required colostomy placement. This unfortunately has a permanent stoma. The patient remains markedly obese with a weight of approximately 420. PHYSICAL EXAMINATION: ABDOMEN: Soft, nondistended, obese, difficult to palpate port. PLAN: Options reviewed with the patient. We attempted to access the patient's port at the bedside, but we were unsuccessful. We will take the patient and schedule her for esophagram and fluoro adjustment on the same day. This will be arranged in the near future. Additionally, the patient is requesting a colonoscopy since her last one was 6 years ago. This will be scheduled. MMODL / IJN: [id number] /
[2022-06-27 10:12] VITALS: BP 115/67; PULSE 81; TEMP 98.2; BMI 55.5
== END ==
LOC: BARWHC3 20:25
PROVIDERS: ATTEND Surgery
DX: E66.01 Morbid (severe) obesity due to excess calories (principal); Z68.43 Body mass index [BMI] 50.0-59.9, adult; Z91.048 Other nonmedicinal substance allergy status; Z88.0 Allergy status to penicillin; Z88.1 Allergy status to other antibiotic agents; Z88.8 Allergy status to other drugs, medicaments and biological substances
CPT/HCPCS: 99212

== ENCOUNTER → 2022-07-24 | Outpatient (CLI) | payer OTHER ==
--- NOTE | 2022-07-24 09:29 | P.BASOAP ---
Subjective Progress Note Date: 07/24/22 Principal diagnosis: Dysphagia Physical comes to the x-ray department today for a fluoroscopic adjustment. Patient has had ongoing dysphagia. She thought her band was emptied. She was seen in the office recently we were unable to access the port. Objective - Exam Abdomen: Soft, nontender, nondistended, left-sided ostomy in place Assessment/Plan (1) Dysphagia Narrative/Plan: 52-year-old female having ongoing dysphagia. We'll proceed with fluoroscopic fill. Under fluoroscopy the patient's port was able to be identified and accessed using a Escamilla needle. This was performed in a sterile condition. The port was aspirated. 1 mL of fluid was able to be removed. The patient will now have a formal upper GI/esophagram by radiology. Further decisions regarding what to do with this patient's band and symptoms will be based on upper GI findings. Plan: Date: Initial Weight: Initial BMI: Current Weight: Current BMI: Type of Surgery: Total Volume in Band: Previous Volume: Volume Removed: Volume Added: Band Size:
[2022-07-24 13:27] VITALS: BMI 55.5
== END ==
LOC: BARWHC3 08:57
PROVIDERS: ATTEND Surgery
DX: R13.10 Dysphagia, unspecified (principal); Z91.048 Other nonmedicinal substance allergy status; Z88.8 Allergy status to other drugs, medicaments and biological substances; Z88.0 Allergy status to penicillin
CPT/HCPCS: 99213

== ENCOUNTER → 2022-07-24 | Outpatient (CLI) | payer OTHER ==
--- NOTE | 2022-07-24 10:19 | FL ---
EXAMINATION TYPE: FL barium swallow DATE OF EXAM: 07/24/2022 10:06 AM COMPARISON: CT thoracolumbar spine 02/06/2022. CLINICAL INDICATION:Female, 52 years old with history of R13.10 DYSPHAGIA, UNSPECIFIED; Patient had a pproximately 1 cc of fluid removed from gastric band before termination. TECHNIQUE: The procedure was explained and patient history elicited. All patient questions were ans wered prior to start of procedure. Multiple spot fluoroscopic images of the esophagus were obtained a fter the oral ingestion of effervescent crystals and liquid barium as the contrast agent. A clothing pattern preparer ra diograph of the chest was obtained and reviewed. Fluoroscopic time: 41 seconds Fluoroscopic images: 622 FINDINGS: The clothing pattern preparer radiograph of the abdomen demonstrates gastric lap band at the GE junction with p hi angle approximately 32 degrees in appropriate position. Extensive postsurgical changes of the thor acolumbar spine with fusion hardware. Cholecystomy clips in the right upper quadrant. The esophagus demonstrates normal primary and secondary peristalsis. Tertiary contractions are presen t. 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 Contrast easily flows through the gastric lap band without holdup. The esophageal mucosa is smooth without evidence of focal stricture, ulceration, or abnormal outpouching. IMPRESSION: 1. Appropriate position of gastric lap band. Contrast easily passes through the gastric lap band with out holdup. 2. 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 3. Mild esophageal dysmotility.
== END | disposition home or self-care (01) ==
LOC: RADFLMAIN 08:58
PROVIDERS: ATTEND Surgery
DX: K22.4 Dyskinesia of esophagus (principal)
CPT/HCPCS: 74220

== ENCOUNTER 2023-02-26 07:05 | Day surgery (SDC) | payer MEDICARE, OTHER ==
[2023-02-20 14:11] VITALS: BMI 53.4
[~2023-02-26 07:05] MED LIST changes: -ACETAMINOPHEN TAB 500 MG TAB PO PRN; -DEXAMETHASONE SOD PHOSPHATE 4 MG/ML 1 ML VIAL IV ONE; -GABAPENTIN 300 MG CAP PO PRN; +LACTATED RINGERS 1,000 ML IV SCH; -METOCLOPRAMIDE 5 MG/ML 2 ML VIAL IVP PRN; -MIDAZOLAM 2 MG/2 ML VIAL IV PRN; -ONDANSETRON 4 MG/2 ML VIAL IVP ONE; -ONDANSETRON 4 MG/2 ML VIAL IVP PRN; -TRANEXAMIC ACID IN NACL,ISO-OS 1,000 MG in SALINE 1 100ML.BAG IVPB PRN; -VANCOMYCIN 2,000 MG in SODIUM CHLORIDE 0.9% 500 ML 500 ML IVPB PRN
[2023-02-26 07:42] VITALS: PULSE 81; TEMP 97.2
[2023-02-26 07:54] LABS: Glucose,Whole Blood 170 mg/dL (70-110)
[2023-02-26] MEDS ORDERED: PROPOFOL 10 MG/ML 20 ML VIAL IV ONE (07:56)
--- NOTE | 2023-02-26 08:01 | P.GSHP ---
History of Present Illness H&P Date: 02/26/23 Chief Complaint: Colon cancer screening 52-year-old female here for colonoscopy. In 2010 patient underwent KATHERINE/BSO with sigmoid colectomy 4 cancer. Patient has a end colostomy that she states is permanent. He still does have a portion of rectum. No bowel complaints. Last colonoscopy 2015. Past Medical History Past Medical History: Atrial Flutter, Cancer, Chest Pain / Angina, Diabetes Mellitus, Hyperlipidemia, Hypertension, Supraventricular Tachycardia (SVT), Thyroid Disorder Additional Past Medical History / Comment(s): OVARIAN CA - in remission-mets to colon-received chemo 2011, psoriatic arthritis, past cardiac ablation for a- flutter and SVT, permanenet colostomy, SARCOIDOSIS History of Any Multi-Drug Resistant Organisms: MRSA Date of last positivie culture/infection: 2011 MDRO Source:: ABD WOUND Past Surgical History: Bariatric Surgery, Bowel Resection, Cardiac Ablation, Cholecystectomy, EPS, Heart Catheterization, Hysterectomy, Orthopedic Surgery, Tonsillectomy Additional Past Surgical History / Comment(s): COLOSTOMY March 2021, Rt foot surgery - hammer toe, colostomy,lap band-no fluid present, COLONOSCOPY, EGD Past Anesthesia/Blood Transfusion Reactions: No Reported Reaction Additional Past Anesthesia/Blood Transfusion Reaction / Comment(s): no problems with prior blood transfusion Past Psychological History: Anxiety, Depression, Panic Disorder Additional Psychological History / Comment(s): PT STATED SHE FEELS WELL MAINTAINED ON HER MEDS Smoking Status: Never smoker Past Alcohol Use History: None Reported Past Drug Use History: None Reported - Past Family History Father Family Medical History: CVA/TIA Additional Family Medical History / Comment(s): three vessel CABG Mother Family Medical History: Myocardial Infarction ([place]) Sister(s) Family Medical History: Hypertension Brother(s) Family Medical History: Hypertension Medications and Allergies Home Medications Medication Instructions Recorded Confirmed Type Aspirin 81 mg PO DAILY 06/02/14 02/20/23 History Levothyroxine Sodium [Synthroid] 224 mcg PO QAM 06/02/14 02/20/23 History metFORMIN HCL [Glucophage] 1,000 mg PO BID 06/02/14 02/20/23 History Cholecalciferol [Vitamin D3 (25 25 mcg PO DAILY 10/31/15 02/20/23 History Mcg = 1000 Iu)] Metoprolol Tartrate [Lopressor] 100 mg PO QAM 10/31/15 02/20/23 History Albuterol Inhaler [Ventolin Hfa 2 puff INHALATION RT-Q4H PRN 12/24/17 02/20/23 History Inhaler] Atorvastatin [Lipitor] 20 mg PO HS 12/24/17 02/20/23 History Insulin Glargine [Lantus Vial] 62 unit SQ BID 12/24/17 02/20/23 History Metoprolol Tartrate [Lopressor] 50 mg PO HS 12/24/17 02/20/23 History lisinopriL [Prinivil] 2.5 mg PO QAM 12/24/17 02/20/23 History FLUoxetine HCL [PROzac] 40 mg PO QAM 02/06/19 02/20/23 History Methenamine Hippurate [Hiprex] 1 gm PO BID 06/23/21 02/20/23 History ondansetron HCL [Zofran] 8 mg PO Q12HR PRN 06/23/21 02/20/23 History Abaloparatide [Tymlos] 2 mg SQ HS 02/05/22 02/20/23 History Empagliflozin [Jardiance] 25 mg PO DAILY 02/05/22 02/20/23 History Insulin NPL/Insulin Lispro 25 units SQ DAILY 02/05/22 02/20/23 History [humaLOG MIX 50-50 VIAL] Insulin NPL/Insulin Lispro 30 units SQ 1800 02/05/22 02/20/23 History [humaLOG MIX 50-50 VIAL] Adalimumab [Humira(Cf) Pen] 40 mg SQ Q14D 02/20/23 02/20/23 History Allergies Allergy/AdvReac Type Severity Reaction Status Date / Time adhesive tape Allergy Rash/Hives,"paper Verified 02/20/23 13:59 tape is ok" cephalexin [From Keflex] Allergy Rash/Hives Verified 02/20/23 13:59 fosfomycin Allergy severe Verified 02/20/23 13:59 vomiting nickel Allergy blisters Verified 02/20/23 13:59 skin Penicillins Allergy Anaphylaxis Verified 02/20/23 13:59 homatropine AdvReac Chest Pain Verified 02/20/23 13:59 [From Hycodan (with homatropin)] homatropine methylbromide AdvReac Chest Verified 02/20/23 13:59 [From Hycodan (with Pain,rapid homatropin)] heart rate,dizziness hydrocodone bitartrate AdvReac Chest Pain Verified 02/20/23 13:59 [From Hycodan (with homatropin)] promethazine HCl AdvReac dystonic Verified 02/20/23 13:59 [From Phenergan] reaction propafenone HCl AdvReac Chest Pain Verified 02/20/23 13:59 [From Rythmol] pseudoephedrine HCl AdvReac Rapid Verified 02/20/23 13:59 [From Sudafed] Heart Rate Surgical - Exam Vital Signs Temp Pulse Resp BP Pulse Ox 97.2 F L 81 20 128/74 94 L 02/26/23 07:30 02/26/23 07:30 02/26/23 07:30 02/26/23 07:30 02/26/23 07:30 Physical exam: General: Well-developed, well-nourished HEENT: Normocephalic, sclerae nonicteric Abdomen: Nontender, nondistended Extremities: No edema Neuro: Alert and oriented Results - Labs Abnormal Lab Results - Last 24 Hours (Table) 02/26/23 Range/Units 07:35 POC Glucose (mg/dL) 170 H (70-110) mg/dL Assessment and Plan (1) Colon cancer screening Narrative/Plan: Will proceed with colonoscopy at this time Current Visit: Yes Status: Acute Code(s): Z12.11 - ENCOUNTER FOR SCREENING FOR MALIGNANT NEOPLASM OF COLON SNOMED Code(s): 627499959
--- NOTE | 2023-02-26 08:19 | P.PCN ---
Date of Procedure: 02/26/23 Procedure(s) Performed: PREOPERATIVE DIAGNOSIS: Colon cancer screening, history of cancer POSTOPERATIVE DIAGNOSIS: Normal exam PROCEDURE: Colonoscopy through her rectum and ostomy ANESTHESIA: MAC SURGEON: Yandel Gutierrez M.D. SPECIMENS: None ENDOSCOPIC PROCEDURE: The patient was placed on the endoscopy table in the left decubitus position. The Olympus colonoscope was inserted into the anus and passed under direct visualization to the proximal rectum. The staple line was visualized. There was some retained mucoid stool present. No mucosal abnormalities were noted. The scope was then advanced through the stoma to the base of the cecum. The appendiceal orifice was visualized. From that point the scope was slowly withdrawn inspecting all surfaces carefully. There were no neoplastic inflammatory or polypoid lesions throughout the cecum, ascending, transverse, descending, and sigmoid colon. It appeared the patient had a previous colonic resection in the mid transverse colon likely from a loop colostomy. This anastomosis was widely patent. Was no visible diverticulosis. Digital rectal examination was normal. The patient was taken to the recovery room in stable condition per anesthesia guidelines. RECOMMENDATIONS: Resume diet. Repeat colonoscopy 5 years.
[2023-02-26 08:27] VITALS: RESP 16
[2023-02-26 08:37] VITALS: BP 113/73
== END 2023-02-26 09:00 | disposition home or self-care (01) ==
LOC: ORWHC2ENDO 07:05
PROVIDERS: ATTEND Surgery
DX: Z12.11 Encounter for screening for malignant neoplasm of colon (principal); Z93.3 Colostomy status; Z90.722 Acquired absence of ovaries, bilateral; I48.92 Unspecified atrial flutter; I20.9 Angina pectoris, unspecified; E11.9 Type 2 diabetes mellitus without complications; I10 Essential (primary) hypertension; E78.5 Hyperlipidemia, unspecified; I47.9 Paroxysmal tachycardia, unspecified; J45.909 Unspecified asthma, uncomplicated; F41.0 Panic disorder [episodic paroxysmal anxiety]; F41.9 Anxiety disorder, unspecified; F32.A Depression, unspecified; Z85.43 Personal history of malignant neoplasm of ovary; D86.9 Sarcoidosis, unspecified; Z98.84 Bariatric surgery status; Z90.49 Acquired absence of other specified parts of digestive tract; Z98.890 Other specified postprocedural states; Z79.82 Long term (current) use of aspirin; Z79.84 Long term (current) use of oral hypoglycemic drugs; Z79.899 Other long term (current) drug therapy; E07.9 Disorder of thyroid, unspecified; Z79.890 Hormone replacement therapy; Z79.4 Long term (current) use of insulin; Z79.51 Long term (current) use of inhaled steroids; Z91.048 Other nonmedicinal substance allergy status; Z88.2 Allergy status to sulfonamides; Z88.1 Allergy status to other antibiotic agents; Z88.0 Allergy status to penicillin; Z88.8 Allergy status to other drugs, medicaments and biological substances
CPT/HCPCS: 44388; J2704

== ENCOUNTER 2023-08-01 15:22 | Emergency (ER) | payer MEDICARE, OTHER ==
[2023-08-01 15:34] VITALS: PULSE 79; TEMP 98.1
[2023-08-01] MEDS ORDERED: valACYclovir HCL 1,000 MG TABLET PO STA (15:43)
[2023-08-01] MEDS ORDERED: predniSONE 20 MG TAB PO STA (15:43)
--- NOTE | 2023-08-01 15:51 | ED ---
General Adult HPI - General Chief complaint: Neuro Symptoms/Deficit Stated complaint: Right facial weakness Time Seen by Provider: 08/01/23 15:35 Source: patient, RN notes reviewed Mode of arrival: wheelchair Limitations: no limitations - History of Present Illness Initial comments: Patient is a pleasant 53-year-old female presenting to the emergency department with concerns with right facial weakness. Onset of symptoms was noticed around 11 AM today when she woke up. Patient last known well around 2 AM the night before when she went to bed. Patient notices weakness of the right side of her face. 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 Patient states she does have a mild headache however has been having headaches since Covid 19 the last few years. - Related Data Home Medications Medication Instructions Recorded Confirmed Aspirin 81 mg PO DAILY 06/02/14 02/20/23 Levothyroxine Sodium [Synthroid] 224 mcg PO QAM 06/02/14 02/20/23 metFORMIN HCL [Glucophage] 1,000 mg PO BID 06/02/14 02/20/23 Cholecalciferol [Vitamin D3 (25 25 mcg PO DAILY 10/31/15 02/20/23 Mcg = 1000 Iu)] Metoprolol Tartrate [Lopressor] 100 mg PO QAM 10/31/15 02/20/23 Albuterol Inhaler [Ventolin Hfa 2 puff INHALATION RT-Q4H PRN 12/24/17 02/20/23 Inhaler] Atorvastatin [Lipitor] 20 mg PO HS 12/24/17 02/20/23 Insulin Glargine [Lantus Vial] 62 unit SQ BID 12/24/17 02/20/23 Metoprolol Tartrate [Lopressor] 50 mg PO HS 12/24/17 02/20/23 lisinopriL [Prinivil] 2.5 mg PO QAM 12/24/17 02/20/23 FLUoxetine HCL [PROzac] 40 mg PO QAM 02/06/19 02/20/23 Methenamine Hippurate [Hiprex] 1 gm PO BID 06/23/21 02/20/23 ondansetron HCL [Zofran] 8 mg PO Q12HR PRN 06/23/21 02/20/23 Abaloparatide [Tymlos] 2 mg SQ HS 02/05/22 02/20/23 Empagliflozin [Jardiance] 25 mg PO DAILY 02/05/22 02/20/23 Insulin NPL/Insulin Lispro 25 units SQ DAILY 02/05/22 02/20/23 [humaLOG MIX 50-50 VIAL] Insulin NPL/Insulin Lispro 30 units SQ 1800 02/05/22 02/20/23 [humaLOG MIX 50-50 VIAL] Adalimumab [Humira(Cf) Pen] 40 mg SQ Q14D 02/20/23 02/20/23 Previous Rx's Medication Instructions Recorded predniSONE [Deltasone] 3 tab PO DAILY #18 tab 08/01/23 valACYclovir HCL [Valtrex] 1 tab PO TID #20 tablet 08/01/23 Allergies Allergy/AdvReac Type Severity Reaction Status Date / Time adhesive tape Allergy Rash/Hives,"paper Verified 08/01/23 15:30 tape is ok" cephalexin [From Keflex] Allergy Rash/Hives Verified 08/01/23 15:30 fosfomycin Allergy severe Verified 08/01/23 15:30 vomiting nickel Allergy blisters Verified 08/01/23 15:30 skin Penicillins Allergy Anaphylaxis Verified 08/01/23 15:30 homatropine AdvReac Chest Pain Verified 08/01/23 15:30 [From Hycodan (with homatropin)] homatropine methylbromide AdvReac Chest Verified 08/01/23 15:30 [From Hycodan (with Pain,rapid homatropin)] heart rate,dizziness hydrocodone bitartrate AdvReac Chest Pain Verified 08/01/23 15:30 [From Hycodan (with homatropin)] promethazine HCl AdvReac dystonic Verified 08/01/23 15:30 [From Phenergan] reaction propafenone HCl AdvReac Chest Pain Verified 08/01/23 15:30 [From Rythmol] pseudoephedrine HCl AdvReac Rapid Verified 08/01/23 15:30 [From Sudafed] Heart Rate Review of Systems ROS Statement: Those systems with pertinent positive or pertinent negative responses have been documented in the HPI. ROS Other: All systems not noted in ROS Statement are negative. Constitutional: Denies: fever Eyes: Denies: eye pain ENT: Denies: ear pain Respiratory: Denies: cough Cardiovascular: Denies: chest pain Endocrine: Denies: fatigue Gastrointestinal: Denies: abdominal pain Genitourinary: Denies: dysuria Musculoskeletal: Denies: back pain Neurological: Reports: as per HPI Past Medical History Past Medical History: Atrial Flutter, Cancer, Chest Pain / Angina, Diabetes Mellitus, Hypertension, Supraventricular Tachycardia (SVT), Thyroid Disorder Additional Past Medical History / Comment(s): OVARIAN CA - in remission-mets to colon-received chemo 2011, psoriatic arthritis, past cardiac ablation for a- flutter and SVT. permanenet colostomy History of Any Multi-Drug Resistant Organisms: MRSA Date of last positivie culture/infection: 2011 MDRO Source:: ABD WOUND Past Surgical History: Bariatric Surgery, Bowel Resection, Cardiac Ablation, Cholecystectomy, EPS, Heart Catheterization, Hysterectomy, Orthopedic Surgery, Tonsillectomy Additional Past Surgical History / Comment(s): COLOSTOMY March 2021, Rt foot surgery - hammer toe, colostomy,lap band-no fluid present Past Anesthesia/Blood Transfusion Reactions: No Reported Reaction Additional Past Anesthesia/Blood Transfusion Reaction / Comment(s): no problems with prior blood transfusion Past Psychological History: Anxiety, Depression, Panic Disorder Smoking Status: Never smoker Past Alcohol Use History: None Reported Past Drug Use History: None Reported - Past Family History Father Family Medical History: CVA/TIA Additional Family Medical History / Comment(s): three vessel CABG Mother Family Medical History: Myocardial Infarction ([place]) Sister(s) Family Medical History: Hypertension Brother(s) Family Medical History: Hypertension General Exam Limitations: no limitations General appearance: alert, in no apparent distress Head exam: Present: atraumatic, normocephalic Eye exam: Present: normal appearance, PERRL, EOMI ENT exam: Present: normal oropharynx Neck exam: Present: normal inspection Respiratory exam: Present: normal lung sounds bilaterally Cardiovascular Exam: Present: regular rate, normal rhythm GI/Abdominal exam: Present: soft. Absent: tenderness Extremities exam: Present: normal inspection Neurological exam: Present: alert, oriented X3 Expanded Neurological exam: Present: protecting the airway Speech: Present: fluid speech Cranial nerves: EOM's Intact: Normal, Facial Sensation: Normal, Facial Palsy without Forehead Movement: Abnormal Right (Right facial palsy. Difficulty closing right eyelid and moving forehead) Sensory exam: Upper Extremity Light Touch: Normal, Lower Extremity Light Touch: Normal Motor strength exam: RUE: 5, LUE: 5, RLE: 5, LLE: 5 Eye Response: (4) open spontaneously Motor Response: (6) obeys commands Verbal Response: (5) oriented Psychiatric exam: Present: normal affect, normal mood Skin exam: Present: normal color Course Vital Signs 08/01/23 15:26 Temperature 98.1 F Pulse Rate 79 Respiratory 18 Rate Blood Pressure 118/76 O2 Sat by Pulse 95 Oximetry Medical Decision Making - Medical Decision Making Was pt. sent in by a medical professional or institution (, PA, SALES LEADER, urgent care, hospital, or fci...) When possible be specific @ -No Did you speak to anyone other than the patient for history (EMS, parent, family, police, friend...)? What history was obtained from this source @ -No Did you review nursing and triage notes (agree or disagree)? Why? @ -I reviewed and agree with nursing and triage notes Were old charts reviewed (outside hosp., previous admission, EMS record, old EKG, old radiological studies, urgent care reports/EKG's, fci records)? Report findings @ -No old charts were reviewed Differential Diagnosis (chest pain, altered mental status, abdominal pain women, abdominal pain men, vaginal bleeding, weakness, fever, dyspnea, syncope, headache, dizziness, GI bleed, back pain, seizure, CVA, palpatations, mental health, musculoskeletal)? @ -Differential Weakness: Hypoglycemia, shock, sepsis, hyponatremia, anemia, infection, MO, ETOH, adverse medicine reaction, overdose, stroke, this is not meant to be an all-inclusive list. EKG interpreted by me (3pts min.). @ -As above X-rays interpreted by me (1pt min.). @ -None done CT interpreted by me (1pt min.). @ -None done U/S interpreted by me (1pt. min.). @ -None done What testing was considered but not performed or refused? (CT, X-rays, U/S, labs)? Why? @ -Patient clinically presents as Romero's palsy. Patient does have a little bit of a headache and therefore was offered head CT. Patient does not feel this is necessary and declines. What meds were considered but not given or refused? Why? @ -None Did you discuss the management of the patient with other professionals (professionals i.e. , PA, SALES LEADER, lab, RT, psych nurse, social service liaison, treatment supervisor, teacher, strike operations officer, spring encaser)? Give summary @ -No Was smoking cessation discussed for >3mins.? @ -No Was critical care preformed (if so, how long)? @ -No Were there social determinants of health that impacted care today? How? (Homelessness, low income, unemployed, alcoholism, drug addiction, transportation, low edu. Level, literacy, decrease access to med. care, group home, rehab)? @ -No Was there de-escalation of care discussed even if they declined (Discuss DNR or withdrawal of care, Hospice)? DNR status @ -No What co-morbidities impacted this encounter? (DM, HTN, Smoking, COPD, CAD, Cancer, CVA, ARF, Chemo, Hep., AIDS, mental health diagnosis, sleep apnea, morbid obesity)? @ -None Was patient admitted / discharged? Hospital course, mention meds given and route, prescriptions, significant lab abnormalities, going to OR and other pertinent info. @ -Patient presents with classic Romero's palsy. Patient updated and will be prescribed medications. Undiagnosed new problem with uncertain prognosis? @ -No Drug Therapy requiring intensive monitoring for toxicity (Heparin, Nitro, Insulin, Cardizem)? @ -No Were any procedures done? @ -No Diagnosis/symptom? @ -Romero's palsy Acute, or Chronic, or Acute on Chronic? @ -Acute Uncomplicated (without systemic symptoms) or Complicated (systemic symptoms)? @ -default Side effects of treatment? @ -No Exacerbation, Progression, or Severe Exacerbation? @ -No Poses a threat to life or bodily function? How? (Chest pain, [place], [place], pneumonia, PE, COPD, DKA, ARF, appy, cholecystitis, CVA, Diverticulitis, Homicidal, Suicidal, threat to staff... and all critical care pts) @ -No Disposition Clinical Impression: Romero's palsy Disposition: HOME SELF-CARE Condition: Stable Instructions (If sedation given, give patient instructions): Romero Palsy (ED) Additional Instructions: Please do follow-up to primary care physician in the next day or 2 for recheck. Prescription sent to pharmacy. Adjust insulin as necessary. Return for other areas of weakness, increased headache, confusion, fever, worsening symptoms or any other concerns. Circumflex prescriptions in the morning. Use [id number] moisturizing drops to the right eye 4 times daily and prior to bed. Also tape right eye shut at bedtime. Prescriptions: predniSONE [Deltasone] 3 tab PO DAILY #18 tab valACYclovir HCL [Valtrex] 1 tab PO TID #20 tablet Is patient prescribed a controlled substance at d/c from ED?: No Referrals: Christopher Guy MD [Primary Care Provider] - 1-2 days Time of Disposition: 15:51
[2023-08-01 16:24] VITALS: BP 115/71; RESP 16
== END 2023-08-01 16:15 | disposition home or self-care (01) ==
LOC: EC 15:22
DX: G51.0 Bell's palsy (principal); E11.9 Type 2 diabetes mellitus without complications; I10 Essential (primary) hypertension; E07.9 Disorder of thyroid, unspecified; F32.A Depression, unspecified; F41.9 Anxiety disorder, unspecified; Z79.4 Long term (current) use of insulin; Z79.84 Long term (current) use of oral hypoglycemic drugs; Z79.890 Hormone replacement therapy; Z79.899 Other long term (current) drug therapy; Z88.0 Allergy status to penicillin; Z88.1 Allergy status to other antibiotic agents; Z88.8 Allergy status to other drugs, medicaments and biological substances; Z91.09 Other allergy status, other than to drugs and biological substances; Z90.49 Acquired absence of other specified parts of digestive tract
CPT/HCPCS: 99283; J7512

== ENCOUNTER → 2023-08-14 | Outpatient (CLI) | payer MEDICARE, OTHER ==
[2023-08-14 15:28] LABS: ALT 39 U/L (8-44); AST 24 U/L (13-35); Albumin 4.3 d/dL (3.8-4.9); Albumin/Globulin Ratio 1.72 Ratio (1.60-3.17); Alkaline Phosphatase 61 U/L (41-126); Blood Urea Nitrogen 13.6 mg/dL (9.0-27.0); Carbon Dioxide 25.3 mmol/L (21.6-31.8); Chloride 103 mmol/L (96-109); Globulin 2.5 d/dL (1.6-3.3); Glucose 222 mg/dL (70-110); Potassium 5.4 mmol/L (3.5-5.5); Sodium 141 mmol/L (135-145); Total Bilirubin 0.3 mg/dL (0.3-1.2); Total Protein 6.8 d/dL (6.2-8.2)
== END | disposition home or self-care (01) ==
LOC: LABWHC1 09:26
PROVIDERS: ATTEND Internal Medicine Critical Care Medicine
DX: D86.9 Sarcoidosis, unspecified (principal)
CPT/HCPCS: 36415; 80053; 82164; 85652; 86140

== ENCOUNTER → 2023-08-21 | Outpatient (CLI) | payer MEDICARE, OTHER ==
--- NOTE | 2023-08-23 09:00 | CT ---
EXAMINATION TYPE: CT chest w con DATE OF EXAM: 08/21/2023 COMPARISON: 05/25/[address] thoracic spine 02/06/2022 HISTORY: 53-year-old female for R91.1, Sarcoidosis in the lungs. TECHNIQUE: Contiguous axial scanning of the chest after the administration of 100 ml mL of Isovue 300 . Coronal/sagittal reconstructions performed. CT DLP: 746.3mGycm. Automatic exposure control utilized for a dose reduction. FINDINGS: The heart is normal size without pericardial effusion. Aorta normal caliber with aberrant direct takeoff of the nondominant left vertebral artery directly f rom the aortic arch. No thoracic lymphadenopathy by CT size criteria. Unchanged small calcified granuloma posterior left midlung, axial image 41. No consolidation or pleur al effusion. No perilymphatic nodularity or thickening of the bronchovascular bundles. There is an indwelling lap band. Suspect underlying fatty infiltration of the liver. Limited by large patient body habitus. Extensive metal artifact is also present relating to the patient's T10 and inferior posterior thoraco lumbar fusion. Multiple vertebroplasty changes are present as well at these levels. Mild superior def ormity of T5 remains unchanged. IMPRESSION: Unchanged small calcified granuloma posterior left midlung. No specific CT findings of pulmonary sarc oidosis.
== END | disposition home or self-care (01) ==
LOC: RADCTMAIN 14:55
PROVIDERS: ATTEND Internal Medicine Critical Care Medicine
DX: D86.9 Sarcoidosis, unspecified (principal); J84.10 Pulmonary fibrosis, unspecified; R91.1 Solitary pulmonary nodule
CPT/HCPCS: 71260; Q9967

== ENCOUNTER → 2024-02-22 | Outpatient (CLI) | payer MEDICARE, OTHER ==
--- NOTE | 2024-02-22 15:24 | MR ---
EXAMINATION TYPE: MR cervical spine wo con DATE OF EXAM: 02/22/2024 COMPARISON: None HISTORY: Neck pain CONTRAST: Performed utilizing 0 mL intravenous Gadavist gadolinium contrast. TECHNIQUE: Multiplanar multiecho imaging on a 3.0 Amena magnet is performed through the cervical spin e. FINDINGS: The craniovertebral junction is normal. Vertebral body alignment is normal. C7-T1: No focal disc herniation or significant disc bulge is evident. No spinal canal stenosis or n eural foraminal stenosis is present. C6-7: Broad-based disc bulge is moderate anterior thecal sac impression. This may contact with the sp inal cord. Cord deformity is not identified and no spinal canal stenosis present. Mild bilateral fora porsche narrowing may be present.. C5-6: Broad-based disc bulge and mild anterior thecal sac compression. No cord contact centrally. No spinal canal stenosis is present. Mild left foraminal narrowing is present. C4-5: Left paracentral disc bulge is present from the central left paracentral regions with mild to m oderate intrathecal sac impression. This comes in close approximation with the spinal cord. Cord cont act may be present laterally without cord deformity. No spinal canal stenosis is present. Neural fora men are patent.. C3-4: Minimal disc bulge may be present within the intrathecal sac flattening. No cord contact or spi nal canal stenosis present. Neural foramen are patent. C2-3: No focal disc herniation or significant disc bulge is evident. No spinal canal stenosis or renate ral foraminal stenosis is present. IMPRESSION: 1. Multilevel disc bulging C3-4 through C6-7. 2. At C6-7 disc bulging may have left spinal cord contact without cord deformity or spinal canal sten osis. 3. At L4-5 left paracentral disc bulge comes in close approximation of the spinal cord with minimal c ord contact without deformity. 4. Mild foraminal narrowing on the left through the cervical spine
== END | disposition home or self-care (01) ==
LOC: RADMRIMAIN 12:57
PROVIDERS: ATTEND Orthopaedic Surgery
DX: M50.323 Other cervical disc degeneration at C6-C7 level (principal); M50.31 Other cervical disc degeneration, high cervical region; M54.12 Radiculopathy, cervical region
CPT/HCPCS: 72141

== ENCOUNTER → 2025-01-01 | Outpatient (CLI) | payer MEDICARE ==
[2025-01-01 18:08] LABS: MCH 28.7 pg (27.0-32.0); MCHC 31.7 g/dL (32.0-37.0); MCV 90.5 FL (80.0-97.0); Mean Platelet Volume 12.3 FL (9.5-12.2); NRBC Per 100 WBC 0 X 10*3/uL (0.00-0.01); Platelet Count 219 X 10*3/uL (140-440); RBC 4.53 X 10*6/uL (4.10-5.20); RDW 14.9 % (11.5-14.5); WBC 5.99 X 10*3/uL (4.50-10.00)
[2025-01-01 18:19] LABS: Blood Urea Nitrogen 25.1 mg/dL (9.0-27.0); Calcium 9.7 mg/dL (8.7-10.3); Chloride 107 mmol/L (96-109); Glucose 125 mg/dL (70-110); Sodium 144 mmol/L (135-145)
[2025-01-02 03:40] LABS: INR 0.96 sec (0.93-1.11)
== END | disposition home or self-care (01) ==
LOC: LABPAT 13:34
PROVIDERS: ATTEND Orthopaedic Surgery
DX: Z01.818 Encounter for other preprocedural examination (principal); S32.009A Unspecified fracture of unspecified lumbar vertebra, initial encounter for closed fracture; I10 Essential (primary) hypertension; R73.09 Other abnormal glucose; Z22.322 Carrier or suspected carrier of Methicillin resistant Staphylococcus aureus; Z79.899 Other long term (current) drug therapy; Z79.01 Long term (current) use of anticoagulants; X58.XXXA Exposure to other specified factors, initial encounter
CPT/HCPCS: 80048; 85027; 85610; 86850; 86900; 86901; 87070; 93005

== ENCOUNTER 2025-01-12 06:10 | Day surgery (SDC) | payer MEDICARE ==
[2025-01-06 10:39] VITALS: BMI 48.2
[~2025-01-12 06:10] MED LIST changes: -LACTATED RINGERS 1,000 ML IV SCH; -LIDOCAINE 1% (10MG/ML) FOR IV START INTRADERMA PRN; +ONDANSETRON 4 MG/2 ML VIAL IVP PRN; +TRANEXAMIC 1,000 MG/100ML-NACL 1,000 MG in SALINE 1 100ML.BAG IVPB PRN
[2025-01-12] MEDS: IV FLUID CONTINUATION 1,000 ML IV ONE (06:53)
[2025-01-12 06:56] VITALS: TEMP 97.2
--- NOTE | 2025-01-12 07:07 | P.HPOR ---
History of Present Illness H&P Date: 12/18/24 .D:Date: 12/18/24 : 01:57pm .T:Title: RECHECK H1 [facility] [address] [place] [address]| PROVIDER: SARA COONEY DO CLINICAL SUMMARY: Ms. Rika Dover, a 54-year-old female on disability, presented to [facility] [place] on 12/22/24 for follow-up evaluation of lumbar spine pain and CT scan results. The patient reports increased low back pain with radiation to the right lower extremity to knee level, onset 11/09/24, exacerbated by positional changes. Physical examination revealed paralumbar tenderness, restricted lumbar ROM with pain, and positive straight leg raise test. Imaging studies demonstrate an acute L4 vertebral compression fracture with 50% compression and anterior wedging, with previous L2 fracture stabilization. Due to the progressive nature of symptoms and imaging findings, surgical intervention with L4 kyphoplasty with biopsy was recommended. The treatment plan includes surgical clearance from PCP, continuation of home exercises, heat/ice therapy, vitamin supplementation, and activity modifications including walker use, 5-pound lifting restriction, and walking up to 30 minutes twice daily on flat surfaces. Current medications include Baclofen 15mg and Naproxen 500mg BID. DEMOGRAPHICS: Age: 54 year Height: 6'1" Weight: 368 lbs BP:114/70 BMI: 48.60 kg/m2 Occupation: Disability CC: lumbar pain VAS: 6 HISTORY: Ms. Dover presents to the office today, 12/22/24, for a recheck of her lumbar spine and CT scan results. Patient reports an increased of low back pain with an onset of 11/09/24. She denies any injury to indicate her symptoms. In addition to her lumbar pain that radiates into the right lower extremity to her knee. Patient states her symptoms are exacerbated with changing position form sitting to standing. She is currently taking Aleve, Tylenol, and Aspirin for her symptom s. Patient ambulates with a walker. * Patient denies any f/c/sob/cp, perineal numbness or tingling, bowel, or bladder incontinence/retention. * The patients past social, medical, family, surgical history, as well as review of systems, have been reviewed. Please refer to the History and Physical form that has been scanned into our electronic medical record system. * 16 points review of systems completed and as stated in HPI, all other systems reviewed are negative. PAST TREATMENTS: PAST IMAGING: -YES, xray, ct scan - TRAUMA RELATED: -NO - WORK RELATED: -NO - PT IN LAST 6 MONTHS: -NO - PHYSICIAN DIRECTED HOME EXERCISE PROGRAM: -YES - ACTIVITY MODIFICATION: -YES - MEDICATIONS: -YES, Aleve Tylenol Aspirin - ALTERNATIVE INTERVENTIONS (CHIROPRACTIC, ACUPUNCTURE, MASSAGE, RICE): -YES - BRACING: -NO - INJECTIONS (AMAN, TF, RFA): -NO - MEDICAL HISTORY: Past Medical History: REVIEWED STATED IN CHART Past Surgical History: REVIEWED STATED IN CHART Social History: REVIEWED STATED IN CHART SMOKING: Never smoker ETOH: None SUBSTANCES: None Family History: REVIEWED STATED IN CHART P1 Current Medications: Rx: aspirin Ref: 0 Instructions: Take 1 Tablet ORAL daily. Rx: cholecalciferol (vitamin D3) 125 mcg (5,000 unit) capsule Ref: 0 Instructions: Take 1 Capsule ORAL daily. Rx: Cranberry Plus Vitamin C Ref: 0 Instructions: Take 1 Capsule ORAL twice daily. Rx: GLUCOPHAGE 1000MG ORAL Tablet, Ref: 0 Instructions: Take 1 Tablet ORAL twice daily. Rx: metoprolol tartrate Ref: 0 Instructions: Take 1.5 Tablet ORAL twice daily. Rx: Synthroid Ref: 0 Instructions: Take 1 Tablet ORAL twice daily. Rx: Ventolin HFA Ref: 0 Instructions: Take 2 Aerosol Soln Inhalation every 4 hours as needed. Rx: PROzac 40 mg capsule Ref: 0 Instructions: Take Capsule ORAL . Rx: Zofran Ref: 0 Instructions: Take Tablet ORAL . Rx: atorvastatin 20 mg tablet Ref: 0 Instructions: take 1 tablet (20 mg) by oral route once daily Rx: empagliflozin 25 mg tablet Ref: 0 Instructions: take 1 tablet (25 mg) by oral route once daily in the morning Rx: lisinopriL 2.5 mg tablet Ref: 0 Instructions: take 1 tablet (2.5 mg) by oral route once daily Rx: metFORMIN 1,000 mg tablet Ref: 0 Instructions: take 1 tablet (1,000 mg) by oral route 2 times per day with morning and evening meals Rx: Tresiba U-100 Insulin Ref: 0 Rx: Trelegy Ellipta Ref: 0 Rx: cyclobenzaprine 5 mg tablet Ref: 0 Instructions: take 1 tablet (5 mg) by oral route 3 times per day as needed for muscle spasms Rx: denosumab 60 mg/mL subcutaneous syringe Ref: 0 Instructions: inject 1 milliliter (60 mg) by subcutaneous route every 6 months in the upper arm, upper thigh or abdomen Rx: furosemide 20 mg tablet Ref: 0 Instructions: take 1 tablet (20 mg) by oral route once daily Rx: Hiprex 1 gm Ref: 0 Instructions: twice daily Rx: ketorolac 10 mg tablet Ref: 0 Instructions: take 1 tablet (10 mg) by oral route every 6 hours as needed for up to 5 days total use Rx: Mounjaro 5 mg/0.5 mL subcutaneous pen injector Ref: 0 Instructions: inject 5 mg by subcutaneous route once weekly Rx: baclofen 15 mg tablet Ref: 0 Instructions: take 1 tablet (15 mg) by oral route 3 times per day Rx: naproxen 500 mg tablet Ref: 0 Instructions: take 1 tablet (500 mg) by oral route 2 times per day with food Rx: naproxen sodium 220 mg tablet Ref: 0 Instructions: take 1 tablet (220 mg) by oral route every 12 hours as needed P1 PHYSICAL EXAM: General: AOX3, NAD, Well hydrate, well nourished, in no acute distress HEENT: No lumps or masses Extremities: No color changes, no pooling INTEGUMENT: Appearance: Normal color and turgor Surgical Incisions: N/A Hairy Patches: ABSENT Dorsal Skin Dimples: Normal [employer] spots: ABSENT PALPATION: TTP Midline: NO Paracervical: NO Parathoracic: NO Paralumbar: YES SIJ TESTING (Ludmila's, FABER4, Compression, Distraction, Thigh Thrust, Hip Thrust): TESTED * POSITIVE FINDINGS: NEGATIVE FINDINGS: Ludmila's, FABER4, Compression, Distraction, Thigh Thrust, Hip Thrust POSTURAL BALANCE: Coronal: BALANCED Sagittal: BALANCED Shoulder height: LEVEL Pelvic Girdle: LEVEL ROM AND APPEARANCE: Neck: UNRESTRICTED Lumbar: RESTRICTED with[ pain Shoulders: Symmetrical Hips: Symmetrical Knees: Symmetrical Hands: Symmetrical Feet: Symmetrical VASCULAR STATUS: PALPABLE PULSES B/L UE AND LE 2/4 RAD/ULNAR/DP/PT Edema: NONE NEUROLOGICAL EXAMINATION: Mental Status: Awake, alert, fully oriented with normal attention, concentration, and memory. Fluent appropriate speech. CRANIAL NERVES: I: Olfactory not assessed. II: Visual acuity normal, no visual field deficit noted with confrontation. III, IV: Normal pupillary reflexes & intact extraocular movements without nystagmus. V, : Intact symmetrical facial sensation. VII: Intact symmetrical facial motor movement: Hearing intact. IX, X: Intact gag, swallow, & normal voice. XI: Sternocleidomastoid, trapezius function intact. XII: Tongue midline with normal movements. TENSIONING: * L'HERMITTE'S SIG:NEG SPURLUNG'S SIGN:NEG UPPER EXTREMITY TENSIONING SIGNS: NEG CUBITAL TUNNEL COMPRESSION:NEG TINELS AT WRIST:NEG STRAIGH LEG RAISE:POS CONTRALATERAL STRAIGHT LEG RAISE: NEG MOTOR EXAM (0-5/5, NT) Muscle appearance: Symmetrical, without signs of atrophy or dystrophy UPPER EXTREMITY RIGHT LEFT Shoulder Abduction 5 5 Biceps 5 5 Triceps 5 5 Wrist Extension 5 5 Hand Intrinsics 5 5 Forestry Workers 5 5 LOWER EXTREMITY RIGHT LEFT Hip Flexion 4 4 Knee Extension 4 4 Knee Flexion 4 4 Dorsiflexion 4 4 Plantarflexion 4 4 EHL 4 4 FHL 4 4 REFLEXES (0-4/2, NT): RIGHT LEFT Bicep 2 2 Brachioradialis 2 2 Triceps 2 2 Patellar 2 2 Achilles 2 2 PATHOLOGICAL REFLEXES: RIGHT LEFT LI'S ABSENT ABSENT CLONUS ABSENT ABSENT BABINSKI ABSENT ABSENT RECTAL TONE: INTACT/NT SENSATION (0-4, NT): Sensation intact to LT and Pain * C5-T1 distribution BUE * L2-S2 distribution BLE *Exceptions below* DERMATOMAL DEFICIT/RADICULAR PATTERN: GAIT AND FUNCTIONAL EVALUATION: AMBULATORY AID WALKER ROMBERG'S TEST INTACT HAND AND FINGER DEXTERITY INTACT YES DYSDIADOCHOKINESIA EXAM NEG B/L YES TOE/HEEL WALK INTACT WITH GOOD BALANCE NO SQUAT AND RISE W/O ASSISTANCE TO 60 DEG KNEE FLEXION NO SINGLE LEG STANCE NOT ABLE [place] NEG IMAGING: XRAY Post operative images taken today, 11/30/24, in office are reviewed with patient. Xrays Lumbar (AP, Lateral) with AP pelvis; [facility] hardware in satisfactory position with an L4 vertebral compression fracture demonstrated. CT Date: 12/09/24 Location: [facility] Region: lumbar Contrast: N IMAGES ARE REVIEWED WITH THE PATIENT IN OFFICE AND DEMONSTRATE THE FOLLOWING: FINDINGS: ACUTE L4 VCF 50% COMPRESSION WITH ANTERIOR WEDGING S/P STABILIZAION OF L2 FRACTURE PREVIOUSLY NO OTHER FRACTURES NOTED IMPRESSION: It was my pleasure to have seen and examined Rika. I reviewed the patient's clinical syndrome, physical findings, and imaging studies during the appointment today. It is my impression that the patient has a diagnosis of. 1.L4 VCF 50% 2.Low back pain PLAN: DISCUSSION: -I have discussed with the patient their clinical signs and symptoms, imaging, and treatment options. We have discussed risks, benefits, potential outcomes and natural course as pertains top their issues. The patient understands and would like to proceed as follows below: SURGICAL RECOMMENDATION -L4 KYPHOPLASTY WITH BIOPSY THERAPIES -Cont. with home exercises and home PT exercises as able -Cont. with Heat/Ice as warranted -Cont. with supplementation Vit D, Vit C, Ca2+, High protein diet -OK for massage or other alternative treatment modalities as able. If it exacerbates your sx do not continue ACTIVITY -walk, use walker -no lifting greater than 5lbs -Recommend walking up to 30 min 2x daily on a flat easy surface with good support. -WORK STATUS: N/A MEDICATIONS -RX: Baclofen 15mg #42 and Naproxen 500 BID #60 -Take as directed -Cont. home medications as directed by your PCP. Check with your PCP for any medication interactions or issues if needed. IMAGING -N/A INJECTIONS -N/A Spine Surgery Risk Review Ms. Dover is presenting for evaluation of lumbar pain. It was my pleasure to have seen and examined Ms. Dover. In our visit today we have had a chance to go over subjective complaints, physical examination findings and treatments including the natural course history without intervention and various interventional options. The patients imaging demonstrates: XRAY Post operative images taken today, 11/30/24, in office are reviewed with patient. Xrays Lumbar (AP, Lateral) with AP pelvis; 5 views taken [facility] demonstrates hardware in satisfactory position with an L4 vertebral compression fracture demonstrated. CT Date: 12/09/24 Location: [facility] Region: lumbar Contrast: N IMAGES ARE REVIEWED WITH THE PATIENT IN OFFICE AND DEMONSTRATE THE FOLLOWING: FINDINGS: ACUTE L4 VCF 50% COMPRESSION WITH ANTERIOR WEDGING S/P STABILIZAION OF L2 FRACTURE PREVIOUSLY NO OTHER FRACTURES NOTED On physical exam, Ms. Dover demonstrates: Patient reports an increased of low back pain with an onset of 11/09/24. She denies any injury to indicate her symptoms. In addition to her lumbar pain that radiates into the right lower extremity to her knee. Patient states her symptoms are exacerbated with changing position form sitting to standing. She is currently taking Aleve, Tylenol, and Aspirin for her symptoms. Patient ambulates with a walker. I have explained to the patient that as their condition progresses it will cause further neurological deficits and eventual paralysis. Based on the patients imaging, physical exam, and the rapid progression and disabling nature of their symptoms, at this time I recommend surgery in the form of a: L4 kyphoplasty with biopsy. I discussed the risk and benefits of this procedure at length with Ms. Dover. The patient agreed to considered pursuing the procedure abovementioned. Prior to surgery, she should follow up with her PCP (Cardio, ID, IM etc) for clearance. Questions were invited and answered, and the patient wishes to proceed as outlined below. Currently, I am recommendin.L4 kyphoplasty with biopsy 2.Follow up with PCP for surgical clearance 3.Review of surgical risks and benefits as well as an educational packet on the proposed surgical procedure. Risks: All surgical procedures come with inherent risks, including those related to positioning, anesthesia, intraoperative findings, and postoperative complications. It is important to understand that surgery does not come with any guarantee of a successful outcome as complications and adverse events are always possible. The patient was given a handout in office today discussing the surgical procedure and risks associated with the intervention, both of which were discussed with the patient. These risks include but are not limited to the following: * Experiencing same, different or even worse symptoms in back, neck, arms, or legs compared to before surgery. Requiring further surgery or other forms of treatment presently or at some time in the future at same or other levels of the intended spine surgery. On an extreme but fortunately relatively rare basis severe complication such as blindness, stroke, heart attack, temporary and/or permanent nerve injury, paralysis, coma, or may occur, sometimes without known explanation. Surgical complications may include but are not limited to risk of infection, fluid accumulation in the surgical dissection site, including a seroma or hematoma, that requires additional surgery, wound drainage, bleeding, new numbness or weakness, vision changes/loss, spinal fluid leakage, non-healing and/or infected incision, headaches, difficulty or inability to swallow, hoarseness, hemopneumothorax, pneumothorax, impotence, retrograde ejaculation, vaginal dryness; injury to nerves, spinal cord, blood vessels, lymphatics or other vital organs (i.e., bowel injury, injury to the great vessels); heterotopic bone formation; complications related to the hardware such as screws, rods, cages including misplaced hardware, device failure, instrumentation at the wrong spine level, hardware fracture/breakage, or hardware loosening; vertebral failure of the spinal column above or below the newly placed hardware; retained surgical instrumentations or devices and the n eed for further surgery. * Medical risks of the planned spine surgery include but are not limited to generalized Infections to the whole body or local areas outside of the surgical site (sepsis), heart attack, bleeding, anaphylaxis, meningitis, seizure, epilepsy, hearing loss, burn arteaga, laceration of the head or other areas of the body, bruising, hypersensitivity of the skin, bladder over distension; allergic reaction; shoulder injury related to positioning; fat, blood and air clots to other areas of the body like heart, lungs, brain; failure of internal organs such as lungs, kidneys, liver and excessive bleeding. If blood transfusions are necessary, note that transfusions may cause intolerance reactions such as anaphylaxis or other complex reactions. Despite best efforts, the results of spine surgery might not heal in terms of bone, soft tissues such as skin, fascia, ligaments, and joints. Additionally, in order to achieve best possible results, spine surgery may be carried out beyond the initially planned levels and involve decompression, fusion including insertion of hardware at levels other than the original intended area of surgical interest change some portions of the procedure in order to ensure the best possible outcomes. With spine surgery and spinal fusion, there are different off label uses of instrumentation (devices, implants and hardware) as well as biological substances (bone morphogenic proteins, demineralized bone matrix) as well as using extra bone from allograft sources (i.e. cadaver bone) or autograft (iliac crest bone, ribs, or the spine itself). The patient has been given information about these practices and their inherent risks and benefits. [facility] is an educational center that serves as a training facility for neurosurgical and orthopedic [employer] and Nursing students. Physician assistants are medically trained surgical providers who function in the outpatient, inpatient, and operating room setting under the direct supervision of the attending surgeon. [facility] has multiple operating rooms with single and overlapping rooms running daily. They currently function under the required guidelines as produced by the [facility] Finance Committee with regards to the overlapping rooms and will continue to comply with changes to this policy as they occur. The requirements include and are complied with as follows: (1) the critical portions of the overlapping rooms will not occur at the same time, (2) the attending physician will be physically present during the critical portions of the procedure and immediately available during the entire case, and (3) a back-up attending is designated should the primary attending not be immediately available. The patient has had a chance to review all the listed information, has been given print outs detailing this information, and has had all his/her questions answered to their satisfaction. It was my pleasure to have seen and examined Ms. Dover. In our visit today we have had a chance to go over my understanding of our patient's current condition, the natural course history without intervention and various interventional options. Questions were invited and answered, and the patient wishes to proceed as outlined above. I have seen and examined the patient for 25 minutes and we have spent more than 50% of the time in repeat and detailed counseling about the patient's condition, its natural course history with out and as much as can be predicted with surgery and re-review of various surgical treatment options. In conclusion, Ms. Dover requested we proceed with the above suggested surgery and are willing to accept risks and limitations of the suggested surgery as nature of the disease process and our best attempts at treatment for the condition. MEDICAL NECESSITY NOTE: Ms. Dover, a 54-year-old female, presents with severe lumbar pain (VAS 6/10) and radiating symptoms to the right lower extremity. CT imaging from 12/09/24 demonstrates an acute L4 vertebral compression fracture with 50% compression and anterior wedging, in addition to previous L2 fracture stabilization. The patient's symptoms significantly impact her daily activities, requiring walker assistance for ambulation. Conservative management including NSAIDs and activity modification has failed to provide adequate relief. The progressive nature of her condition, combined with the significant vertebral collapse and potential for further deformity, neurological compromise, and chronic pain, necessitates surgical intervention. SURGICAL RATIONALE: Given the patient's acute L4 vertebral compression fracture with 50% compression and anterior wedging, kyphoplasty with biopsy is indicated to prevent further vertebral collapse, restore vertebral height, and stabilize the fracture. This minimally invasive approach is particularly appropriate given the patient's high BMI (48.60 kg/m2) and comorbidities. The procedure aims to reduce pain, improve functional mobility, prevent progressive deformity, and obtain diagnostic tissue sampling. The biopsy component is crucial to rule out any underlying pathological process contributing to the vertebral fracture. This surgical approach represents the most appropriate intervention to address both the structural compromise and diagnostic requirements while minimizing surgical risks. FOLLOW UP: POST-OP PLAN AT NEXT VISIT: RECHECK PATIENT EDUCATION: Medications Reviewed: YES In our visit today Ms. Dover and I have had a chance to go over my understanding of the patient's current condition, the natural course history without intervention and various interventional options. Questions were invited and answered, and the patient wishes to proceed as outlined above. I will be sure to keep you updated after Ms. Dover returns here for further follow-up. Thank you again for your referral. Please do not hesitate to contact me if you have any further questions. Signed and authenticated by: Sara Nice [facility] [address] [place] [address] . This message is confidential, intended only for the named recipient(s) and may contain information that is privileged or exempt from disclosure under applicable law. If you are not the intended recipient(s), you are notified that the dissemination, distribution or copying of this information is prohibited. If you received this message in error, please notify the sender then delete this message. # SIGNED BY Sara Cooney (O)12/23/2024 01:34PM Past Medical History Past Medical History: Atrial Flutter, Asthma, Cancer, Chest Pain / Angina, Diabetes Mellitus, Hypertension, Supraventricular Tachycardia (SVT), Thyroid Disorder Additional Past Medical History / Comment(s): Hx ovarian cancer 2011, had chemo and then mets to colon received permanent colostomy 03/2021. Psoriatic arthritis, severe osteoporosis. Varicose veins. Atrial flutter and SVT resolved with cardiac ablation. History of Any Multi-Drug Resistant Organisms: MRSA Date of last positivie culture/infection: 2011 MDRO Source:: ABD WOUND Past Surgical History: Back Surgery, Bariatric Surgery, Bowel Resection, Cardiac Ablation, Cholecystectomy, EPS, Heart Catheterization, Hysterectomy, Orthopedic Surgery, Tonsillectomy Additional Past Surgical History / Comment(s): Colostomy March 2021, right foot surgery - hammer toe, lap band-no fluid present, back surgery with screws and rods placed. Past Anesthesia/Blood Transfusion Reactions: No Reported Reaction Additional Past Anesthesia/Blood Transfusion Reaction / Comment(s): No problems with prior blood transfusion. Smoking Status: Never smoker - Past Family History Father Family Medical History: CVA/TIA Additional Family Medical History / Comment(s): Three vessel CABG. Mother Family Medical History: Myocardial Infarction ([place]) Sister(s) Family Medical History: Hypertension Brother(s) Family Medical History: Hypertension Medications and Allergies Home Medications Medication Instructions Recorded Confirmed Type Aspirin 81 mg PO DAILY 06/02/14 01/12/25 History Levothyroxine Sodium [Synthroid] 224 mcg PO DIRECTED 06/02/14 01/12/25 History metFORMIN HCL [Glucophage] 1,000 mg PO BID 06/02/14 01/12/25 History Albuterol Inhaler [Ventolin Hfa 2 puff INHALATION RT-Q4H PRN 12/24/17 01/12/25 History Inhaler] Atorvastatin [Lipitor] 20 mg PO HS 12/24/17 01/12/25 History FLUoxetine HCL [PROzac] 40 mg PO QAM 02/06/19 01/12/25 History Methenamine Hippurate [Hiprex] 1 gm PO BID 06/23/21 01/12/25 History Empagliflozin [Jardiance] 25 mg PO QAM 02/05/22 01/12/25 History Acetaminophen Tab [Tylenol Tab] 1,500 mg PO BID 01/06/25 01/12/25 History Cholecalciferol [Vitamin D3 (125 125 mcg PO DAILY 01/06/25 01/12/25 History Mcg = 5000 Iu)] Fluticasone/Umeclidin/Vilanter 1 puff INHALATION QAM 01/06/25 01/12/25 History [Trelegy Ellipta 200-62.5-25] Furosemide [Lasix] 20 mg PO QAM 01/06/25 01/12/25 History Insulin Degludec [Tresiba] 62 units SQ BID 01/06/25 01/12/25 History Levocetirizine Dihydrochloride 5 mg PO HS 01/06/25 01/12/25 History [Xyzal] Levothyroxine Sodium [Synthroid] 168 mcg PO SA 01/06/25 01/12/25 History Magnesium 400 mg PO HS 01/06/25 01/12/25 History Metoprolol Tartrate [Lopressor] 50 mg PO HS 01/06/25 01/12/25 History Metoprolol Tartrate [Lopressor] 100 mg PO QAM 01/06/25 01/12/25 History Naproxen [Naprosyn] 500 mg PO BID 01/06/25 01/12/25 History Prolia (Unknown Dose) 1 dose SQ [id number] 01/06/25 01/12/25 History Tirzepatide [Mounjaro] 5 mg SQ MO 01/06/25 01/12/25 History lisinopriL 2.5 mg PO QAM 01/06/25 01/12/25 History Allergies Allergy/AdvReac Type Severity Reaction Status Date / Time adhesive tape Allergy Rash/Hives,"paper Verified 01/12/25 06:46 tape is ok" cephalexin [From Keflex] Allergy Rash/Hives Verified 01/12/25 06:46 fosfomycin Allergy severe Verified 01/12/25 06:46 vomiting nickel Allergy blisters Verified 01/12/25 06:46 skin Penicillins Allergy Anaphylaxis Verified 01/12/25 06:46 homatropine AdvReac Chest Pain Verified 01/12/25 06:46 [From Hycodan (with homatropin)] homatropine methylbromide AdvReac Chest Verified 01/12/25 06:46 [From Hycodan (with Pain,rapid homatropin)] heart rate,dizziness hydrocodone bitartrate AdvReac Chest Pain Verified 01/12/25 06:46 [From Hycodan (with homatropin)] promethazine HCl AdvReac dystonic Verified 01/12/25 06:46 [From Phenergan] reaction propafenone HCl AdvReac Chest Pain Verified 01/12/25 06:46 [From Rythmol] pseudoephedrine HCl AdvReac Rapid Verified 01/12/25 06:46 [From Sudafed] Heart Rate Physical Examination Osteopathic Statement: *. No significant issues noted on an osteopathic stru ctural exam other than those noted in the History and Physical/Consult.
[2025-01-12 07:21] LABS: Glucose,Whole Blood 144 mg/dL (70-110)
[2025-01-12] MEDS: GABAPENTIN 300 MG CAP PO PRN (07:23)
[2025-01-12] MEDS: LACTATED RINGERS 1,000 ML IV SCH (07:23)
[2025-01-12] MEDS: ONDANSETRON 4 MG/2 ML VIAL IVP ONE (07:24)
[2025-01-12] MEDS: DEXAMETHASONE SOD PHOSPHATE 4 MG/ML 1 ML VIAL IV ONE (07:24)
[2025-01-12] MEDS: ACETAMINOPHEN TAB 500 MG TAB PO PRN (07:24)
[2025-01-12] MEDS ORDERED: ROCURONIUM 10 MG/ML (5 ML VIAL) IV ONE (07:25)
[2025-01-12] MEDS ORDERED: MIDAZOLAM 2 MG/2 ML VIAL ONE (07:25)
[2025-01-12] MEDS ORDERED: TRANEXAMIC 1,000 MG/100ML-NACL PREMIX BAG ONE (07:25)
[2025-01-12] MEDS ORDERED: NEOSTIGMINE 1 MG/ML 10 ML VIAL ONE (07:25)
[2025-01-12] MEDS ORDERED: fentaNYL (PF) 50 MCG/ML 2 ML AMP ONE (07:25)
[2025-01-12] MEDS ORDERED: LIDOCAINE 1% INJ 10MG/ML (20 ML MDV) ONE (07:25)
[2025-01-12] MEDS ORDERED: PROPOFOL 10 MG/ML 20 ML VIAL IV ONE (07:25)
[2025-01-12] MEDS ORDERED: GLYCOPYRROLATE 0.2 MG/ML 2 ML VIAL ONE (07:25)
[2025-01-12] MEDS ORDERED: SUCCINYLCHOLINE CHLORIDE 200 MG/10 ML VIAL IV ONE (07:25)
[2025-01-12] MEDS: ceFAZolin 3 GM in SODIUM CHLORIDE 0.9% 100 ML IVPB PRN (07:30)
[2025-01-12] MEDS: BUPIVACAINE (PF) 0.5% 30 ML VIAL SQ ONE (07:57)
[2025-01-12] MEDS: LIDOCAINE 2%-EPI 1:100,000 20 ML VIAL SQ ONE (07:57)
[2025-01-12] MEDS: IOPAMIDOL M200 10 ML VIAL MISCELLANE ONE (08:04)
--- NOTE | 2025-01-12 08:29 | FL ---
EXAMINATION TYPE: FL guidance operating room, XR lumbar spine 2 or 3V DATE OF EXAM: 01/12/2025 CLINICAL INDICATION: Female, 54 years old with history of LUMBAR FRACTURE, back pain. TECHNIQUE: Fluoroscopy. Intraoperative 2 views lumbar spine. COMPARISON: CT lumbar spine December 09, 2024. FINDINGS: Fluoroscopic guidance was provided during L4 kyphoplasty procedure performed by Dr. Dacia harrison. A total of 72 seconds of fluoroscopic time was utilized during the procedure and 7 spot images was acquired. Intraoperative images acquired show placement of vertebroplasty at L4 level. Extensive surgical vargas e above this is partially imaged. TOTAL DAP = 51.097 Gycm2. IMPRESSION: As Above. [facility], , 01/12/2025 8:27 AM
--- NOTE | 2025-01-12 08:29 | P.OP ---
Date of Procedure: 01/12/25 Preoperative Diagnosis: 1. L4 VCF, 40% WEDGE COMPRESSION WITH SPLIT 2. S/P FFS 3. OSTEOPOROSIS-TREATED WITH PTH HORMONAL TREATENTS 4. LOW BACK PAIN Postoperative Diagnosis: 1. L4 VCF, 40% WEDGE COMPRESSION WITH SPLIT 2. S/P FFS 3. OSTEOPOROSIS-TREATED WITH PTH HORMONAL TREATENTS 4. LOW BACK PAIN Procedure(s) Performed: 1. L4 KYPHOPLSATY WITH BIOPSY Implants: YVAN CEMENT Anesthesia: GETA Surgeon: Juan Oquendo Hand Blocker #1: Donaldo Geller (was present and assisted with all aspects of the case from position to dressing placement) Estimated Blood Loss (ml): 10 IV fluids (ml): 1,000 Urine output (ml): 0 Pathology: other (L4 vertebral body) Condition: stable Disposition: PACU Indications for Procedure: Ms. Rika Dover, a 54-year-old female on disability, presented to [facility] on 12/22/24 for follow-up evaluation of lumbar spine pain and CT scan results. The patient reports increased low back pain with radiation to the right lower extremity to knee level, onset 11/09/24, exacerbated by positional changes. Physical examination revealed paralumbar tenderness, restricted lumbar ROM with pain, and positive straight leg raise test. Imaging studies demonstrate an acute L4 vertebral compression fracture with 50% compression and anterior wedging, with previous L2 fracture stabilization. Due to the progressive nature of symptoms and imaging findings, surgical intervention with L4 kyphoplasty with biopsy was recommended. She is cleared for surgery today. Description of Procedure: L4 KYPHOPLASTY WITH BIOPSTY The patient was seen and examined in the preoperative area. All preoperative protocols were followed. Informed consent was obtained, risks and benefits of the procedure were discussed at length. Risks including bleeding infection damage to the surrounding tissue and risk of reoperation were discussed with the patient. Risk of anesthesia up to and including was discussed with the patient. These are outlined in the risk review. They were willing to accept these risks and all the risks of surgery. The patient was given a weight-based dose of antibiotics in the form of 2 g Ancef. The patient was seen and evaluated by the anesthesia team who deemed them fit for surgery. The site was marked, the patient was willing to proceed with the procedure. The patient was transferred to the operative suite by the Department of anesthesia. They were then drifted off to sleep by the department anesthesia and GETA was performed. The patient tolerated this well. Once confirmation of lines and ventilation the patient was transferred to a prone Hong table very carefully. All bony prominences including wrists, elbows, axilla, chest, hips, and thighs, and feet were padded very well. Special attention was paid to the genitalia, and these were padded accordingly. SCDs were placed on bilateral lower extremities and were connected. Arms were well padded and placed on arm boards up and out in the 90/90 position. Once in position, again we confirmed good ventilation capabilities and that lines were running appropriately. The patients Lumbar spine was then exposed. 1010s were placed outlining the incision site. Standard alcohol was used to clean the incision site and allowed to dry. C-arm was used to needle localize the pedicles at L4 and bio-richelle the patient and confirm level for incision which was marked with a skin marker. Operative briefing was performed with all teams and everyone in agreement to proceed. The patient was then prepped and draped in a normal sterile fashion. Timeout was then performed, and all parties agreed with the procedure to be performed. Skin fiona was made. Jamshitdi was passed into the L4 vertebral body via the pedicle. This was done with biplane fluoroscopy. Once in good position in the body the trochar is removed. Biopsy needle was passed into the body and a biopsy was taken. Drill was then passed and biopsy material taken from drill as well. Curette then used to reduce endplate and create more space. Balloon was then passed an inflated which showed good reduction of endplate on AP and Lateral and confirmed central placement. The cement was then placed and pt remained stable. Good fill of cement was seen without extravasation. Once good fill, the Jamshedi was removed and the wound irrigated. The skin was closed with a simple stitch and dressed with a bandaid. The patient was then transferred off the table back to their hospital bed a- traumatically. They were extubated by the department of anesthesia. They were then transferred to PACU in stable condition having tolerated the procedure with no complications.
[2025-01-12 09:25] LABS: Glucose,Whole Blood 172 mg/dL (70-110)
[2025-01-12] MEDS: HYDROmorphone 0.5 MG/0.5 ML SYRINGE IVP STA (09:33)
[2025-01-12 10:14] VITALS: BP 102/59; PULSE 87; RESP 17
== END 2025-01-12 11:03 | disposition home or self-care (01) ==
LOC: OR 06:10
PROVIDERS: ATTEND Orthopaedic Surgery
DX: S32.048A Other fracture of fourth lumbar vertebra, initial encounter for closed fracture (principal); M80.08XA Age-related osteoporosis with current pathological fracture, vertebra(e), initial encounter for fracture; J45.909 Unspecified asthma, uncomplicated; I47.10 Supraventricular tachycardia, unspecified; I10 Essential (primary) hypertension; E11.9 Type 2 diabetes mellitus without complications; E66.01 Morbid (severe) obesity due to excess calories; Z85.43 Personal history of malignant neoplasm of ovary; Z68.42 Body mass index [BMI] 45.0-49.9, adult; Z93.3 Colostomy status; Z71.82 Exercise counseling; Z82.49 Family history of ischemic heart disease and other diseases of the circulatory system; Z82.3 Family history of stroke; Z90.710 Acquired absence of both cervix and uterus; Z90.49 Acquired absence of other specified parts of digestive tract; Z88.8 Allergy status to other drugs, medicaments and biological substances; Z88.1 Allergy status to other antibiotic agents; Z88.0 Allergy status to penicillin; Z79.1 Long term (current) use of non-steroidal anti-inflammatories (NSAID); Z79.84 Long term (current) use of oral hypoglycemic drugs; Z79.4 Long term (current) use of insulin; Z79.51 Long term (current) use of inhaled steroids; Z79.82 Long term (current) use of aspirin; Z79.899 Other long term (current) drug therapy; X58.XXXA Exposure to other specified factors, initial encounter
CPT/HCPCS: 22514; 72100; J2250; J0330; J1100; J2710; J0690; J2405; J2003; J3010; J2704; J1171; Q9966; J0665; J1596; 88307; 88311; 88341; 88342